=== PATIENT | female | born 1965 | race Caucasian/White ===

== ENCOUNTER → 2018-04-16 15:12 | Outpatient (CLI) | payer OTHER, MEDICAID, SELFPAY ==
--- NOTE | 2018-04-16 | DI.MG.S_ITS ---
BILATERAL DIGITAL SCREENING MAMMOGRAM 3D/2D WITH CAD: 04/16/2018 CLINICAL: Routine screening. Comparison is made to exams dated: 10/09/2016 mammogram, 05/13/2013 mammogram, and 06/15/2011 mammogram - [facility]. The tissue of both breasts is heterogeneously dense. This may lower the sensitivity of mammography. Current study was also evaluated with a Computer Aided Detection (CAD) system. There is a mole marker on the right breast. No significant masses, calcifications, or other findings are seen in either breast. There has been no significant interval change. IMPRESSION: NEGATIVE There is no mammographic evidence of malignancy. A 1 year screening mammogram is recommended. This exam was interpreted at Station ID: [id number]. NOTE: For mammograms, a report in lay terms will be sent to the patient. Approximately 15% of breast malignancies will not be visualized mammographically. In the management of a palpable breast mass, a negative mammogram must not discourage biopsy of a clinically suspicious lesion. Electronically Signed By: Osorio murphy/oliva:04/17/2018 00:05:32 letter sent: Normal Exam ACR BI-RADS Category 1: Negative [id number]
== END ==
PROVIDERS: PCP Family Medicine; Visit Provider Family Medicine
DX: Z12.31 Encounter for screening mammogram for malignant neoplasm of breast (principal)
CPT/HCPCS: 77063; 77067

== ENCOUNTER 2018-05-09 10:08 | Emergency (ER) | payer OTHER, MEDICAID, SELFPAY ==
[2018-05-09 10:44] VITALS: BP 119/63; PULSE 69; RESP 16; O2SAT 99
--- NOTE | 2018-05-09 11:21 | DI.RAD.S_ITS ---
PROCEDURE: XR CHEST 2V INDICATIONS: cough, fever, cold sx TECHNIQUE: 2 views of the chest were acquired. COMPARISON: None. FINDINGS: Surgical changes and devices: None. Lungs and pleura: No pleural effusions or pneumothorax. Lungs are clear. Mediastinum: Mediastinal contours are normal. Heart size is normal. Bones and chest wall: No suspicious bony abnormalities. Soft tissues appear unremarkable. IMPRESSION: No acute disease. Dictated by: Charles Henry M.D. on 05/09/2018 at 11:41 Approved by: Charles Henry M.D. on 05/09/2018 at 11:42
--- NOTE | 2018-05-09 11:29 | ED.URI ---
HPI - URI/Sore Throat General Chief Complaint: Upper Respiratory Symptoms Stated Complaint: COLD/FLU SYMPTOMS? Time Seen by Provider: 05/09/18 11:00 Source: patient Mode of arrival: ambulatory Limitations: no limitations History of Present Illness HPI Narrative: 52-year-old female, former smoker presents to the emergency department with a chief complaint upper respiratory type symptoms for greater than 1 week. She has had runny nose, cough, ear pain and had some loose stools yesterday and an episode of vomiting this morning. She is able to drink liquids without any difficulty. She denies any chest pain or shortness of breath. She denies any fever or shaking chills. She denies dizziness, weakness or lightheadedness. She admittedly feels better than she has in the past few days but is surprised that her symptoms are holding on so long. MD Complaint: cough, sore throat, rhinorrhea and nasal congestion Onset (ago): day(s) Duration: constant Severity: moderate Relieving factors: nothing Able to tolerate fluids by mouth: Yes Context: sick contacts Associated symptoms: denies other symptoms Treatments prior to arrival: none Related Data Previous Rx's Medication Instructions Recorded venlafaxine [Effexor XR] 37.5 mg PO QDAY #90 cap 09/18/17 glimepiride 2 mg PO QDAY #30 tab 10/04/17 estradiol 0.5 mg tablet 0.5 mg PO QDAYP PRN #90 tab 12/12/17 atorvastatin 20 mg tablet 20 mg PO HS #90 tab 12/17/17 ondansetron [Zofran ODT] 4 mg PO Q6H PRN #14 tab 05/09/18 Allergies Allergy/AdvReac Type Severity Reaction Status Date / Time latex [LATEX] Allergy Severe hives Verified 05/03/18 09:53 adhesive [ADHESIVE] AdvReac Mild rash from Verified 05/03/18 09:53 tape morphine [MORPHINE] AdvReac Mild gi upset Verified 05/03/18 09:53 Sulfa (Sulfonamide AdvReac Mild gi upset Verified 05/03/18 09:53 Antibiotics) [SULFA (SULFONAMIDE ANTIBIOTICS)] Review of Systems Review of Systems All systems reviewed & are unremarkable except as noted in HPI and below Constitutional Denies chills, Denies fever(s), Denies lethargy and Denies weakness Eyes Denies change in vision, Denies eye discharge, Denies irritation and Denies loss of vision ENT Ears, Nose, Mouth, and Throat: Denies change in voice, Denies neck pain and Denies sore throat Cardiovascular Denies chest pain, Denies irregular heart rhythm, Denies lightheadedness, Denies palpitations, Denies dyspnea, Denies dyspnea on exertion and Denies orthopnea Respiratory Denies cough, Denies dyspnea, Denies dyspnea on exertion and Denies wheezing Gastrointestinal Gastrointestinal: Denies abdominal pain, Denies change in bowel habits, Denies diarrhea, Denies nausea and Denies vomiting Genitourinary Denies hematuria, Denies flank pain, Denies urinary incontinence and Denies urinary urgency Musculoskeletal Denies neck pain Integumentary/Breasts Denies pruritus, Denies erythema, Denies rash and Denies wounds Neurologic Denies confusion, Denies loss of vision and Denies weakness Psychiatric Denies anxiety, Denies confusion, Denies depression, Denies homicidal ideation and Denies suicidal ideation Endocrine Denies palpitations Hematologic/Lymphatic Denies easy bruising Allergic/Immunologic Denies wheezing PFSH Surgical History Status post laparoscopic supracervical hysterectomy Family History Father Diabetes mellitus Coronary arteriosclerosis Hyperlipidemia Mother Colon cancer Social History Smoking Status: Never smoker Exam Narrative Exam Narrative: GENERAL: This is a well-nourished, well-developed patient, in mild distress. HEAD: Atraumatic. Normocephalic. No temporal or scalp tenderness. EYES: Pupils equal round and reactive. Extraocular motions intact. No scleral icterus. No injection or drainage. ENT: clear nasal drainage. Throat without erythema, tonsillar hypertrophy or exudate. Uvula midline. Airway patent. NECK: Trachea midline. No JVD or lymphadenopathy. Supple, nontender, no meningeal signs. CARDIOVASCULAR: Regular rate and rhythm without murmurs, gallops, or rubs. RESPIRATORY: Clear to auscultation. Breath sounds equal bilaterally. No wheezes, rales, or rhonchi. GASTROINTESTINAL: Abdomen soft, non-tender, nondistended. No hepato-splenomegaly, or palpable masses. No guarding. EXTREMITIES: No clubbing, cyanosis, or edema. No joint tenderness, effusion, or edema noted. BACK: Nontender without deformity or crepitance. No flank tenderness. NEURO: AOx3. SKIN: No rash or erythema. Initial Vital Signs Initial Vital Signs: Vital Signs Pulse Rate 69 05/09/18 10:44 Respiratory Rate 16 05/09/18 10:44 Blood Pressure 119/63 05/09/18 10:44 Pulse Oximetry 99 05/09/18 10:44 Course Orders Ordered: ED Orders 05/09/18 11:21 CXR [XR chest 2V] Stat 05/09/18 11:26 Influenza A and B by PCR Rapid Stat Vital Signs - 8 hr 05/09/18 10:44 Pulse Rate 69 Respiratory Rate 16 Blood Pressure 119/63 Pulse Oximetry 99 MDM - URI/Sore Throat Differential Diagnosis Differential diagnosis: Likely upper respiratory infection, otitis media, sinusitis, viral infection, bronchitis, influenza and pharyngitis Medical Records Attestation: I reviewed the patient's medical records. Lab Data Attestation: I reviewed the patient's lab results. Lab Results 05/09/18 Range/Units 11:26 Influenza A & B (PCR) Negative (Negative) Imaging Data Chest x-ray: Radiologist's impression: [place] [address] XRay Report Signed Patient: Ange Armenta LMR#: [id number] : 1965Acct:[id number] Age/Sex: 52 / FDate of Service: 05/09/18 Loc: ED Accession Number: [id number] Procedure: XR chest 2V Ordering Provider: Poncho Keith D.O. PROCEDURE: XR CHEST 2V INDICATIONS: cough, fever, cold sx TECHNIQUE: 2 views of the chest were acquired. COMPARISON: None. FINDINGS: Surgical changes and devices: None. Lungs and pleura: No pleural effusions or pneumothorax. Lungs are clear. Mediastinum: Mediastinal contours are normal. Heart size is normal. Bones and chest wall: No suspicious bony abnormalities. Soft tissues appear unremarkable. IMPRESSION: No acute disease. Dictated by: Charles Henry M.D. on 05/09/2018 at 11:41 Approved by: Charles Henry M.D. on 05/09/2018 at 11:42 [facility] Narrative Medical decision making narrative: Likely discussion with the patient regarding her constellation of symptoms and the likelihood of it being viral versus another etiology. She is feeling better and has normal vital signs. Chest x-ray is clear and was suggests no pneumonia, flu swab is also negative. We discussed whether not blood work would provide information that would change the disposition and I think it is very unlikely. Furthermore the patient is tolerating oral liquids without difficulty and refused an IV for hydration at this point time. I support this decision Discharge Plan Departure Patient Disposition: Home Clinical Impression: Systemic viral illness Discharge Date/Time: 05/09/18 12:13 Interventions: ED Discharge Assessment Last Done: 05/09/18 12:07 Instructions: DI for Viral Syndrome Activity Restrictions/Additional Instructions: 1. Drink plenty of fluids with frequent small sips. 2. For the next 24 hours a clear liquid diet is advised. After that please employ a brat diet which would include bananas, rice, apples, toast. 3. Please take medications as directed. Electronically transmitted to [facility] at your request 4. Please follow-up with your doctor in the next 1-2 days. Call the office for an appointment. 5. Please return to the emergency Department for any worsening or persistent symptoms, such as increasing pain or fever. Prescriptions: New ondansetron [Zofran ODT] 4 mg tablet,disintegrating 4 mg PO Q6H PRN (Reason: nausea and vomiting) Qty: 14 RF: 0 No Action venlafaxine [Effexor XR] 37.5 MG capsule,extended release 24hr 37.5 mg PO QDAY Qty: 90 RF: 3 glimepiride 2 MG tablet 2 mg PO QDAY Qty: 30 RF: 11 estradiol 0.5 mg tablet 0.5 mg PO QDAYP PRN (Reason: HRT) Qty: 90 RF: 3 atorvastatin [Lipitor] 20 mg tablet 20 mg PO HS Qty: 90 RF: 0 Referrals: Juan Luis Yao MD [Primary Care Provider] - Stand Alone Forms: Work/School Restrictions
[2018-05-09 11:56] LABS: Influenza A and B by PCR Rapid Negative (Negative)
[2018-05-09 12:12] VITALS: BP 125/76; PULSE 67; RESP 20; O2SAT 97
--- NOTE | 2018-05-09 20:24 | ED_ITS ---
HPI - URI/Sore Throat General Chief Complaint: Upper Respiratory Symptoms Stated Complaint: COLD/FLU SYMPTOMS? Time Seen by Provider: 05/09/18 11:00 Source: patient Mode of arrival: ambulatory Limitations: no limitations History of Present Illness HPI Narrative: 52-year-old female, former smoker presents to the emergency department with a chief complaint upper respiratory type symptoms for greater than 1 week. She has had runny nose, cough, ear pain and had some loose stools yesterday and an episode of vomiting this morning. She is able to drink liquids without any difficulty. She denies any chest pain or shortness of breath. She denies any fever or shaking chills. She denies dizziness, weakness or lightheadedness. She admittedly feels better than she has in the past few days but is surprised that her symptoms are holding on so long. MD Complaint: cough, sore throat, rhinorrhea and nasal congestion Onset (ago): day(s) Duration: constant Severity: moderate Relieving factors: nothing Able to tolerate fluids by mouth: Yes Context: sick contacts Associated symptoms: denies other symptoms Treatments prior to arrival: none Related Data Previous Rx's Medication Instructions Recorded venlafaxine [Effexor XR] 37.5 mg PO QDAY #90 cap 09/18/17 glimepiride 2 mg PO QDAY #30 tab 10/04/17 estradiol 0.5 mg tablet 0.5 mg PO QDAYP PRN #90 tab 12/12/17 atorvastatin 20 mg tablet 20 mg PO HS #90 tab 12/17/17 ondansetron [Zofran ODT] 4 mg PO Q6H PRN #14 tab 05/09/18 Allergies Allergy/AdvReac Type Severity Reaction Status Date / Time latex [LATEX] Allergy Severe hives Verified 05/03/18 09:53 adhesive [ADHESIVE] AdvReac Mild rash from Verified 05/03/18 09:53 tape morphine [MORPHINE] AdvReac Mild gi upset Verified 05/03/18 09:53 Sulfa (Sulfonamide AdvReac Mild gi upset Verified 05/03/18 09:53 Antibiotics) [SULFA (SULFONAMIDE ANTIBIOTICS)] Review of Systems Review of Systems All systems reviewed & are unremarkable except as noted in HPI and below Constitutional Denies chills, Denies fever(s), Denies lethargy and Denies weakness Eyes Denies change in vision, Denies eye discharge, Denies irritation and Denies loss of vision ENT Ears, Nose, Mouth, and Throat: Denies change in voice, Denies neck pain and Denies sore throat Cardiovascular Denies chest pain, Denies irregular heart rhythm, Denies lightheadedness, Denies palpitations, Denies dyspnea, Denies dyspnea on exertion and Denies orthopnea Respiratory Denies cough, Denies dyspnea, Denies dyspnea on exertion and Denies wheezing Gastrointestinal Gastrointestinal: Denies abdominal pain, Denies change in bowel habits, Denies diarrhea, Denies nausea and Denies vomiting Genitourinary Denies hematuria, Denies flank pain, Denies urinary incontinence and Denies urinary urgency Musculoskeletal Denies neck pain Integumentary/Breasts Denies pruritus, Denies erythema, Denies rash and Denies wounds Neurologic Denies confusion, Denies loss of vision and Denies weakness Psychiatric Denies anxiety, Denies confusion, Denies depression, Denies homicidal ideation and Denies suicidal ideation Endocrine Denies palpitations Hematologic/Lymphatic Denies easy bruising Allergic/Immunologic Denies wheezing PFSH Surgical History Status post laparoscopic supracervical hysterectomy Family History Father Diabetes mellitus Coronary arteriosclerosis Hyperlipidemia Mother Colon cancer Social History Smoking Status: Never smoker Exam Narrative Exam Narrative: GENERAL: This is a well-nourished, well-developed patient, in mild distress. HEAD: Atraumatic. Normocephalic. No temporal or scalp tenderness. EYES: Pupils equal round and reactive. Extraocular motions intact. No scleral icterus. No injection or drainage. ENT: clear nasal drainage. Throat without erythema, tonsillar hypertrophy or exudate. Uvula midline. Airway patent. NECK: Trachea midline. No JVD or lymphadenopathy. Supple, nontender, no meningeal signs. CARDIOVASCULAR: Regular rate and rhythm without murmurs, gallops, or rubs. RESPIRATORY: Clear to auscultation. Breath sounds equal bilaterally. No wheezes , rales, or rhonchi. GASTROINTESTINAL: Abdomen soft, non-tender, nondistended. No hepato-splenomegaly , or palpable masses. No guarding. EXTREMITIES: No clubbing, cyanosis, or edema. No joint tenderness, effusion, or edema noted. BACK: Nontender without deformity or crepitance. No flank tenderness. NEURO: AOx3. SKIN: No rash or erythema. Initial Vital Signs Initial Vital Signs: Vital Signs Pulse Rate 69 05/09/18 10:44 Respiratory Rate 16 05/09/18 10:44 Blood Pressure 119/63 05/09/18 10:44 Pulse Oximetry 99 05/09/18 10:44 Course Orders Ordered: ED Orders 05/09/18 11:21 CXR [XR chest 2V] Stat 05/09/18 11:26 Influenza A and B by PCR Rapid Stat Vital Signs - 8 hr 05/09/18 10:44 Pulse Rate 69 Respiratory Rate 16 Blood Pressure 119/63 Pulse Oximetry 99 MDM - URI/Sore Throat Differential Diagnosis Differential diagnosis: Likely upper respiratory infection, otitis media, sinusitis, viral infection, bronchitis, influenza and pharyngitis Medical Records Attestation: I reviewed the patient's medical records. Lab Data Attestation: I reviewed the patient's lab results. Lab Results 05/09/18 Range/Units 11:26 Influenza A & B (PCR) Negative (Negative) Imaging Data Chest x-ray: Radiologist's impression: [place] [address] XRay Report Signed Patient: Ange Armenta LMR#: [id number] : 1965Acct:[id number] Age/Sex: 52 / FDate of Service: 05/09/18 Loc: ED Accession Number: [id number] Procedure: XR chest 2V Ordering Provider: Poncho Keith D.O. PROCEDURE: XR CHEST 2V INDICATIONS: cough, fever, cold sx TECHNIQUE: 2 views of the chest were acquired. COMPARISON: None. FINDINGS: Surgical changes and devices: None. Lungs and pleura: No pleural effusions or pneumothorax. Lungs are clear. Mediastinum: Mediastinal contours are normal. Heart size is normal. Bones and chest wall: No suspicious bony abnormalities. Soft tissues appear unremarkable. IMPRESSION: No acute disease. Dictated by: Charles Henry M.D. on 05/09/2018 at 11:41 Approved by: Charles Henry M.D. on 05/09/2018 at 11:42 [facility] Narrative Medical decision making narrative: Likely discussion with the patient regarding her constellation of symptoms and the likelihood of it being viral versus another etiology. She is feeling better and has normal vital signs. Chest x- ray is clear and was suggests no pneumonia, flu swab is also negative. We discussed whether not blood work would provide information that would change the disposition and I think it is very unlikely. Furthermore the patient is tolerating oral liquids without difficulty and refused an IV for hydration at this point time. I support this decision Discharge Plan Departure Patient Disposition: Home Clinical Impression: Systemic viral illness Discharge Date/Time: 05/09/18 12:13 Interventions: ED Discharge Assessment Last Done: 05/09/18 12:07 Instructions: DI for Viral Syndrome Activity Restrictions/Additional Instructions: 1. Drink plenty of fluids with frequent small sips. 2. For the next 24 hours a clear liquid diet is advised. After that please employ a brat diet which would include bananas, rice, apples, toast. 3. Please take medications as directed. Electronically transmitted to [facility] at your request 4. Please follow-up with your doctor in the next 1-2 days. Call the office for an appointment. 5. Please return to the emergency Department for any worsening or persistent symptoms, such as increasing pain or fever. Prescriptions: New ondansetron [Zofran ODT] 4 mg tablet,disintegrating 4 mg PO Q6H PRN (Reason: nausea and vomiting) Qty: 14 RF: 0 No Action venlafaxine [Effexor XR] 37.5 MG capsule,extended release 24hr 37.5 mg PO QDAY Qty: 90 RF: 3 glimepiride 2 MG tablet 2 mg PO QDAY Qty: 30 RF: 11 estradiol 0.5 mg tablet 0.5 mg PO QDAYP PRN (Reason: HRT) Qty: 90 RF: 3 atorvastatin [Lipitor] 20 mg tablet 20 mg PO HS Qty: 90 RF: 0 Referrals: Juan Luis Yao MD [Primary Care Provider] - Stand Alone Forms: Work/School Restrictions
== END 2018-05-09 12:13 | disposition home or self-care (01) ==
PROVIDERS: Emergency Provider Emergency Medicine; PCP Family Medicine
DX: B34.9 Viral infection, unspecified (principal)
CPT/HCPCS: 71046; 87400; 99282; 99284

== ENCOUNTER 2018-07-16 06:48 | Emergency (ER) | payer OTHER, MEDICAID, SELFPAY ==
[2018-07-16 06:58] VITALS: BP 131/75; PULSE 73; RESP 20; TEMP 36.6; O2SAT 95; BMI 25.6
--- NOTE | 2018-07-16 07:17 | ED.CHESTPAIN ---
HPI - Chest Pain General Chief Complaint: Chest Pain Stated Complaint: tight chest left arm pain Time Seen by Provider: 07/16/18 07:03 Source: patient Mode of arrival: ambulatory Limitations: no limitations History of Present Illness HPI narrative: Patient is a 53-year-old female who has history of diabetes and hyperlipidemia and presents with chest pain and left arm pain ongoing for number of weeks. She says her arm is pretty constant with pain. It does not hurt with movement. Last 2 or 3 days she feels some chest tightness like she cannot take a deep breath. She does feel like she has exhaling all the way. She denies any shortness of breath or heart palpitations. She denies any fever productive cough. She is worried because her dad did of an RI at the age of 52. MD complaint: chest pain Onset (ago): day(s) Related Data Previous Rx's Medication Instructions Recorded venlafaxine [Effexor XR] 37.5 mg PO QDAY #90 cap 09/18/17 glimepiride 2 mg PO QDAY #30 tab 10/04/17 estradiol 0.5 mg tablet 0.5 mg PO QDAYP PRN #90 tab 12/12/17 atorvastatin 20 mg tablet 20 mg PO HS #90 tab 12/17/17 ondansetron [Zofran ODT] 4 mg PO Q6H PRN #14 tab 05/09/18 Allergies Allergy/AdvReac Type Severity Reaction Status Date / Time latex [LATEX] Allergy Severe hives Verified 05/03/18 09:53 adhesive [ADHESIVE] AdvReac Mild rash from Verified 05/03/18 09:53 tape morphine [MORPHINE] AdvReac Mild gi upset Verified 05/03/18 09:53 Sulfa (Sulfonamide AdvReac Mild gi upset Verified 05/03/18 09:53 Antibiotics) [SULFA (SULFONAMIDE ANTIBIOTICS)] Review of Systems Review of Systems All systems reviewed & are unremarkable except as noted in HPI and below Constitutional Denies chills, Denies fever(s), Denies lethargy and Denies weakness Cardiovascular Reports as per HPI, Reports chest pain and Denies dyspnea Respiratory Denies chest congestion, Denies cough, Denies pain with cough, Denies dyspnea and Denies wheezing Gastrointestinal Gastrointestinal: Denies abdominal pain, Denies change in bowel habits, Denies diarrhea, Denies nausea and Denies vomiting Genitourinary Denies hematuria, Denies flank pain, Denies urinary incontinence and Denies urinary urgency Musculoskeletal Denies back pain, Denies muscle weakness, Denies numbness and Denies tingling Integumentary/Breasts Denies pruritus, Denies erythema, Denies rash and Denies wounds Neurologic Denies numbness, Denies tingling and Denies weakness Allergic/Immunologic Denies wheezing PFSH Medical History Diabetes (Chronic) Hyperlipidemia (Chronic) Surgical History Status post laparoscopic supracervical hysterectomy Family History Father Diabetes mellitus Coronary arteriosclerosis Hyperlipidemia Mother Colon cancer Social History Smoking Status: Never smoker Exam Initial Vital Signs Initial Vital Signs: Vital Signs Temperature 97.8 F 07/16/18 06:58 Pulse Rate 73 07/16/18 06:58 Respiratory Rate 20 07/16/18 06:58 Blood Pressure 131/75 07/16/18 06:58 Pulse Oximetry 95 07/16/18 06:58 GENERAL: Well-appearing middle-aged female no acute distress HEENT: Head atraumatic,EOMI, pupils reactive, face symmetric, neck is supple CARDIOVASCULAR: Regular rate and rhythm without murmurs, rubs or gallops. RESPIRATORY: Breath sounds equal bilaterally, no wheezes rales or rhonchi. ABDOMEN: Soft, nontender. Normoactive bowel sounds all 4 quadrants. No guarding or rebound. EXTREMITIES: Normal range of motion, no clubbing or edema. Neurovascularly intact NEUROLOGICAL: Alert and oriented x4.Normal gait and speech. Cranial nerves II through XII grossly intact. SKIN: Warm, dry, no laceration, no petechiae, no rashes or lesions. Course Orders Ordered: ED Orders 07/16/18 07:15 Complete Blood Count AUTO DIFF Stat Comprehensive Metabolic Panel Stat Lipase Stat Troponin & CK Cardiac Panel Stat 07/16/18 07:26 XR chest 1V Stat EKG-12 Lead Stat Discontinued Medications Albuterol (Ventolin) 2.5 mg INH NOW ONE Stop: 07/16/18 07:27 Last Admin: 07/16/18 07:53 Dose: 2.5 mg Aspirin (Aspirin Chew) 324 mg PO NOW ONE Stop: 07/16/18 07:27 Last Admin: 07/16/18 07:50 Dose: 324 mg Vital Signs - 8 hr 07/16/18 06:58 07/16/18 07:53 07/16/18 08:36 Temperature 97.8 F Pulse Rate 73 71 87 Respiratory Rate 20 22 12 Blood Pressure 131/75 Blood Pressure [Right Arm] 124/63 Pulse Oximetry 95 93 96 MDM - Chest Pain Lab Data Attestation: I reviewed the patient's lab results. Result diagrams: 07/16/18 07:15 07/16/18 07:15 Lab Results 07/16/18 07/16/18 Range/Units 07:15 07:15 WBC 8.7 (4.5-11.0) X10^3/uL RBC 5.05 (4.0-5.2) X10^6/uL Hgb 15.2 (12.0-16.0) g/dL Hct 43.4 (36-46) % MCV 85.9 (80-100) fL MCH 30.0 (26-34) PG MCHC 35.0 (30-36) % RDW 12.8 (11.6-14.8) % Plt Count 309 (150-400) X10^3/uL Neut % (Auto) 60.2 (50-75) % Lymph % (Auto) 31.0 (25-40) % [place] % (Auto) 5.5 (3-14) % Eos % (Auto) 2.6 (2-4) % Baso % (Auto) 0.7 (0-2) % Neut # (Auto) 5200 (8076-9553) /uL Sodium 140 (137-145) mmol/L Potassium 4.4 (3.4-5.1) mmol/L Chloride 106 (98-107) mmol/L Carbon Dioxide 24 (22-32) mmol/L BUN 13 (7-17) mg/dL Creatinine 0.50 L (0.52-1.04) mg/dL Estimated GFR > 60.0 (>60) mL/min BUN/Creatinine Ratio 26.0 H (6-22) Glucose 183 H (70-100) mg/dL Calcium 9.9 (8.4-10.2) mg/dL Total Bilirubin 0.9 (0.2-1.3) mg/dL AST 48 H (14-36) IU/L ALT 65 H (9-52) IU/L Alkaline Phosphatase 99 (38-126) U/L Total Creatine Kinase 241 H (30-135) U/L CK-MB (CK-2) 5.96 H (<2.37) ng/mL CK-MB (CK-2) Rel Index 2.5 (1.5-5.0) % Troponin I < 0.012 (0.01-0.034) ng/mL Total Protein 6.6 (6.3-8.2) g/dL Albumin 4.1 (3.5-5.0) g/dL Globulin 2.5 (1.7-4.1) g/dL Albumin/Globulin Ratio 1.6 (1.0-2.8) Lipase 76 (23-300) U/L ECG Data Attestation: I personally reviewed and interpreted this ECG as follows: Prior ECG tracings: available for review Interpretation: EKG 1.: Sinus rhythm rate 63 left bundle branch block noted similar to previous EKG 1st degree AV block KS interval 210 EKG 2.: Sinus rhythm rate 60 a persistent left bundle branch block persistent 1st degree AV block KS interval 212 MDM Narrative Medical decision making narrative: Patient really had no change with albuterol. Feels like her chest tightness is still a developed 2. I called and spoke with Dr. Yao. She does have an appointment today at 3:30 a.m.. Recommended outpatient stress test. He will be happy to set that up for her recommend keeping her appointment. Discharge Plan Departure Patient Disposition: Home Clinical Impression: Atypical chest pain Discharge Date/Time: 07/16/18 08:41 Interventions: ED Discharge Assessment Last Done: 07/16/18 08:38 Instructions: DI for Atypical Chest Pain Activity Restrictions/Additional Instructions: *You have been diagnosed with atypical chest pain *What to do: You do have risk factors for coronary artery disease, Dr. Yao will set up a outpatient stress test for you. *Continue to take medications as directed Aspirin 81 mg once a day *Follow up with your primary care provider this afternoon as previously scheduled *Return to ER if you should have worsening chest discomfort, worsening left arm pain, difficulty breathing or any new, worsening or concerning symptoms Prescriptions: No Action venlafaxine [Effexor XR] 37.5 MG capsule,extended release 24hr 37.5 mg PO QDAY Qty: 90 RF: 3 glimepiride 2 MG tablet 2 mg PO QDAY Qty: 30 RF: 11 estradiol 0.5 mg tablet 0.5 mg PO QDAYP PRN (Reason: HRT) Qty: 90 RF: 3 atorvastatin [Lipitor] 20 mg tablet 20 mg PO HS Qty: 90 RF: 0 ondansetron [Zofran ODT] 4 mg tablet,disintegrating 4 mg PO Q6H PRN (Reason: nausea and vomiting) Qty: 14 RF: 0 Referrals: Juan Luis Yao MD [Primary Care Provider] - Stand Alone Forms: Work Release Note
--- NOTE | 2018-07-16 07:26 | DI.RAD.S_ITS ---
PROCEDURE: XR CHEST 1V INDICATIONS: chest pain TECHNIQUE: One view of the chest was acquired. COMPARISON: [facility], CR, XR CHEST 2V, 05/09/2018, 10:58. FINDINGS: Surgical changes and devices: None. Lungs and pleura: No pleural effusions or pneumothorax. Lungs are clear. Mediastinum: Mediastinal contours appear normal. Heart size is normal. Bones and chest wall: No suspicious bony lesions. Overlying soft tissues appear unremarkable. IMPRESSION: 1. No acute cardiopulmonary disease. Dictated by: Venancio uAguste M.D. on 07/16/2018 at 9:28 Approved by: Venancio Auguste M.D. on 07/16/2018 at 9:30
[2018-07-16 07:36] LABS: Add Manual Diff / Slide Review NO; Basophils Percent Auto 0.7 % (0-2); Eosinophils Percent Auto 2.6 % (2-4); Hematocrit 43.4 % (36-46); Hemoglobin 15.2 g/dL (12.0-16.0); Mean Corpuscular Volume 85.9 fL (80-100); Monocytes Percent Auto 5.5 % (3-14); Neutrophils Absolute Auto 5200 /uL (3000-5900); Neutrophils Percent Auto 60.2 % (50-75); Platelet Count 309 X10^3/uL (150-400); Red Blood Cell Count 5.05 X10^6/uL (4.0-5.2); Red Cell Distribution Width 12.8 % (11.6-14.8); White Blood Cell Count 8.7 X10^3/uL (4.5-11.0)
[2018-07-16 07:43] LABS: Alanine Aminotransferase 65 IU/L (9-52); Albumin 4.1 g/dL (3.5-5.0); Albumin Globulin Ratio 1.6 (1.0-2.8); Alkaline Phosphatase 99 U/L (38-126); Aspartate Aminotransferase 48 IU/L (14-36); Bilirubin Total 0.9 mg/dL (0.2-1.3); Blood Urea Nitrogen 13 mg/dL (7-17); Calcium 9.9 mg/dL (8.4-10.2); Carbon Dioxide 24 mmol/L (22-32); Chloride 106 mmol/L (98-107); Creatine Kinase 241 U/L (30-135); Estimated Glomerular Filt Rate > 60.0 mL/min (>60); Globulin 2.5 g/dL (1.7-4.1); Glucose 183 mg/dL (70-100); HEMOLYSIS < 15 (0-50); Lipase 76 U/L (23-300); Potassium 4.4 mmol/L (3.4-5.1); Sodium 140 mmol/L (137-145); Total Protein 6.6 g/dL (6.3-8.2)
[2018-07-16] MEDS: ASPIRIN 81 MG TAB 324 MG PO (07:50)
[2018-07-16 07:53] VITALS: PULSE 71; RESP 22; O2SAT 93
[2018-07-16] MEDS: ALBUTEROL 2.5 MG/3 ML NEB (ADULT) INH (07:53)
[2018-07-16 07:58] LABS: CKMB % Relative Index 2.5 % (1.5-5.0); Creatine Kinase MB 5.96 ng/mL (<2.37)
[2018-07-16 08:02] LABS: Troponin I < 0.012 ng/mL (0.01-0.034)
[2018-07-16 08:36] VITALS: BP 124/63; PULSE 87; RESP 12; O2SAT 96
== END 2018-07-16 08:41 | disposition home or self-care (01) ==
PROVIDERS: Emergency Provider Emergency Medicine; PCP Family Medicine
DX: R07.89 Other chest pain (principal)
CPT/HCPCS: 36591; 71045; 80053; 82550; 82553; 83690; 84484; 85025; 93005; 93010; 93041; 94640; 99283; 99285; J7613

== ENCOUNTER → 2018-08-07 09:39 | Outpatient (CLI) | payer OTHER, MEDICAID, SELFPAY ==
[2018-08-07 10:58] LABS: Hemoglobin A1C% w Est Avg Glu 7.2 % (4.0-6.0)
[2018-08-07 11:31] LABS: Cholesterol 194 mg/dL (140-199); HDL Cholesterol 40 mg/dL (40-60); LDL Cholesterol Calculated 106 mg/dL (<100); Triglycerides 241 mg/dL (35-150)
== END ==
PROVIDERS: PCP Family Medicine; Visit Provider Family Medicine
DX: E11.9 Type 2 diabetes mellitus without complications (principal)
CPT/HCPCS: 36415; 80061; 83036

== ENCOUNTER → 2018-08-19 13:50 | Outpatient (CLI) | payer OTHER, MEDICAID, SELFPAY ==
[2018-08-19 14:15] LABS: Influenza A and B by PCR Rapid Negative (Negative)
== END ==
PROVIDERS: PCP Family Medicine; Visit Provider Registered Nurse
DX: J11.1 Influenza due to unidentified influenza virus with other respiratory manifestations (principal)
CPT/HCPCS: 87400

== ENCOUNTER → 2018-10-08 09:40 | Outpatient (CLI) | payer OTHER, MEDICAID, SELFPAY ==
--- NOTE | 2018-10-08 10:50 | PM.TREADMILL ---
Cardiac Stress Test Report Referral & Results Date Patient Seen: 10/08/18 Requesting provider: Juan Luis Yao Indication: Chest pain, status post ER visit Rest ECG: Right bundle and probably left anterior fascicular block verses complete left bundle branch block (seen previously) Procedure Note: After both written and verbal informed consent the patient had an IV started by the diagnostic imaging RN and then was hooked up to the treadmill monitoring system. The patient was placed on the treadmill at 1 mile an hour with no elevation and was then injected with the Sherrie scan material. The Cardiolite was then immediately administered. The patient spent an additional 2-3 minutes on the treadmill before being returned to the [facility] in the supine position. The patient had a normal response to all infused materials. Impression: Normal response as above Please see perfusion imaging report for details regarding possible ischemia Please note: Actual ECG tracings can be found in the PACS system.
--- NOTE | 2018-10-10 08:00 | DI.NM.S_ITS ---
DATE OF SERVICE: PROCEDURE: Pharmacological perfusion study. INDICATION: Chest pain with underlying diabetes mellitus, hypertension, hyperlipidemia, left bundle branch block. RADIOPHARMACEUTICAL: 24.9 mCi technetium-99m Myoview IV was injected at stress, and 27.3 mCi technetium-99m Myoview IV was injected at rest. CARDIAC STRESS: Patient underwent IV Lexiscan perfusion study under the supervision of an attending staff. She remained hemodynamically stable. No significant symptoms were reported. Baseline rhythm appears to be sinus and partial left bundle branch block pattern. During stress, no convincing ischemic changes seen. Artifact seen as well. There were occasional PVCs. In some of the leads, rhythm is not clear. RAW DATA: Breast shadow was seen. There was increased subdiaphragmatic activity. GATED STUDY: Stress LV ejection fraction 62% without any obvious wall motion abnormalities. Resting end-diastolic volume 101 mL. No transient ischemic dilatation. TID ratio 1.02, which is within normal limits. Lung/heart ratio 0.35, which is within normal limits. MYOCARDIAL PERFUSION SCAN: Stress supine, resting supine, and stress prone images were compared to each other. It appears to be that patient has predominantly fixed small-sized mildly decreased perfusion of distal anterior wall, extending into the anterior apex and distal anterior septum. No obvious reversible ischemia. CONCLUSION: 1. No obvious reversible ischemia. 2. Patient has predominantly fixed small-sized mildly decreased perfusion of distal anterior wall extending into the anterior apex and distal anterior septum. Patient has underlying partial left bundle branch block. Left bundle branch block can cause those changes. Breast shadow was seen as well. There is a possibility of persistent tissue attenuation artifact; however, small distal anterior wall, anterior apical, and distal anterior septum infarction cannot be ruled out. No transient ischemic dilatation. Preserved LV function. In the absence of ischemia and preserved LV function, overall this is not a high-risk perfusion scan. Clinical correlation is recommended. 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
== END ==
PROVIDERS: PCP Family Medicine; Visit Provider Family Medicine
DX: R07.89 Other chest pain (principal); I45.10 Unspecified right bundle-branch block; E11.9 Type 2 diabetes mellitus without complications; Z82.49 Family history of ischemic heart disease and other diseases of the circulatory system
CPT/HCPCS: 78452; 93016; 93017; 93018; A9502; J2785

== ENCOUNTER → 2018-10-09 09:36 | Outpatient (CLI) | payer OTHER, MEDICAID, SELFPAY ==
--- NOTE | 2018-10-09 | DI.ECHO.S_ITS ---
[place] +---------+ [facility] +---------+ : : [address] : : : : [id number] : : : : Phone: [phone]+ Echocardiogram Report + + :Name: LUIS ALBERTO GILLIAM Study Date: 10/09/2018 Height: 62 in : :[facility] Exam Location: IS Weight: 144 lb : : Gender: Female BSA: 1.7 m2 : :: 1965 Age: 53 yrs BP: 120/80 mmHg: :Reason For Study: Chest pain : :Ordering Physician: Dr. Mcknight : :Maximilian Performed By: Kelley Page : + + Interpretation Summary The ejection fraction is estimated to be 50-55%. There is no significant valvular heart disease. Procedure: A two-dimensional transthoracic echocardiogram with color flow and Doppler was performed. The study quality was technically adequate. There is no prior echocardiogram noted for this patient. The patient was in normal sinus rhythm during the exam. The patient had occasional PVCs during the exam. Left Ventricle: The left ventricle is normal in size. Left ventricular wall thickness is mildly increased. The ejection fraction is estimated to be 50- 55%. There are no focal wall motion abnormalities. Diastolic parameters suggest probable normal left ventricular diastolic function and normal filling pressures. Right Ventricle: The right ventricle is normal in size and function. Atria: Both atria are normal in size. There is no Doppler evidence for an interatrial shunt. Mitral Valve: The mitral valve is normal in structure and function. There is trace mitral regurgitation. Aortic Valve: The aortic valve is trileaflet. The aortic valve opens well. No aortic regurgitation is present. Tricuspid Valve: The tricuspid valve is normal in structure and function. There is trace tricuspid regurgitation. The right ventricular systolic pressure is estimated to be at least 18 mmHg based on an estimated right atrial pressure of 3 mm Hg. Pulmonic Valve: The pulmonic valve is not well seen, but is grossly normal. There is no pulmonic valvular regurgitation. Great Vessels: The aortic root is normal size. The ascending aorta is mildly enlarged. The aortic arch is normal in size. The pulmonary artery is not well visualized, but is probably normal size. The IVC is of normal diameter and collapses greater than 50% with a sniff. This suggests a low right atrial pressure of 3 mm Hg. Pericardium/ Pleura There is no pericardial effusion. There is no pleural effusion. MMode/2D Measurements & Calculations LVIDd: 3.9 cm LVOT diam: 2.0 cm LVIDs: 2.8 cm Ao root diam: 3.1 cm FS: 27.2 % asc Aorta Diam: 3.5 cm EPSS: 0.51 cm Ao Arch Diam (Prox Trans): 2.2 cm IVSd: 1.0 cm LVPWd: 1.1 cm LV bethea. diameter/BSA (cm/m^2): 2.4 LV sys. diameter/BSA (cm/m^2): 1.7 LA A2 area: 16.6 cm2 RA long axis: 4.8 cm LA A4 area: 15.0 cm2 RA area: 16.4 cm2 LA length (vol): 4.9 cm RA vol: 48.0 ml LA vol: 43.2 ml RA : 28.9 ml/m2 LA vol index: 26.0 ml/m2 IVC diam: 1.9 cm RVD1 (basal): 4.0 cm TAPSE: 2.0 cm Doppler Measurements & Calculations Ao V2 max: 132.0 cm/sec LVOT Max Ck: 69.7 cm/sec Ao V2 mean: 101.6 cm/sec LV V1 max P.9 mmHg Ao max P.0 mmHg LV V1 VTI: 15.6 cm Ao mean P.3 mmHg REGGIE(I,D): 1.8 cm2 Ao V2 VTI: 28.2 cm REGGIE(V,D): 1.7 cm2 sev ratio: 0.55 REGGIE indexed to BSA (cm^2/m^2): 1.1 MV E max ck: 58.3 cm/sec TR max ck: 194.6 cm/sec MV A max ck: 42.5 cm/sec TR max P.2 mmHg MV E/A: 1.4 PA V2 max: 73.1 cm/sec Med Peak E' Ck: 4.2 cm/sec PA V2 mean: 50.4 cm/sec E/E' med: 13.9 PA mean P.1 mmHg Lat Peak E' Ck: 7.4 cm/sec PA Accel Time: 0.10 sec E/E' lat: 7.9 E/e' average: 10.9 MV dec time: 0.23 sec MV P1/2t: 66.7 msec MV P1/2t max ck: 58.8 cm/sec SV(LVOT): 50.0 ml MVA(P1/2t): 3.3 cm2 Reading Physician:01:28 PM
== END ==
PROVIDERS: PCP Family Medicine; Visit Provider Family Medicine
DX: R07.9 Chest pain, unspecified (principal); I44.7 Left bundle-branch block, unspecified; E11.9 Type 2 diabetes mellitus without complications; I10 Essential (primary) hypertension; E78.5 Hyperlipidemia, unspecified
CPT/HCPCS: 93306

== ENCOUNTER 2018-11-26 11:31 | Emergency (ER) | payer OTHER, SELFPAY ==
[2018-11-26 11:42] VITALS: BP 159/91; PULSE 72; RESP 14; TEMP 35.6; O2SAT 98; BMI 25.0
--- NOTE | 2018-11-26 12:06 | ED.BACK ---
HPI - Back Pain/Injury <Neyda Johnston PA-C - Last Filed: 11/26/18 14:16> General Chief Complaint: Back Pain/Injury Stated Complaint: BACK SPRAIN Time Seen by Provider: 11/26/18 12:06 Source: patient Mode of arrival: ambulatory Limitations: no limitations History of Present Illness HPI Narrative: This 53-year-old female complains of acute exacerbation of chronic low back pain which occurred while she was at work today. She lifted a heavy bucket of detergent/bleach (weight unknown), then was bending and twisting lot this when she began to feel more pain in her right low back and right gluteal area and leg. She states that this feels like a typical exacerbation of her ?sciatica? that she has had for many years. She states that she always some pain at baseline, and does get exacerbated at times by lifting and twisting. She states that she feels like the leg can be somewhat weak when she walks, that is typical for her. She denies any new weakness. She denies any paresthesia. She denies any groin numbness, changes in bowel or bladder function. she states that she has anti-inflammatories and muscle relaxants at home for this and is using ice, and typically it improves with a little bit of rest. She states that she actually has the rest of the week off work after tomorrow due to her 's planned surgery, but thinking she should take tomorrow off so this does not get worse. Related Data Home Medications Medication Instructions Recorded Confirmed atorvastatin [Lipitor] 20 mg PO BEDTIME 11/26/18 11/26/18 estradiol 0.5 mg PO DAILY 11/26/18 11/26/18 glimepiride 2 mg PO DAILY 11/26/18 11/26/18 venlafaxine [Effexor XR] 37.5 mg PO DAILY 11/26/18 11/26/18 Previous Rx's Medication Instructions Recorded albuterol sulfate HFA 90 2 inhalation INHALATION Q4-6H PRN 08/19/18 mcg/actuation aerosol inhaler #6.7 gram Allergies Allergy/AdvReac Type Severity Reaction Status Date / Time latex [LATEX] Allergy Severe hives Verified 11/26/18 11:42 adhesive [ADHESIVE] AdvReac Mild rash from Verified 11/26/18 11:42 tape morphine [MORPHINE] AdvReac Mild gi upset Verified 11/26/18 11:42 Sulfa (Sulfonamide AdvReac Mild gi upset Verified 11/26/18 11:42 Antibiotics) [SULFA (SULFONAMIDE ANTIBIOTICS)] Review of Systems <Neyda Johnston PA-C - Last Filed: 11/26/18 14:16> Review of Systems ROS Unobtainable: All systems reviewed & are unremarkable except as noted in HPI and below PFSH <Neyda Johnston PA-C - Last Filed: 11/26/18 14:16> Medical History (Updated 11/26/18 @ 12:36 by Jose Miguel Montemayor RN) Chronic low back pain (Acute) Diabetes (Chronic) Herpes (Chronic 2002) Hyperlipidemia (Chronic) Surgical History (Updated 07/16/18 @ 11:14 by Mikayla Warren) History of colonoscopy with polypectomy (Resolved 11/05/13) History of left cataract surgery (Resolved 07/20/09) History of right cataract surgery (Resolved 08/03/09) Status post hysteroscopic myomectomy (Resolved 07/19/12) Status post laparoscopic supracervical hysterectomy (Resolved) Family History Father Diabetes mellitus Coronary arteriosclerosis Hyperlipidemia [place] (myocardial infarction) Mother Colon cancer Social History Smoking Status: Never smoker alcohol intake: never substance use type: does not use Family History Father Diabetes mellitus Coronary arteriosclerosis Hyperlipidemia [place] (myocardial infarction) Mother Colon cancer Social History Smoking Status: Never smoker alcohol intake: never substance use type: does not use Exam <Neyda Johnston PA-C - Last Filed: 11/26/18 14:16> Narrative Exam Narrative: GENERAL APPEARANCE: Patient sitting comfortably, in no distress. PULMONARY: Lungs clear to auscultation bilaterally CV: Regular rhythm regular without murmur, normal S1 and S2, no S3 or S4 MUSCULOSKELETAL: No point tenderness over the lumbar spine. Normal seated trunk flexion and extension. Moderate tenderness at and around the right SI joint. Lower extremity strength 5/5 bilateral hip flexors, knee extensors, foot plantar flexion. Straight leg raise produces SI and right lateral hip and thigh tenderness NEUROLOGIC: Bilateral patellar and Achilles DTRs 2+ DERMATOLOGIC: No exanthem Initial Vital Signs Initial Vital Signs: Vital Signs Temperature 96.1 F L 11/26/18 11:42 Pulse Rate 72 11/26/18 11:42 Respiratory Rate 14 11/26/18 11:42 Blood Pressure 159/91 H 11/26/18 11:42 Pulse Oximetry 98 11/26/18 11:42 <Alla Gresham DO - Last Filed: 11/27/18 14:44> Initial Vital Signs Initial Vital Signs: Vital Signs Temperature 96.1 F L 11/26/18 11:42 Pulse Rate 72 11/26/18 11:42 Respiratory Rate 14 11/26/18 11:42 Blood Pressure 159/91 H 11/26/18 11:42 Pulse Oximetry 98 11/26/18 11:42 Course <Neyda Johnston PA-C - Last Filed: 11/26/18 14:16> Additional Information: Patient has exacerbation of known chronic pain, no acute neurologic change. Advised f/u with PCP to determine further treatment (would likely benefit from PT) and ensure that she is impoving as expected. She is agreeable and will return if acutely worse or changes Vital Signs - 8 hr 11/26/18 11:42 Temperature 96.1 F L Pulse Rate 72 Respiratory Rate 14 Blood Pressure 159/91 H Pulse Oximetry 98 <DO Yasmany Palacios Last Filed: 11/27/18 14:44> Vital Signs - 8 hr 11/26/18 11:42 Temperature 96.1 F L Pulse Rate 72 Respiratory Rate 14 Blood Pressure 159/91 H Pulse Oximetry 98 Discharge Plan Departure Patient Disposition: Home Clinical Impression: Acute exacerbation of chronic low back pain, Sacroiliac joint dysfunction, Hyperglycemia Discharge Date/Time: 11/26/18 12:36 Interventions: ED Discharge Assessment Last Done: 11/26/18 12:36 Instructions: DI for Back Pain With Sciatica, DI Sacroiliac Joint Dysfunction, DI for Back Strain or Sprain Activity Restrictions/Additional Instructions: Your pain today is not quite typical for sciatica in location, though it has some features of that. You have tenderness in your sacroiliac joint where your hip and your low back connect, and this is a common source of pain, so I have given you some information on that as well. please take the next few days off of work, and follow up with your PCP next week. Use the ice, and your usual anti-inflammatories and muscle relaxants. Please talk with your PCP about physical therapy referral to help prevent flare-ups of your symptoms. please return as we talked about if you have acutely worsening symptoms in the interim or changes such as inability to urinate, new weakness or numbness in your groin Prescriptions: No Action albuterol sulfate 90 mcg/actuation HFA aerosol inhaler 2 inhalation INHALATION Q4-6H PRN (Reason: shortness of breath or wheezing) Qty: 6.7 RF: 0 venlafaxine [Effexor XR] 37.5 mg capsule,extended release 24hr 37.5 mg PO DAILY RF: 0 glimepiride 2 mg tablet 2 mg PO DAILY RF: 0 estradiol 0.5 mg tablet 0.5 mg PO DAILY RF: 0 atorvastatin [Lipitor] 20 mg tablet 20 mg PO BEDTIME RF: 0 Referrals: Juan Luis Yao MD [Primary Care Provider] - Stand Alone Forms: Work Release Note <Alla Gresham DO - Last Filed: 11/27/18 14:44> Cosign ED Attending Gersonature Attestation: I was immediately available in the department for consultation. Documentation has been reviewed. I agree with assessment and plan.
== END 2018-11-26 12:36 | disposition home or self-care (01) ==
PROVIDERS: Emergency Provider Internal Medicine; PCP Family Medicine
DX: M54.5 Low back pain (principal); X50.0XXA Overexertion from strenuous movement or load, initial encounter; Y99.0 Civilian activity done for income or pay
CPT/HCPCS: 99282

== ENCOUNTER 2018-12-11 11:57 | Emergency (ER) | payer OTHER, MEDICAID, SELFPAY ==
[2018-12-11 12:05] VITALS: BP 136/88; PULSE 67; RESP 16; TEMP 36.5; O2SAT 100
--- NOTE | 2018-12-11 12:27 | ED_ITS ---
HPI - Fall <Marilynn Marquez TOBACCO SAMPLER-BC - Last Filed: 12/11/18 13:41> General Chief Complaint: Fall Stated Complaint: fall from RV, landed on her face Time Seen by Provider: 12/11/18 12:13 Source: patient Mode of arrival: ambulatory Limitations: no limitations History of Present Illness HPI Narrative: Patient is a 53-year-old female nonsmoker with a history of elevated blood sugar with a chief complaint of a fall down 2 steps from an RV. She states that she had a trip and fall, denies lightheadedness chest pain and states that the fall was mechanical as her dog pulled her. She states that she took most of her impact on her left face and head. She denies any loss of consciousness, and states ?I do not think so and denies any lightheadedness or dizziness. She states she feels ?out of it.? She is not sure when her last tetanus was. She states that she went to her dentist for loose teeth, who sent her to the emergency department to be evaluated before bonding her teeth. She denies any neck pain, back pain, or abdominal pain. the fall occurred at approximately 9:00 a.m. and she presents to the emergency department 3 hours later. She complains of abrasions and bruising to her face. She states that her her face is the most painful thing. She also complains of left shoulder pain on interview. Loss of consciousness: none Prolonged down time: no Symptoms prior to fall: none Context: tripped/slipped Location of injury: head and face Related Data Home Medications Medication Instructions Recorded Confirmed atorvastatin [Lipitor] 20 mg PO BEDTIME 11/26/18 11/26/18 estradiol 0.5 mg PO DAILY 11/26/18 12/11/18 glimepiride 2 mg PO DAILY 11/26/18 12/11/18 venlafaxine [Effexor XR] 37.5 mg PO DAILY 11/26/18 12/11/18 Allergies Allergy/AdvReac Type Severity Reaction Status Date / Time latex [LATEX] Allergy Severe hives Verified 12/11/18 12:10 adhesive [ADHESIVE] AdvReac Mild rash from Verified 12/11/18 12:10 tape morphine [MORPHINE] AdvReac Mild gi upset Verified 12/11/18 12:10 Sulfa (Sulfonamide AdvReac Mild gi upset Verified 12/11/18 12:10 Antibiotics) [SULFA (SULFONAMIDE ANTIBIOTICS)] Review of Systems <PRASANTH StallworthP- - Last Filed: 12/11/18 13:41> Review of Systems GENERAL: Denies chills, fatigue, malaise, fever, sweats. HEENT: See HPI RESPIRATORY: Denies dyspnea, cough, wheezing, hemoptysis, sputum. CARDIOVASCULAR: Denies chest pain, palpitations, orthopnea, edema, GASTROINTESTINAL: Denies nausea, vomiting, abdominal pain, diarrhea, constipation, melena. : Denies dysuria, frequency, incontinence, hematuria, urinary retention. MUSCULOSKELETAL: denies weakness, joint pain, or bony pain SKIN: See HPI NEUROLOGIC: Denies weakness, headache, numbness, change in speech, confusion, seizures, incoordination. PSYCHIATRIC: No concerning psychosocial issues. 12 point review of systems is negative except for those stated above Exam <Marilynn Marquez [facility] - Last Filed: 12/11/18 13:41> Narrative Exam Narrative: GENERAL: This is a well-nourished, well-developed patient, laying in stretcher HEAD: Atraumatic. Normocephalic. No temporal or scalp tenderness. EYES: Pupils equal round and reactive. Extraocular motions intact. No scleral icterus. No injection or drainage. no nystagmus noted. ENT: Nose without bleeding, purulent drainage or septal hematoma. Throat without erythema, tonsillar hypertrophy or exudate. Uvula midline. Airway patent. states she can breathe through both nares. NECK: Trachea midline. No JVD or lymphadenopathy. Supple, nontender, no meningeal signs. CARDIOVASCULAR: Regular rate and rhythm without murmurs, gallops, or rubs. RESPIRATORY: Clear to auscultation. Breath sounds equal bilaterally. No wheezes, rales, or rhonchi. No cough. No increased respiratory effort. No accessory muscle use. GASTROINTESTINAL: Abdomen soft, non-tender, nondistended. No hepato- splenomegaly, or palpable masses. No guarding. EXTREMITIES: No clubbing, cyanosis, or edema. No joint tenderness, effusion, or edema noted. Full range of motion noted left shoulder. Generalized pain to palpation left shoulder. BACK: Nontender without deformity or crepitance. No flank tenderness. no pain to C-spine or spinal palpation. NEURO: AOx3. Tangential. SKIN: Multiple abrasions noted on the left side of face, starting at forehead radiating down around left orbit. Periorbital ecchymosis noted left eye. No obvious lacerations. No obvious foreign bodies. Initial Vital Signs Initial Vital Signs: Vital Signs Temperature 97.7 F 12/11/18 12:05 Pulse Rate 67 12/11/18 12:05 Respiratory Rate 16 12/11/18 12:05 Blood Pressure 136/88 12/11/18 12:05 Pulse Oximetry 100 12/11/18 12:05 <Poncho Keith DO - Last Filed: 12/11/18 18:42> Initial Vital Signs Initial Vital Signs: Vital Signs Temperature 97.7 F 12/11/18 12:05 Pulse Rate 67 12/11/18 12:05 Respiratory Rate 16 12/11/18 12:05 Blood Pressure 136/88 12/11/18 12:05 Pulse Oximetry 100 12/11/18 12:05 PFSH <HUSEYIN Stallworth - Last Filed: 12/11/18 13:41> Medical History Chronic low back pain (Acute) Diabetes (Chronic) Herpes (Chronic 2002) Hyperlipidemia (Chronic) Surgical History History of colonoscopy with polypectomy (Resolved 11/05/13) History of left cataract surgery (Resolved 07/20/09) History of right cataract surgery (Resolved 08/03/09) Status post hysteroscopic myomectomy (Resolved 07/19/12) Status post laparoscopic supracervical hysterectomy (Resolved) Family History Father Diabetes mellitus Coronary arteriosclerosis Hyperlipidemia [place] (myocardial infarction) Mother Colon cancer Social History Smoking Status: Never smoker alcohol intake: never substance use type: does not use Family History Father Diabetes mellitus Coronary arteriosclerosis Hyperlipidemia [place] (myocardial infarction) Mother Colon cancer Social History Smoking Status: Never smoker alcohol intake: never substance use type: does not use Scores <HUSEYIN Stallworth - Last Filed: 12/11/18 13:41> GCS [place] coma scale eye opening: Spontaneous [place] coma scale verbal response: Orientated [place] coma scale motor response: Obey commands [place] coma scale total score: 15 Nexus Score for C-Spine Focal Neurologic deficit present: No Midline spinal tenderness present: No Altered level of conciousness present: No Intoxication present: No Distracting Injury Present: No Nexus Criteria for C-spine: 0 Course <HUSEYIN Stallworth - Last Filed: 12/11/18 13:41> Orders Ordered: ED Orders 12/11/18 12:25 CT facial bones wo con Stat CT head/brain wo con Stat Discontinued Medications Diphtheria/Tetanus/Acell Pertussis (Adacel) 0.5 ml IM .ONCE ONE Stop: 12/11/18 12:33 Last Admin: 12/11/18 13:28 Dose: 0.5 ml Vital Signs - 8 hr 12/11/18 12:05 12/11/18 13:40 Temperature 97.7 F Pulse Rate 67 72 Respiratory Rate 16 18 Blood Pressure 136/88 127/79 Pulse Oximetry 100 98 <Poncho Keith DO - Last Filed: 12/11/18 18:42> Orders Ordered: ED Orders 12/11/18 12:25 CT facial bones wo con Stat CT head/brain wo con Stat Discontinued Medications Diphtheria/Tetanus/Acell Pertussis (Adacel) 0.5 ml IM .ONCE ONE Stop: 12/11/18 12:33 Last Admin: 12/11/18 13:28 Dose: 0.5 ml Vital Signs - 8 hr 12/11/18 12:05 12/11/18 13:40 Temperature 97.7 F Pulse Rate 67 72 Respiratory Rate 16 18 Blood Pressure 136/88 127/79 Pulse Oximetry 100 98 MDM - Fall <HUSEYIN Stallworth - Last Filed: 12/11/18 13:41> Imaging Data CT scan - head: Radiologist's impression: [address] [address] [address] Scan Report Signed Patient: Ange Armenta LMR#: [id number] : 1965Acct:[id number] Age/Sex: 53 / FDate of Service: 12/11/18 Loc: ED Accession Number: [id number] Procedure: CT head/brain wo con Ordering Provider: Marilynn Marquez PROCEDURE: CT HEAD/BRAIN WO CON INDICATIONS: Ground level fall TECHNIQUE: Noncontrast 4.5 mm thick angled axial sections acquired from the foramen magnum to the vertex, with coronal and sagittal reformats. For radiation dose reduction, the following was used: automated exposure control, adjustment of mA and/or kV according to patient size. COMPARISON: [facility], CT, CT FACIAL BONES WO CON, 12/11/2018, 12:28. FINDINGS: Image quality: Excellent. CSF spaces: Basal cisterns are patent. No extra-axial fluid collections. Ventricles are normal in size and shape. Brain: No intracranial hemorrhage, mass, or mass effect. Pryor-white matter interface is preserved. Skull and face: Calvarium and visualized facial bones are intact, without suspicious lesions. There are a few small scattered soft tissue calcifications within the scalp. Sinuses: Visualized sinuses and mastoids are clear. IMPRESSION: 1. No acute intracranial abnormality. Dictated by: Venancio Auguste M.D. on 12/11/2018 at 12:51 Approved by: Venancio Auguste M.D. on 12/11/2018 at 13:[address]: Radiologist's impression: [place] [address] CT Scan Report Signed Patient: Ange Armenta LMR#: [id number] : 1965Acct:[id number] Age/Sex: 53 / FDate of Service: 12/11/18 Loc: ED Accession Number: [id number] Procedure: CT facial bones wo con Ordering Provider: Marilynn Marquez PROCEDURE: CT FACIAL BONES WO CON INDICATIONS: Ground level fall TECHNIQUE: Noncontrast 2.5 mm thick axial images acquired from the mandible through the frontal sinuses, with coronal and sagittal reformatting. For radiation dose reduction, the following was used: automated exposure control, adjustment of mA and/or kV according to patient size. COMPARISON: [facility], CT, CT HEAD/BRAIN WO CON, 12/11/2018, 12:28. FINDINGS: Image quality: Excellent. Bones and teeth: Orbital savage are intact. Sinus savage show no fracture or deformity. Nasal bones and septum are intact. Visualized portions of the mandible demonstrate no fractures or subluxation. Zygomatic arches are intact. Pterygoid plates are intact. Visualized portions of the skull base and auditory canals are intact. Sinuses: Paranasal sinuses are aerated, without fluid levels, mucosal thickening, or mucoceles. Mastoid air cells are aerated. Soft tissues: There is mild left premaxillary and periorbital soft tissue swelling. No discrete fluid collections. The globes are intact. No intraorbital fluid collections. No enlarged lymph nodes. No soft tissue lacerations or debris. Vascular: Visualized vascular structures appear normal in the absence of contrast. Bony vascular foramina and canals are intact. IMPRESSION: 1. No acute facial bone fracture identified. Dictated by: Venancio Auguste M.D. on 12/11/2018 at 13:00 Approved by: Venancio Auguste M.D. on 12/11/2018 at 13:02 [facility] Narrative Medical decision making narrative: The patient is a 53-year-old female who presents after falling down 2 steps. This was a mechanical trip and fall. She has tangential and difficult to follow on exam. Given the mechanism of injury and her presentation, CTs were ordered of her head and face. These were likely negative. the patient declined wound care. She also complains of left shoulder pain, but has full range of motion. she declines shoulder x-rays. Her tetanus was updated as she did not know when her last 1 was. Discussed return precautions of confusion, altered mental status or acute concerns. Encouraged patient to follow up with primary care provider. Given her symptoms, I believe she has a concussion. Discussed brain rest. Encouraged [id number] medications as needed and able. Patient has no questions or concerns upon discharge. Discharge Plan Departure Patient Disposition: Home Clinical Impression: Abrasion, Fall from ground level Concussion Qualifiers: Encounter type: initial encounter Loss of consciousness presence/duration: without LOC Qualified Code(s): S06.0X0A - Concussion without loss of consciousness, initial encounter Discharge Date/Time: 12/11/18 13:42 Interventions: ED Discharge Assessment Last Done: 12/11/18 13:40 Instructions: DI for Concussion, How to Prevent Falls, DI for Abrasion Activity Restrictions/Additional Instructions: Your scans came back today with no abnormality. Given your symptoms I believe you have a concussion. Please monitor for repeat vomiting, or neurological changes. Please rest your brain. We updated your tetanus today. Please follow up with her primary care provider in a few days. Come back to the emergency department for any acute concerns such as chest pain, shortness of breath, concern of heart attack or stroke. Please use [id number] pain medications as needed and able. Prescriptions: No Action venlafaxine [Effexor XR] 37.5 mg capsule,extended release 24hr 37.5 mg PO DAILY RF: 0 glimepiride 2 mg tablet 2 mg PO DAILY RF: 0 estradiol 0.5 mg tablet 0.5 mg PO DAILY RF: 0 atorvastatin [Lipitor] 20 mg tablet 20 mg PO BEDTIME RF: 0 Referrals: Juan Luis Yao MD [Primary Care Provider] - <Poncho Keith DO - Last Filed: 12/11/18 18:42> Cosign ED Attending Gersonature Attestation: I was immediately available in the department for consultation. Documentation has been reviewed. I agree with assessment and plan.
[2018-12-11] MEDS: TET,DIPH,PERTUSS(ACELL),VAC/PF 0.5 ML SYRINGE IM (13:28)
--- NOTE | 2018-12-11 13:39 | PC.NURSE ---
I aatmpted to clean abrasions on face with soap and water per SAHRA Marquez. patient refused to allow me to touch her face due to pain. She agrees to wash her face at home in shower with mild soap and water.
[2018-12-11 13:40] VITALS: BP 127/79; PULSE 72; RESP 18; O2SAT 98
== END 2018-12-11 13:42 | disposition home or self-care (01) ==
PROVIDERS: Emergency Provider Nurse Practitioner Family; PCP Family Medicine
DX: S06.0X0A Concussion without loss of consciousness, initial encounter (principal); S00.81XA Abrasion of other part of head, initial encounter; M25.512 Pain in left shoulder; W10.8XXA Fall (on) (from) other stairs and steps, initial encounter; Z23 Encounter for immunization
CPT/HCPCS: 70450; 70486; 90471; 99282; 99284; 90715

== ENCOUNTER → 2019-01-10 14:35 | Outpatient (CLI) | payer OTHER, MEDICAID, SELFPAY ==
[2019-01-10 15:26] LABS: Blood Urea Nitrogen 15 mg/dL (7-17); Calcium 11.1 mg/dL (8.4-10.2); Carbon Dioxide 30 mmol/L (22-32); Chloride 103 mmol/L (98-107); Estimated Glomerular Filt Rate > 60.0 mL/min (>60); Glucose 208 mg/dL (70-100); HEMOLYSIS < 15 (0-50); Hemoglobin A1C% w Est Avg Glu 6.9 % (4.0-6.0); Potassium 5.3 mmol/L (3.4-5.1); Sodium 141 mmol/L (137-145)
== END ==
PROVIDERS: PCP Family Medicine; Visit Provider Family Medicine
DX: E11.9 Type 2 diabetes mellitus without complications (principal)
CPT/HCPCS: 36415; 80048; 83036

== ENCOUNTER → 2019-01-31 14:32 | Outpatient (CLI) | payer OTHER, MEDICAID, SELFPAY ==
--- NOTE | 2019-01-31 14:34 | DI.CT.S_ITS ---
PROCEDURE: CT ABDOMEN PELVIS W CON INDICATIONS: abdominal pain TECHNIQUE: After the administration of intravenous contrast, 5 mm thick sections acquired from the diaphragm to the symphysis. 5 mm coronal and sagittal reformats were acquired. For radiation dose reduction, the following was used: automated exposure control, adjustment of mA and/or kV according to patient size. COMPARISON: [facility], CT, ABDOMEN/PELVIS WITH CONTRAST, 05/03/2012, 11:49. [facility], CT, ABDOMEN/PELVIS WITH CONTRAST, 03/26/2009, 18:13. FINDINGS: Image quality: Excellent. ABDOMEN: Lung bases: Lung bases are clear. Heart size is normal. Solid organs: Liver is normal in size and enhancement. Gallbladder appears normal. Biliary system is non dilated. Pancreas enhances normally. Spleen is normal in size and enhancement. 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 Kidneys demonstrate normal size and enhancement, without hydronephrosis. Peritoneum and bowel: Bowel loops demonstrate normal wall thickness and caliber. No free fluid or air. Nodes and vessels: No retroperitoneal or mesenteric adenopathy by size criteria. Aorta and inferior vena cava are normal in size. Miscellaneous: No ventral hernias. PELVIS: Genitourinary: Bladder wall thickness is normal. Miscellaneous: No inguinal hernias or adenopathy. A ovoid soft tissue mass at the right lateral border of the rectum is no longer present, and may have been resected. A lipoma within the gluteus musculature lateral to the acetabular roof on the right is again seen. The uterus appears atrophic, and several fibroids near the fundus appear present, slightly larger than on the prior study from 2011. Bones: No suspicious bony lesions. No vertebral body compression fractures. IMPRESSION: 1. A definite source of current abdominal pain is not seen. 2. At the right adrenal gland area a fatty mass appears to mildly distort the adrenal gland from its posterior aspect, and this was previously present but better visualized on the current study due to the small degree of changer fixer time. 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 If clinically desired this area could be further assessed more accurately with contrast enhanced MR scanning. 3. A soft tissue mass at the right lateral border of the rectum, extraperitoneal, is no longer present and likely has been surgically resected at some point between the 2012 study and the current examination. 4. 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 Dictated by: Mele Arciniega M.D. on 01/31/2019 at 17:16 Approved by: Mele Arciniega M.D. on 01/31/2019 at 17:22
== END ==
PROVIDERS: PCP Family Medicine; Visit Provider Family Medicine
DX: R10.9 Unspecified abdominal pain (principal); D17.9 Benign lipomatous neoplasm, unspecified
CPT/HCPCS: 74177

== ENCOUNTER 2019-03-08 13:27 | Emergency (ER) | payer OTHER, MEDICAID, SELFPAY ==
[2019-03-08 13:42] VITALS: BP 152/85; PULSE 78; RESP 20; TEMP 36.9; O2SAT 99; BMI 25.6
--- NOTE | 2019-03-08 13:42 | DI.CT.S_ITS ---
PROCEDURE: CT HEAD/BRAIN WO CON INDICATIONS: glf with loc TECHNIQUE: Noncontrast 4.5 mm thick angled axial sections acquired from the foramen magnum to the vertex, with coronal and sagittal reformats. For radiation dose reduction, the following was used: automated exposure control, adjustment of mA and/or kV according to patient size. COMPARISON: None. FINDINGS: Image quality: Excellent. CSF spaces: Basal cisterns are patent. No extra-axial fluid collections. Ventricles are normal in size and shape. Brain: No midline shift. No intracranial masses or hemorrhage. Pryor-white matter interface is normal. Skull and face: Calvarium and visualized facial bones are intact, without suspicious lesions. Sinuses: Visualized sinuses and mastoids are clear. IMPRESSION: No acute intracranial findings. Dictated by: Graciela Hernandez M.D. on 03/08/2019 at 14:09 Approved by: Graciela Hernandez M.D. on 03/08/2019 at 14:10
--- NOTE | 2019-03-08 13:42 | DI.CT.S_ITS ---
PROCEDURE: CT FACIAL BONES WO CON INDICATIONS: glf pain to orbit palpation, nasal injury TECHNIQUE: Noncontrast 2.5 mm thick axial images acquired from the mandible through the frontal sinuses, with coronal and sagittal reformatting. For radiation dose reduction, the following was used: automated exposure control, adjustment of mA and/or kV according to patient size. COMPARISON: None. FINDINGS: Image quality: Excellent. Bones and teeth: Orbital savage are intact. Sinus savage show no fracture or deformity. Nasal bones and septum are intact. Visualized portions of the mandible demonstrate no fractures or subluxation. Zygomatic arches are intact. Pterygoid plates are intact. Visualized portions of the skull base and auditory canals are intact. Sinuses: Paranasal sinuses are aerated, without fluid levels, mucosal thickening, or mucoceles. Mastoid air cells are aerated. Soft tissues: No edema, masses, or fluid collections. A small soft tissue laceration is present along the ridge of the nose. No enlarged lymph nodes. No soft tissue lacerations or debris. Vascular: Visualized vascular structures appear normal in the absence of contrast. Bony vascular foramina and canals are intact. IMPRESSION: No acute facial fractures. Soft tissue laceration of the nose. No underlying bony abnormality. Dictated by: Graciela Hernandez M.D. on 03/08/2019 at 14:10 Approved by: Graciela Hernandez M.D. on 03/08/2019 at 14:12
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
--- NOTE | 2019-03-08 14:09 | PC.NURSE ---
wound to nose cleaned with saline gauze
[2019-03-08] MEDS: LIDOCAINE/PRILOCAINE 5 GM TOP (15:00)
[2019-03-08 15:56] VITALS: BP 145/83; PULSE 62; RESP 16; O2SAT 100
== END 2019-03-08 15:57 | disposition home or self-care (01) ==
PROVIDERS: Emergency Provider Nurse Practitioner Family; PCP Family Medicine
DX: S01.21XA Laceration without foreign body of nose, initial encounter (principal); S06.0X0A Concussion without loss of consciousness, initial encounter; W01.0XXA Fall on same level from slipping, tripping and stumbling without subsequent striking against object, initial encounter
CPT/HCPCS: 70450; 70486; 99283; 99284

== ENCOUNTER 2019-06-26 06:24 | Day surgery (SDC) | payer OTHER, MEDICAID, SELFPAY ==
[2019-06-26] VITALS (12 sets, daily range): BP systolic 104–176; BP diastolic 70–87; PULSE 62–102; RESP 13–20; TEMP 36.1–36.6; O2SAT 89–97; BMI 25.7
[2019-06-26] MEDS: SODIUM CHLORIDE 0.9% 1,000 ML 200 ML IV (07:27)
--- NOTE | 2019-06-26 07:49 | P.HP_ITS ---
History of Present Illness History of Present Illness Date Patient Seen: 06/26/19 Time Patient Seen: 07:49 Chief complaint: [id number] Narrative: This is a 54-year-old woman with history of several prior colonoscopies for high risk screening. She has had polyps found on her previous colonoscopies. She has a family history of her mother having of colon cancer 20 years ago. The patient has been considered high risk, and has therefore had colonoscopies every 3-5 years. She denies any current symptoms of hematochezia, melena, abdominal pain, or unexplained weight loss. 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 Yesterday she was seen by Dr. Magana and is being evaluated for myasthenia gravis. Otherwise she has a history of hysterectomy, diabetes, depression, and hyperlipidemia. ROS: As per HPI, otherwise negative 10 system review. PE: GENERAL: Well groomed and cooperative. Appears stated age. Answers questions promptly and appropriately. Vital signs noted. HENT: Normocephalic, atraumatic. Hearing intact. Oral mucosa is pink and moist. Bilateral eyelid ptosis, with evidence of prior blepharoplasty EYES: Conjunctiva pink, sclera white, no periorbital swelling. CARDIOVASCULAR: Regular rate. No pedal edema. RESPIRATORY: Normal respiratory rate, breathing comfortably on room air. GASTROINTESTINAL: Abdomen soft and non-distended GENITALURINARY: No flank tenderness. MUSCULOSKELETAL: Equal tone and mass bilaterally. Poor hand melting supervisor strength SKIN: Warm, dry, soft, appropriate color for ethnicity. No other lesions, rashes, or wounds. NEURO: Alert and Oriented X 3. PSYCH: Appropriate affect and mood. Patient History Medical History Chronic low back pain (Acute) Diabetes (Chronic) Gait instability (Acute) Herniated nucleus pulposus, L4-5 (Acute) Herpes (Chronic 2002) Hyperlipidemia (Chronic) Myasthenia gravis (Acute) Ptosis (Acute) Surgical History History of colonoscopy with polypectomy (Resolved 11/05/13) History of left cataract surgery (Resolved 07/20/09) History of right cataract surgery (Resolved 08/03/09) Status post hysteroscopic myomectomy (Resolved 07/19/12) Status post laparoscopic supracervical hysterectomy (Resolved) Family & Social History Family History Father Diabetes mellitus Coronary arteriosclerosis Hyperlipidemia MA (myocardial infarction) Mother Colon cancer Social History: household members spouse Tobacco & Substance use: Smoking Status Never smoker alcohol intake never alcohol intake frequency 0-2 drinks per day Substance Use Type does not use Meds Home Medications and Allergies Home Medications Medication Instructions Recorded Confirmed Type glimepiride 2 mg PO DAILY 11/26/18 06/26/19 History venlafaxine [Effexor XR] 37.5 mg PO DAILY 11/26/18 06/26/19 History atorvastatin 20 mg tablet 20 mg PO BEDTIME #90 tab 01/10/19 06/26/19 Rx estradiol 0.5 mg tablet See Rx Instructions .ROUTE 05/05/19 06/26/19 Rx .COMPLEX #30 tablet Allergies Allergy/AdvReac Type Severity Reaction Status Date / Time latex [LATEX] Allergy Severe hives Verified 06/26/19 07:07 adhesive [ADHESIVE] AdvReac Mild rash from Verified 06/26/19 07:07 tape morphine [MORPHINE] AdvReac Mild gi upset Verified 06/26/19 07:07 Sulfa (Sulfonamide AdvReac Mild gi upset Verified 06/26/19 07:07 Antibiotics) [SULFA (SULFONAMIDE ANTIBIOTICS)] Exam Vital Signs (past 8 hours): - 06/26/19 07:08 Temperature 97.6 F Pulse Rate 77 Respiratory Rate 15 Blood Pressure 131/77 Pulse Oximetry 94 Oxygen Delivery Method Room Air Assessment & Plan Assessment and plan (1) Ptosis: Current visit: No Status: Acute (2) Gait instability: Current visit: No Status: Acute (3) Myasthenia gravis: Current visit: No Status: Acute (4) History of colon polyps: Current visit: Yes Status: Acute (5) High risk for colon cancer: Current visit: Yes Status: Acute (6) Type 2 diabetes mellitus without complication: Current visit: No Status: None Assessment & Plan narrative: This is a 54-year-old woman here for high risk screening for colon cancer. Given her recent diagnosis of myasthenia gravis I have discussed her case with 1 of our anesthesiologist. They recommended going ahead with sedation for this procedure but starting off with a lesser amount than normal and being gradual about increasing her sedation. May have also offered assistance should be needed. I have discussed with the patient in addition I have discussed the risks of bleeding, perforation, need for additional procedures. The patient desires to go ahead with her screening co lonoscopy and possible polypectomy under sedation. Plan: Proceed to endoscopy suite for colonoscopy, possible polypectomy with sedation Time Spent With Patient Time with patient: Greater than 35 minutes Quality VTE Deep Vein Thrombosis/Pulmonary Embolism Present on Admission: No
[2019-06-26] MEDS: MIDAZOLAM 5 MG/5 ML VIAL IV (07:58)
[2019-06-26] MEDS: fentaNYL 250 MCG/5 ML INJ IV (07:58)
--- NOTE | 2019-06-26 08:38 | PM.OP.ENDO ---
Operative Date/Time/Diagnoses Date of procedure: 06/26/19 Time of procedure: 08:38 Pre-op diagnosis: Personal history of polyps, high risk family history for colon cancer Post-op diagnosis: same Procedure & Clinicians Study performed: Colonoscopy with polypectomy times 2 using cold forceps and cold snare, and rectal mucosa biopsy x2 with cold forceps Same procedure as scheduled: Yes Indications: Patient with personal history of polyps and family history of colon cancer Surgeon: Griselda Meade Procedure Notes SCOAP/Timeout: Performed Procedure in detail: The patient was brought to the room and placed in left lateral decubitus position with all bony prominences padded. A time-out was performed and then the patient was given procedural sedation starting with 2 mg of Versed and 100 mcg of fentanyl. Vitals were monitored throughout the procedure and remained stable. She got an additional 2 mg of Versed an additional 100 micro g of fentanyl during the course of the procedure for a total of 4 mg of Versed and 200 micro g of fentanyl. Once adequately sedated the procedure was begun. A rectal exam was performed revealing no abnormalities. The colonoscope was then introduced to the rectum and advanced to the cecum in the usual fashion. The cecum was identified by the appendiceal orifice, the mucosal try fold, and the ileocecal valve. There was a 8 mm polyp in the cecum which was removed with cold snare. The scope was then retracted while rotating side to side and examining each mucosal fold. Some hypercellular mucosa was seen in the rectum between 15-20 cm, and this was biopsied. An 8 mm polyp was found at 10 cm in the rectum and was removed with cold forceps. At the conclusion procedure retroflexion was performed and small grade 1-2 internal hemorrhoids without stigmata of bleeding were seen. The scope was then withdrawn from the rectum the procedure was concluded. The patient tolerated the procedure well was transferred to the PACU in stable condition. Scope withdrawal time: 15 Sedation minutes: 39 Findings: polyp and other findings (Hypercellular rectal mucosa, abnormal appearing, nonspecific) Specimen(s): other (Polyp from cecum, polyp from rectum at 10 cm, and rectal biopsy x2 from 15 cm) Complications: none Impression: Multiple polyps, and of normal rectal mucosa Post-procedure Recommendations: Colonscopy in 3 years (For personal history of polyps and new polyps found on colonoscopy) Follow up: as needed Disposition: PACU
--- NOTE | 2019-06-26 09:11 | SUR.PHASEI ---
Pt arrived diaphoretic, sleepy. Tele abnormal, Dr. Meade shown tele strip and an EKG was ordered and done. EKG evaluated by MD, no new orders. Patient began dry heaving, message left with Dr. Meade for request for medication. Awaiting response but nausea has resolved. Patient tolerating ice chips.
--- NOTE | 2019-06-26 09:39 | SUR.PHASEI ---
O2 sat dropping to 89-90%ra while dozing. IS provided and verbal instructions given. Patient able to raise valve to 1750.
--- NOTE | 2019-06-26 11:24 | SUR.PHASEII ---
pt held Sp02 for entire phase 2
--- NOTE | 2019-06-30 | PATH_ITS ---
[facility] Accession Number: [id number] . 01 Material submitted: . PART A: cecum - CECAL POLYP PART B: rectum - RECTAL BIOPSY AT 15 CM PART C: rectum - RECTAL POLYP AT 10 CM . 01 Clinical history: . SCREENING COLONOSCOPY; HISTORY OF COLON POLYPS . 02 Diagnosis: A. Cecum, Polyp, Biopsy: Tubular adenoma. . B. Rectum, 15 cm, Biopsy: Hyperplastic rectal mucosa with no significant diagnostic abnormality. Negative for dysplasia and malignancy. . C. Rectum, Polyp at 10 cm, Biopsy: Tubular adenoma. MRV 06/27/2019 1003 Local . 02 Electronically signed: . Katharina Alford MD, Pathologist NPI- [id number] . 01 Gross description: . Part A: CECAL POLYP: Received in formalin are 2 fragment(s) of keene, soft tissue measuring 0.2 x 0.2 x 0.2 cm to 0.3 x 0.2 x 0.2 cm submitted entirely in 1 cassette(s) Part B: RECTAL BIOPSY AT 15 CM: Received in formalin are 2 fragment(s) of keene, soft tissue measuring 0.1 x 0.1 x 0.1 cm to 0.4 x 0.2 x 0.1 cm which is entirely submitted and submitted entirely in 1 cassette(s) Part C: RECTAL POLYP AT 10 CM: Received in formalin is 1 fragment(s) of keene, soft tissue measuring 0.2 x 0.2 x 0.2 cm submitted entirely in 1 cassette(s) /[facility] 06/26/20192010 Local . 02 Pathologist provided ICD-10: D12.0, D12.8 . 02 CPT . 438004, 704844, 440468 Specimen Comment: A duplicate report has been generated due to demographic updates. Performed at: 01 [facility] [address] [place] [address], [place], [place] [id number] MD Venancio Hernandez MD Phone: [phone] [facility]formed at: [facility] [address] [address] [place], [place] [id number] MD Katharina Alford MD Phone: [phone]
== END 2019-06-26 10:45 | disposition home or self-care (01) ==
PROVIDERS: PCP Family Medicine; Visit Provider Surgery
PROC: 0DJD8ZZ Inspection of Lower Intestinal Tract, Via Natural or Artificial Opening Endoscopic (ICD-10-PCS; CPT 45378; principal; 2019-06-26 07:45)
DX: Z12.11 Encounter for screening for malignant neoplasm of colon (principal); Z86.010 Personal history of colon polyps; Z80.0 Family history of malignant neoplasm of digestive organs; E78.5 Hyperlipidemia, unspecified; E11.9 Type 2 diabetes mellitus without complications; Z79.84 Long term (current) use of oral hypoglycemic drugs; K64.0 First degree hemorrhoids; D12.0 Benign neoplasm of cecum; D12.8 Benign neoplasm of rectum
CPT/HCPCS: 45385; 45380; 93005; 99152; 99153; J2250; J3010

== ENCOUNTER 2019-07-17 12:38 | Outpatient (CLI) | payer OTHER, MEDICAID, SELFPAY | END 2019-07-17 16:00 | disposition home or self-care (01) | LOC: PHYS 12:38 | PROVIDERS: PCP Family Medicine; Visit Provider Physical Medicine & Rehabilitation | DX: G70.00 Myasthenia gravis without (acute) exacerbation (principal); H02.409 Unspecified ptosis of unspecified eyelid; M51.26 Other intervertebral disc displacement, lumbar region | CPT/HCPCS: 95886; 95887; 95909; 95937 ==

== ENCOUNTER → 2019-07-25 09:49 | Outpatient (CLI) | payer OTHER, MEDICAID, SELFPAY ==
--- NOTE | 2019-07-25 09:52 | DI.CT.S_ITS ---
PROCEDURE: CT CHEST W CON INDICATIONS: Neuromyotonia, Edgardo's Syndrome TECHNIQUE: After the administration of intravenous contrast, 5 mm thick sections acquired from the pulmonary apices to the posterior costophrenic angles. 1 mm axial lung, 5 mm thick coronal and sagittal reformats and 7 mm axial MIP were acquired. For radiation dose reduction, the following was used: automated exposure control, adjustment of mA and/or kV according to patient size. COMPARISON: [facility], CT, ABDOMEN/PELVIS WITH CONTRAST, 03/26/2009, 18:13. [facility], US, BIOPSY LOCALIZATION/ASPIRATION, 10/05/2016, 15:36. [facility], US, THYROID, 09/07/2016, 11:41. [facility], MR, C-SPINE WITHOUT CONTRAST, 09/28/2017, 14:34. [facility], CT, CT FACIAL BONES WO CON, 12/11/2018, 12:28. [facility], CT, CT FACIAL BONES WO CON, 03/08/2019, 13:45. [facility], CT, CT ABDOMEN PELVIS W CON, 01/31/2019, 15:38. FINDINGS: Image quality: Excellent. Lungs and pleura: No acute air space opacities. No pleural effusions or pneumothorax. Central and peripheral airways are patent and normal in caliber. Mediastinum: Heart size is normal. No pericardial effusion. No mediastinal or hilar adenopathy by size criteria. Thoracic aorta and central pulmonary arteries are normal in size. Esophagus is normal in caliber. No hiatal hernia. Bones and chest wall: No suspicious bony lesions. No vertebral body compression fractures. No axillary or supraclavicular adenopathy by size criteria. Thyroid gland on the left contains a complex cystic structure measuring up to 1.3 x 1.9 cm, previously present and evaluated by thyroid ultrasound in September of 2016 and biopsy in early October of 2016.. Abdomen: Visualized upper abdominal solid organs appear stable, with what appears to be a lipoma at the posterior border of the right adrenal gland. Upper abdominal bowel loops are normal in caliber. IMPRESSION: Left thyroid nodule that is lobulated, and has been previously evaluated by ultrasound and biopsied in 2018 appears stable over time considering differences in technique. At the posterior border of the right adrenal gland a subtle fatty structure is present, consistent with a lipoma. This has also been present in the past including on a CT scan from March 2009. Dictated by: Mele Arciniega M.D. on 07/25/2019 at 11:49 Approved by: Mele Arciniega M.D. on 07/25/2019 at 12:04
[2019-07-25 10:25] LABS: Alanine Aminotransferase 57 IU/L (<35); Albumin 4.3 g/dL (3.5-5.0); Albumin Globulin Ratio 1.6 (1.0-2.8); Alkaline Phosphatase 143 U/L (38-126); Aspartate Aminotransferase 51 IU/L (14-36); Blood Urea Nitrogen 13 mg/dL (7-17); Calcium 10.3 mg/dL (8.4-10.2); Carbon Dioxide 23 mmol/L (22-32); Chloride 106 mmol/L (98-107); Estimated Glomerular Filt Rate > 60.0 mL/min (>60); Globulin 2.7 g/dL (1.7-4.1); Glucose 294 mg/dL (70-100); HEMOLYSIS < 15 (0-50); Sodium 140 mmol/L (137-145)
== END ==
PROVIDERS: PCP Family Medicine; Visit Provider Physical Medicine & Rehabilitation
DX: Z01.812 Encounter for preprocedural laboratory examination (principal); G71.19 Other specified myotonic disorders; E04.1 Nontoxic single thyroid nodule
CPT/HCPCS: 36415; 71260; 80053; Q9967

== ENCOUNTER → 2019-08-13 16:16 | Outpatient (CLI) | payer OTHER, MEDICAID, SELFPAY ==
--- NOTE | 2019-08-13 16:17 | DI.MG.S_ITS ---
BILATERAL DIGITAL SCREENING MAMMOGRAM 3D/2D WITH CAD: 08/13/2019 CLINICAL: Routine screening. Comparison is made to exams dated: 04/16/2018 mammogram, 10/09/2016 mammogram, and 05/13/2013 mammogram - [facility]. The tissue of both breasts is heterogeneously dense. This may lower the sensitivity of mammography. Current study was also evaluated with a Computer Aided Detection (CAD) system. No significant masses, calcifications, or other findings are seen in either breast. There has been no significant interval change. IMPRESSION: NEGATIVE There is no mammographic evidence of malignancy. A 1 year screening mammogram is recommended. This exam was interpreted at Station ID: [id number]. NOTE: For mammograms, a report in lay terms will be sent to the patient. Approximately 15% of breast malignancies will not be visualized mammographically. In the management of a palpable breast mass, a negative mammogram must not discourage biopsy of a clinically suspicious lesion. Electronically Signed By: Graciela andrews/oliva:08/13/2019 17:07:49 letter sent: Normal Exam ACR BI-RADS Category 1: Negative [id number]
== END ==
PROVIDERS: PCP Family Medicine; Visit Provider Family Medicine
DX: Z12.31 Encounter for screening mammogram for malignant neoplasm of breast (principal)
CPT/HCPCS: 77063; 77067

== ENCOUNTER → 2020-04-23 15:18 | Outpatient (CLI) | payer OTHER, MEDICAID, SELFPAY ==
[2020-04-23 15:57] LABS: Add Manual Diff / Slide Review NO; Basophils Absolute Auto 100 /uL (0-100); Basophils Percent Auto 0.8 % (0-2); Eosinophils Absolute Auto 200 /uL (0-450); Eosinophils Percent Auto 1.8 % (2-4); Hematocrit 47.7 % (36-46); Hemoglobin 16.4 g/dL (12.0-16.0); Lymphocytes Absolute Auto 3100 /uL (1100-4500); Lymphocytes Percent Auto 32.7 % (25-40); Mean Corpuscular HGB Conc 34.3 % (30-36); Mean Corpuscular Hemoglobin 29.6 PG (26-34); Mean Corpuscular Volume 86.3 fL (80-100); Monocytes Absolute Auto 500 /uL (0-900); Monocytes Percent Auto 5.3 % (3-14); Neutrophils Absolute Auto 5600 /uL (1500-7000); Neutrophils Percent Auto 59.4 % (50-75); Platelet Count 344 X10^3/uL (150-400); Red Blood Cell Count 5.52 X10^6/uL (4.0-5.2); Red Cell Distribution Width 12.6 % (11.6-14.8); White Blood Cell Count 9.5 X10^3/uL (4.5-11.0)
[2020-04-23 16:54] LABS: Alanine Aminotransferase 69 IU/L (<35); Albumin 4.5 g/dL (3.5-5.0); Albumin Globulin Ratio 1.6 (1.0-2.8); Alkaline Phosphatase 180 U/L (38-126); Aspartate Aminotransferase 37 IU/L (14-36); BUN Creatinine Ratio 21.8 (6-22); Blood Urea Nitrogen 12 mg/dL (7-17); Calcium 10.7 mg/dL (8.4-10.2); Carbon Dioxide 26 mmol/L (22-32); Chloride 103 mmol/L (98-107); Cholesterol 294 mg/dL (140-199); Estimated Glomerular Filt Rate > 60.0 mL/min (>60); Globulin 2.9 g/dL (1.7-4.1); Glucose 237 mg/dL (70-100); HDL Cholesterol 40 mg/dL (40-60); HEMOLYSIS < 15 (0-50); Sodium 140 mmol/L (137-145); Total Protein 7.4 g/dL (6.3-8.2)
[2020-04-23 17:06] LABS: Triglycerides 703 mg/dL (35-150)
== END ==
PROVIDERS: PCP Family Medicine; Referring Provider Family Medicine; Visit Provider Family Medicine
DX: E11.9 Type 2 diabetes mellitus without complications (principal); E78.5 Hyperlipidemia, unspecified; R73.9 Hyperglycemia, unspecified
CPT/HCPCS: 36415; 80053; 80061; 83036; 85025

== ENCOUNTER → 2020-05-20 16:47 | Outpatient (CLI) | payer OTHER, MEDICAID, SELFPAY ==
[2020-05-21 03:36] LABS: HBsAg Screen Negative (Negative); Hepatitis A Antibody IgM Negative (Negative); Hepatitis B Core Antibody IgM Negative (Negative); Hepatitis C Antibody <0.1 s/co ratio (0.0-0.9)
== END ==
PROVIDERS: PCP Family Medicine; Referring Provider Family Medicine; Visit Provider Family Medicine
DX: R94.5 Abnormal results of liver function studies (principal)
CPT/HCPCS: 36415; 80074

== ENCOUNTER → 2020-05-25 09:08 | Outpatient (CLI) | payer OTHER, MEDICAID, SELFPAY ==
--- NOTE | 2020-05-25 09:09 | DI.US.S_ITS ---
PROCEDURE: US ABDOMEN COMPLETE INDICATIONS: ABNORMAL LIVER FUNCTION TESTS TECHNIQUE: Real-time scanning was performed of the abdominal and retroperitoneal organs, with image documentation. COMPARISON: None. FINDINGS: Liver: The liver demonstrates normal size. The liver demonstrates generalized moderately increased echogenicity. This decreases ultrasound sensitivity for detection of hepatic masses. Within the right lobe of the liver, there are 2 relative hypoechoic areas that measure 1.8 x 1.4 x 1.4 cm and 2.3 x 1.2 x 1.9 cm. Gallbladder: No findings of gallstones or sludge are seen. The gallbladder wall is not thickened, measuring 3 mm or less. No specific pericholecystic fluid is seen. The sonographic Bernal sign is negative. Biliary ducts: Intrahepatic bile ducts are non-dilated. Extrahepatic bile duct caliber measures 4 mm. Normal is 6-7 mm or less in diameter, or 10 mm or less post-cholecystectomy. Pancreas: Visualized portions of the pancreas are sonographically normal. Spleen: Spleen is normal in size and homogeneous in echotexture. Kidneys: Kidneys are normal in size and echotexture. Right kidney measures 11 cm long; left kidney measures 10.5 cm long. No hydronephrosis or nephrolithiasis. No solid masses. At the superior pole of the right kidney, there is a 1.4 cm simple appearing cyst seen. Aorta: Visualized aorta is normal in caliber at less than 3 cm. Iliacs: Proximal common iliac arteries are normal in caliber at less than 2.5 cm. IVC: Intrahepatic inferior vena cava is patent. Miscellaneous: No free abdominal fluid. IMPRESSION: Fatty liver infiltration, with 2 areas of likely fatty sparing involving the right lobe of the liver. If it would be helpful for clinical management decision making, please consider a dedicated liver protocol MRI (without and with contrast) for further evaluation (assuming that there is no contraindication). The gallbladder demonstrates a normal sonographic appearance. No biliary dilatation is seen. Incidental note is made of: Simple appearing right renal cyst Dictated by: Maximino Griffin M.D. on 05/25/2020 at 9:44 Approved by: Maximino Griffin M.D. on 05/25/2020 at 9:47
== END ==
PROVIDERS: PCP Family Medicine; Referring Provider Family Medicine; Visit Provider Family Medicine
DX: R94.5 Abnormal results of liver function studies (principal); K76.0 Fatty (change of) liver, not elsewhere classified; N28.1 Cyst of kidney, acquired
CPT/HCPCS: 76700

== ENCOUNTER → 2020-07-16 12:37 | Outpatient (CLI) | payer OTHER, MEDICAID, SELFPAY ==
[2020-07-16 13:20] LABS: Hemoglobin A1C% w Est Avg Glu 9.2 % (4.0-6.0)
[2020-07-16 13:26] LABS: Alanine Aminotransferase 54 IU/L (<35); Albumin Globulin Ratio 1.4 (1.0-2.8); Alkaline Phosphatase 140 U/L (38-126); Aspartate Aminotransferase 37 IU/L (14-36); BUN Creatinine Ratio 27.1 (6-22); Bilirubin Total 0.8 mg/dL (0.2-1.3); Bilirubin Unconjugated 0.8 mg/dL (0.0-1.1); Blood Urea Nitrogen 13 mg/dL (7-17); Carbon Dioxide 27 mmol/L (22-32); Chloride 106 mmol/L (98-107); Cholesterol 180 mg/dL (140-199); Estimated Glomerular Filt Rate > 60.0 mL/min (>60); Globulin 2.9 g/dL (1.7-4.1); Glucose 233 mg/dL (70-100); HDL Cholesterol 34 mg/dL (40-60); HEMOLYSIS < 15 (0-50); LDL Cholesterol Calculated 73 mg/dL (<100); Potassium 4.2 mmol/L (3.4-5.1); Sodium 139 mmol/L (137-145); Total Protein 6.9 g/dL (6.3-8.2); Triglycerides 364 mg/dL (35-150)
== END ==
PROVIDERS: PCP Family Medicine; Referring Provider Family Medicine; Visit Provider Family Medicine
DX: E11.9 Type 2 diabetes mellitus without complications (principal); E78.2 Mixed hyperlipidemia; R94.5 Abnormal results of liver function studies
CPT/HCPCS: 36415; 80048; 80061; 80076; 83036

== ENCOUNTER → 2020-09-14 14:41 | Outpatient (CLI) | payer OTHER, MEDICAID, SELFPAY ==
--- NOTE | 2020-09-14 14:43 | DI.US.S_ITS ---
PROCEDURE: US THYROID INDICATIONS: Nontoxic multinodular goiter TECHNIQUE: Real-time scanning was performed of the thyroid gland, with image documentation. COMPARISON: [facility], US, THYROID, 09/07/2016, 11:41. [facility], US, BIOPSY LOCALIZATION/ASPIRATION, 10/05/2016, 15:36. FINDINGS: Right: Thyroid lobe measures 5.2 x 1.2 x 1.4 cm, and demonstrates no focal abnormality. Left: Thyroid lobe measures 5.9 x 3.3 x 2.7 cm. Isthmus: 3 mm thick. Nodule number: 1 Location: Left inferior thyroid Size: 4.2 x 1.9 x 2.7 cm, prior 3.1 x 2.1 x 1.8 cm. Composition: Cystic and solid Echogenicity: Heterogeneous, primarily hypoechoic Shape: wider than tall. Margins: Smooth Echogenic foci: Potential punctate calcifications within the solid elements Total points: 6 ACR TI-RADS category: 4 IMPRESSION: There is a growing cystic and solid mass seen at the inferior pole of the left thyroid. By published criteria, an ultrasound-guided fine-needle aspiration to be recommended. However, this lesion was previously biopsied 2017, with benign results. Please consider re-biopsy, if clinically indicated. ACR TI-RADS definitions and recommendations: TI-RADS 1 (benign): 0 points. FNA not needed. TI-RADS 2 (not suspicious): 2 points. FNA not needed. TI-RADS 3 (mildly suspicious): 3 points. * FNA if 2.5 cm or larger, follow up if 1.5 cm or larger (at 1, 3, and 5 years). TI-RADS 4 (moderately suspicious): 4-6 points. * FNA if 1.5 cm or larger, follow up if 1 cm or larger (at 1, 2, 3, and 5 years). TI-RADS 5 (highly suspicious): 7 points or more. * FNA if 1 cm or larger, follow up if 0.5 cm or larger (every year for 5 years). Dictated by: Maximino Griffin M.D. on 09/14/2020 at 16:02 Approved by: Maximino Griffin M.D. on 09/14/2020 at 16:09
== END ==
PROVIDERS: PCP Family Medicine; Referring Provider Otolaryngology; Visit Provider Otolaryngology
DX: E04.1 Nontoxic single thyroid nodule (principal)
CPT/HCPCS: 76536

== ENCOUNTER → 2020-09-15 09:53 | Outpatient (CLI) | payer OTHER, MEDICAID, SELFPAY ==
--- NOTE | 2020-09-15 12:05 | DIET.PN ---
Diabetes Intake: Initial Assessment Assess: Ms. Armenta is a 55 yof referred for type 2 diabetes. She reports 5 yr hx of diagnosis, but believes she has had it longer. She recently started on 2 new diabetes medications and has had severe GI complications. She has lost 4 lbs in the last 2 wks. She does not monitor her glucose as she is will not poke her finger, but is interested in trying the freestyle yash. Labs: Per pt report: A1c: 9.2 Meds: glimepiride 6mg; metformin 500mg BID; pioglitazone 15mg Diet: per 24 hr recall: B: oatbran cereal w/ blueberries, orange juice (10:30am) L: skip D: baked chicken, green beans, small new potato, milk Sn: crackers , cookie Wt: 141.2lb Ht: 62in BMI: 25.8 BP: 138/88 DX: Altered nutrition related laboratory values related to impaired glucose metabolism, lack of previous exposure to nutrition information as evidenced by pt report, diagnosis of diabetes, previous diet high in refined carbohydrates. Intervention: 1. Completed intake assessment. Discussed barriers to care. 2. Discussed pathophysiology of diabetes. Reviewed A1c and its correlation to blood glucose numbers. Discussed recommended BG ranges. 3. Discussed importance of self-monitoring, how often, and when to check. 4. Reviewed hyper/hypoglycemia and treatment. 5. Reviewed safe disposal of equipment (strip/lancets/insulin needles). 6. Created SMART goals for pt self-care and success. 7. Discussed program curriculum outline and class needs based on individual goals. SMART Goals: 1. Pt goal weight of 132 in the next 6 mo through learning portion control, carb counting, and label reading. 2. Pt goal A1c less than 7.0 through dietary changes and weight management. Monitor/Evaluate: Pt will attend full DSME program. Basic Nutrition class scheduled for Sep 21.
== END ==
PROVIDERS: PCP Family Medicine; Referring Provider Family Medicine; Visit Provider Family Medicine
DX: E11.9 Type 2 diabetes mellitus without complications (principal); Z79.84 Long term (current) use of oral hypoglycemic drugs
CPT/HCPCS: G0108

== ENCOUNTER → 2020-09-21 14:01 | Outpatient (CLI) | payer OTHER, MEDICAID, SELFPAY ==
--- NOTE | 2020-09-21 15:39 | DIET.PN ---
Diabetes: Healthy Eating 2 Intervention: Fats effects on glucose, weight, heart disease, cholesterol Sat Vs Unsat Protein- animal and plant based options Low, med, high fat meats Sugar substitutes Sodium Health claims Grocery shopping guidelines Eating away from home Alcohol Sick day guidelines Ketone Testing
== END ==
PROVIDERS: PCP Family Medicine; Referring Provider Family Medicine; Visit Provider Family Medicine
DX: E11.9 Type 2 diabetes mellitus without complications (principal); Z71.3 Dietary counseling and surveillance
CPT/HCPCS: G0109

== ENCOUNTER → 2020-09-28 13:51 | Outpatient (CLI) | payer OTHER, MEDICAID, SELFPAY ==
--- NOTE | 2020-09-28 15:50 | DIET.PN ---
Diabetes Physiology and Medications: Intervention 1. Diabetes physiology 2. Detecting and treatment of acute and chronic complications 3. Diagnosis of and difference in types of diabetes 4. Self-monitoring and pattern management a. Demonstrate glucometer and control testing b. Explain BG results and action to take when out of range. 5. Foot , eye, dental care 6. Medications a. Oral medication classification b. Injectable c. Insulin i. Injection protocol ii. Other delivery methods
== END ==
PROVIDERS: PCP Family Medicine; Referring Provider Family Medicine; Visit Provider Family Medicine
DX: E11.9 Type 2 diabetes mellitus without complications (principal); Z71.3 Dietary counseling and surveillance
CPT/HCPCS: G0109

== ENCOUNTER → 2020-11-24 11:38 | Outpatient (CLI) | payer OTHER, MEDICAID, SELFPAY ==
[2020-11-24 12:49] LABS: BUN Creatinine Ratio 27.5 (6-22); Blood Urea Nitrogen 14 mg/dL (7-17); Calcium 10.5 mg/dL (8.4-10.2); Carbon Dioxide 24 mmol/L (22-32); Chloride 107 mmol/L (98-107); Estimated Glomerular Filt Rate > 60.0 mL/min (>60); Glucose 195 mg/dL (70-100); HEMOLYSIS < 15 (0-50); Potassium 4.5 mmol/L (3.4-5.1); Sodium 141 mmol/L (137-145)
== END ==
PROVIDERS: Family Medicine; PCP Family Medicine; Referring Provider Family Medicine; Visit Provider Family Medicine
DX: E11.9 Type 2 diabetes mellitus without complications (principal)
CPT/HCPCS: 36415; 80048; 83036

== ENCOUNTER → 2020-12-24 10:09 | Outpatient (CLI) | payer OTHER, MEDICAID, SELFPAY ==
--- NOTE | 2020-12-24 | DI.US.S_ITS ---
PROCEDURE: US FINE NEEDLE ASPIRATION INDICATIONS: THYROID NODULE TECHNIQUE: The indications, alternatives, benefits, risks, and complications of the procedure were explained to the patient. Written informed consent was obtained and placed in the chart. The thyroid region was examined sonographically and a site was chosen for ultrasound guided percutaneous sampling. The skin was prepared and draped in the usual fashion, and anesthetized with 1% lidocaine infiltrated from the skin down to the thyroid gland. Multiple passes were then performed, with contents emptied into an appropriate pathology specimen container. A bandage was applied to the area of access at completion of the study. COMPARISON: None. FINDINGS: Location(s) of lesion(s) sampled: Complex left lobe mass. [place]: 25 gauge hypodermic needles. Number of passes: 5 Medications: 1% lidocaine for local anaesthesia. Complications: None. IMPRESSION: Successful ultrasound-guided thyroid nodule fine needle aspiration, with cytology results pending. Please see chart below for management recommendations based on cytology results. [place] [facility] ReportingRecommendationsNon-diagnostic* Repeat US-guided FNA, with on-site cytology evaluation if possible. * Repeated non-diagnostic nodules without high suspicion US features: close observation vs surgical consult. * Consider surgery if nodule has high suspicion US features, grows >20% in 2 dimensions on followup, or patient has clinical risk factors for malignancy. Benign* If nodule has high suspicion US features: repeat US and FNA within 12 months. * If nodule has low to intermediate suspicion US features: repeat US at 12-24 months. If nodule grows (20% increase in at least 2 dimensions, with minimal increase of 2 mm or >50% change in volume), or development of new suspicious US features, then repeat FNA or continue followup. * If nodule has very low suspicion US features: followup US at >24 months. Atypia of undetermined significance, follicular lesion of undetermined significanceRepeat FNA, molecular testing, followup US, or surgical consult.Follicular neoplasm, suspicious for follicular neoplasmSurgical consult; also consider molecular testing. Suspicious for malignancySurgical consult.MalignantSurgical consult. Dictated by: Alexsandra Jewell MD, PhD on 12/24/2020 at 12:11 Approved by: Alexsandra Jewell MD, PhD on 12/24/2020 at 12:11
--- NOTE | 2020-12-24 | PATH_ITS ---
Note [facility] Accession Number: [id number] TESTS RESULT FLAG UNITS REF RANGE LAB LEFT INFERIOR THYROID NODULE DIAGNOSIS: 02 LEFT INFERIOR THYROID NODULE INCONCLUSIVE. BETHESDA CATEGORY III. ATYPIA OF UNDETERMINED SIGNIFICANCE. THE SPECIMEN IS CELLULAR AND CONSISTS OF ABUNDANT HURTHLE CELLS. PLEASE SEE COMMENT. MOLECULAR STUDIES PENDING; RESULTS WILL BE REPORTED AN ADDENDUM. COMMENT: In a patient with multiple nodules, the findings could represent Hurthle cell hyperplasia in a setting of multinodular goiter, but a Hurthle cell neoplasm cannot be entirely excluded. Pathologist ICD10: 02 R89.6 01 IMPRESSION: There is a growing cystic and solid mass seen at the inferior pole of the left thyroid. 02 To report molecular studies (ThyGeNEXT with reflex to ThyraMIR). . Thyroid FNA: ThyGeNEXT Oncogene panel: No mutations detected. . ThyraMIR [employer] Cleaning Supervisor: Very low risk of malignancy. . COMMENTS: Please see the complete reports from [employer], [place], [place] (specimen ID [id number] (ThyGeNEXT) and (ThyraMIR) reported on 01/12/2021). 01/14/2021 Addendum Electronically Signed by Nayely Casiano MD, Pathologist 02 Nayely Casiano MD, Pathologist NPI- [id number] Christos Le, Sizing Machine Tender ([facility]) 01 30 CC, PINK, CLOUDY RECIEVED: IN CYTOLYT WITH 6 ALCOHOL FIXED AND 6 QUICK STAINED SLIDES ALSO 1 RNA VIAL WAS RECEIVED FOR FURTHER TESTING. /[facility] 12/27/2020 1028 Local FLAG LEGEND: L-Low Normal,H-High Normal,LL-Alert Low,HH-Alert High <-Panic Low,>-Panic High,A-Abnormal,AA-Critical Abnormal Performed at: 01 =[facility] [address] [place] [address] [facility] [place], [place] [address] Venancio Hernandez MD, 02 [facility] [address] [address] Katharina Alford MD, Performed at: 01 [facility] Cytology [address] [place] [address] [address], [place], [place] [id number] MD Venancio Hernandez MD Phone: [phone]
== END ==
PROVIDERS: PCP Family Medicine; Referring Provider Otolaryngology; Visit Provider Otolaryngology
DX: E04.2 Nontoxic multinodular goiter (principal)
CPT/HCPCS: 10005

== ENCOUNTER 2021-02-15 11:46 | Outpatient (RCR) | payer OTHER, MEDICAID, SELFPAY ==
--- NOTE | 2021-02-15 15:30 | OT.OP.EVAL ---
Visit Care Team Role Provider Type Rolly Merida MD Primary Care Provider Physician Specialty: Family Practice Address: [address] [place] [address], [address] Email: [email or web address] Pamella Dennis MD Attending Provider Non-Staff Referring Provider Specialty: Medical Address: [address] [place] [address], [id number] Email: Occupational Therapy Initial Evaluation OT Outpatient Adult Evaluation Start: 02/16/21 15:59 Freq: Status: Active Protocol: Document 02/15/21 15:30 AMS (Rec: 02/16/21 16:14 AMS [id number]) General Information Visit Start Time 12:30 Visit Stop Time 13:25 Total Visit Minutes 55 Plan of Care Dates 02/15/21-04/12/21 Insurance Information EVAL CHARGE ONLY @ INITIAL; then 24 OT units (8 visits, 3 units per visit) Treatment Setting Outpatient Care Note Type Initial Evaluation Identification Confirmed Yes Identification Confirmed By Self Goals Treatment HEP Instruction. 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 Provided yellow, soft theraputty for home use. Instructed in care and storage of theraputty. AE instruction relative to self-feeding. Jail Goals 1. Patient will be modified independent with execution of distal UE strengthening home exercise program utilizing provided written and visual instructions from therapist. 2. Patient will be identify 2 to 3 different pieces of AE that she can use in the home to support functional abilities. 3. Assessment/Plan Treatment Assessment Ange is a 55 year-old right hand dominant female referred to outpatient OT d/t myotonic muscular dystrophy w/ instruction to address hand weakness and problems w/ ADLS, as well as assess for equipment/bracing needs to maximize hand function. PMH: diabetes II; myotonic muscular dystrophy; FALL RISK Patient goals: Improve strength/functional abilities of hands. Address balance d/t fall risk; recommended PT evaluation and treat. Evaluation Findings: QuickDASH UE Outcome Measure Score = 72.7. No indication of pain/discomfort on Pain Assessment Grid relative to distal UEs. R hand dominant. Patient resides w/ in 5th wheel. Ange reported ability to complete BADLs w/ modifications. She is able to dress/undress by choosing elastic waist band LB clothing items and wearing sports bras . She reports that zippers and buttons are tricky; however, chooses clothing items without these, including choosing shoes that do not need to be tied. She is able to bathe using shower stall and intermittent use of bench. She is able to toilet and complete g/h tasks w/ use of modified toothbrush. She is able to feed herself w/ larger handled utensils. She does have difficulty cutting meats; discussed use of rocker knife and other AE options. She is able to manage her jewelry ( earrings/necklace) by frequently leaving these jewelry items in. Ange demonstrated decreased active DIPJ flexion, 2-5th digits bilaterally, with therapist request to make fists. No pain /discomfort reported w/ PROM of DIPJ by therapist. She demonstrated B wrist ROM WFL. Decreased dock hand/digit strength; she avg 8.0# of force w/ R dock hand and 5.0# of force w/ L dock hand w/ dynamometer II strength testing. She avg 6.0# of force w/ R de leon pinch and 5 .5# of force w/ L de leon pinch; 2 .0# of force w/ R tip pinch and 2.0# of force w/ L tip pinch; 3.0# of force w/ R 3- jaw pinch and 2.0# of force w/ L 3-jaw pinch w/ pinchometer testing. Comment 8 weeks Treatment Frequency Once a Week Therapeutic Contents Active Range of Motion, Adaptive Equipment Education, Client Education,Cognitive Skills Development,Functional Activities,Home Exercise Program,Joint Protection, Education,Neurodevelopment Treatment,Neuromuscular Re- Education,Therapeutic Activities,Therapeutic Exercises Suggested Referrals Physical Therapy
--- NOTE | 2021-02-22 12:45 | OT.OP.DC ---
Visit Care Team Role Provider Type Rolly Merida MD Primary Care Provider Physician Address: [address] [place] [address], [id number] Email: [email or web address] Pamella Dennis MD Attending Provider Non-Staff Referring Provider Address: [address] [place] [address], [id number] Email: OT Outpatient OT Outpatient Adult Evaluation Start: 02/16/21 15:59 Freq: Status: Active Protocol: Document 02/15/21 15:30 AMS (Rec: 02/16/21 16:14 AMS [id number]) General Information Session Time Visit Start Time 12:30 Visit Stop Time 13:25 Total Visit Minutes 55 Visit Information Plan of Care Dates 02/15/21-04/12/21 Insurance Information EVAL CHARGE ONLY @ INITIAL; then 24 OT units (8 visits, 3 units per visit) Setting Treatment Setting Outpatient Care Visit Type Note Type Initial Evaluation Identification Identification Confirmed Yes Identification Confirmed By Self Goals Treatment Treatment HEP Instruction. Exercises to be scanned into electronic medical records as front desk receptionist staff are able to do so. Provided yellow, soft theraputty for home use. Instructed in care and storage of theraputty. AE instruction relative to self-feeding. [facility] Goals Drier Belt Conveyor Goals 1. Patient will be modified independent with execution of distal UE strengthening home exercise program utilizing provided written and visual instructions from therapist. 2. Patient will be identify 2 to 3 different pieces of AE that she can use in the home to support functional abilities. 3. 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 PMH: diabetes II; myotonic muscular dystrophy; FALL RISK Patient goals: Improve strength/functional abilities of hands. Address balance d/t fall risk; recommended PT evaluation and treat. Evaluation Findings: QuickDASH UE Outcome Measure Score = 72.7. No indication of pain/discomfort on Pain Assessment Grid relative to distal UEs. R hand dominant. Patient resides w/ in 5th wheel. Ange reported ability to complete BADLs w/ modifications. She is able to dress/undress by choosing elastic waist band LB clothing items and wearing sports bras . She reports that zippers and buttons are tricky; however, chooses clothing items without these, including choosing shoes that do not need to be tied. She is able to bathe using shower stall and intermittent use of bench. She is able to toilet and complete g/h tasks w/ use of modified toothbrush. She is able to feed herself w/ larger handled utensils. She does have difficulty cutting meats; discussed use of rocker knife and other AE options. She is able to manage her jewelry ( earrings/necklace) by frequently leaving these jewelry items in. Ange demonstrated decreased active DIPJ flexion, 2-5th digits bilaterally, with therapist request to make fists. No pain /discomfort reported w/ PROM of DIPJ by therapist. She demonstrated B wrist ROM WFL. Decreased director of graduate medical education/digit strength; she avg 8.0# of force w/ R director of graduate medical education and 5.0# of force w/ L director of graduate medical education w/ dynamometer II strength testing. She avg 6.0# of force w/ R de leon pinch and 5 .5# of force w/ L de leon pinch; 2 .0# of force w/ R tip pinch and 2.0# of force w/ L tip pinch; 3.0# of force w/ R 3- jaw pinch and 2.0# of force w/ L 3-jaw pinch w/ pinchometer testing. Plan Comment 8 weeks Treatment Frequency Once a Week Therapeutic Contents Active Range of Motion, Adaptive Equipment Education, Client Education,Cognitive Skills Development,Functional Activities,Home Exercise Program,Joint Protection, Education,Neurodevelopment Treatment,Neuromuscular Re- Education,Therapeutic Activities,Therapeutic Exercises Suggested Referrals Physical Therapy Sensory Assessment Sensory Profile2 Functional Wrist/Hand Scan Hand Side OT Outpatient Treatment Note - Adult Start: 02/16/21 15:59 Freq: Status: Active Protocol: Document 02/22/21 12:38 AMS (Rec: 02/22/21 12:44 AMS [id number]) OT Outpatient Adult Treatment Note Session Time Visit Start Time 12:38 Visit Information Plan of Care Dates 02/15/21-04/12/21 Insurance Information EVAL CHARGE ONLY @ INITIAL; then 24 OT units (8 visits, 3 units per visit) Setting Treatment Setting Outpatient Care Visit Type Note Type Discharge Summary General Information General Information Ange is a 55 year-old right hand dominant female referred to outpatient OT d/t myotonic muscular dystrophy w/ instruction to address hand weakness and problems w/ ADLS, as well as assess for equipment/bracing needs to maximize hand function. PMH: diabetes II; myotonic muscular dystrophy; FALL RISK - Subjective Observations Per outpatient clinic front desk receptionist staff, patient called to cancel all scheduled outpatient OT appointments d/t 'another medical condition that she reportedly needs to focus on right now'. In message to therapist, front desk receptionist staff also indicated that patient is aware that insurance does not allow another evaluation this calendar year. - Objective [facility] Goals ALL GOALS D/C 02/22/21 1. Patient will be modified independent with execution of distal UE strengthening home exercise program utilizing provided written and visual instructions from therapist. 2. Patient will be identify 2 to 3 different pieces of AE that she can use in the home to support functional abilities. - - Assessment Assessment of Improvement Per outpatient clinic front desk receptionist staff, patient called to cancel all scheduled outpatient OT appointments d/t 'another medical condition that she reportedly needs to focus on right now'. In message to therapist, front desk receptionist staff also indicated that patient is aware that insurance does not allow another evaluation this calendar year. Thus, therapist to complete outpatient d/c paperwork. - Plan Therapy Recommendations Discharge from Occupational Therapy
== END 2021-02-22 15:46 | disposition home or self-care (01) ==
LOC: OT 11:46
PROVIDERS: PCP Family Medicine; Referring Provider Psychiatry & Neurology Neurology; Visit Provider Psychiatry & Neurology Neurology
DX: G71.11 Myotonic muscular dystrophy (principal)
CPT/HCPCS: 97166

== ENCOUNTER 2021-03-22 05:00 | Observation (INO) | payer OTHER, MEDICAID, SELFPAY ==
[2021-03-22] VITALS (26 sets, daily range): BP systolic 113–145; BP diastolic 69–88; PULSE 69–137; RESP 15–47; TEMP 36.3–37.1; O2SAT 80–98; BMI 25.6
--- NOTE | 2021-03-22 05:02 | ED_ITS ---
HPI - Nausea/Vomiting/Diarrhea <Poncho Keith DO - Last Filed: 03/31/21 23:38> General Chief complaint: Nausea/Vomiting/Diarrhea Stated complaint: vomiting since 9 pm/runny nose Time Seen by Provider: 03/22/21 05:01 History of Present Illness HPI Narrative: 55-year-old female nonsmoker, nondrinker presents with her in the chief complaint of frequent nausea and vomiting since 9:00 p.m. she denies any dietary change but states that just yesterday she had 1 of her diabetic medications transition to a higher dose. Otherwise she has been taking her medications as directed without change. She denies fever or chills. She states that over the course of the evening with increasing vomiting she has developed upper abdominal pain and now he is dry heaving. She does feel dizzy, weak and lightheaded. She denies any bad food or exposure to persons with similar symptoms Related Data Home Medications Medication Instructions Recorded Confirmed BD Ultra Fine Pen Tips 28G x 1/2 ea 03/28/21 03/28/21 Previous Rx's Medication Instructions Recorded atorvastatin 20 mg tablet (Lipitor) 20 mg PO DAILY #90 tab 05/20/20 venlafaxine 37.5 mg 37.5 mg PO DAILY #90 cap 07/19/20 capsule,extended release 24 hr (Effexor XR) lancets 33 gauge (BD Ultra Fine #100 ea 08/02/20 Lancets) blood sugar diagnostic (Blood #100 ea 01/31/21 Glucose Test) insulin glargine 100 unit/mL (3 13 unit SUBCUT BEDTIME #3 ml 03/28/21 mL) subcutaneous pen (Lantus Solostar U-100 Insulin) Allergies Allergy/AdvReac Type Severity Reaction Status Date / Time latex [LATEX] Allergy Severe hives Verified 03/28/21 14:59 adhesive [ADHESIVE] AdvReac Mild rash from Verified 03/28/21 14:59 tape morphine [MORPHINE] AdvReac Mild gi upset Verified 03/28/21 14:59 Sulfa (Sulfonamide AdvReac Mild gi upset Verified 03/28/21 14:59 Antibiotics) [SULFA (SULFONAMIDE ANTIBIOTICS)] Review of Systems <DO Yasmany Hickey Last Filed: 03/31/21 23:38> Review of Systems Narrative: GENERAL: Denies chills, fatigue, malaise, fever, sweats. HEENT: Denies sinus pain, ear pain, sore throat, difficulty swallowing, dizziness. RESPIRATORY: Denies dyspnea, cough, wheezing, hemoptysis, sputum. CARDIOVASCULAR: Denies chest pain, palpitations, orthopnea, edema, GASTROINTESTINAL: See HPI : Denies dysuria, frequency, incontinence, hematuria, urinary retention. MUSCULOSKELETAL: denies weakness, joint pain, or bony pain SKIN: Denies rash, skin lesions, or other NEUROLOGIC: Denies weakness, headache, numbness, change in speech, confusion, seizures, incoordination. PSYCHIATRIC: No concerning psychosocial issues. 12 point review of systems is negative except for those stated above Patient History <Poncho eKith DO - Last Filed: 03/31/21 23:38> Medical History (Updated 03/28/21 @ 15:01 by Rolly Merida MD) Chronic low back pain Diabetes Elevated blood pressure reading in office without diagnosis of hypertension Gait instability Head contusion Herniated nucleus pulposus, L4-5 Herpes (2002) Hyperlipidemia Hypokalemia Impacted cerumen of left ear Nga syndrome Ptosis Right otitis externa Surgical History History of colonoscopy with polypectomy (11/05/13) History of left cataract surgery (07/20/09) History of right cataract surgery (08/03/09) Status post hysteroscopic myomectomy (07/19/12) Status post laparoscopic supracervical hysterectomy Family History Father Diabetes mellitus Coronary arteriosclerosis Hyperlipidemia MA (myocardial infarction) Mother Colon cancer Social History household members: spouse Smoking Status: Never smoker alcohol intake: current substance use type: does not use eating out: rarely or never Type(s) of exercise: walking Smoking Status: Never smoker alcohol intake frequency: 0-2 drinks per day Substance Use Type: does not use Exam <Poncho Keith DO - Last Filed: 03/31/21 23:38> Narrative Exam Narrative: GENERAL: [55] year old patient appears stated age. Well- developed patient, in mild distress. HEAD: Atraumatic. Normocephalic. EYES: Pupils equal round and reactive. Extraocular motions intact. No scleral icterus. No injection or drainage. ENT: Dry mucous membranes Nose without bleeding, purulent drainage. Throat without erythema, tonsillar hypertrophy or exudate. Airway patent. NECK: Trachea midline. Non tender CARDIOVASCULAR: Tachycardic but regular rhythm without murmurs, gallops, or ru bs. RESPIRATORY: Clear to auscultation. Breath sounds equal bilaterally. No wheezes, rales, or rhonchi. GASTROINTESTINAL: Abdomen soft, non-tender, nondistended. EXTREMITIES: No edema or joint tenderness. BACK: Nontender without deformity or crepitance. No flank tenderness. NEURO: AOx3. SKIN: No rash or erythema of visible areas Initial Vital Signs Initial Vital Signs: Vital Signs Pulse Rate 137 H 03/22/21 05:08 Pulse Oximetry 94 03/22/21 05:08 <Freddy Quiroz DO - Last Filed: 03/22/21 18:10> Initial Vital Signs Initial Vital Signs: Vital Signs Pulse Rate 137 H 03/22/21 05:08 Pulse Oximetry 94 03/22/21 05:08 Course <Poncho Keith, DO - Last Filed: 03/31/21 23:38> Orders Ordered: Discontinued Medications Acetaminophen (Acetaminophen 325 Mg Tablet) 650 mg PO Q6HR PRN PRN Reason: Fever/Mild Pain (1-3) Dextrose (Dextrose 50 % In Water 25 Gm/50 Ml Syringe) 25 gm IV PRN PRN PRN Reason: Hypoglycemia Enoxaparin Sodium (Enoxaparin 40 Mg/0.4 Ml Syringe) 40 mg SUBCUT DAILY [facility] Last Admin: 03/23/21 08:38 Dose: 40 mg Documented by: JYOTI Sodium Chloride (Normal Saline 0.9%) 1,000 mls @ 1,000 mls/hr IV BOLUS ONE Stop: 03/22/21 06:08 Last Infusion: 03/22/21 06:43 Dose: 0 mls/hr Documented by: Admin: 03/22/21 05:37 Dose: 1,000 mls/hr Documented by: JUAQUIN Sodium Chloride (Normal Saline 0.9%) 1,000 mls @ 1,000 mls/hr IV BOLUS ONE Stop: 03/22/21 07:21 Last Infusion: 03/22/21 08:05 Dose: 0 mls/hr Documented by: Admin: 03/22/21 06:54 Dose: 1,000 mls/hr Documented by: TABATHA Sodium Chloride (Normal Saline 0.9%) 1,000 mls @ 125 mls/hr IV CONT KASHMIR Last Admin: 03/23/21 05:00 Dose: 125 mls/hr Documented by: Infusion: 03/23/21 05:00 Dose: 125 mls/hr Documented by: Admin: 03/22/21 21:02 Dose: 125 mls/hr Documented by: Infusion: 03/22/21 20:59 Dose: 125 mls/hr Documented by: Admin: 03/22/21 12:59 Dose: 125 mls/hr Documented by: Infusion: 03/22/21 12:59 Dose: 0 mls/hr Documented by: Infusion: 03/22/21 12:23 Dose: 0 mls/hr Documented by: Admin: 03/22/21 10:06 Dose: 125 mls/hr Documented by: SUZE Insulin Glargine (Insulin Glargine 100 Unit/Ml 3ml Pen) 10 unit SUBCUT BEDTIME KASHMIR Last Admin: 03/22/21 21:00 Dose: 10 unit Documented by: CHRISTIAN Cosigned by: ALICE Insulin Human Lispro (Insulin Lispro 100 Unit/Ml 3ml Vial) 0 unit SUBCUT ACHS KASHMIR; Protocol Last Admin: 03/23/21 08:38 Dose: 3 unit Documented by: JYOTI Cosigned by: KEVIN Admin: 03/22/21 20:07 Dose: Not Given Documented by: Admin: 03/22/21 17:11 Dose: 3 unit Documented by: ALICE Cosigned by: CHRISTIAN Naloxone HCl (Naloxone 0.4 Mg/Ml Vial) 0.2 mg IV Q2MIN PRN PRN Reason: Opiate Reversal Ondansetron HCl (Ondansetron 4 Mg/2 Ml Inj) 4 mg IV NOW ONE Stop: 03/22/21 05:10 Last Admin: 03/22/21 05:36 Dose: 4 mg Documented by: JUAQUIN Ondansetron HCl (Ondansetron 4 Mg/2 Ml Inj) 4 mg IV NOW ONE Stop: 03/22/21 07:25 Last Admin: 03/22/21 07:30 Dose: 4 mg Documented by: OTTO Ondansetron HCl (Ondansetron 4 Mg/2 Ml Inj) 4 mg IV NOW ONE Stop: 03/22/21 11:46 Last Admin: 03/22/21 11:49 Dose: 4 mg Documented by: CLEVELAND Ondansetron HCl (Ondansetron 4 Mg/2 Ml Inj) 4 mg IV Q8HR PRN PRN Reason: Nausea And Vomiting Pantoprazole Sodium (Pantoprazole 40 Mg Vial) 40 mg IV DAILY [facility] Last Admin: 03/23/21 08:38 Dose: 40 mg Documented by: Admin: 03/22/21 14:29 Dose: 40 mg Documented by: LOUISE Potassium Chloride (Potassium Chloride 20 Meq Tab) 40 meq PO NOW ONE Stop: 03/23/21 10:31 Last Admin: 03/23/21 12:06 Dose: Not Given Documented by: JYOTI Vital Signs Vital signs: Vital Signs - 8 hr 03/22/21 10:30 03/22/21 10:47 03/22/21 11:00 Pulse Rate 101 H 100 H Respiratory Rate 23 20 Blood Pressure 136/81 145/73 H Pulse Oximetry 98 82 L 92 <Freddy Quiroz DO - Last Filed: 03/22/21 18:10> Orders Ordered: Discontinued Medications Acetaminophen (Acetaminophen 325 Mg Tablet) 650 mg PO Q6HR PRN PRN Reason: Fever/Mild Pain (1-3) Dextrose (Dextrose 50 % In Water 25 Gm/50 Ml Syringe) 25 gm IV PRN PRN PRN Reason: Hypoglycemia Enoxaparin Sodium (Enoxaparin 40 Mg/0.4 Ml Syringe) 40 mg SUBCUT DAILY [facility] Last Admin: 03/23/21 08:38 Dose: 40 mg Documented by: JYOTI Sodium Chloride (Normal Saline 0.9%) 1,000 mls @ 1,000 mls/hr IV BOLUS ONE Stop: 03/22/21 06:08 Last Infusion: 03/22/21 06:43 Dose: 0 mls/hr Documented by: Admin: 03/22/21 05:37 Dose: 1,000 mls/hr Documented by: MMERKEL Sodium Chloride (Normal Saline 0.9%) 1,000 mls @ 1,000 mls/hr IV BOLUS ONE Stop: 03/22/21 07:21 Last Infusion: 03/22/21 08:05 Dose: 0 mls/hr Documented by: Admin: 03/22/21 06:54 Dose: 1,000 mls/hr Documented by: TABATHA Sodium Chloride (Normal Saline 0.9%) 1,000 mls @ 125 mls/hr IV CONT KASHMIR Last Admin: 03/23/21 05:00 Dose: 125 mls/hr Documented by: Infusion: 03/23/21 05:00 Dose: 125 mls/hr Documented by: Admin: 03/22/21 21:02 Dose: 125 mls/hr Documented by: Infusion: 03/22/21 20:59 Dose: 125 mls/hr Documented by: Admin: 03/22/21 12:59 Dose: 125 mls/hr Documented by: Infusion: 03/22/21 12:59 Dose: 0 mls/hr Documented by: Infusion: 03/22/21 12:23 Dose: 0 mls/hr Documented by: Admin: 03/22/21 10:06 Dose: 125 mls/hr Documented by: SUZE Insulin Glargine (Insulin Glargine 100 Unit/Ml 3ml Pen) 10 unit SUBCUT BEDTIME KASHMIR Last Admin: 03/22/21 21:00 Dose: 10 unit Documented by: CHRISTIAN Cosigned by: ALICE Insulin Human Lispro (Insulin Lispro 100 Unit/Ml 3ml Vial) 0 unit SUBCUT ACHS KASHMIR; Protocol Last Admin: 03/23/21 08:38 Dose: 3 unit Documented by: JYOTI Cosigned by: KEVIN Admin: 03/22/21 20:07 Dose: Not Given Documented by: Admin: 03/22/21 17:11 Dose: 3 unit Documented by: ALICE Cosigned by: CHRISTIAN Naloxone HCl (Naloxone 0.4 Mg/Ml Vial) 0.2 mg IV Q2MIN PRN PRN Reason: Opiate Reversal Ondansetron HCl (Ondansetron 4 Mg/2 Ml Inj) 4 mg IV NOW ONE Stop: 03/22/21 05:10 Last Admin: 03/22/21 05:36 Dose: 4 mg Documented by: JUAQUIN Ondansetron HCl (Ondansetron 4 Mg/2 Ml Inj) 4 mg IV NOW ONE Stop: 03/22/21 07:25 Last Admin: 03/22/21 07:30 Dose: 4 mg Documented by: OTTO Ondansetron HCl (Ondansetron 4 Mg/2 Ml Inj) 4 mg IV NOW ONE Stop: 03/22/21 11:46 Last Admin: 03/22/21 11:49 Dose: 4 mg Documented by: CLEVELAND Ondansetron HCl (Ondansetron 4 Mg/2 Ml Inj) 4 mg IV Q8HR PRN PRN Reason: Nausea And Vomiting Pantoprazole Sodium (Pantoprazole 40 Mg Vial) 40 mg IV DAILY [facility] Last Admin: 03/23/21 08:38 Dose: 40 mg Documented by: Admin: 03/22/21 14:29 Dose: 40 mg Documented by: LOUISE Potassium Chloride (Potassium Chloride 20 Meq Tab) 40 meq PO NOW ONE Stop: 03/23/21 10:31 Last Admin: 03/23/21 12:06 Dose: Not Given Documented by: JYOTI Vital Signs Vital signs: Vital Signs - 8 hr 03/22/21 10:30 03/22/21 10:47 03/22/21 11:00 Pulse Rate 101 H 100 H Respiratory Rate 23 20 Blood Pressure 136/81 145/73 H Pulse Oximetry 98 82 L 92 MDM - Nausea/Vomiting/Diarrhea <Poncho Keith DO - Last Filed: 03/31/21 23:38> Lab Data Result diagrams: 03/23/21 05:10 03/23/21 05:10 Labs: Lab Results 03/22/21 03/22/21 03/22/21 Range/Units 05:15 05:15 05:15 WBC 18.1 H (4.5-11.0) X10^3/uL RBC 5.71 H (4.0-5.2) X10^6/uL Hgb 16.5 H (12.0-16.0) g/dL Hct 49.4 H (36-46) % MCV 86.5 (80-100) fL MCH 28.9 (26-34) PG MCHC 33.4 (30-36) % RDW 13.1 (11.6-14.8) % Plt Count 385 (150-400) X10^3/uL Neut % (Auto) 77.8 H (50-75) % Lymph % (Auto) 14.9 L (25-40) % [place] % (Auto) 6.2 (3-14) % Eos % (Auto) 0.6 L (2-4) % Baso % (Auto) 0.5 (0-2) % Neut # (Auto) 74475 H (2179-9501) /uL Lymph # (Auto) 2700 (0495-0801) /uL [place] # (Auto) 1100 H (0-900) /uL Eos # (Auto) 100 (0-450) /uL Baso # (Auto) 100 (0-100) /uL D-Dimer (<230) ng/mL ABG pH (7.35-7.45) ABG pCO2 (35-45) mmHg ABG pO2 (80-100) mmHg ABG HCO3 (22-26) mmol/L ABG Total CO2 (21-31) mmol/L ABG O2 Saturation (95-100) % ABG Base Excess (-2-2) mmol/L VBG pH (7.33-7.43) VBG pCO2 (45-50) mmHg VBG pO2 (35-45) mmHg VBG HCO3 (23-28) mmol/L VBG Total CO2 (24-29) mmol/L VBG O2 Saturation (70-75) % VBG Base Excess (0-4) mmol/L FiO2 Sodium 138 (137-145) mmol/L Potassium 3.9 (3.4-5.1) mmol/L Chloride 102 (98-107) mmol/L Carbon Dioxide 23 (22-32) mmol/L BUN 14 (7-17) mg/dL Creatinine 0.49 L (0.52-1.04) mg/dL Estimated GFR > 60.0 (>60) mL/min BUN/Creatinine Ratio 28.6 H (6-22) Glucose 508 H* (70-100) mg/dL Lactate (0.7-2.1) mmol/L Calcium 11.0 H (8.4-10.2) mg/dL Magnesium 1.9 (1.6-2.3) mg/dL Total Bilirubin 1.1 (0.2-1.3) mg/dL AST 44 H (14-36) IU/L ALT 65 H (<35) IU/L Alkaline Phosphatase 175 H (38-126) U/L Total Creatine Kinase 116 (30-135) U/L CK-MB (CK-2) 2.21 (<2.37) ng/mL CK-MB (CK-2) Rel Index 1.9 (1.5-5.0) % Troponin I 0.014 (0.01-0.034) ng/mL NT-Pro-B Natriuret Pep (<125) pg/mL Total Protein 7.4 (6.3-8.2) g/dL Albumin 4.6 (3.5-5.0) g/dL Globulin 2.8 (1.7-4.1) g/dL Albumin/Globulin Ratio 1.6 (1.0-2.8) Procalcitonin (<0.5) ng/mL Chlamy pneumoniae PCR (Not Detect) Adenovirus (PCR) (Not Detect) B. pertussis DNA (PCR) (Not Detecte) B.parapertussis DNA PCR (Not Detecte) Coronavirus OC43 (PCR) (Not Detect) Coronavirus HKU1 (PCR) (Not Detect) Coronavirus 229E (PCR) (Not Detect) SARS-CoV-2 (PCR) (Negative) Coronavirus NL63 (PCR) (Not Detect) Human Metapneumovir PCR (Not Detect) Influenza Type A (PCR) (Not Detect) Influenza Type B (PCR) (Not Detect) M. pneumoniae (PCR) (Not Detect) Parainfluenza 1 (PCR) (Not Detect) Parainfluenza 2 (PCR) (Not Detect) Parainfluenza 3 (PCR) (Not Detect) Parainfluenza 4 (PCR) (Not Detect) RSV (PCR) (Not Detect) Entero/Rhino (PCR) (Not Detect) 03/22/21 03/22/21 03/22/21 Range/Units 05:15 05:15 05:40 WBC (4.5-11.0) X10^3/uL RBC (4.0-5.2) X10^6/uL Hgb (12.0-16.0) g/dL Hct (36-46) % MCV (80-100) fL MCH (26-34) PG MCHC (30-36) % RDW (11.6-14.8) % Plt Count (150-400) X10^3/uL Neut % (Auto) (50-75) % Lymph % (Auto) (25-40) % [place] % (Auto) (3-14) % Eos % (Auto) (2-4) % Baso % (Auto) (0-2) % Neut # (Auto) (4901-4965) /uL Lymph # (Auto) (3403-9991) /uL [place] # (Auto) (0-900) /uL Eos # (Auto) (0-450) /uL Baso # (Auto) (0-100) /uL D-Dimer (<230) ng/mL ABG pH (7.35-7.45) ABG pCO2 (35-45) mmHg ABG pO2 (80-100) mmHg ABG HCO3 (22-26) mmol/L ABG Total CO2 (21-31) mmol/L ABG O2 Saturation (95-100) % ABG Base Excess (-2-2) mmol/L VBG pH (7.33-7.43) VBG pCO2 (45-50) mmHg VBG pO2 (35-45) mmHg VBG HCO3 (23-28) mmol/L VBG Total CO2 (24-29) mmol/L VBG O2 Saturation (70-75) % VBG Base Excess (0-4) mmol/L FiO2 Sodium (137-145) mmol/L Potassium (3.4-5.1) mmol/L Chloride (98-107) mmol/L Carbon Dioxide (22-32) mmol/L BUN (7-17) mg/dL Creatinine (0.52-1.04) mg/dL Estimated GFR (>60) mL/min BUN/Creatinine Ratio (6-22) Glucose (70-100) mg/dL Lactate 2.9 H (0.7-2.1) mmol/L Calcium (8.4-10.2) mg/dL Magnesium (1.6-2.3) mg/dL Total Bilirubin (0.2-1.3) mg/dL AST (14-36) IU/L ALT (<35) IU/L Alkaline Phosphatase (38-126) U/L Total Creatine Kinase (30-135) U/L CK-MB (CK-2) (<2.37) ng/mL CK-MB (CK-2) Rel Index (1.5-5.0) % Troponin I (0.01-0.034) ng/mL NT-Pro-B Natriuret Pep 548 H (<125) pg/mL Total Protein (6.3-8.2) g/dL Albumin (3.5-5.0) g/dL Globulin (1.7-4.1) g/dL Albumin/Globulin Ratio (1.0-2.8) Procalcitonin (<0.5) ng/mL Chlamy pneumoniae PCR (Not Detect) Adenovirus (PCR) (Not Detect) B. pertussis DNA (PCR) (Not Detecte) B.parapertussis DNA PCR (Not Detecte) Coronavirus OC43 (PCR) (Not Detect) Coronavirus HKU1 (PCR) (Not Detect) Coronavirus 229E (PCR) (Not Detect) SARS-CoV-2 (PCR) Negative (Negative) Coronavirus NL63 (PCR) (Not Detect) Human Metapneumovir PCR (Not Detect) Influenza Type A (PCR) (Not Detect) Influenza Type B (PCR) (Not Detect) M. pneumoniae (PCR) (Not Detect) Parainfluenza 1 (PCR) (Not Detect) Parainfluenza 2 (PCR) (Not Detect) Parainfluenza 3 (PCR) (Not Detect) Parainfluenza 4 (PCR) (Not Detect) RSV (PCR) (Not Detect) Entero/Rhino (PCR) (Not Detect) 03/22/21 03/22/21 03/22/21 Range/Units 05:45 06:00 06:05 WBC (4.5-11.0) X10^3/uL RBC (4.0-5.2) X10^6/uL Hgb (12.0-16.0) g/dL Hct (36-46) % MCV (80-100) fL MCH (26-34) PG MCHC (30-36) % RDW (11.6-14.8) % Plt Count (150-400) X10^3/uL Neut % (Auto) (50-75) % Lymph % (Auto) (25-40) % [place] % (Auto) (3-14) % Eos % (Auto) (2-4) % Baso % (Auto) (0-2) % Neut # (Auto) (9187-1050) /uL Lymph # (Auto) (5270-0391) /uL [place] # (Auto) (0-900) /uL Eos # (Auto) (0-450) /uL Baso # (Auto) (0-100) /uL D-Dimer < 200 (<230) ng/mL ABG pH 7.40 (7.35-7.45) ABG pCO2 39.1 (35-45) mmHg ABG pO2 90 (80-100) mmHg ABG HCO3 24 (22-26) mmol/L ABG Total CO2 25 (21-31) mmol/L ABG O2 Saturation 97 (95-100) % ABG Base Excess -1.0 (-2-2) mmol/L VBG pH 7.49 H (7.33-7.43) VBG pCO2 32.8 L (45-50) mmHg VBG pO2 72 H (35-45) mmHg VBG HCO3 25 (23-28) mmol/L VBG Total CO2 26 (24-29) mmol/L VBG O2 Saturation 96 H (70-75) % VBG Base Excess 1.0 (0-4) mmol/L FiO2 28 Sodium (137-145) mmol/L Potassium (3.4-5.1) mmol/L Chloride (98-107) mmol/L Carbon Dioxide (22-32) mmol/L BUN (7-17) mg/dL Creatinine (0.52-1.04) mg/dL Estimated GFR (>60) mL/min BUN/Creatinine Ratio (6-22) Glucose (70-100) mg/dL Lactate (0.7-2.1) mmol/L Calcium (8.4-10.2) mg/dL Magnesium (1.6-2.3) mg/dL Total Bilirubin (0.2-1.3) mg/dL AST (14-36) IU/L ALT (<35) IU/L Alkaline Phosphatase (38-126) U/L Total Creatine Kinase (30-135) U/L CK-MB (CK-2) (<2.37) ng/mL CK-MB (CK-2) Rel Index (1.5-5.0) % Troponin I (0.01-0.034) ng/mL NT-Pro-B Natriuret Pep (<125) pg/mL Total Protein (6.3-8.2) g/dL Albumin (3.5-5.0) g/dL Globulin (1.7-4.1) g/dL Albumin/Globulin Ratio (1.0-2.8) Procalcitonin (<0.5) ng/mL Chlamy pneumoniae PCR (Not Detect) Adenovirus (PCR) (Not Detect) B. pertussis DNA (PCR) (Not Detecte) B.parapertussis DNA PCR (Not Detecte) Coronavirus OC43 (PCR) (Not Detect) Coronavirus HKU1 (PCR) (Not Detect) Coronavirus 229E (PCR) (Not Detect) SARS-CoV-2 (PCR) (Negative) Coronavirus NL63 (PCR) (Not Detect) Human Metapneumovir PCR (Not Detect) Influenza Type A (PCR) (Not Detect) Influenza Type B (PCR) (Not Detect) M. pneumoniae (PCR) (Not Detect) Parainfluenza 1 (PCR) (Not Detect) Parainfluenza 2 (PCR) (Not Detect) Parainfluenza 3 (PCR) (Not Detect) Parainfluenza 4 (PCR) (Not Detect) RSV (PCR) (Not Detect) Entero/Rhino (PCR) (Not Detect) 03/22/21 03/22/21 03/22/21 Range/Units 07:19 08:30 09:52 WBC (4.5-11.0) X10^3/uL RBC (4.0-5.2) X10^6/uL Hgb (12.0-16.0) g/dL Hct (36-46) % MCV (80-100) fL MCH (26-34) PG MCHC (30-36) % RDW (11.6-14.8) % Plt Count (150-400) X10^3/uL Neut % (Auto) (50-75) % Lymph % (Auto) (25-40) % [place] % (Auto) (3-14) % Eos % (Auto) (2-4) % Baso % (Auto) (0-2) % Neut # (Auto) (0380-3449) /uL Lymph # (Auto) (0066-3308) /uL [place] # (Auto) (0-900) /uL Eos # (Auto) (0-450) /uL Baso # (Auto) (0-100) /uL D-Dimer (<230) ng/mL ABG pH (7.35-7.45) ABG pCO2 (35-45) mmHg ABG pO2 (80-100) mmHg ABG HCO3 (22-26) mmol/L ABG Total CO2 (21-31) mmol/L ABG O2 Saturation (95-100) % ABG Base Excess (-2-2) mmol/L VBG pH (7.33-7.43) VBG pCO2 (45-50) mmHg VBG pO2 (35-45) mmHg VBG HCO3 (23-28) mmol/L VBG Total CO2 (24-29) mmol/L VBG O2 Saturation (70-75) % VBG Base Excess (0-4) mmol/L FiO2 Sodium (137-145) mmol/L Potassium (3.4-5.1) mmol/L Chloride (98-107) mmol/L Carbon Dioxide (22-32) mmol/L BUN (7-17) mg/dL Creatinine (0.52-1.04) mg/dL Estimated GFR (>60) mL/min BUN/Creatinine Ratio (6-22) Glucose (70-100) mg/dL Lactate 0.9 (0.7-2.1) mmol/L Calcium (8.4-10.2) mg/dL Magnesium (1.6-2.3) mg/dL Total Bilirubin (0.2-1.3) mg/dL AST (14-36) IU/L ALT (<35) IU/L Alkaline Phosphatase (38-126) U/L Total Creatine Kinase 91 (30-135) U/L CK-MB (CK-2) TNP (<2.37) ng/mL CK-MB (CK-2) Rel Index TNP (1.5-5.0) % Troponin I 0.020 (0.01-0.034) ng/mL NT-Pro-B Natriuret Pep (<125) pg/mL Total Protein (6.3-8.2) g/dL Albumin (3.5-5.0) g/dL Globulin (1.7-4.1) g/dL Albumin/Globulin Ratio (1.0-2.8) Procalcitonin 0.21 (<0.5) ng/mL Chlamy pneumoniae PCR Not detected (Not Detect) Adenovirus (PCR) Not detected (Not Detect) B. pertussis DNA (PCR) Not detected (Not Detecte) B.parapertussis DNA PCR Not detected (Not Detecte) Coronavirus OC43 (PCR) Not detected (Not Detect) Coronavirus HKU1 (PCR) Not detected (Not Detect) Coronavirus 229E (PCR) Not detected (Not Detect) SARS-CoV-2 (PCR) Not detected (Negative) Coronavirus NL63 (PCR) Not detected (Not Detect) Human Metapneumovir PCR Not detected (Not Detect) Influenza Type A (PCR) Not detected (Not Detect) Influenza Type B (PCR) Not detected (Not Detect) M. pneumoniae (PCR) Not detected (Not Detect) Parainfluenza 1 (PCR) Not detected (Not Detect) Parainfluenza 2 (PCR) Not detected (Not Detect) Parainfluenza 3 (PCR) Not detected (Not Detect) Parainfluenza 4 (PCR) Not detected (Not Detect) RSV (PCR) Not detected (Not Detect) Entero/Rhino (PCR) Not detected (Not Detect) Point of Care Testing Glucose POC 290 Urine Dip Bedside Urine Glucose 1000 mg/dl Bedside Urine Bilirubin - Negative Bedside Urine Ketone + 15 Urine Specific [place] 1.015 Bedside Urine Occult Blood - Negative Bedside Urine pH 7.0 Bedside Urine Protein - Negative Bedside Urine Urobilinogen - Negative Bedside Urine Nitrite - Negative Bedside Urine Leukocytes - Negative Esterase ECG Data Interpretation: Sinus tachycardia with rate in the 130s, left bundle branch block (noted on multiple old EKGs), and no ST segmental elevation or depression <Freddy Quiroz DO - Last Filed: 03/22/21 18:10> Lab Data Attestation: I reviewed the patient's lab results. Labs: Lab Results 03/22/21 03/22/21 03/22/21 Range/Units 05:15 05:15 05:15 WBC 18.1 H (4.5-11.0) X10^3/uL RBC 5.71 H (4.0-5.2) X10^6/uL Hgb 16.5 H (12.0-16.0) g/dL Hct 49.4 H (36-46) % MCV 86.5 (80-100) fL MCH 28.9 (26-34) PG MCHC 33.4 (30-36) % RDW 13.1 (11.6-14.8) % Plt Count 385 (150-400) X10^3/uL Neut % (Auto) 77.8 H (50-75) % Lymph % (Auto) 14.9 L (25-40) % [place] % (Auto) 6.2 (3-14) % Eos % (Auto) 0.6 L (2-4) % Baso % (Auto) 0.5 (0-2) % Neut # (Auto) 28492 H (2017-4230) /uL Lymph # (Auto) 2700 (7205-7025) /uL [place] # (Auto) 1100 H (0-900) /uL Eos # (Auto) 100 (0-450) /uL Baso # (Auto) 100 (0-100) /uL D-Dimer (<230) ng/mL ABG pH (7.35-7.45) ABG pCO2 (35-45) mmHg ABG pO2 (80-100) mmHg ABG HCO3 (22-26) mmol/L ABG Total CO2 (21-31) mmol/L ABG O2 Saturation (95-100) % ABG Base Excess (-2-2) mmol/L VBG pH (7.33-7.43) VBG pCO2 (45-50) mmHg VBG pO2 (35-45) mmHg VBG HCO3 (23-28) mmol/L VBG Total CO2 (24-29) mmol/L VBG O2 Saturation (70-75) % VBG Base Excess (0-4) mmol/L FiO2 Sodium 138 (137-145) mmol/L Potassium 3.9 (3.4-5.1) mmol/L Chloride 102 (98-107) mmol/L Carbon Dioxide 23 (22-32) mmol/L BUN 14 (7-17) mg/dL Creatinine 0.49 L (0.52-1.04) mg/dL Estimated GFR > 60.0 (>60) mL/min BUN/Creatinine Ratio 28.6 H (6-22) Glucose 508 H* (70-100) mg/dL Lactate (0.7-2.1) mmol/L Calcium 11.0 H (8.4-10.2) mg/dL Magnesium 1.9 (1.6-2.3) mg/dL Total Bilirubin 1.1 (0.2-1.3) mg/dL AST 44 H (14-36) IU/L ALT 65 H (<35) IU/L Alkaline Phosphatase 175 H (38-126) U/L Total Creatine Kinase 116 (30-135) U/L CK-MB (CK-2) 2.21 (<2.37) ng/mL CK-MB (CK-2) Rel Index 1.9 (1.5-5.0) % Troponin I 0.014 (0.01-0.034) ng/mL NT-Pro-B Natriuret Pep (<125) pg/mL Total Protein 7.4 (6.3-8.2) g/dL Albumin 4.6 (3.5-5.0) g/dL Globulin 2.8 (1.7-4.1) g/dL Albumin/Globulin Ratio 1.6 (1.0-2.8) Procalcitonin (<0.5) ng/mL Chlamy pneumoniae PCR (Not Detect) Adenovirus (PCR) (Not Detect) B. pertussis DNA (PCR) (Not Detecte) B.parapertussis DNA PCR (Not Detecte) Coronavirus OC43 (PCR) (Not Detect) Coronavirus HKU1 (PCR) (Not Detect) Coronavirus 229E (PCR) (Not Detect) SARS-CoV-2 (PCR) (Negative) Coronavirus NL63 (PCR) (Not Detect) Human Metapneumovir PCR (Not Detect) Influenza Type A (PCR) (Not Detect) Influenza Type B (PCR) (Not Detect) M. pneumoniae (PCR) (Not Detect) Parainfluenza 1 (PCR) (Not Detect) Parainfluenza 2 (PCR) (Not Detect) Parainfluenza 3 (PCR) (Not Detect) Parainfluenza 4 (PCR) (Not Detect) RSV (PCR) (Not Detect) Entero/Rhino (PCR) (Not Detect) 03/22/21 03/22/21 03/22/21 Range/Units 05:15 05:15 05:40 WBC (4.5-11.0) X10^3/uL RBC (4.0-5.2) X10^6/uL Hgb (12.0-16.0) g/dL Hct (36-46) % MCV (80-100) fL MCH (26-34) PG MCHC (30-36) % RDW (11.6-14.8) % Plt Count (150-400) X10^3/uL Neut % (Auto) (50-75) % Lymph % (Auto) (25-40) % [place] % (Auto) (3-14) % Eos % (Auto) (2-4) % Baso % (Auto) (0-2) % Neut # (Auto) (2949-0088) /uL Lymph # (Auto) (8992-2956) /uL [place] # (Auto) (0-900) /uL Eos # (Auto) (0-450) /uL Baso # (Auto) (0-100) /uL D-Dimer (<230) ng/mL ABG pH (7.35-7.45) ABG pCO2 (35-45) mmHg ABG pO2 (80-100) mmHg ABG HCO3 (22-26) mmol/L ABG Total CO2 (21-31) mmol/L ABG O2 Saturation (95-100) % ABG Base Excess (-2-2) mmol/L VBG pH (7.33-7.43) VBG pCO2 (45-50) mmHg VBG pO2 (35-45) mmHg VBG HCO3 (23-28) mmol/L VBG Total CO2 (24-29) mmol/L VBG O2 Saturation (70-75) % VBG Base Excess (0-4) mmol/L FiO2 Sodium (137-145) mmol/L Potassium (3.4-5.1) mmol/L Chloride (98-107) mmol/L Carbon Dioxide (22-32) mmol/L BUN (7-17) mg/dL Creatinine (0.52-1.04) mg/dL Estimated GFR (>60) mL/min BUN/Creatinine Ratio (6-22) Glucose (70-100) mg/dL Lactate 2.9 H (0.7-2.1) mmol/L Calcium (8.4-10.2) mg/dL Magnesium (1.6-2.3) mg/dL Total Bilirubin (0.2-1.3) mg/dL AST (14-36) IU/L ALT (<35) IU/L Alkaline Phosphatase (38-126) U/L Total Creatine Kinase (30-135) U/L CK-MB (CK-2) (<2.37) ng/mL CK-MB (CK-2) Rel Index (1.5-5.0) % Troponin I (0.01-0.034) ng/mL NT-Pro-B Natriuret Pep 548 H (<125) pg/mL Total Protein (6.3-8.2) g/dL Albumin (3.5-5.0) g/dL Globulin (1.7-4.1) g/dL Albumin/Globulin Ratio (1.0-2.8) Procalcitonin (<0.5) ng/mL Chlamy pneumoniae PCR (Not Detect) Adenovirus (PCR) (Not Detect) B. pertussis DNA (PCR) (Not Detecte) B.parapertussis DNA PCR (Not Detecte) Coronavirus OC43 (PCR) (Not Detect) Coronavirus HKU1 (PCR) (Not Detect) Coronavirus 229E (PCR) (Not Detect) SARS-CoV-2 (PCR) Negative (Negative) Coronavirus NL63 (PCR) (Not Detect) Human Metapneumovir PCR (Not Detect) Influenza Type A (PCR) (Not Detect) Influenza Type B (PCR) (Not Detect) M. pneumoniae (PCR) (Not Detect) Parainfluenza 1 (PCR) (Not Detect) Parainfluenza 2 (PCR) (Not Detect) Parainfluenza 3 (PCR) (Not Detect) Parainfluenza 4 (PCR) (Not Detect) RSV (PCR) (Not Detect) Entero/Rhino (PCR) (Not Detect) 03/22/21 03/22/21 03/22/21 Range/Units 05:45 06:00 06:05 WBC (4.5-11.0) X10^3/uL RBC (4.0-5.2) X10^6/uL Hgb (12.0-16.0) g/dL Hct (36-46) % MCV (80-100) fL MCH (26-34) PG MCHC (30-36) % RDW (11.6-14.8) % Plt Count (150-400) X10^3/uL Neut % (Auto) (50-75) % Lymph % (Auto) (25-40) % [place] % (Auto) (3-14) % Eos % (Auto) (2-4) % Baso % (Auto) (0-2) % Neut # (Auto) (4725-6995) /uL Lymph # (Auto) (0438-2571) /uL [place] # (Auto) (0-900) /uL Eos # (Auto) (0-450) /uL Baso # (Auto) (0-100) /uL D-Dimer < 200 (<230) ng/mL ABG pH 7.40 (7.35-7.45) ABG pCO2 39.1 (35-45) mmHg ABG pO2 90 (80-100) mmHg ABG HCO3 24 (22-26) mmol/L ABG Total CO2 25 (21-31) mmol/L ABG O2 Saturation 97 (95-100) % ABG Base Excess -1.0 (-2-2) mmol/L VBG pH 7.49 H (7.33-7.43) VBG pCO2 32.8 L (45-50) mmHg VBG pO2 72 H (35-45) mmHg VBG HCO3 25 (23-28) mmol/L VBG Total CO2 26 (24-29) mmol/L VBG O2 Saturation 96 H (70-75) % VBG Base Excess 1.0 (0-4) mmol/L FiO2 28 Sodium (137-145) mmol/L Potassium (3.4-5.1) mmol/L Chloride (98-107) mmol/L Carbon Dioxide (22-32) mmol/L BUN (7-17) mg/dL Creatinine (0.52-1.04) mg/dL Estimated GFR (>60) mL/min BUN/Creatinine Ratio (6-22) Glucose (70-100) mg/dL Lactate (0.7-2.1) mmol/L Calcium (8.4-10.2) mg/dL Magnesium (1.6-2.3) mg/dL Total Bilirubin (0.2-1.3) mg/dL AST (14-36) IU/L ALT (<35) IU/L Alkaline Phosphatase (38-126) U/L Total Creatine Kinase (30-135) U/L CK-MB (CK-2) (<2.37) ng/mL CK-MB (CK-2) Rel Index (1.5-5.0) % Troponin I (0.01-0.034) ng/mL NT-Pro-B Natriuret Pep (<125) pg/mL Total Protein (6.3-8.2) g/dL Albumin (3.5-5.0) g/dL Globulin (1.7-4.1) g/dL Albumin/Globulin Ratio (1.0-2.8) Procalcitonin (<0.5) ng/mL Chlamy pneumoniae PCR (Not Detect) Adenovirus (PCR) (Not Detect) B. pertussis DNA (PCR) (Not Detecte) B.parapertussis DNA PCR (Not Detecte) Coronavirus OC43 (PCR) (Not Detect) Coronavirus HKU1 (PCR) (Not Detect) Coronavirus 229E (PCR) (Not Detect) SARS-CoV-2 (PCR) (Negative) Coronavirus NL63 (PCR) (Not Detect) Human Metapneumovir PCR (Not Detect) Influenza Type A (PCR) (Not Detect) Influenza Type B (PCR) (Not Detect) M. pneumoniae (PCR) (Not Detect) Parainfluenza 1 (PCR) (Not Detect) Parainfluenza 2 (PCR) (Not Detect) Parainfluenza 3 (PCR) (Not Detect) Parainfluenza 4 (PCR) (Not Detect) RSV (PCR) (Not Detect) Entero/Rhino (PCR) (Not Detect) 03/22/21 03/22/21 03/22/21 Range/Units 07:19 08:30 09:52 WBC (4.5-11.0) X10^3/uL RBC (4.0-5.2) X10^6/uL Hgb (12.0-16.0) g/dL Hct (36-46) % MCV (80-100) fL MCH (26-34) PG MCHC (30-36) % RDW (11.6-14.8) % Plt Count (150-400) X10^3/uL Neut % (Auto) (50-75) % Lymph % (Auto) (25-40) % [place] % (Auto) (3-14) % Eos % (Auto) (2-4) % Baso % (Auto) (0-2) % Neut # (Auto) (1765-5659) /uL Lymph # (Auto) (6807-0150) /uL [place] # (Auto) (0-900) /uL Eos # (Auto) (0-450) /uL Baso # (Auto) (0-100) /uL D-Dimer (<230) ng/mL ABG pH (7.35-7.45) ABG pCO2 (35-45) mmHg ABG pO2 (80-100) mmHg ABG HCO3 (22-26) mmol/L ABG Total CO2 (21-31) mmol/L ABG O2 Saturation (95-100) % ABG Base Excess (-2-2) mmol/L VBG pH (7.33-7.43) VBG pCO2 (45-50) mmHg VBG pO2 (35-45) mmHg VBG HCO3 (23-28) mmol/L VBG Total CO2 (24-29) mmol/L VBG O2 Saturation (70-75) % VBG Base Excess (0-4) mmol/L FiO2 Sodium (137-145) mmol/L Potassium (3.4-5.1) mmol/L Chloride (98-107) mmol/L Carbon Dioxide (22-32) mmol/L BUN (7-17) mg/dL Creatinine (0.52-1.04) mg/dL Estimated GFR (>60) mL/min BUN/Creatinine Ratio (6-22) Glucose (70-100) mg/dL Lactate 0.9 (0.7-2.1) mmol/L Calcium (8.4-10.2) mg/dL Magnesium (1.6-2.3) mg/dL Total Bilirubin (0.2-1.3) mg/dL AST (14-36) IU/L ALT (<35) IU/L Alkaline Phosphatase (38-126) U/L Total Creatine Kinase 91 (30-135) U/L CK-MB (CK-2) TNP (<2.37) ng/mL CK-MB (CK-2) Rel Index TNP (1.5-5.0) % Troponin I 0.020 (0.01-0.034) ng/mL NT-Pro-B Natriuret Pep (<125) pg/mL Total Protein (6.3-8.2) g/dL Albumin (3.5-5.0) g/dL Globulin (1.7-4.1) g/dL Albumin/Globulin Ratio (1.0-2.8) Procalcitonin 0.21 (<0.5) ng/mL Chlamy pneumoniae PCR Not detected (Not Detect) Adenovirus (PCR) Not detected (Not Detect) B. pertussis DNA (PCR) Not detected (Not Detecte) B.parapertussis DNA PCR Not detected (Not Detecte) Coronavirus OC43 (PCR) Not detected (Not Detect) Coronavirus HKU1 (PCR) Not detected (Not Detect) Coronavirus 229E (PCR) Not detected (Not Detect) SARS-CoV-2 (PCR) Not detected (Negative) Coronavirus NL63 (PCR) Not detected (Not Detect) Human Metapneumovir PCR Not detected (Not Detect) Influenza Type A (PCR) Not detected (Not Detect) Influenza Type B (PCR) Not detected (Not Detect) M. pneumoniae (PCR) Not detected (Not Detect) Parainfluenza 1 (PCR) Not detected (Not Detect) Parainfluenza 2 (PCR) Not detected (Not Detect) Parainfluenza 3 (PCR) Not detected (Not Detect) Parainfluenza 4 (PCR) Not detected (Not Detect) RSV (PCR) Not detected (Not Detect) Entero/Rhino (PCR) Not detected (Not Detect) Point of Care Testing Glucose POC 290 Urine Dip Bedside Urine Glucose 1000 mg/dl Bedside Urine Bilirubin - Negative Bedside Urine Ketone + 15 Urine Specific Harriet 1.015 Bedside Urine Occult Blood - Negative Bedside Urine pH 7.0 Bedside Urine Protein - Negative Bedside Urine Urobilinogen - Negative Bedside Urine Nitrite - Negative Bedside Urine Leukocytes - Negative Esterase Imaging Data CT scan - chest: Radiologist's Impression: No pulmonary embolus. No acute findings in the chest Left thyroid nodule. CT scan - abdomen/pelvis: Radiologist's Impression: No acute findings in the abdomen or pelvis MDM Narrative Medical decision making narrative: Dr quiroz: Received turned over. Reviewed patient's history and physical exam. Performed my own independent exam. Patient did have continue nausea and vomiting requiring multiple rounds of nausea medication. Patient was also having episodes of hypoxia. The CT scan of her chest show no signs of pulmonary embolism. Did consider cardiac etiology. Troponins negative x2. Unchanged EKG. She has no chest pain. She is requiring oxygen to keep her oxygen saturations above 90. COVID was negative. Discussed the case with Dr. Miranda with Internal Medicine. We will admit for her presenting symptoms and continued evaluation treatment. Did discuss the admission with the patient. She and her at bedside expressed understanding and agreement. Discharge Plan Departure Patient Disposition: Admitted as Observation Clinical Impression: Thyroid nodule, Hyperglycemia, Hypoxia, Nausea and vomiting, Screening for depression Admit Date/Time: 03/22/21 11:24 Admit Provider: William Miranda
[2021-03-22] MEDS: ONDANSETRON 4 MG/2 ML INJ IV ×3 (05:36→11:49)
[2021-03-22] MEDS: SODIUM CHLORIDE 0.9% 1,000 ML 1000 ML IV ×2 (05:37→06:54)
[2021-03-22 05:38] LABS: Add Manual Diff / Slide Review NO; Basophils Absolute Auto 100 /uL (0-100); Basophils Percent Auto 0.5 % (0-2); Eosinophils Absolute Auto 100 /uL (0-450); Eosinophils Percent Auto 0.6 % (2-4); Hematocrit 49.4 % (36-46); Hemoglobin 16.5 g/dL (12.0-16.0); Lymphocytes Absolute Auto 2700 /uL (1100-4500); Lymphocytes Percent Auto 14.9 % (25-40); Mean Corpuscular HGB Conc 33.4 % (30-36); Mean Corpuscular Hemoglobin 28.9 PG (26-34); Mean Corpuscular Volume 86.5 fL (80-100); Monocytes Absolute Auto 1100 /uL (0-900); Monocytes Percent Auto 6.2 % (3-14); Neutrophils Absolute Auto 14100 /uL (1500-7000); Neutrophils Percent Auto 77.8 % (50-75); Platelet Count 385 X10^3/uL (150-400); Red Blood Cell Count 5.71 X10^6/uL (4.0-5.2); Red Cell Distribution Width 13.1 % (11.6-14.8); White Blood Cell Count 18.1 X10^3/uL (4.5-11.0)
[2021-03-22 05:44] LABS: Alanine Aminotransferase 65 IU/L (<35); Albumin 4.6 g/dL (3.5-5.0); Albumin Globulin Ratio 1.6 (1.0-2.8); Alkaline Phosphatase 175 U/L (38-126); Aspartate Aminotransferase 44 IU/L (14-36); BUN Creatinine Ratio 28.6 (6-22); Bilirubin Total 1.1 mg/dL (0.2-1.3); Blood Urea Nitrogen 14 mg/dL (7-17); Carbon Dioxide 23 mmol/L (22-32); Chloride 102 mmol/L (98-107); Estimated Glomerular Filt Rate > 60.0 mL/min (>60); Globulin 2.8 g/dL (1.7-4.1); HEMOLYSIS 28 (0-50); Magnesium 1.9 mg/dL (1.6-2.3); Potassium 3.9 mmol/L (3.4-5.1); Sodium 138 mmol/L (137-145); Total Protein 7.4 g/dL (6.3-8.2)
[2021-03-22 05:48] LABS: Glucose 508 mg/dL (70-100)
[2021-03-22 06:14] LABS: COVID19 -Nasal RAPID Negative (Negative)
[2021-03-22 06:16] LABS: Creatine Kinase 116 U/L (30-135)
[2021-03-22 06:17] LABS: Lactate (Lactic Acid) 2.9 mmol/L (0.7-2.1)
--- NOTE | 2021-03-22 06:19 | DI.CT.S_ITS ---
PROCEDURE: CT ANGIO CHEST PE PROTOCOL INDICATIONS: tachycardia, hypoxemia TECHNIQUE: After the administration of intravenous contrast, 2 mm thick sections acquired from the pulmonary apices to the posterior costophrenic angles. 3-dimensional maximum intensity projection (MIP) coronal and sagittal reformats were then acquired through the thorax. For radiation dose reduction, the following was used: automated exposure control, adjustment of mA and/or kV according to patient size. COMPARISON: [facility], CT, ABDOMEN/PELVIS WITH CONTRAST, 03/26/2009, 18:13. [facility], CT, CT ABDOMEN PELVIS W CON, 03/22/2021, 6:35. [facility], CT, CT ABDOMEN PELVIS W CON, 01/31/2019, 15:38. FINDINGS: Image quality: Excellent. Pulmonary arteries: Pulmonary arteries are normal in size, and demonstrate no intraluminal filling defects to suggest central pulmonary embolism. Lungs and pleura: Lungs are clear. No pleural effusions or pneumothorax. Central and peripheral airways are patent. Mediastinum: Heart size is normal, without pericardial effusion. No mediastinal or hilar adenopathy. Thoracic aorta is normal in caliber and enhancement. Esophagus is normal in caliber, without hiatal hernia. Bones and chest wall: No suspicious bony lesions. Ribs and thoracic spine appear intact throughout. Thyroid gland contains a 2.5 by 2.9 centimeter hypoattenuating nodule in the left lobe. No axillary or supraclavicular adenopathy. Abdomen: 2 point 4 centimeter fat density right adrenal nodule noted compatible with adrenal myelolipoma or impinging lipoma which is not significantly changed compared to prior exams.. Visualized upper abdominal solid organs otherwise appear normal in the early arterial phase of enhancement. IMPRESSION: 1. No pulmonary embolus. 2. No lung consolidation or pleural effusions. 3. 2.5 x 2.9 centimeter left thyroid nodule. Recommend thyroid ultrasound for definitive characterization. Dictated by: Alexsandra Jewell MD, PhD on 03/22/2021 at 8:06 Approved by: Alexsandra Jewell MD, PhD on 03/22/2021 at 8:19
--- NOTE | 2021-03-22 06:19 | DI.CT.S_ITS ---
PROCEDURE: CT ABDOMEN PELVIS W CON INDICATIONS: abdominal pain, vomiting TECHNIQUE: After the administration of intravenous contrast, axial sections acquired from the lung bases to the pubic symphysis. Coronal and sagittal reformats were performed. For radiation dose reduction, the following was used: automated exposure control, adjustment of mA and/or kV according to patient size. COMPARISON: [facility], CT, CT ABDOMEN PELVIS W CON, 01/31/2019, 15:38. [facility], CT, ABDOMEN/PELVIS WITH CONTRAST, 05/03/2012, 11:49. FINDINGS: Image quality: Excellent. Lung bases: Unremarkable. Heart: No significant findings. ABDOMEN: Liver: Unremarkable. Gallbladder: Unremarkable. Biliary ducts: Unremarkable. Pancreas: Unremarkable. Spleen: Unremarkable. Adrenal Glands: Unremarkable except for presence of a 2.3 cm rounded small lipoma adjacent to the lateral border of the right adrenal gland, previously present. Kidneys and Ureters: Unremarkable. Stomach and Bowel: Stomach, small bowel loops, and colon are unremarkable. Peritoneum: No abnormal intraperitoneal fluid. No free air. Ventral Wall: No hernias. Abdominal Nodes: No retroperitoneal or mesenteric adenopathy by size criteria. Vessels: Aorta and inferior vena cava are normal in size. PELVIS: Pelvic Organs: Unremarkable. Bladder: Unremarkable. Pelvic Nodes: No enlarged lymph nodes. Miscellaneous: No hernias are seen. Focal lipoma measuring 2.5 x 5.0 cm at the anterior border of the deep margin of the anterior right-side gluteus musculature, previously present. There is mild right-sided colonic obstipation that extends into the proximal transverse colon, without significant left-sided colonic obstipation. A normal or abnormal appendix could not be located. Bones: Unremarkable. IMPRESSION: Mild colonic obstipation noted on the right, as a potential cause for abdominal discomfort. No intestinal obstruction or perforation is seen. Dictated by: Mele Arciniega M.D. on 03/22/2021 at 9:06 Approved by: Mele Arciniega M.D. on 03/22/2021 at 9:12
[2021-03-22 06:27] LABS: NT-proBNP (BNP-Adult 18+) 548 pg/mL (<125)
[2021-03-22 06:29] LABS: Troponin I 0.014 ng/mL (0.01-0.034)
[2021-03-22 06:30] LABS: D Dimer < 200 ng/mL (<230)
[2021-03-22 06:31] LABS: CKMB % Relative Index 1.9 % (1.5-5.0); Creatine Kinase MB 2.21 ng/mL (<2.37)
[2021-03-22 08:04] LABS: Reflexed Lactate in 2 Hours Y
[2021-03-22 08:15] LABS: HCO3 VBG 25 mmol/L (23-28); Oxygen Saturation VBG 96 % (70-75); PCO2 VBG 32.8 mmHg (45-50); PO2 VBG 72 mmHg (35-45); Total CO2 VBG 26 mmol/L (24-29); pH VBG 7.49 (7.33-7.43)
[2021-03-22 08:18] LABS: Fractionated Inspired Oxygen 28; HCO3 ABG 24 mmol/L (22-26); Oxygen Saturation ABG 97 % (95-100); PCO2 ABG 39.1 mmHg (35-45); PO2 ABG 90 mmHg (80-100); TCO2 ABG 25 mmol/L (21-31)
[2021-03-22 08:46] LABS: Lactate 2HR (Lactic Acid Rflx) 0.9 mmol/L (0.7-2.1)
[2021-03-22 09:01] LABS: Adenovirus Not Detected (Not Detect); B. parapertussis Not Detected (Not Detecte); Bordetella pertussis Not Detected (Not Detecte); Chlamydophila pneumoniae Not Detected (Not Detect); Coronavirus 229E Not Detected (Not Detect); Coronavirus HKU1 Not Detected (Not Detect); Coronavirus NL 63 Not Detected (Not Detect); Coronavirus OC43 Not Detected (Not Detect); Human Metapneumovirus Not Detected (Not Detect); Human Rhinovirus/Enterovirus Not Detected (Not Detect); Influenza A Not Detected (Not Detect); Influenza B Not Detected (Not Detect); Mycoplasma pneumoniae Not Detected (Not Detect); Parainfluenza Virus 1 Not Detected (Not Detect); Parainfluenza Virus 2 Not Detected (Not Detect); Parainfluenza Virus 3 Not Detected (Not Detect); Parainfluenza Virus 4 Not Detected (Not Detect); Respiratory Syncytial Virus Not Detected (Not Detect); SARS- CoV-2 Not Detected (Not Detecte)
[2021-03-22 09:59] LABS: Creatine Kinase 91 U/L (30-135)
[2021-03-22] MEDS: SODIUM CHLORIDE 0.9% 1,000 ML 125 ML IV ×3 (10:06→21:02)
[2021-03-22 10:17] LABS: Procalcitonin 0.21 ng/mL (<0.5)
--- NOTE | 2021-03-22 12:54 | PC.NURSE ---
Day shift: Pt on unit at approx 1240 from ED. She can ambulate and voided in hat. UA ordered by MD. NS at 125ml/hr started per MD as well. She can eat or drink anything she wants per MD. 94% RA. VS WNL. Oriented to room and call light. Agrees to not get OOB w/o help from staff. Call light in reach. She is A&Ox4.
[2021-03-22 13:13] LABS: Bacteria Urine None Seen; RBC Urine None Seen (0-5/HPF)
[2021-03-22 13:15] LABS: Appearance Urine UA CLEAR; Bilirubin Urine UA NEGATIVE (NEGATIVE); Color Urine UA YELLOW; Glucose Urine UA 2+ g/dL (Negative); Ketones Urine UA 1+ (NEGATIVE); Leukocyte Esterase Urine UA NEGATIVE (NEGATIVE); Nitrite Urine UA NEGATIVE (Negative); Occult Blood Urine UA NEGATIVE (Negative); Protein Urine UA NEGATIVE (Negative); Urobilinogen Urine UA 0.2 E.U./dL (0.2)
[2021-03-22 13:22] LABS: Culture Indicated Urine Cult Not Indicated; Squamous Epithelial Cell Urine 0-1 /HPF (0-5/HPF); WBC Urine 1-5/HPF (0-5/HPF)
[2021-03-22] MEDS: PANTOPRAZOLE 40 MG VIAL IV (14:29)
--- NOTE | 2021-03-22 14:51 | PC.NURSE ---
Day shift: Pt refused SCD's. Informed of their use and how they can help prevent blood clots. Still refused them. Spouse in room for support. Denies any nausea at this time.
--- NOTE | 2021-03-22 16:44 | PM.HP.1 ---
History of Present Illness History of Present Illness Date Patient Seen: 03/22/21 Time Patient Seen: 11:00 Chief complaint: vomiting since 9 pm/runny nose Narrative: Ms. Armenta is a 55W with PMH DM, HL who presents with one day of nausea, vomiting, and abdominal pain. Patient was in a good state of health until last night. She states she has been recently started approximately 3 weeks ago on Victoza, yesterday her Victoza was increased due to continued hyperglycemia. She does not note any unusual foods, and her at the same food she did and has no GI symptoms. She has not noted fevers/chills, no blood in vomit, no diarrhea, no chest pain or shortness of breath. No headache or vision changes. In the ED workup was done, she had no fever, tachycardic to the 130s, normal blood pressure, she did desaturate to the 80s and was placed on oxygen. Labs were done and showed a WBC of 18.1, procalcitonin of 0.2, hgb 16.5, d-dimer unremarkable, bmp with creatinine of 0.49 and normal sodium and potassium, glucose of 500, calcium 11.0, ast 44, alt 65, alk phos 175, troponin 0.014 then 0.02. UA negative for infection. respiratory panel negative. COVID negative. CT abdomen showed no acute process. CTA showed no acute abnormality. She was given IV fluids and anti-emetics and admitted for further treatment. Patient History Medical History Chronic low back pain Diabetes Elevated blood pressure reading in office without diagnosis of hypertension Gait instability Head contusion Herniated nucleus pulposus, L4-5 Herpes (2002) Hyperlipidemia Impacted cerumen of left ear Nga syndrome Ptosis Right otitis externa Surgical History History of colonoscopy with polypectomy (11/05/13) History of left cataract surgery (07/20/09) History of right cataract surgery (08/03/09) Status post hysteroscopic myomectomy (07/19/12) Status post laparoscopic supracervical hysterectomy Family & Social History Family History Father Diabetes mellitus Coronary arteriosclerosis Hyperlipidemia [place] (myocardial infarction) Mother Colon cancer Social History: household members spouse Prior Living Arrangements RV Safety & Behavioral: Feels Safe in Current Yes Environment Been Physically Hurt or No Threatened By a Person Suicidal Ideation Description None Suicide Plan Description No Plan Tobacco & Substance use: Smoking Status Never smoker alcohol intake current alcohol intake frequency other Substance Use Type does not use Meds Home Medications and Allergies Home Medications Medication Instructions Recorded Confirmed Type atorvastatin 20 mg tablet (Lipitor) 20 mg PO DAILY #90 tab 05/20/20 01/31/21 Rx venlafaxine 37.5 mg 37.5 mg PO DAILY #90 cap 07/19/20 01/31/21 Rx capsule,extended release 24 hr (Effexor XR) lancets 33 gauge (BD Ultra Fine #100 ea 08/02/20 01/31/21 Rx Lancets) blood sugar diagnostic (Blood #100 ea 01/31/21 01/31/21 Rx Glucose Test) metformin 500 mg tablet,extended 500 mg PO QPM #90 tab 01/31/21 Rx release 24 hr liraglutide 0.6 mg/0.1 mL (18 mg/3 See Rx Instructions SUBCUT 02/16/21 Rx mL) subcutaneous pen injector .COMPLEX #9 ml (Victoza 3-Oh) BD Ultra Fine Pen Tips 31G x 8mm #2 ea 03/15/21 Rx pioglitazone 15 mg tablet (Actos) 15 mg PO DAILY #90 tab 03/21/21 03/21/21 Rx Allergies Allergy/AdvReac Type Severity Reaction Status Date / Time latex [LATEX] Allergy Severe hives Verified 03/22/21 05:32 adhesive [ADHESIVE] AdvReac Mild rash from Verified 03/22/21 05:32 tape morphine [MORPHINE] AdvReac Mild gi upset Verified 03/22/21 05:32 Sulfa (Sulfonamide AdvReac Mild gi upset Verified 03/22/21 05:32 Antibiotics) [SULFA (SULFONAMIDE ANTIBIOTICS)] Review of Systems Review of Systems Narrative: 14 systems reviewed and negative aside from what is noted in HPI Exam Vital Signs (past 8 hours): - 03/22/21 09:00 03/22/21 09:30 03/22/21 09:31 Temperature Pulse Rate 105 H 101 H 101 H Respiratory Rate 39 H 47 H 45 H Blood Pressure 136/72 Pulse Oximetry 97 97 97 03/22/21 10:00 03/22/21 10:30 03/22/21 10:47 Temperature Pulse Rate 106 H 101 H Respiratory Rate 29 H 23 Blood Pressure 133/88 136/81 Pulse Oximetry 97 98 82 L 03/22/21 11:00 03/22/21 11:30 03/22/21 12:00 Temperature Pulse Rate 100 H 109 H 97 H Respiratory Rate 20 15 20 Blood Pressure 145/73 H 140/88 Pulse Oximetry 92 96 03/22/21 12:01 03/22/21 12:49 03/22/21 15:25 Temperature 97.4 F L 97.7 F Pulse Rate 98 H 97 H 89 Respiratory Rate 17 22 19 Blood Pressure 114/80 113/74 114/75 Pulse Oximetry 96 94 97 Oxygen Delivery Method Room Air Oxygen Flow Rate 0 Narrative Exam Narrative: GEN: dry heaving during exam HEENT: bilateral ptosis (chronic per patient), dry mucous membranes, PERRL NECK: no JVD, trachea midline CV: tachycardic, with no murmurs PULM: clear to bilaterally, with no wheezes, rhonchi, rales ABD: soft, nontender, nondistended, no organomegaly, normal bowel sounds EXT: warm and well perfused with no edema NEURO: awake alert and oriented, moving all extremities PSYCH: pleasant, cooperative SKIN: no rashes noted Objective Labs Result Diagrams: 03/22/21 05:15 03/22/21 05:15 Labs: Laboratory Results - last 24 hr 03/22/21 03/22/21 03/22/21 05:15 05:15 05:15 WBC 18.1 H RBC 5.71 H Hgb 16.5 H Hct 49.4 H MCV 86.5 MCH 28.9 MCHC 33.4 RDW 13.1 Plt Count 385 Neut % (Auto) 77.8 H Lymph % (Auto) 14.9 L [place] % (Auto) 6.2 Eos % (Auto) 0.6 L Baso % (Auto) 0.5 Neut # (Auto) 38303 H Lymph # (Auto) 2700 [place] # (Auto) 1100 H Eos # (Auto) 100 Baso # (Auto) 100 D-Dimer ABG pH ABG pCO2 ABG pO2 ABG HCO3 ABG Total CO2 ABG O2 Saturation ABG Base Excess VBG pH VBG pCO2 VBG pO2 VBG HCO3 VBG Total CO2 VBG O2 Saturation VBG Base Excess FiO2 Sodium 138 Potassium 3.9 Chloride 102 Carbon Dioxide 23 BUN 14 Creatinine 0.49 L Estimated GFR > 60.0 BUN/Creatinine Ratio 28.6 H Glucose 508 H* Lactate Calcium 11.0 H Magnesium 1.9 Total Bilirubin 1.1 AST 44 H ALT 65 H Alkaline Phosphatase 175 H Total Creatine Kinase 116 CK-MB (CK-2) 2.21 CK-MB (CK-2) Rel Index 1.9 Troponin I 0.014 NT-Pro-B Natriuret Pep Total Protein 7.4 Albumin 4.6 Globulin 2.8 Albumin/Globulin Ratio 1.6 Procalcitonin Urine Color Urine Appearance Urine pH Ur Specific [place] Urine Protein Urine Glucose (UA) Urine Ketones Urine Occult Blood Urine Nitrate Urine Bilirubin Urine Urobilinogen Ur Leukocyte Esterase Urine RBC Urine WBC Ur Squamous Epith Cells Urine Bacteria Ur Culture Indicated? Chlamy pneumoniae PCR Adenovirus (PCR) B. pertussis DNA (PCR) B.parapertussis DNA PCR Coronavirus OC43 (PCR) Coronavirus HKU1 (PCR) Coronavirus 229E (PCR) SARS-CoV-2 (PCR) Coronavirus NL63 (PCR) Human Metapneumovir PCR Influenza Type A (PCR) Influenza Type B (PCR) M. pneumoniae (PCR) Parainfluenza 1 (PCR) Parainfluenza 2 (PCR) Parainfluenza 3 (PCR) Parainfluenza 4 (PCR) RSV (PCR) Entero/Rhino (PCR) 03/22/21 03/22/21 03/22/21 05:15 05:15 05:40 WBC RBC Hgb Hct MCV MCH MCHC RDW Plt Count Neut % (Auto) Lymph % (Auto) [place] % (Auto) Eos % (Auto) Baso % (Auto) Neut # (Auto) Lymph # (Auto) [place] # (Auto) Eos # (Auto) Baso # (Auto) D-Dimer ABG pH ABG pCO2 ABG pO2 ABG HCO3 ABG Total CO2 ABG O2 Saturation ABG Base Excess VBG pH VBG pCO2 VBG pO2 VBG HCO3 VBG Total CO2 VBG O2 Saturation VBG Base Excess FiO2 Sodium Potassium Chloride Carbon Dioxide BUN Creatinine Estimated GFR BUN/Creatinine Ratio Glucose Lactate 2.9 H Calcium Magnesium Total Bilirubin AST ALT Alkaline Phosphatase Total Creatine Kinase CK-MB (CK-2) CK-MB (CK-2) Rel Index Troponin I NT-Pro-B Natriuret Pep 548 H Total Protein Albumin Globulin Albumin/Globulin Ratio Procalcitonin Urine Color Urine Appearance Urine pH Ur Specific [place] Urine Protein Urine Glucose (UA) Urine Ketones Urine Occult Blood Urine Nitrate Urine Bilirubin Urine Urobilinogen Ur Leukocyte Esterase Urine RBC Urine WBC Ur Squamous Epith Cells Urine Bacteria Ur Culture Indicated? Chlamy pneumoniae PCR Adenovirus (PCR) B. pertussis DNA (PCR) B.parapertussis DNA PCR Coronavirus OC43 (PCR) Coronavirus HKU1 (PCR) Coronavirus 229E (PCR) SARS-CoV-2 (PCR) Negative Coronavirus NL63 (PCR) Human Metapneumovir PCR Influenza Type A (PCR) Influenza Type B (PCR) M. pneumoniae (PCR) Parainfluenza 1 (PCR) Parainfluenza 2 (PCR) Parainfluenza 3 (PCR) Parainfluenza 4 (PCR) RSV (PCR) Entero/Rhino (PCR) 03/22/21 03/22/21 03/22/21 05:45 06:00 06:05 WBC RBC Hgb Hct MCV MCH MCHC RDW Plt Count Neut % (Auto) Lymph % (Auto) [place] % (Auto) Eos % (Auto) Baso % (Auto) Neut # (Auto) Lymph # (Auto) [place] # (Auto) Eos # (Auto) Baso # (Auto) D-Dimer < 200 ABG pH 7.40 ABG pCO2 39.1 ABG pO2 90 ABG HCO3 24 ABG Total CO2 25 ABG O2 Saturation 97 ABG Base Excess -1.0 VBG pH 7.49 H VBG pCO2 32.8 L VBG pO2 72 H VBG HCO3 25 VBG Total CO2 26 VBG O2 Saturation 96 H VBG Base Excess 1.0 FiO2 28 Sodium Potassium Chloride Carbon Dioxide BUN Creatinine Estimated GFR BUN/Creatinine Ratio Glucose Lactate Calcium Magnesium Total Bilirubin AST ALT Alkaline Phosphatase Total Creatine Kinase CK-MB (CK-2) CK-MB (CK-2) Rel Index Troponin I NT-Pro-B Natriuret Pep Total Protein Albumin Globulin Albumin/Globulin Ratio Procalcitonin Urine Color Urine Appearance Urine pH Ur Specific [place] Urine Protein Urine Glucose (UA) Urine Ketones Urine Occult Blood Urine Nitrate Urine Bilirubin Urine Urobilinogen Ur Leukocyte Esterase Urine RBC Urine WBC Ur Squamous Epith Cells Urine Bacteria Ur Culture Indicated? Chlamy pneumoniae PCR Adenovirus (PCR) B. pertussis DNA (PCR) B.parapertussis DNA PCR Coronavirus OC43 (PCR) Coronavirus HKU1 (PCR) Coronavirus 229E (PCR) SARS-CoV-2 (PCR) Coronavirus NL63 (PCR) Human Metapneumovir PCR Influenza Type A (PCR) Influenza Type B (PCR) M. pneumoniae (PCR) Parainfluenza 1 (PCR) Parainfluenza 2 (PCR) Parainfluenza 3 (PCR) Parainfluenza 4 (PCR) RSV (PCR) Entero/Rhino (PCR) 03/22/21 03/22/21 03/22/21 07:19 08:30 09:52 WBC RBC Hgb Hct MCV MCH MCHC RDW Plt Count Neut % (Auto) Lymph % (Auto) [place] % (Auto) Eos % (Auto) Baso % (Auto) Neut # (Auto) Lymph # (Auto) [place] # (Auto) Eos # (Auto) Baso # (Auto) D-Dimer ABG pH ABG pCO2 ABG pO2 ABG HCO3 ABG Total CO2 ABG O2 Saturation ABG Base Excess VBG pH VBG pCO2 VBG pO2 VBG HCO3 VBG Total CO2 VBG O2 Saturation VBG Base Excess FiO2 Sodium Potassium Chloride Carbon Dioxide BUN Creatinine Estimated GFR BUN/Creatinine Ratio Glucose Lactate 0.9 Calcium Magnesium Total Bilirubin AST ALT Alkaline Phosphatase Total Creatine Kinase 91 CK-MB (CK-2) TNP CK-MB (CK-2) Rel Index TNP Troponin I 0.020 NT-Pro-B Natriuret Pep Total Protein Albumin Globulin Albumin/Globulin Ratio Procalcitonin 0.21 Urine Color Urine Appearance Urine pH Ur Specific [place] Urine Protein Urine Glucose (UA) Urine Ketones Urine Occult Blood Urine Nitrate Urine Bilirubin Urine Urobilinogen Ur Leukocyte Esterase Urine RBC Urine WBC Ur Squamous Epith Cells Urine Bacteria Ur Culture Indicated? Chlamy pneumoniae PCR Not detected Adenovirus (PCR) Not detected B. pertussis DNA (PCR) Not detected B.parapertussis DNA PCR Not detected Coronavirus OC43 (PCR) Not detected Coronavirus HKU1 (PCR) Not detected Coronavirus 229E (PCR) Not detected SARS-CoV-2 (PCR) Not detected Coronavirus NL63 (PCR) Not detected Human Metapneumovir PCR Not detected Influenza Type A (PCR) Not detected Influenza Type B (PCR) Not detected M. pneumoniae (PCR) Not detected Parainfluenza 1 (PCR) Not detected Parainfluenza 2 (PCR) Not detected Parainfluenza 3 (PCR) Not detected Parainfluenza 4 (PCR) Not detected RSV (PCR) Not detected Entero/Rhino (PCR) Not detected 03/22/21 13:00 WBC RBC Hgb Hct MCV MCH MCHC RDW Plt Count Neut % (Auto) Lymph % (Auto) [place] % (Auto) Eos % (Auto) Baso % (Auto) Neut # (Auto) Lymph # (Auto) [place] # (Auto) Eos # (Auto) Baso # (Auto) D-Dimer ABG pH ABG pCO2 ABG pO2 ABG HCO3 ABG Total CO2 ABG O2 Saturation ABG Base Excess VBG pH VBG pCO2 VBG pO2 VBG HCO3 VBG Total CO2 VBG O2 Saturation VBG Base Excess FiO2 Sodium Potassium Chloride Carbon Dioxide BUN Creatinine Estimated GFR BUN/Creatinine Ratio Glucose Lactate Calcium Magnesium Total Bilirubin AST ALT Alkaline Phosphatase Total Creatine Kinase CK-MB (CK-2) CK-MB (CK-2) Rel Index Troponin I NT-Pro-B Natriuret Pep Total Protein Albumin Globulin Albumin/Globulin Ratio Procalcitonin Urine Color Yellow Urine Appearance Clear Urine pH 7.0 Ur Specific [place] 1.010 Urine Protein Negative Urine Glucose (UA) 2+ H Urine Ketones 1+ H Urine Occult Blood Negative Urine Nitrate Negative Urine Bilirubin Negative Urine Urobilinogen 0.2 Ur Leukocyte Esterase Negative Urine RBC None seen Urine WBC 1-5/hpf Ur Squamous Epith Cells 0-1 /hpf Urine Bacteria None seen Ur Culture Indicated? Cult not indicated Chlamy pneumoniae PCR Adenovirus (PCR) B. pertussis DNA (PCR) B.parapertussis DNA PCR Coronavirus OC43 (PCR) Coronavirus HKU1 (PCR) Coronavirus 229E (PCR) SARS-CoV-2 (PCR) Coronavirus NL63 (PCR) Human Metapneumovir PCR Influenza Type A (PCR) Influenza Type B (PCR) M. pneumoniae (PCR) Parainfluenza 1 (PCR) Parainfluenza 2 (PCR) Parainfluenza 3 (PCR) Parainfluenza 4 (PCR) RSV (PCR) Entero/Rhino (PCR) Assessment & Plan Assessment & Plan narrative: Ms. Armenta is a 55W with PMH DM who comes in with nausea and vomiting, and acute hypoxemic respiratory failure. 1. Acute nausea and vomiting -etiology is most likely vomiting from reaction from increase in victoza, possibly metformin contributing -will hold oral diabetes meds currently -keep patient on clears -supportive care with IV fluids, zofran, reglan as needed -IV protonix daily -other possibilities are gastritis, or gastroenteritis though I suspect these are less likely 2. Acute hypoxemic respiratory failure -has improved once admitted -CT angio showed no acute process -could be secondary to aspiration in setting of vomiting, but patient currently asymptomatic -troponin in indeterminate range, EKG ok, will continue to trend troponins 3. Elevated lactate -etiology not clear -possibly related to metformin -currently no evidence of infection, and patient not hypotensive -has resolved with fluids 4. Type 2 Diabetes, with hyperglycemia, not on insulin -has had elevated blood sugars as outpatient -for now would recommend stopping victoza -may need insulin as an outpatient, will discuss if patient wants to discuss this prior to dc or to discuss with PCP 5. Hyperlipidemia -continue statin CODE: Full DVT ppx: Lovenox sc Proxy: Freddy Armenta, I have utilized all available immediate resources to obtain, update, or review the patient's current medications. Quality MIPS - Admit I confirm the patient?s Advance Care Plan is present, Code status is documented, Surrogate decision maker is in patient?s record [If Yes, STOP here]: Yes
[2021-03-22] MEDS: INSULIN LISPRO 100 UNIT/ML 3ML VIAL SUBCUT (17:11)
[2021-03-22 18:03] LABS: Troponin I 0.029 ng/mL (0.01-0.034)
[2021-03-22] MEDS: INSULIN GLARGINE 100 UNIT/ML 3ML PEN 10 UNIT SUBCUT (21:00)
[2021-03-23] VITALS: BP 116/69; PULSE 79; RESP 16; TEMP 37.1; O2SAT 96
[2021-03-23 01:00] VITALS: O2SAT 96
[2021-03-23] MEDS: SODIUM CHLORIDE 0.9% 1,000 ML 125 ML IV (05:00)
[2021-03-23 05:40] LABS: Add Manual Diff / Slide Review NO; Basophils Absolute Auto 100 /uL (0-100); Basophils Percent Auto 0.7 % (0-2); Eosinophils Absolute Auto 200 /uL (0-450); Eosinophils Percent Auto 1.7 % (2-4); Hematocrit 38.4 % (36-46); Lymphocytes Absolute Auto 3300 /uL (1100-4500); Lymphocytes Percent Auto 35.7 % (25-40); Mean Corpuscular HGB Conc 33.9 % (30-36); Mean Corpuscular Hemoglobin 29.3 PG (26-34); Mean Corpuscular Volume 86.5 fL (80-100); Monocytes Absolute Auto 700 /uL (0-900); Monocytes Percent Auto 7.4 % (3-14); Neutrophils Absolute Auto 5100 /uL (1500-7000); Neutrophils Percent Auto 54.5 % (50-75); Platelet Count 240 X10^3/uL (150-400); Red Blood Cell Count 4.44 X10^6/uL (4.0-5.2); White Blood Cell Count 9.3 X10^3/uL (4.5-11.0)
[2021-03-23 05:55] LABS: Blood Urea Nitrogen 8 mg/dL (7-17); Calcium 9.7 mg/dL (8.4-10.2); Carbon Dioxide 29 mmol/L (22-32); Chloride 107 mmol/L (98-107); Estimated Glomerular Filt Rate > 60.0 mL/min (>60); Glucose 144 mg/dL (70-100); HEMOLYSIS < 15 (0-50); Potassium 3.2 mmol/L (3.4-5.1); Sodium 140 mmol/L (137-145)
--- NOTE | 2021-03-23 06:46 | PC.ADMIT ---
[email or web address] [facility] Site [facility] Admission Note: The patient,Ange Armenta,55 y/o, was given written information regarding hospital policies, unit procedures and contact persons. Patient's smoking status: Never smoker. Vital Signs - 8 hr 03/23/21 00:00 03/23/21 01:00 Temperature 98.7 F Pulse Rate 79 Respiratory Rate 16 Blood Pressure 116/69 Pulse Oximetry 96 96
--- NOTE | 2021-03-23 06:47 | PC.NURSE ---
pt alert and able to make needs known, voice horse?whispers. mildly achy after vomiting for serval hours yesterday. No episode of Nausea or vomiting since arrival to floor. SBA with assist for IV pole. pt with steady gait to BR voids adequate UOP. Labs improved since admit, random chem 150, am chem by lab 144.
[2021-03-23 08:21] VITALS: O2SAT 96
[2021-03-23] MEDS: INSULIN LISPRO 100 UNIT/ML 3ML VIAL SUBCUT (08:38)
[2021-03-23] MEDS: PANTOPRAZOLE 40 MG VIAL IV (08:38)
[2021-03-23] MEDS: ENOXAPARIN 40 MG/0.4 ML SYRINGE SUBCUT (08:38)
--- NOTE | 2021-03-23 08:51 | CM.DANOTE ---
DCP: Case received, EMR reviewed and met with patient. Introduced self and role. Was able to obtain information regarding patient's baseline activity status prior to hospitalization. DCP assessment completed with information currently available. Patient is a 55 year old female who admitted yesterday morning to the care of the hospitalist team. PCP: Dr. Merida. Payer: [facility] [employer]. Patient came to the hospital via private vehicle secondary to having nausea, as well as vomiting and weakness. She was also noted to have some hypoxia. Patient was noted to have possible reaction to her diabetic medications, which could have contributed to vomiting, as well as gastritis. Patient does have history of diabetes. Met with patient in her room. She had just completed breakfast, and was in bed. She is alert and oriented, pleasant. She resides in an RV with her spouse, Freddy. She is independent at her baseline. She was whispering, having a hard time speaking, which she stated was related to her gastritis/esophagitis. She confirmed that her primary care provider is Dr. Merida, and had not been on these diabetic medication for long. P: DCP to continue to follow for any needs. She should be seeing sales and marketing analyst here at the hospital, and her diabetic medications are on hold. Patient should be able to go home when she is deemed medically stable. Josseline Mcarthur RN/Be[employer] Pluck Trimmer
[2021-03-23 10:03] VITALS: BP 128/75; PULSE 75; RESP 18; TEMP 36.4; O2SAT 98
[2021-03-23 10:47] VITALS: O2SAT 98
--- NOTE | 2021-03-23 10:52 | DIET.PN ---
Dietary Progress Note Assessment: 55y F admitted for nausea/vomiting after increasing DM2 meds (Victoza, metformin) the day prior. Referred to nutrition for reeducation on carbohydrate counting. Pt finished DSME program in November 2020 with improvement of A1c from 9.2 to 8.0. Pt recently contacted RD office as FBG were >200. Pt recommended to contact PCP for medication management advice, had visit c Dr. Merida on 03/21/21 who increased Metformin extended release from 500mg daily to 500mg bid and Victoza from 1.2mg to 1.8. Pt increased meds for one day and started having N/V, came to ED and admitted as BG 508 H c lactate 2.9 H. Pt recommended by hospitalist to stop Victoza. Nursing discussed DM2 c pt and pt unclear amount of carbs she should be eating at a meal. RD met c pt, pt has difficulty communicating today as she has lost her voice secondary to throat irritation from emesis. Pt has been eating cold cereal c milk and orange juice for breakfast daily. HT: 157.4cm WT: 63.2kg BMI:25.5 Labs:A1c 8.0, BG on admit 508 H, lactate 2.9 H Nutrition Diagnosis: nutrition related knowledge deficit r/t carb counting for healthy control of BG aeb pt requests refresher on carbohydrate counting, pt consuming >45g CHO at breakfast, pt admitted c BG 508 and FBG trending >200. Interventions: 1. Using carb counting worksheet, set pts meal carb level to 30-45g. Worksheet contains wide variety of carbohydrate foods and their carb amounts for reference. 2. Worked c pt to problem solve meals to better fit carb levels focusing on breakfast meal and reading food labels. Pt will discontinue OJ in the morning. Diet Order: CCD2-3 Monitoring/Evaluations: When pts voice returns will call CDE to schedule 1:1 outpatient.
--- NOTE | 2021-03-23 12:09 | PC.NURSE ---
Pt has received orders to discharge from the care of the hospital and return home. Pt has received education regarding new diabetes medication from pharmacist Luzmaria, Diabetic nutrition and carb counting from our clinical dietitian, Hoa, and an overview of diabetic education from this nurse. Pt and her verbally acknowledged understanding after all questions were answered at this time. Pt was escorted out of the hospital via wheelchair at approx. 1210 accompanied by her to their awaiting car by LEILA Meehan.
--- NOTE | 2021-03-23 13:41 | P.DS_ITS ---
History of Present Illness History of Present Illness Chief complaint: vomiting since 9 pm/runny nose Narrative: Ms. Armenta is a 55W with PMH DM, HL who presents with one day of nausea, vomiting, and abdominal pain. Patient was in a good state of health until last night. She states she has been recently started approximately 3 weeks ago on Victoza, yesterday her Victoza was increased due to continued hyperglyce mann. She does not note any unusual foods, and her at the same food she did and has no GI symptoms. She has not noted fevers/chills, no blood in vomit, no diarrhea, no chest pain or shortness of breath. No headache or vision changes. In the ED workup was done, she had no fever, tachycardic to the 130s, normal blood pressure, she did desaturate to the 80s and was placed on oxygen. Labs were done and showed a WBC of 18.1, procalcitonin of 0.2, hgb 16.5, d-dimer unremarkable, bmp with creatinine of 0.49 and normal sodium and potassium, glucose of 500, calcium 11.0, ast 44, alt 65, alk phos 175, troponin 0.014 then 0.02. UA negative for infection. respiratory panel negative. COVID negative. CT abdomen showed no acute process. CTA showed no acute abnormality. She was given IV fluids and anti-emetics and admitted for further treatment. Discharge Providers Provider Date of admission: 03/22/21 11:24 Discharge Date: 03/23/21 Primary care physician: Rolly Merida MD Consults: 03/23/21 09:30 Consult to Dietitian, Adult Routine Comment: Reason For Exam: diabetic diet teaching Discharge provider: William Miranda MD Summary Hospital Course Discharge Diagnosis: 1. Acute nausea and vomiting, probable etiology is Victoza 2. Acute hypoxemic respiratory failure 3. Elevated lactate 4. Type Diabetes with hyperglycemia, newly started on insulin 5. Hyperlipidemia Hospital Course: Ms. Armenta initially presented with significant nausea and vomiting with oxygen saturation in the 80s. She had a CT of her abdomen/pelvis, CTA of her chest, both which showed no acute process. She quickly was weaned off oxygen, and had no evidence of infection. She had just had her Victoza increased and took one injection of the higher dose and started vomiting. This is common side effect with this medication and is the most likely culprit as within 24 hours she quickly improved. Based on this, and her GI symptoms with metformin her Victoza and metformin were stopped for now and she was given a prescription for insulin. She did see the fire prevention specialist about diabetic diet and received insulin injection training. She should follow up with her PCP within a week to further discuss optimal diabetes management for her and adjust medications as needed. Exam Vital Signs (past 8 hours): - 03/23/21 08:21 03/23/21 10:03 03/23/21 10:47 Temperature 97.6 F Pulse Rate 75 Respiratory Rate 18 Blood Pressure 128/75 Pulse Oximetry 96 98 98 Oxygen Delivery Method Room Air Oxygen Flow Rate 0 Narrative Exam Narrative: GEN: no acute distress, hoarse voice HEENT: bilateral ptosis (chronic per patient), moist mucous membranes, PERRL NECK: no JVD, trachea midline CV: regular rate and rhythm with no murmurs PULM: clear to bilaterally, with no wheezes, rhonchi, rales ABD: soft, nontender, nondistended, no organomegaly, normal bowel sounds EXT: warm and well perfused with no edema NEURO: awake alert and oriented, moving all extremities, PSYCH: pleasant, cooperative SKIN: no rashes noted Objective Labs Result Diagrams: 03/23/21 05:10 03/23/21 05:10 Labs: Laboratory Results - last 24 hr 03/22/21 03/23/21 03/23/21 17:24 05:10 05:10 WBC 9.3 RBC 4.44 Hgb 13.0 Hct 38.4 MCV 86.5 MCH 29.3 MCHC 33.9 RDW 13.0 Plt Count 240 Neut % (Auto) 54.5 D Lymph % (Auto) 35.7 D King % (Auto) 7.4 Eos % (Auto) 1.7 L Baso % (Auto) 0.7 Neut # (Auto) 5100 Lymph # (Auto) 3300 King # (Auto) 700 Eos # (Auto) 200 Baso # (Auto) 100 Sodium 140 Potassium 3.2 L Chloride 107 Carbon Dioxide 29 BUN 8 Creatinine 0.50 L Estimated GFR > 60.0 BUN/Creatinine Ratio 16.0 Glucose 144 H D Calcium 9.7 Troponin I 0.029 [facility] Medical History Chronic low back pain Diabetes Elevated blood pressure reading in office without diagnosis of hypertension Gait instability Head contusion Herniated nucleus pulposus, L4-5 Herpes (2002) Hyperlipidemia Impacted cerumen of left ear Nga syndrome Ptosis Right otitis externa Surgical History History of colonoscopy with polypectomy (11/05/13) History of left cataract surgery (07/20/09) History of right cataract surgery (08/03/09) Status post hysteroscopic myomectomy (07/19/12) Status post laparoscopic supracervical hysterectomy Family History Father Diabetes mellitus Coronary arteriosclerosis Hyperlipidemia ND (myocardial infarction) Mother Colon cancer Social History household members: spouse Smoking Status: Never smoker alcohol intake: current substance use type: does not use eating out: rarely or never Type(s) of exercise: walking Discharge Plan Discharge Plan Patient Disposition: Home Provider Discharge Comment: Ms. Armenta came in with nausea and vomiting. This st arted shortly after starting an increased dose of Victoza. She improved quickly and the next day felt well enough to go home. She likely had a side effect to the Victoza. She also notes that metformin has cause her stomach distress. She prefers to start on insulin. She is started on a dose of insulin. But she will need close follow up with her primary care doctor for further titrating as she is newly starting this medication. Discharge orders & Medications Prescriptions: New Lantus Solostar U-100 Insulin 100 unit/mL (3 mL) Insulin Pen 10 unit SUBCUT BEDTIME Qty: 3 RF: 0 Continued venlafaxine [Effexor XR] 37.5 mg capsule,extended release 24hr 37.5 mg PO DAILY Qty: 90 RF: 3 (DME) BD Ultra Fine Pen Tips 31G x 8mm 100 package See Rx Instructions .ROUTE .MEDSUPPLY Qty: 2 RF: 2 atorvastatin [Lipitor] 20 mg tablet 20 mg PO DAILY Qty: 90 RF: 3 (DME) lancets [BD Ultra Fine Lancets] 33 gauge misc See Rx Instructions .ROUTE .MEDSUPPLY Qty: 100 RF: 2 (DME) Blood Glucose Test Strip See Rx Instructions .ROUTE .MEDSUPPLY Qty: 100 RF: 2 Discontinued metformin 500 mg tablet extended release 24 hr 500 mg PO QPM Qty: 90 RF: 0 Victoza 3-Oh 0.6 mg/0.1 mL (18 mg/3 mL) pen injector See Rx Instructions SUBCUT .COMPLEX Qty: 9 RF: 0 Follow up/Referrals: Rolly Merida MD [Primary Care Provider] - Diet/Activity/Treatments Diet: Carb-consistent/Diabetic Visit Report/Discharge Packet Instructions: How to Take Care of Your Feet If You Have Diabetes, Exercising Caution When You Have Diabetes, Complications of Type 2 Diabetes, Type 2 Diabetes, The Importance of Counting Carbs If You Have Diabetes, What to Eat if You Have Diabetes Discharge Data Primary Care Provider: Rolly Merida Attending Provider: William Miranda [facility] - [place] The patient has current or prior documentation of left ventricular ejection fraction (LVEF) less than 40%, or moderate or severely depressed left ventricular systolic function.: No
== END 2021-03-23 12:10 | disposition home or self-care (01) ==
LOC: ED 11:23 → AC 11:25
PROVIDERS: Emergency Medicine; Admitting Provider Internal Medicine; Emergency Provider Emergency Medicine; PCP Family Medicine; Referring Provider Emergency Medicine; Visit Provider Internal Medicine
DX: J96.01 Acute respiratory failure with hypoxia (principal); E11.65 Type 2 diabetes mellitus with hyperglycemia; R74.02 Elevation of levels of lactic acid dehydrogenase [LDH]; Z79.84 Long term (current) use of oral hypoglycemic drugs; E78.5 Hyperlipidemia, unspecified; Z20.822 Contact with and (suspected) exposure to COVID-19
CPT/HCPCS: 36415; 36600; 71275; 74177; 80048; 80053; 81001; 81003; 82550; 82553; 82805; 82962; 83605; 83735; 83880; 84145; 84484; 85025; 85379; 87040; 87633; 87635; 93005; 93010; 94760; 96361; 96372; 96374; 96375; 96376; 99285; C9803; G0378; C9113; J1650; J1815; J2405; Q9967

== ENCOUNTER → 2021-05-18 11:33 | Outpatient (CLI) | payer OTHER, MEDICAID, SELFPAY ==
[2021-03-22 13:21] VITALS: BMI 25.6
[2021-05-18 12:34] LABS: Hemoglobin A1C% w Est Avg Glu 9.9 % (4.0-6.0)
[2021-05-18 13:32] LABS: Alanine Aminotransferase 97 IU/L (<35); Albumin 4.4 g/dL (3.5-5.0); Albumin Globulin Ratio 1.6 (1.0-2.8); Alkaline Phosphatase 141 U/L (38-126); Aspartate Aminotransferase 45 IU/L (14-36); BUN Creatinine Ratio 25.6 (6-22); Bilirubin Total 1.1 mg/dL (0.2-1.3); Blood Urea Nitrogen 11 mg/dL (7-17); Calcium 10.7 mg/dL (8.4-10.2); Carbon Dioxide 30 mmol/L (22-32); Chloride 104 mmol/L (98-107); Estimated Glomerular Filt Rate > 60.0 mL/min (>60); Globulin 2.7 g/dL (1.7-4.1); Glucose 280 mg/dL (70-100); HEMOLYSIS < 15 (0-50); Potassium 4.7 mmol/L (3.4-5.1); Sodium 141 mmol/L (137-145); Total Protein 7.1 g/dL (6.3-8.2)
== END ==
PROVIDERS: PCP Family Medicine; Referring Provider Family Medicine; Visit Provider Family Medicine
DX: E11.9 Type 2 diabetes mellitus without complications (principal); E87.6 Hypokalemia; R73.9 Hyperglycemia, unspecified
CPT/HCPCS: 36415; 80053; 83036

== ENCOUNTER → 2021-06-08 12:49 | Outpatient (CLI) | payer OTHER, MEDICAID, SELFPAY ==
[2021-03-22 13:21] VITALS: BMI 25.6
--- NOTE | 2021-06-10 15:10 | DIAB.FU ---
Follow-up Diabetes Education Assessment Name: Ange Armenta Date: 06/08/21 Time: 1-2p Dx: Type II Diabetes Ange presents for diabetes education. Saw previous [facility] prior to program stopping earlier this year. Has attended classes and one 1:1 visit. Reports muscular dystrophy diagnosis that impacts her balance and use of her hands. Reports high blood sugars and feeling very sad about it. States she avoids a lot of carbohydrates (no soda, no eating out, no potatoes or rice). Feels unsure why BG is so high if she is being active and watching carbs. States she often goes long periods without eating eats 2-3 x per day most days. Reports taking her Lantus 40u HS. Has not started Ozempic, but provider has rx'd. Has h/o reaction/hospitalization after trying Victoza. Worries about financial coverage for medication. Plans to discuss with pharmacy today. States she wants to know what to do when her BG are elevated. Also feeling a lot of emotions about having diabetes, unfair. Has quet Diet Recall: 8a: 1/2 burkinan muffin with honey, 1c berries, 8oz milk 2-3p: cup cottage cheese, two crackers, 1/3c peaches 6p: chicken thigh with salad OR porkchops with 1/2c winter squash snack +/-: raspberry outshine bar Beverages: 34oz x 4-5 in water Anthropometrics: Ht: 62 Wt: 137# (reported) States she is trying to lose weight. Personal goal of 125#. Ozempic great choice for aiding in weight loss. Physical Activity: Stationary bike 3 day sper week for 90 minutes, walks to [employer] 30 mins per day, use to garden during nicer weather. Self-Monitoring Blood Glucose: Aims to check FBG daily. All above ADA goal. Hoping ozempic will aid in brining numbers down. Will re-evaluate next visit. Date Pre Post Pre Post Pre Post HS 05/20 300 05/21 268 05/29 304 06/01 286 06/03 314 06/04 243 06/07 279 Diabetes Medications: Lantus 40u HS Rx'd Ozempic Pertinent Labs: 05/18/21 HgA1c 9.9% H T H HDL: 34 L LDL: 73 Past Medical History: (Last Updated 03/28/21 @ 15:01 by Rolly Merida MD) Chronic low back pain Diabetes Elevated blood pressure reading in office without diagnosis of hypertension Gait instability Head contusion Herniated nucleus pulposus, L4-5 Herpes (2002) History of colonoscopy with polypectomy (11/05/13) Hyperplastic - Dr. Garzon History of left cataract surgery (07/20/09) Dr. Nevarez History of right cataract surgery (08/03/09) Dr. Nevarez Hyperlipidemia Hypokalemia Impacted cerumen of left ear Nga syndrome Ptosis Right otitis externa Status post hysteroscopic myomectomy (07/19/12) Multiple benign fibroids; uterus, tubes, and ovaries previously removed - Dr. Montoya Intervention: This participant was very receptive. Provided appropriate educational handouts. Discussed the following topics: Recent blood sugar results and trends Medication management Review of general nutrition recommendations and current intake Physical activity plan and impact on blood sugars Diabetes and emotions Created SMART goals for patient self-care and success. Goals: Add protein to breakfast Eat TID consistently Talk to pharmacy today about Ozempic rx and affordability Follow-up: DWIGHT MCCLURE follow-up in 3 weeks Ana Luisa Yan RDN, REN Certified Diabetes Care and Homeopathic Doctor P: [phone] Thank you for this referral
== END ==
PROVIDERS: PCP Family Medicine; Referring Provider Family Medicine; Visit Provider Family Medicine
DX: E11.65 Type 2 diabetes mellitus with hyperglycemia (principal); Z79.4 Long term (current) use of insulin; Z71.3 Dietary counseling and surveillance
CPT/HCPCS: G0108

== ENCOUNTER → 2021-06-08 15:42 | Outpatient (CLI) | payer OTHER, MEDICAID, SELFPAY ==
[2021-03-22 13:21] VITALS: BMI 25.6
--- NOTE | 2021-06-08 15:43 | DI.MG.S_ITS ---
BILATERAL DIGITAL SCREENING MAMMOGRAM 3D/2D WITH CAD: 06/08/2021 CLINICAL: Routine screening. Comparison is made to exams dated: 08/13/2019 mammogram, 04/16/2018 mammogram, and 10/09/2016 mammogram - [facility]. The tissue of both breasts is heterogeneously dense. This may lower the sensitivity of mammography. Current study was also evaluated with a Computer Aided Detection (CAD) system. No significant masses, calcifications, or other findings are seen in either breast. There has been no significant interval change. IMPRESSION: NEGATIVE There is no mammographic evidence of malignancy. A 1 year screening mammogram is recommended. This exam was interpreted at Station ID: [id number]. NOTE: For mammograms, a report in lay terms will be sent to the patient. Approximately 15% of breast malignancies will not be visualized mammographically. In the management of a palpable breast mass, a negative mammogram must not discourage biopsy of a clinically suspicious lesion. Electronically Signed By: Venancio monreal/oliva:06/08/2021 16:25:12 letter sent: Normal Exam ACR BI-RADS Category 1: Negative [id number]
== END ==
PROVIDERS: PCP Family Medicine; Referring Provider Family Medicine; Visit Provider Family Medicine
DX: Z12.31 Encounter for screening mammogram for malignant neoplasm of breast (principal)
CPT/HCPCS: 77063; 77067

== ENCOUNTER 2021-06-23 07:36 | Emergency (ER) | payer OTHER, MEDICAID, SELFPAY ==
[2021-03-22 13:21] VITALS: BMI 25.6
[2021-06-23 07:40] VITALS: BP 133/85; PULSE 104; RESP 18; TEMP 36.6; O2SAT 98; BMI 25.4
[2021-06-23 07:43] VITALS: BP 133/85
[2021-06-23 07:44] VITALS: PULSE 106; O2SAT 99
[2021-06-23] MEDS: ONDANSETRON 4 MG/2 ML INJ IV (07:54)
[2021-06-23] MEDS: SODIUM CHLORIDE 0.9% 1,000 ML 1000 ML IV ×2 (07:54→09:02)
[2021-06-23 08:02] LABS: Add Manual Diff / Slide Review NO; Basophils Absolute Auto 100 /uL (0-100); Basophils Percent Auto 0.6 % (0-2); Eosinophils Absolute Auto 0 /uL (0-450); Eosinophils Percent Auto 0.3 % (2-4); Hemoglobin 16.9 g/dL (12.0-16.0); Lymphocytes Absolute Auto 1700 /uL (1100-4500); Lymphocytes Percent Auto 13.4 % (25-40); Mean Corpuscular HGB Conc 33.8 % (30-36); Mean Corpuscular Hemoglobin 28.7 PG (26-34); Monocytes Absolute Auto 700 /uL (0-900); Monocytes Percent Auto 5.2 % (3-14); Neutrophils Absolute Auto 10200 /uL (1500-7000); Neutrophils Percent Auto 80.5 % (50-75); Platelet Count 340 X10^3/uL (150-400); Red Blood Cell Count 5.89 X10^6/uL (4.0-5.2); Red Cell Distribution Width 13.1 % (11.6-14.8); White Blood Cell Count 12.6 X10^3/uL (4.5-11.0)
--- NOTE | 2021-06-23 08:04 | ED_ITS ---
HPI - Nausea/Vomiting/Diarrhea General Chief complaint: Nausea/Vomiting/Diarrhea Stated complaint: allergic reaction to meds Time Seen by Provider: 06/23/21 07:53 Source: patient Mode of arrival: Ambulatory Limitations: no limitations History of Present Illness HPI Narrative: Patient here with . Complains of bloodless nausea and vomiting since last night. No fever. No abdominal pain. Patient and feel this is related to Ozempic. Just started it yesterday. It is given weekly. This past March she had problems with Victoza. was given daily. When her primary care increased the dose she started having nausea and vomiting. I spoke with Dr. Merida, primary care by phone. Agrees with treatment plan. Hydration and electrolyte labs. She will resume her insulin regimen as before. He will follow-up with her. Denies any chest pain palpitations. No diarrhea. No abdominal pain no back pain. No dizziness. No urinary complaints. No cough cold congestion. Patient feels there must be some type of ingredient in these injections that cause her to have nausea and vomiting. Related Data Home Medications Medication Instructions Recorded Confirmed BD Ultra Fine Pen Tips 28G x 1/2 ea 03/28/21 05/31/21 Previous Rx's Medication Instructions Recorded lancets 33 gauge (BD Ultra Fine #100 ea 08/02/20 Lancets) blood sugar diagnostic (Blood #100 ea 01/31/21 Glucose Test) insulin glargine 100 unit/mL (3 20 unit (0.2 mL) SUBCUT BEDTIME 04/29/21 mL) subcutaneous pen (Lantus #15 ml Solostar U-100 Insulin) atorvastatin 20 mg tablet (Lipitor) 20 mg PO DAILY #90 tab 05/19/21 venlafaxine 37.5 mg 37.5 mg PO DAILY #90 cap 05/19/21 capsule,extended release 24 hr (Effexor XR) semaglutide 1 mg/dose (2 mg/1.5 1 mg (0.75 mL) SUBCUT QWEEK #1.5 ml 06/02/21 mL) subcutaneous pen injector ondansetron 4 mg disintegrating 4 mg PO Q6H PRN #14 tab 06/23/21 tablet Allergies Allergy/AdvReac Type Severity Reaction Status Date / Time latex [LATEX] Allergy Severe hives Verified 06/23/21 07:45 adhesive [ADHESIVE] AdvReac Mild rash from Verified 06/23/21 07:45 tape morphine [MORPHINE] AdvReac Mild gi upset Verified 06/23/21 07:45 Sulfa (Sulfonamide AdvReac Mild gi upset Verified 06/23/21 07:45 Antibiotics) [SULFA (SULFONAMIDE ANTIBIOTICS)] Review of Systems Review of Systems ROS Unobtainable: All systems reviewed & are unremarkable except as noted in HPI and below Patient History Medical History Chronic low back pain Diabetes Elevated blood pressure reading in office without diagnosis of hypertension Gait instability Head contusion Herniated nucleus pulposus, L4-5 Herpes (2002) Hyperlipidemia Hypokalemia Impacted cerumen of left ear Nga syndrome Ptosis Right otitis externa Surgical History History of colonoscopy with polypectomy (11/05/13) History of left cataract surgery (07/20/09) History of right cataract surgery (08/03/09) Status post hysteroscopic myomectomy (07/19/12) Status post laparoscopic supracervical hysterectomy Family History Father Diabetes mellitus Coronary arteriosclerosis Hyperlipidemia [place] (myocardial infarction) Mother Colon cancer Social History household members: spouse Smoking Status: Never smoker alcohol intake: current substance use type: does not use eating out: rarely or never Type(s) of exercise: walking Smoking Status: Never smoker alcohol intake frequency: other Substance Use Type: does not use Exam Narrative Exam Narrative: GENERAL: in no distress, not toxic not dyspneic HEAD: Normocephalic. EYES: Pupils equal round No scleral icterus. ENT: Mucous membranes oral cavity slightly dry NECK: Trachea midline. CARDIOVASCULAR: Regular rate and rhythm without murmurs, tachycardic RESPIRATORY: Clear to auscultation. Breath sounds equal bilaterally. No wheezes, rales, or rhonchi. GASTROINTESTINAL: Abdomen soft, non-tender EXTREMITIES: No gross deformities. BACK: No flank tenderness. NEURO: AOx4. SKIN: Warm and dry PSYCH: Not anxious, is cooperative Initial Vital Signs Initial Vital Signs: Vital Signs Temperature 97.9 F 06/23/21 07:40 Pulse Rate 104 H 06/23/21 07:40 Respiratory Rate 18 06/23/21 07:40 Blood Pressure 133/85 06/23/21 07:40 Pulse Oximetry 98 06/23/21 07:40 Course Course Course Narrative: No new issues during course of stay Orders Ordered: ED Orders 06/23/21 07:55 Complete Blood Count AUTO DIFF Stat Comprehensive Metabolic Panel Stat Ketones (Beta-Hydroxybutyrate) Stat 06/23/21 10:02 Urinalysis and Microscopic Stat Discontinued Medications Sodium Chloride (Normal Saline 0.9%) 1,000 mls @ 1,000 mls/hr IV BOLUS ONE Stop: 06/23/21 08:48 Last Infusion: 06/23/21 09:03 Dose: 0 mls/hr Documented by: Admin: 06/23/21 07:54 Dose: 1,000 mls/hr Documented by: LADONNA Sodium Chloride (Normal Saline 0.9%) 1,000 mls @ 1,000 mls/hr IV BOLUS ONE Stop: 06/23/21 09:37 Last Infusion: 06/23/21 10:09 Dose: 0 mls/hr Documented by: Admin: 06/23/21 09:02 Dose: 1,000 mls/hr Documented by: LADONNA Insulin Human Regular (Insulin Regular 100 Unit/Ml 3 Ml Vial) 5 unit IV NOW ONE Stop: 06/23/21 08:13 Last Admin: 06/23/21 08:22 Dose: 5 unit Documented by: HOLLAND Cosigned by: LADONNA Insulin Human Regular (Insulin Regular 100 Unit/Ml 3 Ml Vial) 5 unit IV NOW ONE Stop: 06/23/21 10:19 Last Admin: 06/23/21 10:26 Dose: 5 unit Documented by: HOLLAND Cosigned by: LADONNA Ondansetron HCl (Ondansetron 4 Mg/2 Ml Inj) 4 mg IV NOW ONE Stop: 06/23/21 07:50 Last Admin: 06/23/21 07:54 Dose: 4 mg Documented by: LADONNA Reevaluation(s) Reevaluation #1: Patient feeling much better. Taking ice chips. No nausea or vomiting. Reviewed results with patient and . They desired discharge after 2nd dose of insulin 5 units. She states her blood glucose usually runs 220. It is currently 278. Return precautions reviewed with her. Time: 10:25 Vital Signs Vital signs: Vital Signs - 8 hr 06/23/21 07:40 06/23/21 07:43 06/23/21 07:44 Temperature 97.9 F Pulse Rate 104 H 106 H Respiratory Rate 18 Blood Pressure 133/85 133/85 Pulse Oximetry 98 99 06/23/21 10:40 Temperature Pulse Rate 62 Respiratory Rate 18 Blood Pressure 123/83 Pulse Oximetry 98 MDM - Nausea/Vomiting/Diarrhea Differential Diagnosis Differential diagnosis: Likely drug-induced nausea and vomiting and dehydration Lab Data Result diagrams: 06/23/21 07:55 06/23/21 07:55 Labs: Lab Results 06/23/21 06/23/21 06/23/21 Range/Units 07:55 07:55 07:55 WBC 12.6 H (4.5-11.0) X10^3/uL RBC 5.89 H (4.0-5.2) X10^6/uL Hgb 16.9 H (12.0-16.0) g/dL Hct 50.0 H (36-46) % MCV 85.0 (80-100) fL MCH 28.7 (26-34) PG MCHC 33.8 (30-36) % RDW 13.1 (11.6-14.8) % Plt Count 340 (150-400) X10^3/uL Neut % (Auto) 80.5 H (50-75) % Lymph % (Auto) 13.4 L (25-40) % Saline % (Auto) 5.2 (3-14) % Eos % (Auto) 0.3 L (2-4) % Baso % (Auto) 0.6 (0-2) % Neut # (Auto) 97131 H (1110-1991) /uL Lymph # (Auto) 1700 (0602-5412) /uL Saline # (Auto) 700 (0-900) /uL Eos # (Auto) 0 (0-450) /uL Baso # (Auto) 100 (0-100) /uL Sodium 140 (137-145) mmol/L Potassium 3.8 (3.4-5.1) mmol/L Chloride 104 (98-107) mmol/L Carbon Dioxide 26 (22-32) mmol/L BUN 19 H (7-17) mg/dL Creatinine 0.54 (0.52-1.04) mg/dL Estimated GFR > 60.0 (>60) mL/min BUN/Creatinine Ratio 35.2 H (6-22) Glucose 407 H (70-100) mg/dL Calcium 11.0 H (8.4-10.2) mg/dL Total Bilirubin 1.1 (0.2-1.3) mg/dL AST 53 H (14-36) IU/L ALT 117 H (<35) IU/L Alkaline Phosphatase 171 H (38-126) U/L Total Protein 7.6 (6.3-8.2) g/dL Albumin 4.7 (3.5-5.0) g/dL Globulin 2.9 (1.7-4.1) g/dL Albumin/Globulin Ratio 1.6 (1.0-2.8) Urine Color Urine Appearance Urine pH (4.5-8.0) Ur Specific Gilberts (1.000-1.035) Urine Protein (Negative) Urine Glucose (UA) (Negative) g/dL Urine Ketones (NEGATIVE) Urine Occult Blood (Negative) Urine Nitrate (Negative) Urine Bilirubin (NEGATIVE) Urine Urobilinogen (0.2) E.U./dL Ur Leukocyte Esterase (NEGATIVE) Urine RBC (0-5/HPF) Urine WBC (0-5/HPF) Ur Squamous Epith Cells (0-5/HPF) Urine Bacteria (None) Ur Culture Indicated? Ketones 0.47 H (<0.27) mmol/L 18/21 Range/Units 10:02 WBC (4.5-11.0) X10^3/uL RBC (4.0-5.2) X10^6/uL Hgb (12.0-16.0) g/dL Hct (36-46) % MCV (80-100) fL MCH (26-34) PG MCHC (30-36) % RDW (11.6-14.8) % Plt Count (150-400) X10^3/uL Neut % (Auto) (50-75) % Lymph % (Auto) (25-40) % Saline % (Auto) (3-14) % Eos % (Auto) (2-4) % Baso % (Auto) (0-2) % Neut # (Auto) (2139-6467) /uL Lymph # (Auto) (5833-2835) /uL Saline # (Auto) (0-900) /uL Eos # (Auto) (0-450) /uL Baso # (Auto) (0-100) /uL Sodium (137-145) mmol/L Potassium (3.4-5.1) mmol/L Chloride (98-107) mmol/L Carbon Dioxide (22-32) mmol/L BUN (7-17) mg/dL Creatinine (0.52-1.04) mg/dL Estimated GFR (>60) mL/min BUN/Creatinine Ratio (6-22) Glucose (70-100) mg/dL Calcium (8.4-10.2) mg/dL Total Bilirubin (0.2-1.3) mg/dL AST (14-36) IU/L ALT (<35) IU/L Alkaline Phosphatase (38-126) U/L Total Protein (6.3-8.2) g/dL Albumin (3.5-5.0) g/dL Globulin (1.7-4.1) g/dL Albumin/Globulin Ratio (1.0-2.8) Urine Color Yellow Urine Appearance Clear Urine pH 7.0 (4.5-8.0) Ur Specific Gilberts 1.010 (1.000-1.035) Urine Protein Negative (Negative) Urine Glucose (UA) 2+ H (Negative) g/dL Urine Ketones Trace H (NEGATIVE) Urine Occult Blood Negative (Negative) Urine Nitrate Negative (Negative) Urine Bilirubin Negative (NEGATIVE) Urine Urobilinogen 0.2 (0.2) E.U./dL Ur Leukocyte Esterase Negative (NEGATIVE) Urine RBC None seen (0-5/HPF) Urine WBC 1-5/hpf (0-5/HPF) Ur Squamous Epith Cells 1-5 /hpf (0-5/HPF) Urine Bacteria Occasional (0-1) (None) Ur Culture Indicated? Cult not indicated Ketones (<0.27) mmol/L Point of Care Testing Glucose POC 278 MDM Narrative Medical decision making narrative: Appropriate discharge home. No EKG or heart enzymes indicated this time. Patient and as well as primary care feel this is reaction to diabetes injections. No recent fever chills. No x-ray or imaging indicated. No viral swab indicated this time. I have reviewed with primary care provider as well. Discharge Plan Departure Patient Disposition: Home Clinical Impression: Medication reaction Activity Restrictions/Additional Instructions: Do not continue your new diabetes medication. Continue your previous insulin regimen as instructed by your family doctor. See family doctor within a week for recheck after medications and your blood glucose levels. Keep well hydrated. Prescription for Zofran has been sent to your [facility]. Return if worse if any questions or concerns Prescriptions: New ondansetron 4 mg tablet,disintegrating 4 mg PO Q6H PRN (Reason: nausea and vomiting) Qty: 14 0RF No Action Lantus Solostar U-100 Insulin 100 unit/mL (3 mL) insulin pen 20 unit SUBCUT BEDTIME Qty: 15 3RF venlafaxine [Effexor XR] 37.5 mg capsule,extended release 24hr 37.5 mg PO DAILY Qty: 90 3RF atorvastatin [Lipitor] 20 mg tablet 20 mg PO DAILY Qty: 90 3RF semaglutide 1 mg/dose (2 mg/1.5 mL) pen injector 1 mg SUBCUT QWEEK Qty: 1.5 0RF (DME) lancets [BD Ultra Fine Lancets] 33 gauge misc See Rx Instructions .ROUTE .MEDSUPPLY Qty: 100 2RF Rx Instructions: Use to test blood glucose twice daily (DME) Blood Glucose Test Strip See Rx Instructions .ROUTE .MEDSUPPLY Qty: 100 2RF Rx Instructions: Use to test blood glucose twice daily. (DME) BD Ultra Fine Pen Tips 28G x 1/2 100 package See Rx Instructions .ROUTE .MEDSUPPLY 0RF Rx Instructions: Use 1 needle daily with victoza rx Referrals: Rolly Merida MD [Primary Care Provider] -
[2021-06-23 08:16] LABS: Alanine Aminotransferase 117 IU/L (<35); Albumin 4.7 g/dL (3.5-5.0); Albumin Globulin Ratio 1.6 (1.0-2.8); Alkaline Phosphatase 171 U/L (38-126); Aspartate Aminotransferase 53 IU/L (14-36); BUN Creatinine Ratio 35.2 (6-22); Bilirubin Total 1.1 mg/dL (0.2-1.3); Blood Urea Nitrogen 19 mg/dL (7-17); Carbon Dioxide 26 mmol/L (22-32); Chloride 104 mmol/L (98-107); Estimated Glomerular Filt Rate > 60.0 mL/min (>60); Globulin 2.9 g/dL (1.7-4.1); Glucose 407 mg/dL (70-100); HEMOLYSIS < 15 (0-50); Potassium 3.8 mmol/L (3.4-5.1); Sodium 140 mmol/L (137-145); Total Protein 7.6 g/dL (6.3-8.2)
[2021-06-23] MEDS: INSULIN REGULAR 100 UNIT/ML 3 ML VIAL IV ×2 (08:22→10:26)
[2021-06-23 08:23] LABS: Ketones (Beta-Hydroxybutyrate) 0.47 mmol/L (<0.27)
[2021-06-23 10:08] LABS: Appearance Urine UA CLEAR; Bilirubin Urine UA NEGATIVE (NEGATIVE); Color Urine UA YELLOW; Glucose Urine UA 2+ g/dL (Negative); Ketones Urine UA TRACE (NEGATIVE); Leukocyte Esterase Urine UA NEGATIVE (NEGATIVE); Nitrite Urine UA NEGATIVE (Negative); Occult Blood Urine UA NEGATIVE (Negative); Protein Urine UA NEGATIVE (Negative); Urobilinogen Urine UA 0.2 E.U./dL (0.2)
[2021-06-23 10:17] LABS: Bacteria Urine Occasional (0-1); RBC Urine None Seen (0-5/HPF); Squamous Epithelial Cell Urine 1-5 /HPF (0-5/HPF); WBC Urine 1-5/HPF (0-5/HPF)
[2021-06-23 10:18] LABS: Culture Indicated Urine Cult Not Indicated
[2021-06-23 10:40] VITALS: BP 123/83; PULSE 62; RESP 18; O2SAT 98
== END 2021-06-23 10:43 | disposition home or self-care (01) ==
PROVIDERS: Emergency Provider Emergency Medicine; PCP Family Medicine
DX: R11.2 Nausea with vomiting, unspecified (principal); T38.3X5A Adverse effect of insulin and oral hypoglycemic [antidiabetic] drugs, initial encounter; E11.65 Type 2 diabetes mellitus with hyperglycemia; Z79.4 Long term (current) use of insulin; Z79.84 Long term (current) use of oral hypoglycemic drugs
CPT/HCPCS: 36415; 80053; 81001; 82009; 82962; 85025; 96361; 96374; 96375; 96376; 99284; J2405

== ENCOUNTER → 2022-07-13 10:10 | Outpatient (CLI) | payer MEDICARE, MEDICAID, SELFPAY ==
[2022-06-09 12:28] VITALS: BMI 25.6
[2022-07-13 10:45] LABS: Add Manual Diff / Slide Review NO; Basophils Absolute Auto 100 /uL (0-100); Basophils Percent Auto 0.8 % (0-2); Eosinophils Absolute Auto 200 /uL (0-450); Eosinophils Percent Auto 2.7 % (2-4); Hematocrit 48.5 % (36-46); Hemoglobin 16.5 g/dL (12.0-16.0); Lymphocytes Absolute Auto 2600 /uL (1100-4500); Lymphocytes Percent Auto 31.1 % (25-40); Mean Corpuscular HGB Conc 33.9 % (30-36); Mean Corpuscular Hemoglobin 28.9 PG (26-34); Mean Corpuscular Volume 85.2 fL (80-100); Monocytes Absolute Auto 500 /uL (0-900); Monocytes Percent Auto 5.9 % (3-14); Neutrophils Absolute Auto 5000 /uL (1500-7000); Neutrophils Percent Auto 59.5 % (50-75); Platelet Count 281 X10^3/uL (150-400); Red Cell Distribution Width 13.7 % (11.6-14.8); White Blood Cell Count 8.4 X10^3/uL (4.5-11.0)
[2022-07-13 10:57] LABS: Hemoglobin A1C% w Est Avg Glu 7.9 % (4.0-6.0)
== END ==
PROVIDERS: PCP Family Medicine; Referring Provider Family Medicine; Visit Provider Family Medicine
DX: E11.9 Type 2 diabetes mellitus without complications (principal); E78.2 Mixed hyperlipidemia; E87.6 Hypokalemia
CPT/HCPCS: 36415; 83036; 85025

== ENCOUNTER → 2022-09-26 11:20 | Outpatient (CLI) | payer MEDICARE, MEDICAID, SELFPAY ==
[2022-06-09 12:28] VITALS: BMI 25.6
[2022-09-26 12:07] LABS: COVID-19 CEPHEID 4-PLEX PCR Negative (Negative); Influenza A - CEPHEID Flu A NEGATIVE (NEGATIVE); Influenza B - CEPHEID Flu B NEGATIVE (NEGATIVE); Respiratory Syncytial Virus Negative (Negative)
== END ==
PROVIDERS: PCP Family Medicine; Visit Provider Registered Nurse
DX: R05.1 Acute cough (principal)
CPT/HCPCS: 0241U

== ENCOUNTER 2022-11-25 13:51 | Emergency (ER) | payer MEDICARE, MEDICAID, SELFPAY ==
[2022-06-09 12:28] VITALS: BMI 25.6
[2022-11-25 13:58] VITALS: BP 162/87; PULSE 67; RESP 19; TEMP 36.6; O2SAT 97; BMI 25.6
--- NOTE | 2022-11-25 14:09 | DI.RAD.S_ITS ---
PROCEDURE: XR LUMBAR SPINE 2-3V INDICATIONS: back injury TECHNIQUE: 3 views of the lumbar spine were acquired. COMPARISON: [facility], , L-SPINE MINIMUM 4 VIEWS, 03/13/2017, 15:43. FINDINGS: Bones: 5 [id number] vertebrae are present. There is normal bony alignment. No vertebral body compression fractures. No suspicious bony lesions. Transitional anatomy noted with partial sacralization L5 vertebral body Soft tissues: Overlying bowel gas pattern is normal. No suspicious soft tissue calcifications. IMPRESSION: Unremarkable lumbar spine radiographs. No fracture or malalignment Approved by: Ron Lamb M.D. on 11/25/2022 at 13:57
--- NOTE | 2022-11-25 15:59 | ED_ITS ---
HPI - Back Pain/Injury <Katharina Gillespie, [facility] - Last Filed: 11/25/22 16:32> General Chief Complaint: Back Pain/Injury Stated Complaint: BACK INJURY Time Seen by Provider: 11/25/22 15:31 Source: patient History of Present Illness HPI Narrative: This is a 49-year-old female with history of diabetes who presents emergency department with concern about low back pain which is not new and is associated with right leg sciatica. She denies any incontinence or weakness, denies sensation changes, denies any recent injury, states that she called her PCP 3 days ago and was prescribed hydrocodone times 20 tabs for her low back pain. States it has not been helpful as much as she thought she needed. She endorses ongoing sciatica, denies any urinary retention, states that she is mildly constipated but is taking MiraLax. Denies any vomiting, chest pain shortness of breath or weakness. States that she is able to ambulate, standing from sitting is more painful. Related Data Home Medications Medication Instructions Recorded Confirmed BD Ultra Fine Pen Tips 28G x 1/2 03/28/21 09/26/22 Previous Rx's Medication Instructions Recorded hydrocodone 5 mg-acetaminophen 325 1 tab PO Q6HP PRN pain #20 tabs 09/05/17 mg tablet lancets 33 gauge (BD Ultra Fine #100 ea 08/02/20 Lancets) blood sugar diagnostic (Blood #100 ea 01/31/21 Glucose Test strips) insulin glargine 100 unit/mL (3 20 unit (0.2 mL) SUBCUT BEDTIME 11/17/21 mL) subcutaneous pen (Lantus #15 mL Solostar U-100 Insulin) Parking Permit... #1 ea 07/13/22 atorvastatin 20 mg tablet (Lipitor) 20 mg PO DAILY #90 tabs 07/13/22 venlafaxine 37.5 mg See Rx Instructions .Route 07/13/22 capsule,extended release 24 hr .COMPLEX #90 caps benzonatate 200 mg capsule 200 mg PO TID PRN cough #30 caps 09/26/22 ipratropium bromide 42 mcg (0.06 See Rx Instructions .Route 11/14/22 %) nasal spray .COMPLEX #15 mL methocarbamol 500 mg tablet 500 mg PO TID PRN muscle spasm #20 11/25/22 tabs naproxen 375 mg tablet 375 mg PO BID PRN pain #30 tabs 11/25/22 prednisone 20 mg tablet 20 mg PO DAILY #4 tabs 11/25/22 Allergies Allergy/AdvReac Type Severity Reaction Status Date / Time latex [LATEX] Allergy Severe hives Verified 11/25/22 14:04 adhesive [ADHESIVE] AdvReac Mild rash from Verified 11/25/22 14:04 tape morphine [MORPHINE] AdvReac Mild gi upset Verified 11/25/22 14:04 Sulfa (Sulfonamide AdvReac Mild gi upset Verified 11/25/22 14:04 Antibiotics) [SULFA (SULFONAMIDE ANTIBIOTICS)] Review of Systems <SAHRA Leonard - Last Filed: 11/25/22 16:32> Review of Systems ROS Unobtainable: All systems reviewed & are unremarkable except as noted in HPI and below Patient History <SAHRA Leonard - Last Filed: 11/25/22 16:32> Medical History Chronic low back pain Diabetes Elevated blood pressure reading in office without diagnosis of hypertension Gait instability Head contusion Herniated nucleus pulposus, L4-5 Herpes (2002) Hyperlipidemia Hypokalemia Impacted cerumen of left ear Nga syndrome Ptosis Right otitis externa Surgical History History of colonoscopy with polypectomy (11/05/13) History of left cataract surgery (07/20/09) History of right cataract surgery (08/03/09) Status post hysteroscopic myomectomy (07/19/12) Status post laparoscopic supracervical hysterectomy Family History Father Diabetes mellitus Coronary arteriosclerosis Hyperlipidemia SD (myocardial infarction) Mother Colon cancer Social History household members: spouse Smoking Status: Never smoker alcohol intake: current substance use type: does not use eating out: rarely or never Type(s) of exercise: walking Smoking Status: Never smoker alcohol intake frequency: other Substance Use Type: does not use Exam <SAHRA Leonard - Last Filed: 11/25/22 16:32> Narrative Exam Narrative: Reviewed vitals signs and nursing notes. General: Pleasant, sitting upright, in no acute distress, well groomed, afebrile, she endorses low back pain HEENT: symmetrical facial expressions, moist mucous membranes, neck is supple CV: regular rate and rhythm, warm extremities Respiratory: normal work of breathing, without tachypnea or hypoxia. GI: abdomen soft, nondistended, without CVA tenderness bilaterally. MSK: moves all extremities, no weakness, normal tone, ambulatory without deficit although slow, no palpable deformities along her lumbar spine, she does have pain between L4 and L5 and right-sided sciatica symptoms without weakness, leg lift from lying position exacerbates symptoms Skin: brisk capillary refill, without rash or wound Neuro: clear speech and normal cognition, A&O x3, GCS 15, no focal motor or sensation deficits Initial Vital Signs Initial Vital Signs: Vital Signs Temperature 97.8 F 11/25/22 13:58 Pulse Rate 67 11/25/22 13:58 Respiratory Rate 19 11/25/22 13:58 Blood Pressure 162/87 H 11/25/22 13:58 Pulse Oximetry 97 11/25/22 13:58 Oxygen Delivery Method Room Air 11/25/22 13:58 <Escobar Chan MD - Last Filed: 12/10/22 22:24> Initial Vital Signs Initial Vital Signs: Vital Signs Temperature 97.8 F 11/25/22 13:58 Pulse Rate 67 11/25/22 13:58 Respiratory Rate 19 11/25/22 13:58 Blood Pressure 162/87 H 11/25/22 13:58 Pulse Oximetry 97 11/25/22 13:58 Oxygen Delivery Method Room Air 11/25/22 13:58 Course <SAHRA Leonard - Last Filed: 11/25/22 16:32> Orders Ordered: Discontinued Medications Acetaminophen (Acetaminophen 325 Mg Tablet) 650 mg PO NOW ONE Stop: 11/25/22 15:49 Last Admin: 11/25/22 16:07 Dose: 650 mg Documented By: SERGE Ketorolac Tromethamine (Ketorolac 30 Mg/Ml Vial) 30 mg IM NOW ONE Stop: 11/25/22 15:49 Last Admin: 11/25/22 16:08 Dose: 30 mg Documented By: SERGE Lidocaine (Lidocaine Patch 1 Each Adh..Patch) 1 each TOP NOW ONE Stop: 11/25/22 15:49 Last Admin: 11/25/22 16:08 Dose: 1 each Documented By: SERGE Methocarbamol (Methocarbamol 500 Mg Tablet) 500 mg PO NOW ONE Stop: 11/25/22 15:49 Last Admin: 11/25/22 16:06 Dose: 500 mg Documented By: SERGE Prednisone (Prednisone 20 Mg Tablet) 40 mg PO NOW ONE Stop: 11/25/22 15:49 Last Admin: 11/25/22 16:06 Dose: 40 mg Documented By: SERGE Vital Signs Vital signs: Vital Signs - 8 hr 11/25/22 13:58 Temperature 97.8 F Pulse Rate 67 Respiratory Rate 19 Blood Pressure 162/87 H Pulse Oximetry 97 Oxygen Delivery Method Room Air <Escobar Chan MD - Last Filed: 12/10/22 22:24> Orders Ordered: Discontinued Medications Acetaminophen (Acetaminophen 325 Mg Tablet) 650 mg PO NOW ONE Stop: 11/25/22 15:49 Last Admin: 11/25/22 16:07 Dose: 650 mg Documented By: SERGE Ketorolac Tromethamine (Ketorolac 30 Mg/Ml Vial) 30 mg IM NOW ONE Stop: 11/25/22 15:49 Last Admin: 11/25/22 16:08 Dose: 30 mg Documented By: SERGE Lidocaine (Lidocaine Patch 1 Each Adh..Patch) 1 each TOP NOW ONE Stop: 11/25/22 15:49 Last Admin: 11/25/22 16:08 Dose: 1 each Documented By: SERGE Methocarbamol (Methocarbamol 500 Mg Tablet) 500 mg PO NOW ONE Stop: 11/25/22 15:49 Last Admin: 11/25/22 16:06 Dose: 500 mg Documented By: SERGE Prednisone (Prednisone 20 Mg Tablet) 40 mg PO NOW ONE Stop: 11/25/22 15:49 Last Admin: 11/25/22 16:06 Dose: 40 mg Documented By: SERGE Vital Signs Vital signs: Vital Signs - 8 hr 11/25/22 13:58 Temperature 97.8 F Pulse Rate 67 Respiratory Rate 19 Blood Pressure 162/87 H Pulse Oximetry 97 Oxygen Delivery Method Room Air MDM - Back Pain/Injury <SAHRA Leonard - Last Filed: 11/25/22 16:32> Lab Data Labs: Lab Results 11/25/22 Range/Units 15:55 Urine RBC None seen (0-5/HPF) Urine WBC 5-10/hpf H (0-5/HPF) Ur Squamous Epith Cells 5-10 /hpf H (0-5/HPF) Urine Bacteria Occasional (0-1) (None) Ur Culture Indicated? Specimen cultured Urine Dip Bedside Urine Glucose 1000 mg/dl Bedside Urine Bilirubin - Negative Bedside Urine Ketone - Negative Urine Specific [place] 1.02 Bedside Urine Occult Blood - Negative Bedside Urine pH 5.5 Bedside Urine Protein - Negative Bedside Urine Urobilinogen - Negative Bedside Urine Nitrite - Negative Bedside Urine Leukocytes - Negative Esterase Imaging Data Lumbar XRay: Radiologist's Impression: PROCEDURE:? XR LUMBAR SPINE 2-3V ? INDICATIONS:? back injury ? TECHNIQUE:? 3 views of the lumbar spine were acquired.? ? COMPARISON:? [facility], , L-SPINE MINIMUM 4 VIEWS, 03/13/2017, 15:43. ? FINDINGS:? ? Bones:? 5 [id number] vertebrae are present.? There is normal bony alignment.? No vertebral body compression fractures.? No suspicious bony lesions.? ? Transitional anatomy noted with partial sacralization L5 vertebral body ? Soft tissues:? Overlying bowel gas pattern is normal.? No suspicious soft tissue calcifications.? ? ? IMPRESSION:? ? Unremarkable lumbar spine radiographs.? No fracture or malalignment ? ? ? Approved by: Ron Lamb M.D. on 11/25/2022 at 13:57? MDM Narrative Medical decision making narrative: Chief Complaint: Low back pain Independent historian: Patient Multiple etiologies for patient's symptoms considered including, but not limited to: Epidural abscess, acute exacerbation of chronic low back pain with history of herniated nucleus pulposus at L4-L5, urinary tract infection, muscular strain/sprain, ligamental injury, nephrolithiasis/pyelonephritis, cauda equina, canal stenosis I have independently reviewed the patient's vital signs and nursing notes as well as prior records if available. Pertinent records include: History of low back pain with radiculopathy and history of acute exacerbation of chronic low back pain. My interpretation of lab studies: Urine dip shows glucose consistent with patient being a type 2 diabetic, aseptic, no leukocytes or nitrites My interpretation of imaging: Lumbar spine films show no acute abnormality when compared with prior Course of care: Patient has been taking her hydrocodone, states that she is taken it today and her speech is a bit slurred, she is moving slow but is neurologically intact without any focal deficits. Considered epidural abscess with her risk factors of diabetes, have a low suspicion for this, she is continent, with a septic urine. She is patient of Dr. Lopez, will follow-up with her PCP regarding this back pain, she sees Dr. Magana for complicated pain management. Will give her a course of prednisone, muscle relaxers, NSAID and lidocaine patches and encouraged her to use the medication she has to help with her pain. Patient states that her symptoms have improved status post medication. Urine micro shows likely contaminant, culture is pending. Social considerations that may affect disposition: none Questions are addressed and there is agreement with the plan and for follow-up. Patient is appropriate for outpatient management. <Escobar Chan MD - Last Filed: 12/10/22 22:24> Lab Data Labs: Lab Results 11/25/22 Range/Units 15:55 Urine RBC None seen (0-5/HPF) Urine WBC 5-10/hpf H (0-5/HPF) Ur Squamous Epith Cells 5-10 /hpf H (0-5/HPF) Urine Bacteria Occasional (0-1) (None) Ur Culture Indicated? Specimen cultured Urine Dip Bedside Urine Glucose 1000 mg/dl Bedside Urine Bilirubin - Negative Bedside Urine Ketone - Negative Urine Specific [place] 1.02 Bedside Urine Occult Blood - Negative Bedside Urine pH 5.5 Bedside Urine Protein - Negative Bedside Urine Urobilinogen - Negative Bedside Urine Nitrite - Negative Bedside Urine Leukocytes - Negative Esterase Discharge Plan Departure Patient Disposition: Home Clinical Impression: Acute exacerbation of chronic low back pain, Radiculopathy of lumbar region Instructions: DI for Back Pain With Sciatica Activity Restrictions/Additional Instructions: *You have been diagnosed with an acute exacerbation of her low back pain. Since this is chronic in nature, a steroid pack may help improve your symptoms and reduce inflammation. Please take all medications with food and water. Please use the muscle relaxer every 8 hours, use caution when combining this with hydrocodone as they both cause drowsiness and I am concerned that you may fall and have worsening injury. Please make sure you are taking your insulin as you should and staying hydrated. Follow-up with your primary care provider for a referral to physical therapy when you are feeling better from this. *What to do: *Please continue to take your regular medications as directed. [ ] New medication prescriptions sent to your pharmacy: [ ] [ ] New medication written as a paper prescription [ x] No new medications given *Please call and schedule follow up with your primary care provider in 2-3 days, at least for an update. Let them know you were seen in the Emergency Department for the above problem. We will electronically transmit a record of today's note if your PCP or specialist is in our system. *If you do not have a primary care provider please contact [phone] to establish care with one of the [facility] primary care providers. *Return to the Emergency Department for worsening symptoms, inability to keep liquids down, fever greater than 101F, chills, or other concerning symptom. Prescriptions: New methocarbamol 500 mg tablet 500 mg PO TID PRN (Reason: muscle spasm) Qty: 20 0RF prednisone 20 mg tablet 20 mg PO DAILY Qty: 4 0RF naproxen 375 mg tablet 375 mg PO BID PRN (Reason: pain) Qty: 30 0RF No Action benzonatate 200 mg capsule 200 mg PO TID PRN (Reason: cough) Qty: 30 0RF Lantus Solostar U-100 Insulin 100 unit/mL (3 mL) insulin pen 20 unit SUBCUT BEDTIME Qty: 15 3RF ipratropium bromide 42 mcg (0.06 %) spray,non-aerosol See Rx Instructions .ROUTE .COMPLEX Qty: 15 0RF Dose Instruction: USE 2 SPRAYS IN EACH NOSTRIL THREE TIMES DAILY FOR 4 DAYS Rx Instructions: USE 2 SPRAYS IN EACH NOSTRIL THREE TIMES DAILY FOR 4 DAYS hydrocodone-acetaminophen 5-325 mg tablet 1 tab PO Q6HP PRN (Reason: pain) Qty: 20 0RF (DME) lancets [BD Ultra Fine Lancets] 33 gauge misc See Rx Instructions .ROUTE .MEDSUPPLY Qty: 100 2RF Rx Instructions: Use to test blood glucose twice daily (DME) Blood Glucose Test Strip See Rx Instructions .ROUTE .MEDSUPPLY Qty: 100 2RF Rx Instructions: Use to test blood glucose twice daily. (DME) BD Ultra Fine Pen Tips 28G x 1/2 100 package See Rx Instructions .ROUTE .MEDSUPPLY Rx Instructions: Use 1 needle daily with victoza rx (DME) Parking Permit... See Rx Instructions .Route .MEDSUPPLY Qty: 1 0RF Rx Instructions: I find this patient to be medically disabled and qualified for Disabled Parking as indicated, and signed, on the Accompanying Disabled Parking Application for Individuals. venlafaxine 37.5 mg capsule,extended release 24hr See Rx Instructions .ROUTE .COMPLEX Qty: 90 3RF Dose Instruction: TAKE 1 CAPSULE BY MOUTH DAILY Rx Instructions: TAKE 1 CAPSULE BY MOUTH DAILY atorvastatin [Lipitor] 20 mg tablet 20 mg PO DAILY Qty: 90 3RF Referrals: Rolly Merida MD [Primary Care Provider] - Stand Alone Forms: Patient Portal/API <Escobar Chan MD - Last Filed: 12/10/22 22:24> Cosign ED Attending Cosignature Attestation: I was immediately available in the department for consultation. This docume ntation has been reviewed and I agree with assessment and plan. Supervised by Escobar Chan MD
[2022-11-25] MEDS: predniSONE 20 MG TABLET 40 MG PO (16:06)
[2022-11-25] MEDS: methocarbamoL 500 MG TABLET PO (16:06)
[2022-11-25] MEDS: ACETAMINOPHEN 325 MG TABLET 650 MG PO (16:07)
[2022-11-25] MEDS: KETOROLAC 30 MG/ML VIAL IM (16:08)
[2022-11-25] MEDS: LIDOCAINE PATCH 1 EACH ADH..PATCH TOP (16:08)
[2022-11-25 16:23] LABS: Bacteria Urine Occasional (0-1); Culture Indicated Urine Specimen Cultured; RBC Urine None Seen (0-5/HPF); Squamous Epithelial Cell Urine 5-10 /HPF (0-5/HPF); WBC Urine 5-10/HPF (0-5/HPF)
[2022-11-25 16:39] VITALS: BP 139/69; PULSE 66; RESP 18; O2SAT 95
--- NOTE | 2022-11-25 16:39 | PC.NURSE ---
Patient was evaluated, treated and discharged by provider prior to nursing assessment.
== END 2022-11-25 16:43 | disposition home or self-care (01) ==
PROVIDERS: Emergency Provider Nurse Practitioner Critical Care Medicine; PCP Family Medicine
DX: M54.50 Low back pain, unspecified (principal); M54.16 Radiculopathy, lumbar region
CPT/HCPCS: 72100; 81003; 81015; 87086; 96372; 99283; 99284; J1885

== ENCOUNTER 2022-12-25 01:02 | Emergency (ER) | payer MEDICARE, MEDICAID, SELFPAY ==
[2022-12-04 13:26] VITALS: BMI 25.6
[2022-12-25] VITALS (12 sets, daily range): BP systolic 117–168; BP diastolic 60–92; PULSE 71–92; RESP 16–38; TEMP 36.2; O2SAT 88–98; BMI 25.9
--- NOTE | 2022-12-25 01:15 | ED.CHESTPAIN ---
HPI - Chest Pain General Chief Complaint: Upper Respiratory Symptoms Stated Complaint: Chest pain, cough Time Seen by Provider: 12/25/22 01:07 History of Present Illness HPI narrative: Patient is a 49-year-old female history of diabetes insulin-dependent, myotonic muscular dystrophy presenting today with worsening chest pain and difficulty breathing. She reports she is had a cough and upper respiratory like symptoms ongoing for about 2 weeks. She is symptoms short of breath with exertion. She reports that nighttime is usually the worst she has a cough. She feels like her abdominal wall muscles are sore from coughing. She is no fever or chills. No nausea or vomiting. She is not a smoker. Related Data Home Medications Medication Instructions Recorded Confirmed BD Ultra Fine Pen Tips 28G x 1/2 03/28/21 09/26/22 Previous Rx's Medication Instructions Recorded hydrocodone 5 mg-acetaminophen 325 1 tab PO Q6HP PRN pain #20 tabs 09/05/17 mg tablet lancets 33 gauge (BD Ultra Fine #100 ea 08/02/20 Lancets) blood sugar diagnostic (Blood #100 ea 01/31/21 Glucose Test strips) insulin glargine 100 unit/mL (3 20 unit (0.2 mL) SUBCUT BEDTIME 11/17/21 mL) subcutaneous pen (Lantus #15 mL Solostar U-100 Insulin) Parking Permit... #1 ea 07/13/22 atorvastatin 20 mg tablet (Lipitor) 20 mg PO DAILY #90 tabs 07/13/22 venlafaxine 37.5 mg See Rx Instructions .Route 07/13/22 capsule,extended release 24 hr .COMPLEX #90 caps benzonatate 200 mg capsule 200 mg PO TID PRN cough #30 caps 09/26/22 ipratropium bromide 42 mcg (0.06 See Rx Instructions .Route 11/14/22 %) nasal spray .COMPLEX #15 mL methocarbamol 500 mg tablet 500 mg PO TID PRN muscle spasm #20 11/25/22 tabs naproxen 375 mg tablet 375 mg PO BID PRN pain #30 tabs 11/25/22 prednisone 20 mg tablet 20 mg PO DAILY #4 tabs 11/25/22 hydrocodone-homatropine 5 mg-1.5 5 ml PO Q6H PRN cough #100 mL 12/25/22 mg/5 mL (5 mL) oral syrup Allergies Allergy/AdvReac Type Severity Reaction Status Date / Time latex [LATEX] Allergy Severe hives Verified 11/25/22 14:04 adhesive [ADHESIVE] AdvReac Mild rash from Verified 11/25/22 14:04 tape morphine [MORPHINE] AdvReac Mild gi upset Verified 11/25/22 14:04 Sulfa (Sulfonamide AdvReac Mild gi upset Verified 11/25/22 14:04 Antibiotics) [SULFA (SULFONAMIDE ANTIBIOTICS)] Review of Systems Review of Systems ROS Unobtainable: All systems reviewed & are unremarkable except as noted in HPI and below Patient History Medical History Chronic low back pain Diabetes Elevated blood pressure reading in office without diagnosis of hypertension Gait instability Head contusion Herniated nucleus pulposus, L4-5 Herpes (2002) Hyperlipidemia Hypokalemia Impacted cerumen of left ear Nga syndrome Ptosis Right otitis externa Surgical History History of colonoscopy with polypectomy (11/05/13) History of left cataract surgery (07/20/09) History of right cataract surgery (08/03/09) Status post hysteroscopic myomectomy (07/19/12) Status post laparoscopic supracervical hysterectomy Family History Father Diabetes mellitus Coronary arteriosclerosis Hyperlipidemia ME (myocardial infarction) Mother Colon cancer Social History household members: spouse Smoking Status: Never smoker alcohol intake: current substance use type: does not use eating out: rarely or never Type(s) of exercise: walking Smoking Status: Never smoker alcohol intake frequency: other Substance Use Type: does not use Exam Initial Vital Signs Initial Vital Signs: Vital Signs Temperature 97.2 F L 12/25/22 01:08 Pulse Rate 82 12/25/22 01:08 Respiratory Rate 24 12/25/22 01:08 Blood Pressure 168/92 H 12/25/22 01:08 Pulse Oximetry 95 12/25/22 01:08 Oxygen Delivery Method Room Air 12/25/22 01:08 GENERAL: Alert 49-year-old female appears to not feel well HEENT: Head atraumatic,EOMI, pupils reactive, face symmetric, [moist] mucous membranes CARDIOVASCULAR: Regular rate and rhythm without murmurs, rubs or gallops. RESPIRATORY: Decreased breath sounds bilaterally no tachypnea no wheezing rales or rhonchi ABDOMEN: Soft, nontender. Normoactive bowel sounds all 4 quadrants. No guarding or rebound. EXTREMITIES: Normal range of motion, no clubbing or edema. Neurovascularly intact NEUROLOGICAL: Alert and oriented x4. SKIN: Warm, dry, no laceration, no petechiae, no rashes or lesions. Course Orders Ordered: ED Orders 12/25/22 EKG-12 Lead Routine 12/25/22 01:12 BNP [NT-proBNP (BNP-Adult 18+)] Stat CBC Auto Diff [Complete Blood Count AUTO DIFF] Stat CMP [Comprehensive Metabolic Panel] Stat D Dimer Stat Lactate (Lactic Acid) Stat Troponin & CK Cardiac Panel Stat 12/25/22 01:29 Chest [XR chest 1V] Stat 12/25/22 01:40 Respiratory Panel (Film Array) Stat Discontinued Medications Hydrocodone Bitart/Acetaminophen (Hydrocodone/Acet 5/325 Prepack) 1 bottle [facility] SEEINSTR ONE Stop: 12/25/22 03:09 Last Admin: 12/25/22 04:00 Dose: 1 bottle Documented By: NICOLE Albuterol (Albuterol 2.5 Mg/3 Ml Neb (Adult)) 2.5 mg INH NOW ONE Stop: 12/25/22 01:25 Last Admin: 12/25/22 01:51 Dose: 2.5 mg Documented By: HERIBERTO Albuterol (Albuterol Hfa Prepack) 1 box [facility] SEE[facility] ONE Stop: 12/25/22 03:09 Last Admin: 12/25/22 03:25 Dose: 1 box Documented By: HERIBERTO Sodium Chloride (Normal Saline 0.9%) 1,000 mls @ 1,000 mls/hr IV BOLUS ONE Stop: 12/25/22 02:59 Last Infusion: 12/25/22 03:09 Dose: 0 mls/hr Documented By: Admin: 12/25/22 02:03 Dose: 1,000 mls/hr Documented By: NICOLE Vital Signs Vital signs: Vital Signs - 8 hr 12/25/22 01:08 12/25/22 01:13 12/25/22 01:30 Temperature 97.2 F L Pulse Rate 82 92 H 89 Respiratory Rate 24 32 H 38 H Blood Pressure 168/92 H Pulse Oximetry 95 95 96 Oxygen Delivery Method Room Air Oxygen Flow Rate Fraction of Inspired Oxygen 12/25/22 01:31 12/25/22 01:31 12/25/22 01:55 Temperature Pulse Rate 84 Respiratory Rate 32 H 22 Blood Pressure 129/82 Pulse Oximetry 93 88 L Oxygen Delivery Method Room Air Oxygen Flow Rate Fraction of Inspired Oxygen 12/25/22 02:00 12/25/22 02:00 12/25/22 01:51 Temperature Pulse Rate 71 72 Respiratory Rate 22 18 Blood Pressure 117/60 Pulse Oximetry 95 90 L Oxygen Delivery Method Nasal Cannula Room Air Oxygen Flow Rate 2 0 Fraction of Inspired Oxygen 12/25/22 02:06 12/25/22 02:06 12/25/22 02:30 Temperature Pulse Rate 71 Respiratory Rate 16 Blood Pressure 123/65 140/72 Pulse Oximetry 93 Oxygen Delivery Method Oxygen Flow Rate Fraction of Inspired Oxygen 12/25/22 02:30 12/25/22 03:02 12/25/22 03:05 Temperature Pulse Rate 75 92 H Respiratory Rate 20 Blood Pressure 138/84 Pulse Oximetry 91 97 Oxygen Delivery Method Nasal Cannula Oxygen Flow Rate Fraction of Inspired Oxygen 12/25/22 03:05 12/25/22 03:30 Temperature Pulse Rate 84 73 Respiratory Rate 38 H 19 Blood Pressure Pulse Oximetry 98 93 Oxygen Delivery Method Oxygen Flow Rate Fraction of Inspired Oxygen MDM - Chest Pain Lab Data 12/25/22 01:12 12/25/22 01:12 Labs: Lab Results 12/25/22 12/25/22 12/25/22 Range/Units 01:12 01:12 01:12 WBC 12.6 H (4.5-11.0) X10^3/uL RBC 5.60 H (4.0-5.2) X10^6/uL Hgb 16.5 H (12.0-16.0) g/dL Hct 47.9 H (36-46) % MCV 85.5 (80-100) fL MCH 29.4 (26-34) PG MCHC 34.4 (30-36) % RDW 13.3 (11.6-14.8) % Plt Count 360 (150-400) X10^3/uL Neut % (Auto) 53.2 (50-75) % Lymph % (Auto) 35.6 (25-40) % [place] % (Auto) 8.0 (3-14) % Eos % (Auto) 2.4 (2-4) % Baso % (Auto) 0.8 (0-2) % Neut # (Auto) 6700 (5727-5545) /uL Lymph # (Auto) 4500 (9411-8345) /uL [place] # (Auto) 1000 H (0-900) /uL Eos # (Auto) 300 (0-450) /uL Baso # (Auto) 100 (0-100) /uL D-Dimer (<500) ng/ml Sodium 137 (137-145) mmol/L Potassium 4.4 (3.4-5.1) mmol/L Chloride 107 (98-107) mmol/L Carbon Dioxide 21 L (22-32) mmol/L BUN 32 H (7-17) mg/dL Creatinine 0.87 (0.52-1.04) mg/dL Estimated GFR > 60 (>60) mL/min BUN/Creatinine Ratio 36.8 H (6-22) Glucose 130 H (70-100) mg/dL Lactate 0.7 (0.7-2.1) mmol/L Calcium 10.5 H (8.4-10.2) mg/dL Total Bilirubin 0.8 (0.2-1.3) mg/dL AST 50 H (14-36) IU/L ALT 57 H (<35) IU/L Alkaline Phosphatase 127 H (38-126) U/L Total Creatine Kinase (30-135) U/L CK-MB (CK-2) (<2.37) ng/mL CK-MB (CK-2) Rel Index (1.5-5.0) % Troponin I (0.01-0.034) ng/mL NT-Pro-B Natriuret Pep (<125) pg/mL Total Protein 7.6 (6.3-8.2) g/dL Albumin 4.5 (3.5-5.0) g/dL Globulin 3.1 (1.7-4.1) g/dL Albumin/Globulin Ratio 1.5 (1.0-2.8) Chlamy pneumoniae PCR (Not Detect) Adenovirus (PCR) (Not Detect) B. pertussis DNA (PCR) (Not Detecte) B.parapertussis DNA PCR (Not Detecte) Coronavirus OC43 (PCR) (Not Detect) Coronavirus HKU1 (PCR) (Not Detect) Coronavirus 229E (PCR) (Not Detect) SARS-CoV-2 (PCR) (Not Detecte) Coronavirus NL63 (PCR) (Not Detect) Human Metapneumovir PCR (Not Detect) Influenza Type A (PCR) (Not Detect) Influenza Type B (PCR) (Not Detect) M. pneumoniae (PCR) (Not Detect) Parainfluenza 1 (PCR) (Not Detect) Parainfluenza 2 (PCR) (Not Detect) Parainfluenza 3 (PCR) (Not Detect) Parainfluenza 4 (PCR) (Not Detect) RSV (PCR) (Not Detect) Entero/Rhino (PCR) (Not Detect) 12/25/22 12/25/22 12/25/22 Range/Units 01:12 01:12 01:40 WBC (4.5-11.0) X10^3/uL RBC (4.0-5.2) X10^6/uL Hgb (12.0-16.0) g/dL Hct (36-46) % MCV (80-100) fL MCH (26-34) PG MCHC (30-36) % RDW (11.6-14.8) % Plt Count (150-400) X10^3/uL Neut % (Auto) (50-75) % Lymph % (Auto) (25-40) % [place] % (Auto) (3-14) % Eos % (Auto) (2-4) % Baso % (Auto) (0-2) % Neut # (Auto) (7443-8607) /uL Lymph # (Auto) (5220-0288) /uL [place] # (Auto) (0-900) /uL Eos # (Auto) (0-450) /uL Baso # (Auto) (0-100) /uL D-Dimer 243 (<500) ng/ml Sodium (137-145) mmol/L Potassium (3.4-5.1) mmol/L Chloride (98-107) mmol/L Carbon Dioxide (22-32) mmol/L BUN (7-17) mg/dL Creatinine (0.52-1.04) mg/dL Estimated GFR (>60) mL/min BUN/Creatinine Ratio (6-22) Glucose (70-100) mg/dL Lactate (0.7-2.1) mmol/L Calcium (8.4-10.2) mg/dL Total Bilirubin (0.2-1.3) mg/dL AST (14-36) IU/L ALT (<35) IU/L Alkaline Phosphatase (38-126) U/L Total Creatine Kinase 308 H (30-135) U/L CK-MB (CK-2) 4.91 H (<2.37) ng/mL CK-MB (CK-2) Rel Index 1.6 (1.5-5.0) % Troponin I 0.018 (0.01-0.034) ng/mL NT-Pro-B Natriuret Pep 207 H (<125) pg/mL Total Protein (6.3-8.2) g/dL Albumin (3.5-5.0) g/dL Globulin (1.7-4.1) g/dL Albumin/Globulin Ratio (1.0-2.8) Chlamy pneumoniae PCR Not detected (Not Detect) Adenovirus (PCR) Not detected (Not Detect) B. pertussis DNA (PCR) Not detected (Not Detecte) B.parapertussis DNA PCR Not detected (Not Detecte) Coronavirus OC43 (PCR) Not detected (Not Detect) Coronavirus HKU1 (PCR) Not detected (Not Detect) Coronavirus 229E (PCR) Not detected (Not Detect) SARS-CoV-2 (PCR) Not detected (Not Detecte) Coronavirus NL63 (PCR) Not detected (Not Detect) Human Metapneumovir PCR Not detected (Not Detect) Influenza Type A (PCR) Not detected (Not Detect) Influenza Type B (PCR) Not detected (Not Detect) M. pneumoniae (PCR) Not detected (Not Detect) Parainfluenza 1 (PCR) Not detected (Not Detect) Parainfluenza 2 (PCR) Not detected (Not Detect) Parainfluenza 3 (PCR) Not detected (Not Detect) Parainfluenza 4 (PCR) Not detected (Not Detect) RSV (PCR) Not detected (Not Detect) Entero/Rhino (PCR) Not detected (Not Detect) Imaging Data Chest x-ray: Radiologist's Impression: PROCEDURE:? XR CHEST 1V ? INDICATIONS:? cough ? TECHNIQUE:? One view of the chest was acquired.? ? COMPARISON:? [facility], CR, XR CHEST 1V, 07/16/2018, 7:36. ? FINDINGS:? ? Surgical changes and devices:? None.? ? Lungs and pleura:? Lungs are clear.? No pleural effusions or pneumothorax.? ? Mediastinum:? Mediastinal contours appear normal.? Heart size is normal.? ? Bones and chest wall:? No suspicious bony lesions.? Overlying soft tissues appear unremarkable.? ? IMPRESSION:? ? 1.? No acute cardiopulmonary disease. ? ? ? Dictated by: Venancio Auguste M.D. on 12/25/2022 at 2:22 ? ? ECG Data Interpretation: Sinus rhythm rate 94 [place] interval 156 QRS [address] changes left bundle-branch block noted MDM Narrative Medical decision making narrative: Patient insulin-dependent diabetes presents today with chronic ongoing cough for the last couple of weeks. She reports difficulty breathing worse at night. Initially not hypoxic, however while getting an aerosolized nebulizer treatment O2 went down to 87 88%. She required a couple L of oxygen. X-ray was clear for pneumonia and pneumothorax. Blood work she has mild leukocytosis of 12, normal lactic acid no electrolyte abnormality slight increased BUN creatinine ratio suggesting dehydration. She is given a L of fluid. She is a negative troponin, negative BNP and a negative D-dimer. Respiratory panel is also surprisingly negative. Patient has symptoms of upper respiratory like symptoms with cough and body aches spasming bronchospastic cough. He ambulated to the restroom on room air and returned and was 95%. She had mild improvement with the nebulizer. She is taught how to use an inhaler and spacer and given cough syrup at home. No need for antibiotics. This time she is not hypoxic and not meeting admission criteria. Discharge Plan Departure Patient Disposition: Home Clinical Impression: Upper respiratory infection Instructions: DI for Viral Upper Respiratory Infection -- Adult Activity Restrictions/Additional Instructions: *You have been diagnosed with upper respiratory infection *What to do: At this time no need for antibiotics. Your viral panel was negative but you probably have a different virus. Use inhaler as needed for coughing spells and cough syrup at night to help you sleep *Continue to take medications as directed *Follow up with your primary care provider in 2-3 days or call [phone] *Return to ER if you should have increasing shortness of breath cough chest pain or any new, worsening or concerning symptoms CONTROLLED SUBSTANCE DISCHARGE (Narcotoic/benzodiazepine/Flexeril/Phenergan) 1. You have been prescribed narcotic medications, it does have acetaminophen/Tylenol/paracetamol in it, DO NOT TAKE MORE THAN 4,00mg in 24 hours of Tylenol. TRAMADOL DOES NOT CONTAIN TYLENOL 2. Please understand that we cannot provide further refills of narcotics, benzodiazepines or controlled substances through the ED and her pain management will need to be through your provider. 3. While on these medications you cannot drive or operate heavy machinery. 4. You cannot sign legal documents or perform any duties such as this. 5. As long as you're taking opiate pain medications he should also be taking a stool softener such as Colace, Dulcolax, MiraLAX or prune juice, to help avoid constipation. Prescriptions: New hydrocodone-homatropine 5-1.5 mg/5 mL (5 mL) syrup 5 ml PO Q6H PRN (Reason: cough) Qty: 100 0RF No Action benzonatate 200 mg capsule 200 mg PO TID PRN (Reason: cough) Qty: 30 0RF Lantus Solostar U-100 Insulin 100 unit/mL (3 mL) insulin pen 20 unit SUBCUT BEDTIME Qty: 15 3RF ipratropium bromide 42 mcg (0.06 %) spray,non-aerosol See Rx Instructions .ROUTE .COMPLEX Qty: 15 0RF Dose Instruction: USE 2 SPRAYS IN EACH NOSTRIL THREE TIMES DAILY FOR 4 DAYS Rx Instructions: USE 2 SPRAYS IN EACH NOSTRIL THREE TIMES DAILY FOR 4 DAYS hydrocodone-acetaminophen 5-325 mg tablet 1 tab PO Q6HP PRN (Reason: pain) Qty: 20 0RF (DME) lancets [BD Ultra Fine Lancets] 33 gauge misc See Rx Instructions .ROUTE .MEDSUPPLY Qty: 100 2RF Rx Instructions: Use to test blood glucose twice daily (DME) Blood Glucose Test Strip See Rx Instructions .ROUTE .MEDSUPPLY Qty: 100 2RF Rx Instructions: Use to test blood glucose twice daily. (DME) BD Ultra Fine Pen Tips 28G x 1/2 100 package See Rx Instructions .ROUTE .MEDSUPPLY Rx Instructions: Use 1 needle daily with victoza rx (DME) Parking Permit... See Rx Instructions .Route .MEDSUPPLY Qty: 1 0RF Rx Instructions: I find this patient to be medically disabled and qualified for Disabled Parking as indicated, and signed, on the Accompanying Disabled Parking Application for Individuals. venlafaxine 37.5 mg capsule,extended release 24hr See Rx Instructions .ROUTE .COMPLEX Qty: 90 3RF Dose Instruction: TAKE 1 CAPSULE BY MOUTH DAILY Rx Instructions: TAKE 1 CAPSULE BY MOUTH DAILY atorvastatin [Lipitor] 20 mg tablet 20 mg PO DAILY Qty: 90 3RF methocarbamol 500 mg tablet 500 mg PO TID PRN (Reason: muscle spasm) Qty: 20 0RF prednisone 20 mg tablet 20 mg PO DAILY Qty: 4 0RF naproxen 375 mg tablet 375 mg PO BID PRN (Reason: pain) Qty: 30 0RF Referrals: Rolly Merida MD [Primary Care Provider] - Stand Alone Forms: Patient Portal/API
--- NOTE | 2022-12-25 01:29 | DI.RAD.S_ITS ---
PROCEDURE: XR CHEST 1V INDICATIONS: cough TECHNIQUE: One view of the chest was acquired. COMPARISON: [facility], CR, XR CHEST 1V, 07/16/2018, 7:36. FINDINGS: Surgical changes and devices: None. Lungs and pleura: Lungs are clear. No pleural effusions or pneumothorax. Mediastinum: Mediastinal contours appear normal. Heart size is normal. Bones and chest wall: No suspicious bony lesions. Overlying soft tissues appear unremarkable. IMPRESSION: 1. No acute cardiopulmonary disease. Dictated by: Venancio Auguste M.D. on 12/25/2022 at 2:22 Approved by: Venancio Auguste M.D. on 12/25/2022 at 2:23
[2022-12-25 01:40] LABS: Add Manual Diff / Slide Review NO; Basophils Absolute Auto 100 /uL (0-100); Basophils Percent Auto 0.8 % (0-2); Eosinophils Absolute Auto 300 /uL (0-450); Eosinophils Percent Auto 2.4 % (2-4); Hematocrit 47.9 % (36-46); Hemoglobin 16.5 g/dL (12.0-16.0); Lymphocytes Absolute Auto 4500 /uL (1100-4500); Lymphocytes Percent Auto 35.6 % (25-40); Mean Corpuscular HGB Conc 34.4 % (30-36); Mean Corpuscular Hemoglobin 29.4 PG (26-34); Mean Corpuscular Volume 85.5 fL (80-100); Monocytes Absolute Auto 1000 /uL (0-900); Neutrophils Absolute Auto 6700 /uL (1500-7000); Neutrophils Percent Auto 53.2 % (50-75); Platelet Count 360 X10^3/uL (150-400); Red Cell Distribution Width 13.3 % (11.6-14.8); White Blood Cell Count 12.6 X10^3/uL (4.5-11.0)
[2022-12-25 01:41] LABS: Lactate (Lactic Acid) 0.7 mmol/L (0.7-2.1)
[2022-12-25 01:42] LABS: Alanine Aminotransferase 57 IU/L (<35); Albumin 4.5 g/dL (3.5-5.0); Albumin Globulin Ratio 1.5 (1.0-2.8); Alkaline Phosphatase 127 U/L (38-126); Aspartate Aminotransferase 50 IU/L (14-36); BUN Creatinine Ratio 36.8 (6-22); Bilirubin Total 0.8 mg/dL (0.2-1.3); Blood Urea Nitrogen 32 mg/dL (7-17); Calcium 10.5 mg/dL (8.4-10.2); Carbon Dioxide 21 mmol/L (22-32); Chloride 107 mmol/L (98-107); Estimated Glomerular Filt Rate > 60 mL/min (>60); Globulin 3.1 g/dL (1.7-4.1); Glucose 130 mg/dL (70-100); HEMOLYSIS 43 (0-50); Potassium 4.4 mmol/L (3.4-5.1); Sodium 137 mmol/L (137-145); Total Protein 7.6 g/dL (6.3-8.2)
[2022-12-25] MEDS: ALBUTEROL 2.5 MG/3 ML NEB (ADULT) INH (01:51)
[2022-12-25] MEDS: SODIUM CHLORIDE 0.9% 1,000 ML 1000 ML IV (02:03)
[2022-12-25 02:17] LABS: Creatine Kinase 308 U/L (30-135)
[2022-12-25 02:30] LABS: NT-proBNP (BNP-Adult 18+) 207 pg/mL (<125); Troponin I 0.018 ng/mL (0.01-0.034)
[2022-12-25 02:33] LABS: CKMB % Relative Index 1.6 % (1.5-5.0); Creatine Kinase MB 4.91 ng/mL (<2.37)
[2022-12-25 02:51] LABS: Adenovirus Not Detected (Not Detect); B. parapertussis Not Detected (Not Detecte); Bordetella pertussis Not Detected (Not Detecte); Chlamydophila pneumoniae Not Detected (Not Detect); Coronavirus 229E Not Detected (Not Detect); Coronavirus HKU1 Not Detected (Not Detect); Coronavirus NL 63 Not Detected (Not Detect); Coronavirus OC43 Not Detected (Not Detect); Human Metapneumovirus Not Detected (Not Detect); Human Rhinovirus/Enterovirus Not Detected (Not Detect); Influenza A Not Detected (Not Detect); Influenza B Not Detected (Not Detect); Mycoplasma pneumoniae Not Detected (Not Detect); Parainfluenza Virus 1 Not Detected (Not Detect); Parainfluenza Virus 2 Not Detected (Not Detect); Parainfluenza Virus 3 Not Detected (Not Detect); Parainfluenza Virus 4 Not Detected (Not Detect); Respiratory Syncytial Virus Not Detected (Not Detect); SARS- CoV-2 Not Detected (Not Detecte)
--- NOTE | 2022-12-25 03:06 | PC.NURSE ---
Patient ambulatory to bathroom down hallway, RA trial done at this time. Patient denies SOB when ambulating. spO2 at 98% on RA. Patient updated on plan of care. Denies any immediate needs.
[2022-12-25] MEDS: ALBUTEROL HFA PREPACK 1 BOX MISC (03:25)
[2022-12-25 03:31] LABS: D Dimer 243 ng/ml (<500)
[2022-12-25] MEDS: HYDROCODONE/ACET 5/325 PREPACK 1 BOTTLE MISC (04:00)
== END 2022-12-25 04:12 | disposition home or self-care (01) ==
PROVIDERS: Emergency Provider Emergency Medicine; PCP Family Medicine
DX: J06.9 Acute upper respiratory infection, unspecified (principal); R05.9 Cough, unspecified; R06.00 Dyspnea, unspecified; R10.9 Unspecified abdominal pain; Z20.822 Contact with and (suspected) exposure to COVID-19
CPT/HCPCS: 36415; 71045; 80053; 82550; 82553; 83605; 83880; 84484; 85025; 85379; 87633; 93005; 93010; 94640; 99284; J7613

== ENCOUNTER → 2023-01-26 13:51 | Outpatient (CLI) | payer MEDICARE, MEDICAID, SELFPAY ==
[2022-12-04 13:26] VITALS: BMI 25.6
[2023-01-26 14:56] LABS: Add Manual Diff / Slide Review NO; Basophils Absolute Auto 0 /uL (0-100); Basophils Percent Auto 0.6 % (0-2); Eosinophils Absolute Auto 100 /uL (0-450); Eosinophils Percent Auto 1.1 % (2-4); Hematocrit 48.2 % (36-46); Hemoglobin 16.4 g/dL (12.0-16.0); Lymphocytes Absolute Auto 2800 /uL (1100-4500); Lymphocytes Percent Auto 31.7 % (25-40); Mean Corpuscular Hemoglobin 29.4 PG (26-34); Mean Corpuscular Volume 86.4 fL (80-100); Monocytes Absolute Auto 500 /uL (0-900); Monocytes Percent Auto 5.7 % (3-14); Neutrophils Absolute Auto 5400 /uL (1500-7000); Neutrophils Percent Auto 60.9 % (50-75); Platelet Count 311 X10^3/uL (150-400); Red Blood Cell Count 5.57 X10^6/uL (4.0-5.2); Red Cell Distribution Width 13.4 % (11.6-14.8); White Blood Cell Count 8.8 X10^3/uL (4.5-11.0)
[2023-01-26 15:14] LABS: Alanine Aminotransferase 63 IU/L (<35); Albumin 4.2 g/dL (3.5-5.0); Albumin Globulin Ratio 1.8 (1.0-2.8); Alkaline Phosphatase 128 U/L (38-126); Aspartate Aminotransferase 43 IU/L (14-36); BUN Creatinine Ratio 27.3 (6-22); Blood Urea Nitrogen 15 mg/dL (7-17); Calcium 10.4 mg/dL (8.4-10.2); Carbon Dioxide 24 mmol/L (22-32); Chloride 106 mmol/L (98-107); Estimated Glomerular Filt Rate > 60 mL/min (>60); Globulin 2.4 g/dL (1.7-4.1); Glucose 256 mg/dL (70-100); HEMOLYSIS < 15 (0-50); Potassium 4.6 mmol/L (3.4-5.1); Sodium 141 mmol/L (137-145); Total Protein 6.6 g/dL (6.3-8.2)
[2023-01-27 10:08] LABS: Calcium 10.3 mg/dL (8.7-10.2); Parathyroid Hormone, Intact 108 pg/mL (15-65)
== END ==
PROVIDERS: PCP Family Medicine; Referring Provider Family Medicine; Visit Provider Family Medicine
DX: D58.2 Other hemoglobinopathies (principal); E11.9 Type 2 diabetes mellitus without complications; E87.6 Hypokalemia; R74.8 Abnormal levels of other serum enzymes
CPT/HCPCS: 36415; 80053; 82310; 83970; 85025

== ENCOUNTER → 2023-03-15 11:13 | Outpatient (CLI) | payer MEDICARE, MEDICAID, SELFPAY ==
[2022-12-04 13:26] VITALS: BMI 25.6
--- NOTE | 2023-03-15 11:14 | DI.MRI.S_ITS ---
PROCEDURE: MR LUMBAR SPINE WO CON INDICATIONS: Other intervertebral disc displacement, lumbar region TECHNIQUE: Noncontrast sagittal T1 spin echo and T2 fast echo, sagittal STIR, and axial T2 fast spin echo through the lumbar spine. COMPARISON: [facility], , L-SPINE WITHOUT CONTRAST, 05/08/2017, 18:02. FINDINGS: Image quality: Excellent. Alignment and Curvature: There is normal bony alignment. Bone Marrow: Marrow is of normal overall signal. No acute vertebral body compression fractures. Spinal Cord: Conus medullaris terminates at the L1 level. Visualized cord demonstrates normal signal and size. Paraspinous Soft Tissues: No paravertebral masses. There is fatty infiltration of the paraspinous musculature. [id number] cysts are seen in the kidneys. T12-L1, L1-2, and L2-3: No significant spinal canal stenosis or neural foraminal narrowing. L3-L4: Mild circumferential disc bulging and mild facet hypertrophy. No significant spinal canal stenosis or neural foraminal narrowing. L4-L5: Disc desiccation and circumferential disc bulging as well as mild bilateral facet hypertrophy. Findings result in mild narrowing of the spinal canal and mild bilateral neural foraminal narrowing. Findings do not appear significantly changed when compared to the MRI from 05/08/2017. L5-S1: Disc desiccation and mild circumferential disc bulging with a small posterior annular fissure and [id number] bilateral facet hypertrophy. Findings result in mild narrowing of the bilateral neural foramina without significant spinal canal stenosis. IMPRESSION: Mild multilevel degenerative disc disease and facet hypertrophy as described in detail in the body of the report. No high-grade spinal canal stenosis or high-grade neural foraminal narrowing. No significant change when compared to the MRI from 05/08/2017. Approved by: Pietro Garcia M.D. on 03/15/2023 at 17:05
== END ==
PROVIDERS: PCP Family Medicine; Referring Provider Physical Medicine & Rehabilitation; Visit Provider Physical Medicine & Rehabilitation
DX: M51.26 Other intervertebral disc displacement, lumbar region (principal); M47.816 Spondylosis without myelopathy or radiculopathy, lumbar region; M47.817 Spondylosis without myelopathy or radiculopathy, lumbosacral region; M51.37 Other intervertebral disc degeneration, lumbosacral region
CPT/HCPCS: 72148

== ENCOUNTER 2023-03-22 13:55 | Outpatient (CLI) | payer MEDICARE, MEDICAID, SELFPAY ==
[2022-12-04 13:26] VITALS: BMI 25.6
[2023-03-22] VITALS (8 sets, daily range): BP systolic 125–147; BP diastolic 65–89; PULSE 69–79; RESP 12–23; TEMP 36.3; O2SAT 92–97
--- NOTE | 2023-03-22 13:56 | DI.RAD.S_ITS ---
PROCEDURE: PAIN L INTERLAMINAR/CAUDAL INJ INDICATIONS: SPONDYLOSIS COMPARISON: None. FINDINGS: Fluoroscopic spot filming was performed to verify placement of spinal needles at the L5-S1 interlaminar level(s), as labeled on the films. Appropriate location(s) of the needle tip(s) was confirmed by injection of iodinated contrast. IMPRESSION: [place] needle and L5-S1 interlaminar space for translaminar epidural steroid injection. Dictated by: Alexsandra Jewell MD, PhD on 03/22/2023 at 16:03 Approved by: Alexsandra Jewell MD, PhD on 03/22/2023 at 16:03
[2023-03-22] MEDS: MIDAZOLAM 2 MG/2 ML VIAL IV (14:52)
[2023-03-22] MEDS: IOPAMIDOL 15 ML VIAL 3 ML INJ (14:57)
[2023-03-22] MEDS: BUPIVACAINE 0.25% (PF) VIAL 2 ML INJ (14:57)
[2023-03-22] MEDS: BETAMETHASONE 30 MG/5 ML MDV 6 MG INJ (14:58)
[2023-03-22] MEDS: DEXAMETHASONE 10 MG/ML VIAL INJ (14:59)
--- NOTE | 2023-03-22 15:13 | P.PCN_ITS ---
Date/Time/Diagnoses Date of procedure: 03/22/23 Time of procedure: 15:14 Pre-procedure diagnosis: 1. HNP WITH RADICULAR FEATURES, 2. MULTILEVEL CENTRAL STENOSIS, Post-procedure diagnosis: same Procedure Notes Procedure: 1. FLUOROSCOPICALLY GUIDED CONTRAST CONTROLLED INTERLAMINAR EPIDURAL STEROID INJECTION - L5/S1 Indications: Ange is referred by Dr. Merida for treatment of Bilateral Foraminal Stenosis L>R LE symptoms. Physician: Jovany Magana Total Fluoroscopy time (seconds): 8 Total sedation minutes: 10 Complications: none Procedure in detail & Post-procedure care: FINDINGS Multilevel Central Spinal Stenosis with Nerve Root Compression DESCRIPTION OF PROCEDURE Fluoroscopically guided, contrast-controlled L5/S1 translaminar epidural steroid injection. Following review of allergy and review of potential side effects and complications, including, but not necessarily limited to, infection, allergic reaction, local tissue breakdown, temporary as well as permanent nerve injury, paralysis, stroke and possible , the patient indicated that the patient understood and agreed to proceed. An informed consent document was signed by the patient, witnessed by a nurse, and placed in the patient's chart. Additionally, other treatment options including modalities, medications, and physical therapy were reviewed with the patient. After review of previous anaesthesic history and IV conscious sedation the patient was deemed safe to proceed with today?s procedure with IV conscious sedation as ASA class II designation. Safety time-out was performed to confirm patient ID, procedure to be performed and site of procedure. IV sedation was accomplished with a combination of 2mg of Versed administered by the RN after DO order, titrated to patient comfort during the course of the procedure while the patient remained responsive to all verbal commands. In the prone position, following sterile prep and drape of the lumbar region, the L5/S1 translaminar space was identified fluoroscopically. The skin was anesthetized via a 25-gauge, 1.5-inch needle with 1% lidocaine solution. At this point, a 22-gauge short bevel spinal needle was atraumatically introduced and advanced under fluoroscopic guidance into the region of the L5/S1 translaminar space. Depth was confirmed on lateral view. Radiological data, including multiple fluoroscopic views of the lumbar spine, reveal a spinal needle at the L5/S1 translaminar space. Lateral views then show placement of the needle in the epidural space. Subsequent views show contrast material flowing superiorly and inferiorly in the epidural space. No vascular or intrathecal uptake is observed. At this point, using loss of resistance technique with saline and air, the epidural space was entered. This was confirmed following negative aspiration with injection of approximately 1.5cc of Isovue 200, showing excellent epidural flow without vascular or intrathecal uptake. At this point, 1 cc of 1% lidocai ne solution combined with 2cc or 10mg of dexamethasone and 6mg of betamethasone was injected without incident. The patent tolerated the procedure without signs of symptoms of complications prior to transfer to the recovery area for further monitoring. The patient was then transferred to the recovery area where they were observed for an appropriate period of time after the injection. The patient reported a VAS score of 7 prior to the procedure and a post-procedure VAS of 1. POST OP INSTRUCTIONS The patient was provided a Pain Log to continue to record their response to the target-specific procedure prior to follow-up visit with their referring physician. Additionally, specific post-injection care instructions and a contact number to our office were provided if concerns arise regarding possible complications associated with the procedure are suspected.
== END 2023-03-22 15:25 | disposition home or self-care (01) ==
LOC: RAD 13:56
PROVIDERS: PCP Family Medicine; Referring Provider Physical Medicine & Rehabilitation; Visit Provider Physical Medicine & Rehabilitation
DX: M51.17 Intervertebral disc disorders with radiculopathy, lumbosacral region (principal); M48.07 Spinal stenosis, lumbosacral region
CPT/HCPCS: 62323; 99152; J0702; J1100; J2250

== ENCOUNTER → 2023-04-12 13:20 | Outpatient (CLI) | payer MEDICARE, MEDICAID, SELFPAY ==
[2022-12-04 13:26] VITALS: BMI 25.6
[2023-04-12 14:19] LABS: Add Manual Diff / Slide Review NO; Basophils Absolute Auto 100 /uL (0-100); Basophils Percent Auto 0.9 % (0-2); Eosinophils Absolute Auto 100 /uL (0-450); Eosinophils Percent Auto 1.6 % (2-4); Hematocrit 48.3 % (36-46); Hemoglobin 16.5 g/dL (12.0-16.0); Lymphocytes Absolute Auto 3100 /uL (1100-4500); Lymphocytes Percent Auto 37.7 % (25-40); Mean Corpuscular HGB Conc 34.1 % (30-36); Mean Corpuscular Hemoglobin 29.3 PG (26-34); Monocytes Absolute Auto 500 /uL (0-900); Monocytes Percent Auto 6.4 % (3-14); Neutrophils Absolute Auto 4400 /uL (1500-7000); Neutrophils Percent Auto 53.4 % (50-75); Platelet Count 285 X10^3/uL (150-400); Red Blood Cell Count 5.61 X10^6/uL (4.0-5.2); Red Cell Distribution Width 13.5 % (11.6-14.8); White Blood Cell Count 8.3 X10^3/uL (4.5-11.0)
[2023-04-12 14:29] LABS: Hemoglobin A1C% w Est Avg Glu 7.7 % (4.0-6.0)
[2023-04-12 14:48] LABS: Alanine Aminotransferase 71 IU/L (<35); Albumin 4.4 g/dL (3.5-5.0); Albumin Globulin Ratio 1.6 (1.0-2.8); Alkaline Phosphatase 138 U/L (38-126); Aspartate Aminotransferase 39 IU/L (14-36); BUN Creatinine Ratio 37.8 (6-22); Bilirubin Total 0.8 mg/dL (0.2-1.3); Blood Urea Nitrogen 17 mg/dL (7-17); Calcium 10.6 mg/dL (8.4-10.2); Carbon Dioxide 21 mmol/L (22-32); Chloride 110 mmol/L (98-107); Estimated Glomerular Filt Rate > 60 mL/min (>60); Globulin 2.7 g/dL (1.7-4.1); Glucose 148 mg/dL (70-100); HEMOLYSIS < 15 (0-50); Potassium 4.5 mmol/L (3.4-5.1); Sodium 142 mmol/L (137-145); Total Protein 7.1 g/dL (6.3-8.2)
[2023-04-12 15:37] LABS: Creatinine Urine Random 41.6 mg/dL
[2023-04-14 08:50] LABS: Calcium 10.4 mg/dL (8.7-10.2); Parathyroid Hormone, Intact 105 pg/mL (15-65)
--- NOTE | 2023-04-16 10:59 | PC.NURSE ---
Heme referral: This RN called and spoke to pt about referral to [facility]. Pt states she wants to wait until [facility] get [facility] towards the end of the year. Pt is program evaluation consultant back list when providers are here. Pt given Navigator's direct line to call if she has questions.
== END ==
PROVIDERS: PCP Family Medicine; Referring Provider Family Medicine; Visit Provider Family Medicine
DX: E04.1 Nontoxic single thyroid nodule (principal); E11.9 Type 2 diabetes mellitus without complications; E21.3 Hyperparathyroidism, unspecified; E78.2 Mixed hyperlipidemia; M54.50 Low back pain, unspecified
CPT/HCPCS: 36415; 80053; 82043; 82310; 82570; 83036; 83970; 85025

== ENCOUNTER → 2023-04-26 13:06 | Outpatient (CLI) | payer MEDICARE, MEDICAID, SELFPAY ==
[2022-12-04 13:26] VITALS: BMI 25.6
--- NOTE | 2023-04-26 13:07 | DI.US.S_ITS ---
PROCEDURE: US THYROID INDICATIONS: ENLARGED THYROID GLAND TECHNIQUE: Real-time scanning was performed of the thyroid gland, with image documentation. COMPARISON: [facility], [place], US THYROID, 09/14/2020, 14:57. FINDINGS: Right: Thyroid lobe measures 5.0 x 1.0 x 1.5 cm, and is homogeneous in echotexture. Left: Thyroid lobe measures 5.4 x 2.1 x 2.0 cm, and is homogenous in echotexture. Isthmus: 2 mm thick. Nodule number: 1 Location: Left inferior Size: 2.8 x 1.7 x 2.1 cm compared to 4.1 x 1.8 x 2.7 cm. Composition: Mixed Echogenicity: Hypoechoic Shape: wider than tall. Margins: Lobulated Echogenic foci: None Total points: 3 ACR TI-RADS category: 3 IMPRESSION: Category 3 lesion as described above decreased in size. Secondary to size, FNA is recommended. Recommend correlation to previous FNA. ACR TI-RADS definitions and recommendations: TI-RADS 1 (benign): 0 points. FNA not needed. TI-RADS 2 (not suspicious): 2 points. FNA not needed. TI-RADS 3 (mildly suspicious): 3 points. * FNA if 2.5 cm or larger, follow up if 1.5 cm or larger (at 1, 3, and 5 years). TI-RADS 4 (moderately suspicious): 4-6 points. * FNA if 1.5 cm or larger, follow up if 1 cm or larger (at 1, 2, 3, and 5 years). TI-RADS 5 (highly suspicious): 7 points or more. * FNA if 1 cm or larger, follow up if 0.5 cm or larger (every year for 5 years). Dictated by: Venus Ruth M.D. on 04/26/2023 at 16:32 Approved by: Venus Ruth M.D. on 04/26/2023 at 16:34
--- NOTE | 2023-04-26 13:07 | DI.MG.S_ITS ---
BILATERAL DIGITAL SCREENING MAMMOGRAM 3D/2D WITH CAD: 04/26/2023 CLINICAL: Routine screening. Comparison is made to exams dated: 06/08/2021 mammogram, 08/13/2019 mammogram, and 04/16/2018 mammogram - [facility]. Both breasts are heterogeneously dense, which may obscure small masses (category c / 51-75% glandular tissue). Current study was also evaluated with a Computer Aided Detection (CAD) system. No significant masses, calcifications, or other findings are seen in either breast. There has been no significant interval change. IMPRESSION: NEGATIVE There is no mammographic evidence of malignancy. A 1 year screening mammogram is recommended. Based on the Tyrer Cuzick model (a risk assessment model) the patient's lifetime risk is 8.9% and her 10 year risk is 3.3%. According to the ACR, ACS, and NCCN guidelines, an annual breast MRI exam along with mammogram is recommended if the patient's lifetime risk is 20% or greater. This exam was interpreted at Station ID: [id number]. NOTE: For mammograms, a report in lay terms will be sent to the patient. Approximately 15% of breast malignancies will not be visualized mammographically. In the management of a palpable breast mass, a negative mammogram must not discourage biopsy of a clinically suspicious lesion. Electronically Signed By: Evelyn torres/oliva:04/26/2023 17:08:21 letter sent: Normal Exam ACR BI-RADS Category 1: Negative [id number]
--- NOTE | 2023-04-26 13:07 | DI.CT.S_ITS ---
PROCEDURE: CT SOFT TISSUE NECK W CON INDICATIONS: enlarged thyroid gland, difficulty swallowing and hyperpth TECHNIQUE: After the administration of intravenous contrast, 3.0 mm axial sections acquired from the sella to the aortic arch. Additional oblique axial 3.0 mm sections acquired through the pharynx. 3 mm thick coronal and sagittal reformats were generated. For radiation dose reduction, the following was used: automated exposure control. COMPARISON: None. FINDINGS: Image quality: Excellent. Lymph nodes: No enlarged lymph nodes seen throughout the neck. Vessels: Visualized vasculature appears patent. Neck spaces: The oropharynx, nasopharynx, and pharynx demonstrate no mucosal lesions. The vocal cords, false vocal cords, pyriform sinuses, epiglottis, vallecula, and tongue base all appear normal. Extramucosal spaces appear unremarkable. Glands: The parotid and submandibular glands appear normal. Thyroid gland demonstrates a heterogeneous left-sided thyroid nodule measuring approximately 2.4 x 1.9 cm. Miscellaneous: Visualized brain and orbits appear normal. Lens replacements. Lung apices appear clear. Superficial soft tissues appear normal. Bones: No suspicious bony lesions. Visualized sinuses and mastoids appear unremarkable. IMPRESSION: 1. Heterogeneous left thyroid nodule measuring up to 2.4 cm, please refer to same day thyroid ultrasound for further evaluation and management. 2. No other masses are seen within neck. No enlarged cervical lymph nodes. Dictated by: Maynor Ingram M.D. on 04/26/2023 at 16:06 Approved by: Maynor Ingram M.D. on 04/26/2023 at 16:11
== END ==
PROVIDERS: PCP Family Medicine; Referring Provider Family Medicine; Visit Provider Family Medicine
DX: E04.1 Nontoxic single thyroid nodule (principal); Z12.31 Encounter for screening mammogram for malignant neoplasm of breast; E21.3 Hyperparathyroidism, unspecified; E78.2 Mixed hyperlipidemia; E11.9 Type 2 diabetes mellitus without complications; M54.50 Low back pain, unspecified
CPT/HCPCS: 70491; 76536; 77063; 77067; Q9967

== ENCOUNTER → 2023-07-06 13:56 | Outpatient (CLI) | payer MEDICARE, MEDICAID, SELFPAY ==
[2022-12-04 13:26] VITALS: BMI 25.6
--- NOTE | 2023-07-06 13:57 | DI.RAD.S_ITS ---
PROCEDURE: XR HIP W PEL IF DONE LEVY MIN 4V INDICATIONS: left hip pain TECHNIQUE: AP pelvis with lateral view(s) of the bilateral hip(s). COMPARISON: [facility], [place], XR LUMBAR SPINE 2-3V, 11/25/2022, 14:06. FINDINGS: Bones: No acute fractures or dislocations. Pelvic ring appears intact. No suspicious bony lesions. Transitional lumbosacral anatomy with partial sacralization of left L5 transverse process. Minimal degenerative changes of the bilateral hip. Soft tissues: The visualized bowel gas pattern is normal. No suspicious soft tissue calcifications. IMPRESSION: Bilateral hip without acute fracture or dislocation. Minimal degenerative changes of the bilateral hips. Dictated by: Jeff Hutchison M.D. on 07/06/2023 at 20:53 Approved by: Jeff Hutchison M.D. on 07/06/2023 at 20:56
== END ==
PROVIDERS: PCP Family Medicine; Referring Provider Physical Medicine & Rehabilitation; Visit Provider Physical Medicine & Rehabilitation
DX: M16.12 Unilateral primary osteoarthritis, left hip (principal); G71.00 Muscular dystrophy, unspecified; R26.81 Unsteadiness on feet; M51.26 Other intervertebral disc displacement, lumbar region; E11.9 Type 2 diabetes mellitus without complications
CPT/HCPCS: 73522; 99214

== ENCOUNTER → 2023-08-29 13:58 | Outpatient (CLI) | payer MEDICARE, MEDICAID, SELFPAY ==
[2022-12-04 13:26] VITALS: BMI 25.6
--- NOTE | 2023-08-29 13:59 | DI.CT.S_ITS ---
PROCEDURE: CT HEAD/BRAIN WO CON INDICATIONS: fall onto head 1 month ago, headaches TECHNIQUE: Noncontrast 4.5 mm thick angled axial sections acquired from the foramen magnum to the vertex, with coronal and sagittal reformats. For radiation dose reduction, the following was used: automated exposure control, adjustment of mA and/or kV according to patient size. COMPARISON: [facility], CT, CT HEAD/BRAIN WO CON, 03/08/2019, 13:45. FINDINGS: Image quality: Diagnostic. CSF spaces: Basal cisterns are patent. No extra-axial fluid collections. Ventricles are normal in size and shape. Brain: No midline shift. No intracranial masses or hemorrhage. Pryor-white matter interface is normal. Skull and face: Calvarium and visualized facial bones are intact, without suspicious lesions. Incidental note is made of hyperostosis frontalis. This is not considered to be pathologic in a woman of this age. Sinuses: Visualized sinuses and mastoids are clear. IMPRESSION: No acute intracranial pathology. No acute intracranial hemorrhage is seen. No displaced calvarial fracture can be seen. Dictated by: Maximino Griffin M.D. on 08/29/2023 at 13:44 Approved by: Maximino Griffin M.D. on 08/29/2023 at 13:45
== END ==
LOC: CT 13:58
PROVIDERS: PCP Family Medicine; Referring Provider Family Medicine; Visit Provider Family Medicine
DX: R51.9 Headache, unspecified (principal)
CPT/HCPCS: 70450

== ENCOUNTER 2023-11-27 15:26 | Outpatient (CLI) | payer MEDICARE, MEDICAID, SELFPAY ==
[2022-12-04 13:26] VITALS: BMI 25.6
[2023-11-27] VITALS (8 sets, daily range): BP systolic 133–150; BP diastolic 75–87; PULSE 66–74; RESP 15–21; TEMP 36.1; O2SAT 90–98
--- NOTE | 2023-11-27 16:00 | DI.RAD.S_ITS ---
PROCEDURE: PAIN L/S TRANSFORAMINAL INJECT INDICATIONS: Left L4-5 transforaminal BOBBY COMPARISON: None. FINDINGS: Fluoroscopic spot filming was performed to verify placement of spinal needles at the left L4-L5 level(s), as labeled on the films. Appropriate location(s) of the needle tip(s) was confirmed by injection of iodinated contrast. IMPRESSION: Intraoperative guidance provided. Dictated by: Akhil Lopez M.D. on 11/28/2023 at 11:57 Approved by: Akhil Lopez M.D. on 11/28/2023 at 11:58
[2023-11-27] MEDS: MIDAZOLAM 2 MG/2 ML VIAL IV (16:40)
[2023-11-27] MEDS: DEXAMETHASONE 10 MG/ML VIAL INJ (16:45)
[2023-11-27] MEDS: BUPIVACAINE 0.25% (PF) VIAL 2 ML INJ (16:46)
[2023-11-27] MEDS: iopamidoL 15 ML VIAL 3 ML INJ (16:46)
[2023-11-27] MEDS: BETAMETHASONE 30 MG/5 ML MDV 6 MG INJ (16:46)
--- NOTE | 2023-11-27 16:53 | P.PCN_ITS ---
Date/Time/Diagnoses Date of procedure: 11/27/23 Time of procedure: 16:53 Pre-procedure diagnosis: 1. FORAMINAL STENOSIS WITH LE SYMPTOMS Post-procedure diagnosis: same Procedure Notes Procedure: 1. FLUOROSCOPICALLY GUIDED CONTRAST CONTROLLED TRANSFORAMINAL EPIDURAL STEROID INJECTION - LEFT L4/5 Indications: Ange is referred by Dr. Merida for treatment of Foraminal Stenosis with Left LE Symptoms Physician: Jovany Magana Total Fluoroscopy time (seconds): 8 Total sedation minutes: 10 Complications: none Procedure in detail & Post-procedure care: FINDINGS Foraminal Nerve Root Compression secondary to disc disease and facet hypertrophy DESCRIPTION OF PROCEDURE Following review of allergy and review of potential side effects and complications, including, but not necessarily limited to, infection, allergic reaction, local tissue breakdown, stroke, temporary or permanent nerve injury, paralysis, and possible , the patient indicated that the patient understood and agreed to proceed. An informed consent document was signed by the patient, witnessed by a nurse, and placed in the patient's chart. Additionally, other treatment options including medications, modalities, and physical therapy were reviewed with the patient. After review of previous anaesthesic history and IV conscious sedation the patient was deemed safe to proceed with today?s procedure with IV conscious sedation as ASA class II designation. Safety time-out was performed to confirm patient ID, procedure to be performed and site of procedure. IV sedation was accomplished with a combination of 2mg of Versed administered by the RN after DO order, titrated to patient comfort during the course of the procedure while the patient remained responsive to all verbal commands In the prone position following sterile prep and drape of the lumbar region, the left L4/5 posterior neuroforamen was identified fluoroscopically. The skin was anesthetized via a 25-gauge 1.5-inch needle with 1% lidocaine solution. At this point, a 25-gauge 3.5-inch spinal needle was atraumatically introduced and advanced under fluoroscopic guidance through the posterior left L4/5 neuroforamen to approximately the anterior aspect of the canal. Depth was confirmed on lateral view. Following negative aspiration, injection of approximately 1.5 cc of Isovue 200 under live fluoroscopy in the AP view confirmed excellent flow along the nerve root, into the epidural space without vascular or intrathecal uptake observed Radiological data, including multiple fluoroscopic views of the lumbosacral spine, reveal a spinal needle at the left L4/5 posterior neuroforamen. Subsequent views show flow of contrast material flowing superiorly and inferiorly along the nerve root confirming epidural flow. Subsequently, a test dose of 1.5 cc of 1% lidocaine solution was administered and patient was observed for two minutes for signs or symptoms of complications, including abdominal pain, shortness of breath, bilateral upper or lower extremity weakness, nausea and vomiting, prior to steroid injection. At this point, a total of 2cc or 10mg of dexamethasone and 6mg of betamethasone was injected without incident. The procedure tolerated the procedure well without signs or symptoms of complications prior to transfer to the recovery area continued monitoring without incident. The patient was then transferred to the recovery area where they were observed for an appropriate time after the injection. The patient reported a VAS score of 7 prior to the procedure and a post- procedure VAS of 1. POST OP INSTRUCTIONS The patient was provided a Pain Log to continue to record their response to the target-specific procedure prior to follow-up visit with their referring physician. Additionally, specific post-injection care instructions and a contact number to our office were provided if concerns arise regarding possible complications associated with the procedure are suspected.
== END 2023-11-27 17:15 | disposition home or self-care (01) ==
PROVIDERS: PCP Family Medicine; Referring Provider Physical Medicine & Rehabilitation; Visit Provider Physical Medicine & Rehabilitation
DX: M48.061 Spinal stenosis, lumbar region without neurogenic claudication (principal); M51.16 Intervertebral disc disorders with radiculopathy, lumbar region; M47.26 Other spondylosis with radiculopathy, lumbar region
CPT/HCPCS: 64483; 99152; 99153; J0702; J1100; J2250; J3490

== ENCOUNTER → 2024-01-18 15:40 | Outpatient (CLI) | payer MEDICARE, MEDICAID, SELFPAY ==
[2022-12-04 13:26] VITALS: BMI 25.6
[2024-01-18 16:59] LABS: Add Manual Diff / Slide Review NO; Basophils Absolute Auto 100 /uL (0-100); Basophils Percent Auto 0.7 % (0-2); Eosinophils Absolute Auto 100 /uL (0-450); Eosinophils Percent Auto 1.5 % (2-4); Hematocrit 47.9 % (36-46); Hemoglobin 16.2 g/dL (12.0-16.0); Lymphocytes Absolute Auto 3400 /uL (1100-4500); Mean Corpuscular HGB Conc 33.8 % (30-36); Mean Corpuscular Volume 85.8 fL (80-100); Monocytes Absolute Auto 700 /uL (0-900); Monocytes Percent Auto 7.2 % (3-14); Neutrophils Absolute Auto 5100 /uL (1500-7000); Neutrophils Percent Auto 54.6 % (50-75); Platelet Count 301 X10^3/uL (150-400); Red Blood Cell Count 5.58 X10^6/uL (4.0-5.2); Red Cell Distribution Width 13.6 % (11.6-14.8); White Blood Cell Count 9.4 X10^3/uL (4.5-11.0)
[2024-01-18 17:07] LABS: Hemoglobin A1C% w Est Avg Glu 8.4 % (4.0-6.0)
[2024-01-18 17:21] LABS: Alanine Aminotransferase 123 IU/L (<35); Albumin 4.4 g/dL (3.5-5.0); Albumin Globulin Ratio 1.5 (1.0-2.8); Alkaline Phosphatase 153 U/L (38-126); Aspartate Aminotransferase 69 IU/L (14-36); BUN Creatinine Ratio 25.6 (6-22); Bilirubin Total 0.8 mg/dL (0.2-1.3); Blood Urea Nitrogen 11 mg/dL (7-17); Calcium 10.4 mg/dL (8.4-10.2); Carbon Dioxide 25 mmol/L (22-32); Chloride 111 mmol/L (98-107); Cholesterol 207 mg/dL (140-199); Estimated Glomerular Filt Rate > 60 mL/min (>60); Globulin 2.9 g/dL (1.7-4.1); Glucose 91 mg/dL (70-100); HDL Cholesterol 43 mg/dL (40-60); HEMOLYSIS < 15 (0-50); LDL Cholesterol Calculated 111 mg/dL (<100); Potassium 3.8 mmol/L (3.4-5.1); Sodium 142 mmol/L (137-145); Total Protein 7.3 g/dL (6.3-8.2); Triglycerides 263 mg/dL (35-150)
[2024-01-18 18:10] LABS: TSH w/ Reflex to FT4 0.69 uIU/mL (0.47-4.68)
[2024-01-19 08:18] LABS: Apolipoprotein B 124 mg/dL (<90)
[2024-01-20 08:07] LABS: Calcium 10.2 mg/dL (8.7-10.2); Parathyroid Hormone, Intact 91 pg/mL (15-65)
[2024-01-21 17:44] LABS: Hep C Virus Ab w/Reflex Quant NEGATIVE s/c (NEGATIVE)
== END ==
PROVIDERS: PCP Family Medicine; Referring Provider Family Medicine; Visit Provider Family Medicine
DX: D58.2 Other hemoglobinopathies (principal); R73.9 Hyperglycemia, unspecified; E11.69 Type 2 diabetes mellitus with other specified complication; E78.2 Mixed hyperlipidemia; G71.11 Myotonic muscular dystrophy; E87.6 Hypokalemia; E21.3 Hyperparathyroidism, unspecified
CPT/HCPCS: 36415; 80053; 80061; 82172; 82310; 83036; 83970; 84443; 85025; 86803

== ENCOUNTER → 2024-02-05 15:31 | Outpatient (CLI) | payer MEDICARE, MEDICAID, SELFPAY ==
[2022-12-04 13:26] VITALS: BMI 25.6
[2024-02-05 17:45] LABS: Alanine Aminotransferase 101 IU/L (<35); Albumin 4.3 g/dL (3.5-5.0); Albumin Globulin Ratio 1.6 (1.0-2.8); Alkaline Phosphatase 143 U/L (38-126); Aspartate Aminotransferase 52 IU/L (14-36); BUN Creatinine Ratio 37.5 (6-22); Bilirubin Total 0.9 mg/dL (0.2-1.3); Blood Urea Nitrogen 18 mg/dL (7-17); Calcium 10.7 mg/dL (8.4-10.2); Carbon Dioxide 27 mmol/L (22-32); Chloride 106 mmol/L (98-107); Estimated Glomerular Filt Rate > 60 mL/min (>60); Globulin 2.7 g/dL (1.7-4.1); Glucose 275 mg/dL (70-100); HEMOLYSIS 20 (0-50); Potassium 4.3 mmol/L (3.4-5.1); Sodium 140 mmol/L (137-145)
[2024-02-05 18:46] LABS: Creatinine Urine Random 30.41 mg/dL
[2024-02-05 18:53] LABS: Microalbumin Urine Random < 0.6 mg/dL (0-1.6)
[2024-02-07 14:32] LABS: Hepatitis B Surface Antigen NEGATIVE s/c (NEGATIVE)
[2024-02-08 16:09] LABS: Smooth Muscle Antibody 3 Units (0-19)
[2024-02-09 05:10] LABS: Hepatitis B Surf Ab Qualitativ Non Reactive (.)
== END ==
PROVIDERS: PCP Family Medicine; Referring Provider Family Medicine; Visit Provider Family Medicine
DX: R94.5 Abnormal results of liver function studies (principal); D58.2 Other hemoglobinopathies; E11.69 Type 2 diabetes mellitus with other specified complication; R74.8 Abnormal levels of other serum enzymes; E87.6 Hypokalemia; R73.9 Hyperglycemia, unspecified; E78.2 Mixed hyperlipidemia; E21.3 Hyperparathyroidism, unspecified; G71.11 Myotonic muscular dystrophy
CPT/HCPCS: 36415; 80053; 82043; 82570; 86015; 86038; 86706; 87340

== ENCOUNTER → 2024-05-10 12:50 | Outpatient (CLI) | payer MEDICARE, MEDICAID, SELFPAY ==
[2022-12-04 13:26] VITALS: BMI 25.6
[2024-05-10 13:16] LABS: Hemoglobin A1C% w Est Avg Glu 6.3 % (4.0-6.0)
[2024-05-10 13:50] LABS: Alanine Aminotransferase 59 IU/L (<35); Albumin 4.4 g/dL (3.5-5.0); Albumin Globulin Ratio 1.9 (1.0-2.8); Alkaline Phosphatase 140 U/L (38-126); Aspartate Aminotransferase 44 IU/L (14-36); BUN Creatinine Ratio 25.5 (6-22); Bilirubin Total 1.1 mg/dL (0.2-1.3); Blood Urea Nitrogen 13 mg/dL (7-17); Calcium 10.7 mg/dL (8.4-10.2); Carbon Dioxide 30 mmol/L (22-32); Chloride 107 mmol/L (98-107); Estimated Glomerular Filt Rate > 60 mL/min (>60); Globulin 2.3 g/dL (1.7-4.1); Glucose 124 mg/dL (70-100); HEMOLYSIS 17 (0-50); Sodium 142 mmol/L (137-145); Total Protein 6.7 g/dL (6.3-8.2)
[2024-05-10 13:51] LABS: Potassium 5.4 mmol/L (3.4-5.1)
[2024-05-10 14:20] LABS: TSH w/ Reflex to FT4 0.99 uIU/mL (0.47-4.68)
[2024-05-11 08:07] LABS: Calcium 10.5 mg/dL (8.7-10.2); Parathyroid Hormone, Intact 111 pg/mL (15-65)
== END ==
PROVIDERS: PCP Family Medicine; Referring Provider Family Medicine; Visit Provider Family Medicine
DX: E11.69 Type 2 diabetes mellitus with other specified complication (principal); E21.3 Hyperparathyroidism, unspecified; D58.2 Other hemoglobinopathies
CPT/HCPCS: 36415; 80053; 82310; 83036; 83970; 84443

== ENCOUNTER 2024-05-11 20:36 | Emergency (ER) | payer MEDICARE, MEDICAID, SELFPAY ==
[2022-12-04 13:26] VITALS: BMI 25.6
[2024-05-11] VITALS (10 sets, daily range): BP systolic 135–175; BP diastolic 81–100; PULSE 75–112; RESP 16–18; TEMP 36.4; O2SAT 93–99; BMI 24.7
[2024-05-11] MEDS: ONDANSETRON 4 MG/2 ML INJ IV ×2 (21:05→22:43)
[2024-05-11 21:11] LABS: Add Manual Diff / Slide Review NO; Basophils Absolute Auto 100 /uL (0-100); Basophils Percent Auto 0.6 % (0-2); Eosinophils Absolute Auto 100 /uL (0-450); Eosinophils Percent Auto 0.7 % (2-4); Hematocrit 50.3 % (36-46); Lymphocytes Absolute Auto 3000 /uL (1100-4500); Lymphocytes Percent Auto 16.2 % (25-40); Mean Corpuscular HGB Conc 33.8 % (30-36); Mean Corpuscular Hemoglobin 28.7 PG (26-34); Mean Corpuscular Volume 85.1 fL (80-100); Monocytes Absolute Auto 900 /uL (0-900); Neutrophils Absolute Auto 14100 /uL (1500-7000); Neutrophils Percent Auto 77.5 % (50-75); Platelet Count 343 X10^3/uL (150-400); Red Blood Cell Count 5.91 X10^6/uL (4.0-5.2); Red Cell Distribution Width 13.1 % (11.6-14.8); White Blood Cell Count 18.2 X10^3/uL (4.5-11.0)
[2024-05-11 21:15] LABS: Alanine Aminotransferase 58 IU/L (<35); Albumin 4.5 g/dL (3.5-5.0); Albumin Globulin Ratio 1.7 (1.0-2.8); Alkaline Phosphatase 200 U/L (38-126); Aspartate Aminotransferase 47 IU/L (14-36); BUN Creatinine Ratio 27.6 (6-22); Bilirubin Total 1.2 mg/dL (0.2-1.3); Blood Urea Nitrogen 16 mg/dL (7-17); Calcium 11.1 mg/dL (8.4-10.2); Carbon Dioxide 20 mmol/L (22-32); Chloride 108 mmol/L (98-107); Estimated Glomerular Filt Rate > 60 mL/min (>60); Globulin 2.6 g/dL (1.7-4.1); Glucose 172 mg/dL (70-100); HEMOLYSIS < 15 (0-50); Lipase 138 U/L (23-300); Potassium 3.8 mmol/L (3.4-5.1); Sodium 139 mmol/L (137-145); Total Protein 7.1 g/dL (6.3-8.2)
--- NOTE | 2024-05-11 21:40 | EKG_ITS ---
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
--- NOTE | 2024-05-11 21:56 | ED.GENADULT ---
HPI - General Adult General Chief complaint: Abdominal Pain Stated complaint: diabetic, nausea, high blood sugar Time Seen by Provider: 05/11/24 21:22 Source: patient Mode of arrival: Family Vehicle History of Present Illness HPI narrative: Patient is a 58-year-old female has an insulin-dependent type 2 diabetic who is here for evaluation of a fairly sudden onset of nausea and vomiting and abdominal discomfort that started about 1700 hours. Initially started with vomiting that the patient states she was just been retching since then. Potentially had a bowel movement today but is unsure. No urinary symptoms. He was having some generalized abdominal discomfort/left-sided abdominal discomfort. Related Data Home Medications Medication Instructions Recorded Confirmed BD Ultra Fine Pen Tips 28G x 1/2 03/28/21 02/20/24 insulin aspart U-100 100 unit/mL 15 unit SUBCUT TID 04/12/23 02/20/24 subcutaneous cartridge (Novolog PenFill U-100 Insulin aspart) empagliflozin 25 mg tablet 25 mg PO DAILY 07/06/23 02/20/24 (Jardiance) Previous Rx's Medication Instructions Recorded lancets 33 gauge (BD Ultra Fine #100 ea 08/02/20 Lancets) blood sugar diagnostic (Blood #100 ea 01/31/21 Glucose Test strips) insulin glargine 100 unit/mL (3 20 unit (0.2 mL) SUBCUT BEDTIME 11/17/21 mL) subcutaneous pen (Lantus #15 mL Solostar U-100 Insulin) Parking Permit... #1 ea 07/13/22 venlafaxine 37.5 mg See Rx Instructions .Route 08/15/23 capsule,extended release 24 hr .COMPLEX #90 caps atorvastatin 20 mg tablet 20 mg PO DAILY #90 tabs 12/24/23 semaglutide 0.25 mg or 0.5 mg (2 0.25 mg (0.368 mL) SUBCUT QWEEK #3 02/20/24 mg/3 mL) subcutaneous pen injector mL (Ozempic) semaglutide 1 mg/dose (4 mg/3 mL) 1 mg (0.75 mL) SUBCUT QWEEK #3 mL 02/20/24 subcutaneous pen injector (Ozempic) ondansetron 4 mg disintegrating 4 mg PO Q8H PRN nausea and 05/12/24 tablet vomiting #14 tabs Allergies Allergy/AdvReac Type Severity Reaction Status Date / Time latex [LATEX] Allergy Severe hives Verified 02/20/24 15:20 adhesive [ADHESIVE] AdvReac Mild rash from Verified 02/20/24 15:20 tape morphine [MORPHINE] AdvReac Mild gi upset Verified 02/20/24 15:20 Sulfa (Sulfonamide AdvReac Mild gi upset Verified 02/20/24 15:20 Antibiotics) [SULFA (SULFONAMIDE ANTIBIOTICS)] Review of Systems Review of Systems ROS Unobtainable: All systems reviewed & are unremarkable except as noted in HPI and below Patient History Medical History Elevated liver enzymes Major depressive disorder, single episode, mild Myotonic muscular dystrophy Other hemoglobinopathies Hyperparathyroidism Type 2 diabetes mellitus with other specified complication Type 2 diabetes mellitus without complication (09/05/16) Degenerative joint disease (DJD) of hip Hypokalemia Elevated blood pressure reading in office without diagnosis of hypertension Head contusion Impacted cerumen of left ear Right otitis externa Nga syndrome Ptosis Gait instability Herniated nucleus pulposus, L4-5 Chronic low back pain Herpes (2002) Diabetes Hyperlipidemia Surgical History History of colonoscopy with polypectomy (11/05/13) Status post hysteroscopic myomectomy (07/19/12) History of right cataract surgery (08/03/09) History of left cataract surgery (07/20/09) Status post laparoscopic supracervical hysterectomy Family History Father Diabetes mellitus Coronary arteriosclerosis Hyperlipidemia [place] (myocardial infarction) Mother Colon cancer Social History household members: spouse Smoking Status: Never smoker alcohol intake: current substance use type: does not use eating out: rarely or never Type(s) of exercise: walking Smoking Status: Never smoker alcohol intake frequency: other Substance Use Type: does not use Exam Initial Vital Signs Initial Vital Signs: Vital Signs Temperature 97.5 F L 05/11/24 20:40 Pulse Rate 112 H 05/11/24 20:40 Respiratory Rate 16 05/11/24 20:40 Blood Pressure 138/91 H 05/11/24 20:40 Pulse Oximetry 98 10/06/24 20:40 Oxygen Delivery Method Room Air 05/11/24 20:40 Const General: No ill appearing Resp Effort & Inspection: normal respiratory effort Auscultation: clear to auscultation bilaterally Cardio Rate: regular rate Rhythm: regular rhythm GI Inspection: normal to inspection and non-distended Palpation: soft, No firm and tender Neuro General: patient alert and patient awake Extrem General: normal to inspection Course Orders Ordered: ED Orders 05/11/24 20:49 EKG-12 Lead Stat 05/11/24 20:55 Complete Blood Count AUTO DIFF Stat Comprehensive Metabolic Panel Stat Lipase Stat 05/11/24 21:59 CT abdomen pelvis w con Stat Discontinued Medications Ketorolac Tromethamine (Ketorolac 30 Mg/Ml Vial) 15 mg IV NOW ONE Stop: 05/11/24 23:16 Last Admin: 05/11/24 23:24 Dose: 15 mg Documented By: CAITLYN Metoclopramide HCl (Metoclopramide 10 Mg/2 Ml Inj) 10 mg IV NOW ONE Stop: 05/11/24 23:16 Last Admin: 05/11/24 23:25 Dose: 10 mg Documented By: CAITLYN Ondansetron HCl (Ondansetron 4 Mg/2 Ml Inj) 4 mg IV NOW PRN PRN Reason: Nausea And Vomiting Last Admin: 05/11/24 21:05 Dose: 4 mg Documented By: Ondansetron HCl (Ondansetron 4 Mg Odt) 4 mg PO NOW PRN PRN Reason: Nausea And Vomiting Ondansetron HCl (Ondansetron 4 Mg/2 Ml Inj) 4 mg IV NOW ONE Stop: 05/11/24 22:32 Last Admin: 05/11/24 22:43 Dose: 4 mg Documented By: CAITLYN Ondansetron HCl (Ondansetron 4 Mg Odt Prepack) 1 bottle MISC DIRECTED ONE Stop: 05/12/24 00:24 Last Admin: 05/12/24 00:29 Dose: 1 bottle Documented By: Vital Signs Vital signs: Vital Signs - 8 hr 05/11/24 20:40 05/11/24 21:12 05/11/24 21:13 Temperature 97.5 F L Pulse Rate 112 H Respiratory Rate 16 Blood Pressure 138/91 H 169/95 H Pulse Oximetry 98 98 Oxygen Delivery Method Room Air 05/11/24 21:13 05/11/24 21:30 05/11/24 21:30 Temperature Pulse Rate 89 83 Respiratory Rate 18 Blood Pressure 169/84 H Pulse Oximetry 99 99 Oxygen Delivery Method 05/11/24 22:00 05/11/24 22:00 05/11/24 22:16 Temperature Pulse Rate 89 Respiratory Rate 18 Blood Pressure 175/100 H 168/97 H Pulse Oximetry 99 Oxygen Delivery Method 05/11/24 22:16 05/11/24 22:30 05/11/24 22:30 Temperature Pulse Rate 98 H 103 H Respiratory Rate Blood Pressure 151/89 H Pulse Oximetry 98 97 Oxygen Delivery Method 05/11/24 23:00 05/11/24 23:00 05/11/24 23:09 Temperature Pulse Rate 75 Respiratory Rate Blood Pressure 162/82 H 167/97 H Pulse Oximetry 93 Oxygen Delivery Method 05/11/24 23:09 05/11/24 23:30 05/11/24 23:30 Temperature Pulse Rate 112 H 104 H Respiratory Rate 18 Blood Pressure 135/81 Pulse Oximetry 97 95 Oxygen Delivery Method 05/12/24 00:00 05/12/24 00:00 05/12/24 00:10 Temperature Pulse Rate 105 H 105 H Respiratory Rate 18 Blood Pressure 131/72 Pulse Oximetry 92 Oxygen Delivery Method 05/12/24 00:30 Temperature Pulse Rate Respiratory Rate Blood Pressure 147/72 H Pulse Oximetry Oxygen Delivery Method Medical Decision Making Lab Data Lab results reviewed: Yes I reviewed the patient's lab results. 05/11/24 20:55 05/11/24 20:55 Labs: Lab Results 05/11/24 Range/Units 20:55 WBC 18.2 H (4.5-11.0) X10^3/uL RBC 5.91 H (4.0-5.2) X10^6/uL Hgb 17.0 H (12.0-16.0) g/dL Hct 50.3 H (36-46) % MCV 85.1 (80-100) fL MCH 28.7 (26-34) PG MCHC 33.8 (30-36) % RDW 13.1 (11.6-14.8) % Plt Count 343 (150-400) X10^3/uL Neut % (Auto) 77.5 H (50-75) % Lymph % (Auto) 16.2 L (25-40) % Mineral % (Auto) 5.0 (3-14) % Eos % (Auto) 0.7 L (2-4) % Baso % (Auto) 0.6 (0-2) % Neut # (Auto) 01734 H (6251-6245) /uL Lymph # (Auto) 3000 (4676-1619) /uL Mineral # (Auto) 900 (0-900) /uL Eos # (Auto) 100 (0-450) /uL Baso # (Auto) 100 (0-100) /uL Sodium 139 (137-145) mmol/L Potassium 3.8 D (3.4-5.1) mmol/L Chloride 108 H (98-107) mmol/L Carbon Dioxide 20 L (22-32) mmol/L BUN 16 (7-17) mg/dL Creatinine 0.58 (0.52-1.04) mg/dL Estimated GFR > 60 (>60) mL/min BUN/Creatinine Ratio 27.6 H (6-22) Glucose 172 H (70-100) mg/dL Calcium 11.1 H (8.4-10.2) mg/dL Total Bilirubin 1.2 (0.2-1.3) mg/dL AST 47 H (14-36) IU/L ALT 58 H (<35) IU/L Alkaline Phosphatase 200 H (38-126) U/L Total Protein 7.1 (6.3-8.2) g/dL Albumin 4.5 (3.5-5.0) g/dL Globulin 2.6 (1.7-4.1) g/dL Albumin/Globulin Ratio 1.7 (1.0-2.8) Lipase 138 (23-300) U/L Urine Dip Bedside Urine Glucose 1000 mg/dl Bedside Urine Bilirubin - Negative Bedside Urine Ketone +/- 5 Urine Specific [place] 1.010 Bedside Urine Occult Blood - Negative Bedside Urine pH 8.0 Bedside Urine Protein - Negative Bedside Urine Urobilinogen 1+ 2mg Bedside Urine Nitrite - Negative Bedside Urine Leukocytes - Negative Esterase Point of care testing: Urine Dip Bedside Urine Glucose 1000 mg/dl Bedside Urine Bilirubin - Negative Bedside Urine Ketone +/- 5 Urine Specific [place] 1.010 Bedside Urine Occult Blood - Negative Bedside Urine pH 8.0 Bedside Urine Protein - Negative Bedside Urine Urobilinogen 1+ 2mg Bedside Urine Nitrite - Negative Bedside Urine Leukocytes - Negative Esterase Imaging Data CT scan - abdomen/pelvis: Radiologist's Impression: PROCEDURE: CT ABDOMEN PELVIS W CON INDICATIONS: Generalized abdominal pain with vomiting TECHNIQUE: After the administration of intravenous contrast, axial sections acquired from the lung bases to the pubic symphysis. Coronal and sagittal reformats were performed. For radiation dose reduction, the following was used: automated exposure control, adjustment of mA and/or kV according to patient size. COMPARISON: [facility], CT, CT ABDOMEN PELVIS W CON, 03/22/2021, 6:35. FINDINGS: Image quality: Diagnostic. Lower Chest: No significant findings. ABDOMEN: Liver: No solid mass. Gallbladder: No radiopaque gallstones or wall thickening. Biliary ducts: No biliary dilation. Pancreas: No ductal dilation. Spleen: Size is within normal limits. Adrenal Glands: Fat containing right adrenal lesion measuring 2.6 centimeters is stable, consistent with a myelolipoma. Kidneys and Ureters: No hydronephrosis. No solid mass. No complex renal cystic lesion which requires follow up. Stomach and Bowel: Mild wall thickening and pericolonic inflammation involving the descending colon. Moderate to large stool burden. Peritoneum: No abnormal intraperitoneal fluid. No free air. Ventral Wall: No significant ventral hernia. Abdominal Nodes: No retroperitoneal or mesenteric adenopathy by size criteria. Vessels: Aorta and inferior vena cava are normal in size. PELVIS: Pelvic Organs: Unremarkable. Bladder: No bladder wall thickening, accounting for underdistention. Pelvic Nodes: No enlarged lymph nodes. Miscellaneous: No inguinal hernias are seen. Right gluteus musculature lipoma is redemonstrated. Bones: No aggressive osseous abnormality. IMPRESSION: 1. Wall thickening and pericolonic inflammation involving the descending colon, most consistent with colitis. Recommend colonoscopy once acute inflammation has resolved to exclude underlying lesion. 2. Moderate to large stool burden, correlate for constipation. 3. Additional chronic findings are stable compared to prior exam, as described above. ECG Data Attestation: I personally reviewed and interpreted this ECG as follows: Interpretation: Left bundle-branch block Ventricular rate of [address] T wave changes MDM Narrative Medical decision making narrative: Patient does have a leukocytosis of 18 however this could be stress reaction because of the retching and vomiting that she has been having. She also has a CT scan findings that are consistent with colitis. She does have moderate to large stool burden and we did discuss the possibility of constipation she does not remember if she was had a bowel movement today or yesterday. She was mildly hyper glycemic however not in DKA with a CO2 of 20 on her chemistry. No signs of bowel obstruction or emergent surgical pathology. No specific source of infection found. After Reglan she reports a vast improvement of her symptoms. We did discuss the use of laxatives. Patient was given return precautions. Discharge Plan Departure Patient Disposition: Home Clinical Impression: Colitis, Nausea and vomiting Instructions: Nausea and Vomiting-Adult, DI for Colitis Activity Restrictions/Additional Instructions: I do recommend you consider starting on a bowel regimen such as laxatives to help with constipation issues. Medication such as MiraLax or magnesium citrate can be purchased [id number]. Use the nausea medication as needed. Continue to take all of your other medicines as directed. Recommend a bland diet for the next couple days. Return to the emergency department for new symptoms. Prescriptions: New ondansetron 4 mg tablet,disintegrating 4 mg PO Q8H PRN (Reason: nausea and vomiting) Qty: 14 0RF No Action Lantus Solostar U-100 Insulin 100 unit/mL (3 mL) insulin pen 20 unit SUBCUT BEDTIME Qty: 15 3RF venlafaxine 37.5 mg capsule,extended release 24hr See Rx Instructions .ROUTE .COMPLEX Qty: 90 3RF Dose Instruction: TAKE 1 CAPSULE BY MOUTH DAILY Rx Instructions: TAKE 1 CAPSULE BY MOUTH DAILY atorvastatin 20 mg tablet 20 mg PO DAILY Qty: 90 2RF (DME) lancets [BD Ultra Fine Lancets] 33 gauge misc See Rx Instructions .ROUTE .MEDSUPPLY Qty: 100 2RF Rx Instructions: Use to test blood glucose twice daily insulin aspart U-100 [Novolog PenFill U-100 Insulin] 100 unit/mL cartridge 15 unit SUBCUT TID (DME) Blood Glucose Test Strip See Rx Instructions .ROUTE .MEDSUPPLY Qty: 100 2RF Rx Instructions: Use to test blood glucose twice daily. (DME) BD Ultra Fine Pen Tips 28G x 1/2 100 package See Rx Instructions .ROUTE .MEDSUPPLY Rx Instructions: Use 1 needle daily with victoza rx (DME) Parking Permit... See Rx Instructions .Route .MEDSUPPLY Qty: 1 0RF Rx Instructions: I find this patient to be medically disabled and qualified for Disabled Parking as indicated, and signed, on the Accompanying Disabled Parking Application for Individuals. Ozempic 0.25 mg or 0.5 mg (2 mg/3 mL) pen injector 0.25 mg SUBCUT QWEEK Qty: 3 1RF Rx Instructions: for 4 weeks; then increase to 0.5 mg every week Ozempic 1 mg/dose (4 mg/3 mL) pen injector 1 mg SUBCUT QWEEK Qty: 3 1RF Rx Instructions: begin after completing 0.5mg pen Jardiance 25 mg tablet 25 mg PO DAILY Referrals: Rolly Merida MD [Primary Care Provider] - Stand Alone Forms: Patient Portal/API
--- NOTE | 2024-05-11 21:59 | DI.CT.S_ITS ---
PROCEDURE: CT ABDOMEN PELVIS W CON INDICATIONS: Generalized abdominal pain with vomiting TECHNIQUE: After the administration of intravenous contrast, axial sections acquired from the lung bases to the pubic symphysis. Coronal and sagittal reformats were performed. For radiation dose reduction, the following was used: automated exposure control, adjustment of mA and/or kV according to patient size. COMPARISON: Located [facility], CT, CT ABDOMEN PELVIS W CON, 03/22/2021, 6:35. FINDINGS: Image quality: Diagnostic. Lower Chest: No significant findings. ABDOMEN: Liver: No solid mass. Gallbladder: No radiopaque gallstones or wall thickening. Biliary ducts: No biliary dilation. Pancreas: No ductal dilation. Spleen: Size is within normal limits. Adrenal Glands: Fat containing right adrenal lesion measuring 2.6 centimeters is stable, consistent with a myelolipoma. Kidneys and Ureters: No hydronephrosis. No solid mass. No complex renal cystic lesion which requires follow up. Stomach and Bowel: Mild wall thickening and pericolonic inflammation involving the descending colon. Moderate to large stool burden. Peritoneum: No abnormal intraperitoneal fluid. No free air. Ventral Wall: No significant ventral hernia. Abdominal Nodes: No retroperitoneal or mesenteric adenopathy by size criteria. Vessels: Aorta and inferior vena cava are normal in size. PELVIS: Pelvic Organs: Unremarkable. Bladder: No bladder wall thickening, accounting for underdistention. Pelvic Nodes: No enlarged lymph nodes. Miscellaneous: No inguinal hernias are seen. Right gluteus musculature lipoma is redemonstrated. Bones: No aggressive osseous abnormality. IMPRESSION: 1. Wall thickening and pericolonic inflammation involving the descending colon, most consistent with colitis. Recommend colonoscopy once acute inflammation has resolved to exclude underlying lesion. 2. Moderate to large stool burden, correlate for constipation. 3. Additional chronic findings are stable compared to prior exam, as described above. Dictated by: Maynor Ingram M.D. on 05/11/2024 at 22:17 Approved by: Maynor Ingram M.D. on 05/11/2024 at 22:22
[2024-05-11] MEDS: KETOROLAC 30 MG/ML VIAL 15 MG IV (23:24)
[2024-05-11] MEDS: METOCLOPRAMIDE 10 MG/2 ML INJ IV (23:25)
[2024-05-12] VITALS: BP 131/72; PULSE 105; RESP 18; O2SAT 92
[2024-05-12 00:10] VITALS: PULSE 105
[2024-05-12] MEDS: ONDANSETRON 4 MG ODT PREPACK 1 BOTTLE MISC (00:29)
[2024-05-12 00:30] VITALS: BP 147/72
== END 2024-05-12 00:35 | disposition home or self-care (01) ==
PROVIDERS: Emergency Provider Emergency Medicine; PCP Family Medicine
DX: K52.9 Noninfective gastroenteritis and colitis, unspecified (principal); R11.2 Nausea with vomiting, unspecified; I44.7 Left bundle-branch block, unspecified
CPT/HCPCS: 36415; 74177; 80053; 81003; 83690; 85025; 93005; 96374; 96375; 96376; 99284; J1885; J2405; J2765; Q9967

== ENCOUNTER 2024-07-04 10:43 | Day surgery (SDC) | payer MEDICARE, MEDICAID, SELFPAY ==
[2022-12-04 13:26] VITALS: BMI 25.6
[2024-07-04 11:36] VITALS: BP 126/78; PULSE 90; RESP 16; TEMP 36.2; O2SAT 97
--- NOTE | 2024-07-04 12:03 | PM.PREOP ---
Pre-operative Note Interval Note History & Physical reviewed/Exam performed by Physician: Yes Changes to H&P: No
--- NOTE | 2024-07-04 12:15 | PM.OP.COLON ---
Operative Date/Time/Diagnoses Date of procedure: 07/04/24 Time of procedure: 12:29 Pre-op diagnosis: Colon wall thickening Procedure & Clinicians Study performed: Sigmoidoscopy aborted colonoscopy Same procedure as scheduled: Yes Indications: Abnormal colon wall thickening Surgeon: Vj Hansen Procedure Notes Procedure in detail: The history and physical was performed/updated and the patient is ASA class is 2. The procedure was discussed in detail with the patient. Potential risks complications including infection, bleeding, missed diagnosis, perforation, need for surgery, and were explained. Their questions were answered and informed consent was obtained. Patient was brought to the procedure room and placed standard monitoring equipment. The patient's vital signs were monitored continuously throughout the entire procedure. Prior to starting time-out was performed. The patient was placed in the left lateral recumbent position. Procedural sedation was administered by anesthesia. Examination began with a thorough inspection of the perianal area there was no evidence of fissures, fistulae, external hemorrhoids or cutaneous malignancy. The colonoscopy scope was then placed into the anal canal and advanced forward. We reached the sigmoid colon there was no gross abnormality to this level. The quality of the prep was poor and inadequate for safe and accurate performance of the exam and it was subsequently aborted. The scope was then withdrawn. Specimen(s): none sent Impression: Normal sigmoidoscopy. Poor prep. Post-procedure Plan for aftercare: Contact the surgical clinic to reschedule with an alternative preparation consider 3 day liquid fast. Disposition: same day surgery
[2024-07-04 12:24] VITALS: BP 113/63; BP 121/72; PULSE 79; PULSE 87; RESP 16; TEMP 36.2; O2SAT 94; O2SAT 95
[2024-07-04 12:29] VITALS: BP 116/74; PULSE 92; RESP 18; O2SAT 93
[2024-07-04 12:35] VITALS: BP 128/79; PULSE 93; RESP 16; O2SAT 95
== END 2024-07-04 12:49 | disposition home or self-care (01) ==
PROVIDERS: PCP Family Medicine; Referring Provider Surgery; Visit Provider Surgery
PROC: 0DJD8ZZ Inspection of Lower Intestinal Tract, Via Natural or Artificial Opening Endoscopic (ICD-10-PCS; CPT 45378; principal; 2024-07-04 12:00)
DX: K63.9 Disease of intestine, unspecified (principal); Z53.09 Procedure and treatment not carried out because of other contraindication
CPT/HCPCS: 45378; 45330

== ENCOUNTER → 2024-08-28 13:26 | Outpatient (CLI) | payer MEDICARE, MEDICAID, SELFPAY ==
[2022-12-04 13:26] VITALS: BMI 25.6
--- NOTE | 2024-08-28 13:28 | DI.CT.S_ITS ---
PROCEDURE: CT ABDOMEN PELVIS W CON INDICATIONS: colon wall thickening follow up TECHNIQUE: After the administration of intravenous contrast, axial sections acquired from the lung bases to the pubic symphysis. Coronal and sagittal reformats were performed. For radiation dose reduction, the following was used: automated exposure control, adjustment of mA and/or kV according to patient size. COMPARISON: [facility], CT, CT ABDOMEN PELVIS W CON, 05/11/2024, 22:05. FINDINGS: Image quality: Diagnostic. Lower Chest: No significant findings. ABDOMEN: Liver: No solid mass. Gallbladder: No radiopaque gallstone or wall thickening. Biliary ducts: No biliary dilation. Pancreas: No ductal dilation. Spleen: Size is within normal limits. Adrenal Glands: No adrenal nodules. Kidneys and Ureters: No hydronephrosis. No solid mass. No complex renal cystic lesion which requires follow up. There is 4.8 mm right renal cyst. Stomach and Bowel: The colonic thickening seen earlier has regressed. However, there is still a significant stool burden in the ascending transverse and redundant splenic flexure loop. Descending colon is decreased in caliber in comparison. There is no significant inflammatory reaction around the colon. Follow-up colonoscopy or barium enema will would be of benefit if the patient can be prepped. There may be decreased bowel motility and this could be the cause of stool retention. There is an apparent area of relative narrowing which could be lack of distension in the midtransverse colon but there is no bowel wall thickening or mass definitely identified. Peritoneum: No abnormal intraperitoneal fluid. No free air. Ventral Wall: No significant ventral hernia. Abdominal Nodes: No retroperitoneal or mesenteric adenopathy by size criteria. Vessels: Aorta and inferior vena cava are normal in size. PELVIS: Pelvic Organs: Unremarkable. Bladder: No bladder wall thickening, accounting for underdistention. Pelvic Nodes: No enlarged lymph nodes. Miscellaneous: No inguinal hernias are seen. Bones: No aggressive osseous abnormality. There is no evidence of compression fracture. IMPRESSION: Redundant colon with significant stool content to the transverse colon level descending colon is significantly decreased in caliber. Further evaluation by colonoscopy or barium enema as clinically indicated. Dictated by: Iftikhar Angela M.D. on 08/29/2024 at 8:31 Approved by: Iftikhar Angela M.D. on 08/29/2024 at 10:23
[2024-08-28 14:23] LABS: Estimated Glomerular Filt Rate > 60 mL/min (>60)
== END ==
PROVIDERS: Radiology Diagnostic Radiology; PCP Family Medicine; Referring Provider Family Medicine; Visit Provider Family Medicine
DX: K63.9 Disease of intestine, unspecified (principal); N28.1 Cyst of kidney, acquired; E11.69 Type 2 diabetes mellitus with other specified complication; E78.2 Mixed hyperlipidemia; E21.3 Hyperparathyroidism, unspecified; K52.9 Noninfective gastroenteritis and colitis, unspecified
CPT/HCPCS: 36415; 74177; 82565; Q9967

== ENCOUNTER → 2024-10-20 15:44 | Outpatient (CLI) | payer MEDICARE, MEDICAID, SELFPAY ==
[2022-12-04 13:26] VITALS: BMI 25.6
[2024-10-20 16:59] LABS: Add Manual Diff / Slide Review NO; Basophils Absolute Auto 100 /uL (0-100); Basophils Percent Auto 0.7 % (0-2); Eosinophils Absolute Auto 100 /uL (0-450); Eosinophils Percent Auto 0.9 % (2-4); Hematocrit 54.9 % (36-46); Hemoglobin 18.4 g/dL (12.0-16.0); Lymphocytes Absolute Auto 2800 /uL (1100-4500); Lymphocytes Percent Auto 33.3 % (25-40); Mean Corpuscular HGB Conc 33.6 % (30-36); Mean Corpuscular Hemoglobin 29.5 PG (26-34); Mean Corpuscular Volume 87.8 fL (80-100); Monocytes Absolute Auto 500 /uL (0-900); Neutrophils Absolute Auto 5000 /uL (1500-7000); Neutrophils Percent Auto 59.1 % (50-75); Platelet Count 312 X10^3/uL (150-400); Red Blood Cell Count 6.25 X10^6/uL (4.0-5.2); Red Cell Distribution Width 13.2 % (11.6-14.8); White Blood Cell Count 8.4 X10^3/uL (4.5-11.0)
[2024-10-20 17:09] LABS: Alanine Aminotransferase 46 IU/L (<35); Albumin 4.5 g/dL (3.5-5.0); Albumin Globulin Ratio 1.6 (1.0-2.8); Alkaline Phosphatase 113 U/L (38-126); Aspartate Aminotransferase 46 IU/L (14-36); BUN Creatinine Ratio 28.6 (6-22); Bilirubin Total 1.5 mg/dL (0.2-1.3); Blood Urea Nitrogen 16 mg/dL (7-17); Calcium 10.9 mg/dL (8.4-10.2); Carbon Dioxide 22 mmol/L (22-32); Chloride 107 mmol/L (98-107); Estimated Glomerular Filt Rate > 60 mL/min (>60); Globulin 2.8 g/dL (1.7-4.1); Glucose 113 mg/dL (80-110); HEMOLYSIS 36 (0-50); Potassium 4.2 mmol/L (3.4-5.1); Sodium 142 mmol/L (137-145); Total Protein 7.3 g/dL (6.3-8.2)
[2024-10-20 17:11] LABS: Hemoglobin A1C% w Est Avg Glu 5.7 % (4.0-6.0)
== END ==
PROVIDERS: PCP Family Medicine; Referring Provider Family Medicine; Visit Provider Family Medicine
DX: R74.8 Abnormal levels of other serum enzymes (principal); E11.69 Type 2 diabetes mellitus with other specified complication; D58.2 Other hemoglobinopathies; E21.3 Hyperparathyroidism, unspecified
CPT/HCPCS: 36415; 80053; 83036; 85025

== ENCOUNTER 2024-11-15 08:50 | Emergency (ER) | payer MEDICARE, MEDICAID, SELFPAY ==
[2022-12-04 13:26] VITALS: BMI 25.6
[2024-11-15] VITALS (157 sets, daily range): BP systolic 90–163; BP diastolic 50–113; PULSE 63–131; RESP 12–39; TEMP 36.1–38.3; O2SAT 87–99; BMI 27.4
--- NOTE | 2024-11-15 09:02 | EKG_ITS ---
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
[2024-11-15 09:20] LABS: Base Excess VBG -1.5 mmol/L (0-4); HCO3 VBG 26 mmol/L (24-28); Oxygen Saturation VBG 34 % (70-75); PCO2 VBG 50.1 mmHg (45-50); PO2 VBG 23 mmHg (35-45); Total CO2 VBG 25 mmol/L (24-29); pH VBG 7.32 (7.33-7.43)
--- NOTE | 2024-11-15 09:21 | ED_ITS ---
HPI - Abdominal Pain <Alla Marga, DO - Last Filed: 11/17/24 21:37> General Chief Complaint: Abdominal Pain Stated Complaint: Abd pain Time Seen by Provider: 11/15/24 08:54 History of Present Illness HPI narrative: Patient is a 59-year-old female history of insulin-dependent diabetes, polycythemia elevated liver enzymes presenting today with left lower quadrant pain. Reports it started yesterday. EMS reports that she has new onset AFib and new onset left bundle-branch block. She has patient he is slow to respond she does report feeling some fluttering in her chest no significant chest pain. Unable to tell me when that started. She was noted to be quite cold to touch unable to get a temperature. Indwelling temperature sensing Cantor temperature is 97.1? denies any sort of shortness of breath or fever. Has had diverticulitis in the past. at bedside reports that patient was feeling well yesterday woke up this morning and was throwing up. She has muscular dystrophy but was so weak could not get off the toilet and fell to the ground. She seems to be out of it. Related Data Home Medications Medication Instructions Recorded Confirmed BD Ultra Fine Pen Tips 28G x 1/2 03/28/21 11/04/24 Previous Rx's Medication Instructions Recorded lancets 33 gauge (BD Ultra Fine #100 ea 08/02/20 Lancets) blood sugar diagnostic (Blood #100 ea 01/31/21 Glucose Test strips) Parking Permit... #1 ea 07/13/22 atorvastatin 20 mg tablet 20 mg PO DAILY #90 tabs 10/07/24 venlafaxine 37.5 mg See Rx Instructions .Route 10/07/24 capsule,extended release 24 hr .COMPLEX #90 caps ondansetron 4 mg disintegrating 4 mg PO Q8H PRN nausea and 10/24/24 tablet vomiting #14 tabs tirzepatide 7.5 mg/0.5 mL 7.5 mg (0.5 mL) SUBCUT QWEEK #2 mL 11/04/24 subcutaneous pen injector (Mounjaro) Allergies Allergy/AdvReac Type Severity Reaction Status Date / Time latex [LATEX] Allergy Severe hives Verified 11/04/24 14:53 adhesive [ADHESIVE] AdvReac Mild rash from Verified 11/04/24 14:53 tape morphine [MORPHINE] AdvReac Mild gi upset Verified 11/04/24 14:53 Sulfa (Sulfonamide AdvReac Mild gi upset Verified 11/04/24 14:53 Antibiotics) [SULFA (SULFONAMIDE ANTIBIOTICS)] Patient History <Alla Gresham DO - Last Filed: 11/17/24 21:37> Medical History Colon wall thickening Elevated liver enzymes Major depressive disorder, single episode, mild Myotonic muscular dystrophy Other hemoglobinopathies Hyperparathyroidism Type 2 diabetes mellitus with other specified complication Type 2 diabetes mellitus without complication (09/05/16) Degenerative joint disease (DJD) of hip Hypokalemia Elevated blood pressure reading in office without diagnosis of hypertension Head contusion Impacted cerumen of left ear Right otitis externa Nga syndrome Ptosis Gait instability Herniated nucleus pulposus, L4-5 Chronic low back pain Herpes (2002) Diabetes Hyperlipidemia Surgical History History of colonoscopy with polypectomy (11/05/13) Status post hysteroscopic myomectomy (07/19/12) History of right cataract surgery (08/03/09) History of left cataract surgery (07/20/09) Status post laparoscopic supracervical hysterectomy Family History Father Diabetes mellitus Coronary arteriosclerosis Hyperlipidemia DC (myocardial infarction) Mother Colon cancer Social History marital status: details: Pt. self-employeed. household members: spouse lives independently: Yes occupational status: employed alcohol intake: never substance use type: does not use eating out: rarely or never Type(s) of exercise: walking alcohol intake frequency: other Exam <DO Yasmany Palacios Last Filed: 11/17/24 21:37> Initial Vital Signs Initial Vital Signs: Vital Signs Pulse Rate 105 H 11/15/24 08:57 Blood Pressure 163/113 H 11/15/24 08:57 Pulse Oximetry 90 L 11/15/24 08:57 GENERAL: Thin toxic 59-year-old female she is alert able to follow some commands HEENT: Head atraumatic,EOMI, pupils reactive, face symmetric, dry mucous membranes CARDIOVASCULAR: Regular rate and rhythm without murmurs, rubs or gallops. RESPIRATORY: Breath sounds equal bilaterally, no wheezes rales or rhonchi. ABDOMEN: Soft, no distention left lower quadrant pain no guarding no rebound pain not out of proportion EXTREMITIES: Normal range of motion, no clubbing or edema. Neurovascularly intact NEUROLOGICAL: Alert and oriented x4. Moving all extremities following some commands SKIN: Warm, dry, no laceration, no petechiae, no rashes or lesions. <Ban Whitney MD - Last Filed: 11/16/24 01:23> Initial Vital Signs Initial Vital Signs: Vital Signs Pulse Rate 105 H 11/15/24 08:57 Blood Pressure 163/113 H 11/15/24 08:57 Pulse Oximetry 90 L 11/15/24 08:57 Course <Alla Gresham DO - Last Filed: 11/17/24 21:37> Orders Ordered: Discontinued Medications Hydromorphone HCl (Hydromorphone 0.5 Mg Inj) 0.5 mg IV NOW ONE Stop: 11/15/24 09:41 Last Admin: 11/15/24 09:46 Dose: 0.5 mg Documented By: FORD Hydromorphone HCl (Hydromorphone 0.5 Mg Inj) 0.5 mg IV NOW ONE Stop: 11/15/24 14:26 Last Admin: 11/15/24 14:39 Dose: 0.5 mg Documented By: FELY Sodium Chloride (Normal Saline 0.9%) 1,000 mls @ 1,000 mls/hr IV BOLUS ONE Stop: 11/15/24 10:04 Last Infusion: 11/15/24 10:32 Dose: Infused Documented By: Admin: 11/15/24 09:30 Dose: 1,000 mls/hr Documented By: UMM Piperacillin Sod/Tazobactam (Sod 4.5 gm/ Sodium Chloride) 100 mls @ 200 mls/hr IV NOW ONE Stop: 11/15/24 09:06 Last Infusion: 11/15/24 10:12 Dose: Infused Documented By: Admin: 11/15/24 09:29 Dose: 200 mls/hr Documented By: UMM Sodium Chloride (Normal Saline 0.9%) 2,041.17 mls @ 680.39 mls/hr 30 ml/kg infuse over 3 hr (2041.17 ml) IV NOW ONE Stop: 11/15/24 13:43 Last Infusion: 11/15/24 12:45 Dose: Infused Documented By: Admin: 11/15/24 10:55 Dose: 680.39 mls/hr Documented By: FORD Acetaminophen (Ofirmev) 1,000 mg in 100 mls @ 400 mls/hr IV NOW ONE Stop: 11/15/24 14:40 Last Infusion: 11/15/24 14:54 Dose: Infused Documented By: Admin: 11/15/24 14:39 Dose: 400 mls/hr Documented By: FELY Sodium Chloride (Normal Saline 0.9%) 1,000 mls @ 125 mls/hr IV CONT KASHMIR Last Infusion: 11/15/24 23:05 Dose: Infused Documented By: Admin: 11/15/24 14:40 Dose: 125 mls/hr Documented By: FELY Piperacillin Sod/Tazobactam (Sod 3.375 gm/ Sodium Chloride) 100 mls @ 25 mls/hr IV Q8H [facility] Last Infusion: 11/15/24 21:00 Dose: Infused Documented By: Admin: 11/15/24 17:10 Dose: 25 mls/hr Documented By: FELY Amiodarone HCl/Dextrose (Nexterone) 150 mg in 100 mls @ 600 mls/hr IV NOW ONE; Protocol Stop: 11/15/24 15:16 Last Infusion: 11/15/24 15:30 Dose: Infused Documented By: Admin: 11/15/24 15:11 Dose: 600 mls/hr Documented By: FORD Amiodarone HCl/Dextrose (Nexterone) 360 mg in 200 mls @ 33.333 mls/hr IV NOW ONE; Protocol Stop: 11/15/24 21:15 Last Titration: 11/15/24 21:33 Dose: Infused Documented By: Admin: 11/15/24 15:34 Dose: 33.333 mls/hr, 33.33 mls/hr Documented By: FELY Metoprolol Tartrate (Metoprolol Tartrate 5 Mg/5 Ml Inj) 5 mg IV NOW ONE Stop: 11/15/24 09:26 Last Admin: 11/15/24 09:30 Dose: 5 mg Documented By: UMM Naloxone HCl (Naloxone 1 Mg/Ml Syringe) 0.4 mg IV NOW ONE Stop: 11/15/24 15:08 Last Admin: 11/15/24 15:00 Dose: 0.4 mg Documented By: FORD Vital Signs Vital signs: Vital Signs - 8 hr 11/15/24 17:25 11/15/24 17:25 11/15/24 17:30 Temperature 100.0 F H 100.0 F H Pulse Rate 80 83 Respiratory Rate 15 24 Blood Pressure 102/56 L Pulse Oximetry 97 98 Oxygen Delivery Method Oximask Oxygen Flow Rate 2 11/15/24 17:30 11/15/24 17:35 11/15/24 17:35 Temperature 100.0 F H Pulse Rate 79 Respiratory Rate 17 Blood Pressure 104/68 113/70 Pulse Oximetry 97 Oxygen Delivery Method Oxygen Flow Rate 11/15/24 17:40 11/15/24 17:40 11/15/24 17:45 Temperature 100.2 F H Pulse Rate 79 Respiratory Rate 18 Blood Pressure 114/70 108/69 Pulse Oximetry 95 Oxygen Delivery Method Oximask Oxygen Flow Rate 2 11/15/24 17:45 11/15/24 17:50 11/15/24 17:50 Temperature 100.2 F H 100.2 F H Pulse Rate 79 82 Respiratory Rate 15 19 Blood Pressure 111/69 Pulse Oximetry 97 98 Oxygen Delivery Method Oxygen Flow Rate 11/15/24 17:55 11/15/24 17:55 11/15/24 18:00 Temperature 100.2 F H Pulse Rate 79 Respiratory Rate 13 Blood Pressure 105/67 108/65 Pulse Oximetry 97 Oxygen Delivery Method Oximask Oxygen Flow Rate 2 11/15/24 18:00 11/15/24 18:05 11/15/24 18:05 Temperature 100.2 F H 100.2 F H Pulse Rate 79 79 Respiratory Rate 16 13 Blood Pressure 107/64 Pulse Oximetry 96 96 Oxygen Delivery Method Oxygen Flow Rate 11/15/24 18:10 11/15/24 18:10 11/15/24 18:15 Temperature 100.2 F H Pulse Rate 77 Respiratory Rate 15 Blood Pressure 104/64 113/67 Pulse Oximetry 96 Oxygen Delivery Method Oxygen Flow Rate 11/15/24 18:15 11/15/24 18:20 11/15/24 18:20 Temperature 100.2 F H 100.2 F H Pulse Rate 81 79 Respiratory Rate 18 15 Blood Pressure 111/69 Pulse Oximetry 94 96 Oxygen Delivery Method Oxygen Flow Rate 11/15/24 18:25 11/15/24 18:25 11/15/24 18:30 Temperature 100.2 F H Pulse Rate 77 Respiratory Rate 14 Blood Pressure 102/59 L 113/66 Pulse Oximetry 96 Oxygen Delivery Method Oxygen Flow Rate 11/15/24 18:30 11/15/24 18:35 11/15/24 18:35 Temperature 100.2 F H 100.2 F H Pulse Rate 79 82 Respiratory Rate 17 28 H Blood Pressure 115/66 Pulse Oximetry 93 92 Oxygen Delivery Method Oxygen Flow Rate 11/15/24 18:40 11/15/24 18:40 11/15/24 18:45 Temperature 100.2 F H 100.2 F H Pulse Rate 79 76 Respiratory Rate 16 20 Blood Pressure 114/67 Pulse Oximetry 99 98 Oxygen Delivery Method Oximask Oxygen Flow Rate 2 11/15/24 18:45 11/15/24 18:50 11/15/24 18:50 Temperature 100.2 F H Pulse Rate 74 Respiratory Rate 15 Blood Pressure 115/71 107/61 Pulse Oximetry 96 Oxygen Delivery Method Oxygen Flow Rate 11/15/24 18:55 11/15/24 18:55 11/15/24 19:00 Temperature 100.2 F H Pulse Rate 73 Respiratory Rate 15 Blood Pressure 107/61 103/60 Pulse Oximetry 95 Oxygen Delivery Method Oxygen Flow Rate 11/15/24 19:00 11/15/24 19:05 11/15/24 19:05 Temperature 100.2 F H 100.2 F H Pulse Rate 73 77 Respiratory Rate 15 27 H Blood Pressure 108/60 Pulse Oximetry 96 95 Oxygen Delivery Method Oxygen Flow Rate 11/15/24 19:10 11/15/24 19:10 11/15/24 19:15 Temperature 100.2 F H Pulse Rate 77 Respiratory Rate 28 H Blood Pressure 114/68 103/59 L Pulse Oximetry 98 Oxygen Delivery Method Oxygen Flow Rate 11/15/24 19:15 11/15/24 19:20 11/15/24 19:20 Temperature 100.2 F H 100.2 F H Pulse Rate 75 75 Respiratory Rate 25 H Blood Pressure 94/52 L Pulse Oximetry 98 97 Oxygen Delivery Method Oximask Oxygen Flow Rate 2 11/15/24 19:26 11/15/24 19:30 11/15/24 19:31 Temperature 99.9 F H 100.0 F H 100.0 F H Pulse Rate 71 70 68 Respiratory Rate 25 H 24 22 Blood Pressure Pulse Oximetry 97 96 95 Oxygen Delivery Method Oxygen Flow Rate 11/15/24 19:31 11/15/24 19:35 11/15/24 19:35 Temperature 100.2 F H Pulse Rate 68 Respiratory Rate 18 Blood Pressure 97/56 L 100/60 Pulse Oximetry 95 Oxygen Delivery Method Oxygen Flow Rate 11/15/24 19:40 11/15/24 19:40 11/15/24 19:45 Temperature 100.2 F H Pulse Rate 67 Respiratory Rate 17 Blood Pressure 102/57 L 96/55 L Pulse Oximetry 96 Oxygen Delivery Method Oximask Oxygen Flow Rate 2 11/15/24 19:45 11/15/24 19:50 11/15/24 19:50 Temperature 100.2 F H 100.2 F H Pulse Rate 68 70 Respiratory Rate 18 17 Blood Pressure 91/55 L Pulse Oximetry 97 98 Oxygen Delivery Method Oximask Oxygen Flow Rate 2 11/15/24 19:55 11/15/24 19:55 11/15/24 20:00 Temperature 100.2 F H Pulse Rate 70 Respiratory Rate 16 Blood Pressure 101/56 L 99/55 L Pulse Oximetry 97 Oxygen Delivery Method Oxygen Flow Rate 11/15/24 20:00 11/15/24 20:06 11/15/24 20:06 Temperature 100.2 F H 100.2 F H Pulse Rate 71 75 Respiratory Rate 16 25 H Blood Pressure 102/63 Pulse Oximetry 97 96 Oxygen Delivery Method Oxygen Flow Rate 11/15/24 20:10 11/15/24 20:10 11/15/24 20:15 Temperature 100.2 F H Pulse Rate 74 Respiratory Rate Blood Pressure 111/64 107/61 Pulse Oximetry 98 Oxygen Delivery Method Oxygen Flow Rate 11/15/24 20:15 11/15/24 20:20 11/15/24 20:20 Temperature 100.2 F H 100.2 F H Pulse Rate 72 65 Respiratory Rate Blood Pressure 104/59 L Pulse Oximetry 98 99 Oxygen Delivery Method Oximask Oxygen Flow Rate 2 11/15/24 20:25 11/15/24 20:25 11/15/24 20:30 Temperature 100.2 F H Pulse Rate 64 Respiratory Rate 25 H Blood Pressure 103/58 L 101/59 L Pulse Oximetry 96 Oxygen Delivery Method Oxygen Flow Rate 11/15/24 20:30 11/15/24 20:35 11/15/24 20:35 Temperature 100.2 F H 100.4 F H Pulse Rate 66 63 Respiratory Rate Blood Pressure 90/50 L Pulse Oximetry 98 98 Oxygen Delivery Method Oximask Oxygen Flow Rate 2 11/15/24 20:40 11/15/24 20:40 11/15/24 20:42 Temperature 100.4 F H Pulse Rate 66 Respiratory Rate Blood Pressure 90/52 L 98/54 L Pulse Oximetry 95 Oxygen Delivery Method Oxygen Flow Rate 11/15/24 20:42 11/15/24 20:45 11/15/24 20:45 Temperature 100.4 F H 100.4 F H Pulse Rate 66 65 Respiratory Rate 23 18 Blood Pressure 98/56 L Pulse Oximetry 95 95 Oxygen Delivery Method Oximask Oxygen Flow Rate 2 11/15/24 20:50 11/15/24 20:50 11/15/24 20:55 Temperature 100.4 F H Pulse Rate 66 Respiratory Rate 20 Blood Pressure 103/57 L 105/60 Pulse Oximetry 95 Oxygen Delivery Method Oxygen Flow Rate 11/15/24 20:55 11/15/24 21:00 11/15/24 21:00 Temperature 100.4 F H 100.4 F H Pulse Rate 66 67 Respiratory Rate 17 19 Blood Pressure 107/56 L Pulse Oximetry 96 96 Oxygen Delivery Method Oxygen Flow Rate 11/15/24 21:05 11/15/24 21:05 11/15/24 21:10 Temperature 100.4 F H Pulse Rate 68 Respiratory Rate 22 Blood Pressure 105/59 L 110/55 L Pulse Oximetry 97 Oxygen Delivery Method Oxygen Flow Rate 11/15/24 21:10 11/15/24 21:15 11/15/24 21:15 Temperature 100.4 F H 100.4 F H Pulse Rate 69 80 Respiratory Rate 19 Blood Pressure 135/76 Pulse Oximetry 96 96 Oxygen Delivery Method Oxygen Flow Rate 11/15/24 21:30 11/15/24 21:31 11/15/24 21:31 Temperature 100.2 F H 100.4 F H Pulse Rate 67 77 Respiratory Rate Blood Pressure 100/57 L Pulse Oximetry 97 96 Oxygen Delivery Method Oxygen Flow Rate 11/15/24 21:35 11/15/24 21:35 11/15/24 21:40 Temperature 100.4 F H Pulse Rate 73 Respiratory Rate Blood Pressure 96/53 L 104/58 L Pulse Oximetry 96 Oxygen Delivery Method Oxygen Flow Rate 11/15/24 21:40 11/15/24 21:45 11/15/24 21:45 Temperature 100.4 F H 100.4 F H Pulse Rate 69 68 Respiratory Rate 22 26 H Blood Pressure 103/56 L Pulse Oximetry 99 97 Oxygen Delivery Method Oxygen Flow Rate 11/15/24 21:51 11/15/24 21:51 11/15/24 21:55 Temperature 100.4 F H Pulse Rate 70 Respiratory Rate Blood Pressure 93/55 L 98/55 L Pulse Oximetry 97 Oxygen Delivery Method Oxygen Flow Rate 11/15/24 21:55 11/15/24 22:00 11/15/24 22:06 Temperature 100.4 F H 100.4 F H 100.2 F H Pulse Rate 67 66 68 Respiratory Rate 24 Blood Pressure Pulse Oximetry 98 98 98 Oxygen Delivery Method Nasal Cannula Nasal Cannula Oxygen Flow Rate 2 2 11/15/24 22:10 11/15/24 22:10 11/15/24 22:15 Temperature 100.4 F H Pulse Rate 65 Respiratory Rate 18 Blood Pressure 117/57 L 116/58 L Pulse Oximetry 98 Oxygen Delivery Method Nasal Cannula Oxygen Flow Rate 2 11/15/24 22:15 11/15/24 22:20 11/15/24 22:20 Temperature 100.4 F H 100.6 F H Pulse Rate 66 69 Respiratory Rate 17 19 Blood Pressure 113/57 L Pulse Oximetry 95 95 Oxygen Delivery Method Nasal Cannula Oxygen Flow Rate 2 11/15/24 22:25 11/15/24 22:25 11/15/24 22:30 Temperature 100.6 F H 100.8 F H Pulse Rate 72 71 Respiratory Rate 20 15 Blood Pressure 116/57 L Pulse Oximetry 95 96 Oxygen Delivery Method Oxygen Flow Rate 11/15/24 22:30 11/15/24 22:35 11/15/24 22:35 Temperature 100.8 F H Pulse Rate 73 Respiratory Rate 17 Blood Pressure 114/57 L 114/58 L Pulse Oximetry 94 Oxygen Delivery Method Oxygen Flow Rate 11/15/24 22:40 11/15/24 22:40 11/15/24 22:45 Temperature 100.8 F H Pulse Rate 74 Respiratory Rate 18 Blood Pressure 116/55 L 118/56 L Pulse Oximetry 95 Oxygen Delivery Method Nasal Cannula Oxygen Flow Rate 2 11/15/24 22:45 11/15/24 22:50 11/15/24 22:50 Temperature 100.8 F H 100.8 F H Pulse Rate 76 74 Respiratory Rate 25 H 18 Blood Pressure 115/57 L Pulse Oximetry 98 95 Oxygen Delivery Method Nasal Cannula Oxygen Flow Rate 2 11/15/24 22:55 11/15/24 22:55 11/15/24 23:00 Temperature 100.8 F H 100.8 F H Pulse Rate 81 76 Respiratory Rate 29 H 39 H Blood Pressure 122/59 L Pulse Oximetry 97 98 Oxygen Delivery Method Oxygen Flow Rate 11/15/24 23:00 11/15/24 23:05 11/15/24 23:05 Temperature 100.8 F H Pulse Rate 72 Respiratory Rate 18 Blood Pressure 109/54 L 112/56 L Pulse Oximetry 92 Oxygen Delivery Method Oxygen Flow Rate 11/15/24 23:10 11/15/24 23:10 11/15/24 23:15 Temperature 100.8 F H Pulse Rate 74 Respiratory Rate 19 Blood Pressure 109/57 L 111/60 Pulse Oximetry 94 Oxygen Delivery Method Nasal Cannula Oxygen Flow Rate 2 11/15/24 23:15 11/15/24 23:20 11/15/24 23:20 Temperature 100.8 F H 100.8 F H Pulse Rate 75 75 Respiratory Rate 22 Blood Pressure 119/57 L Pulse Oximetry 97 94 Oxygen Delivery Method Nasal Cannula Oxygen Flow Rate 2 11/15/24 23:25 11/15/24 23:25 11/15/24 23:30 Temperature 100.8 F H 100.9 F H Pulse Rate 74 74 Respiratory Rate 19 19 Blood Pressure 112/55 L Pulse Oximetry 95 94 Oxygen Delivery Method Oxygen Flow Rate 11/15/24 23:30 11/15/24 23:35 11/15/24 23:35 Temperature 100.9 F H Pulse Rate 75 Respiratory Rate Blood Pressure 111/56 L 108/55 L Pulse Oximetry 93 Oxygen Delivery Method Oxygen Flow Rate <Ban Whitney MD - Last Filed: 11/16/24 01:23> Orders Ordered: Discontinued Medications Hydromorphone HCl (Hydromorphone 0.5 Mg Inj) 0.5 mg IV NOW ONE Stop: 11/15/24 09:41 Last Admin: 11/15/24 09:46 Dose: 0.5 mg Documented By: FORD Hydromorphone HCl (Hydromorphone 0.5 Mg Inj) 0.5 mg IV NOW ONE Stop: 11/15/24 14:26 Last Admin: 11/15/24 14:39 Dose: 0.5 mg Documented By: FELY Sodium Chloride (Normal Saline 0.9%) 1,000 mls @ 1,000 mls/hr IV BOLUS ONE Stop: 11/15/24 10:04 Last Infusion: 11/15/24 10:32 Dose: Infused Documented By: Admin: 11/15/24 09:30 Dose: 1,000 mls/hr Documented By: UMM Piperacillin Sod/Tazobactam (Sod 4.5 gm/ Sodium Chloride) 100 mls @ 200 mls/hr IV NOW ONE Stop: 11/15/24 09:06 Last Infusion: 11/15/24 10:12 Dose: Infused Documented By: Admin: 11/15/24 09:29 Dose: 200 mls/hr Documented By: UMM Sodium Chloride (Normal Saline 0.9%) 2,041.17 mls @ 680.39 mls/hr 30 ml/kg infuse over 3 hr (2041.17 ml) IV NOW ONE Stop: 11/15/24 13:43 Last Infusion: 11/15/24 12:45 Dose: Infused Documented By: Admin: 11/15/24 10:55 Dose: 680.39 mls/hr Documented By: FORD Acetaminophen (Ofirmev) 1,000 mg in 100 mls @ 400 mls/hr IV NOW ONE Stop: 11/15/24 14:40 Last Infusion: 11/15/24 14:54 Dose: Infused Documented By: Admin: 11/15/24 14:39 Dose: 400 mls/hr Documented By: FELY Sodium Chloride (Normal Saline 0.9%) 1,000 mls @ 125 mls/hr IV CONT KASHMIR Last Infusion: 11/15/24 23:05 Dose: Infused Documented By: Admin: 11/15/24 14:40 Dose: 125 mls/hr Documented By: FELY Piperacillin Sod/Tazobactam (Sod 3.375 gm/ Sodium Chloride) 100 mls @ 25 mls/hr IV Q8H [facility] Last Infusion: 11/15/24 21:00 Dose: Infused Documented By: Admin: 11/15/24 17:10 Dose: 25 mls/hr Documented By: FELY Amiodarone HCl/Dextrose (Nexterone) 150 mg in 100 mls @ 600 mls/hr IV NOW ONE; Protocol Stop: 11/15/24 15:16 Last Infusion: 11/15/24 15:30 Dose: Infused Documented By: Admin: 11/15/24 15:11 Dose: 600 mls/hr Documented By: FORD Amiodarone HCl/Dextrose (Nexterone) 360 mg in 200 mls @ 33.333 mls/hr IV NOW ONE; Protocol Stop: 11/15/24 21:15 Last Titration: 11/15/24 21:33 Dose: Infused Documented By: Admin: 11/15/24 15:34 Dose: 33.333 mls/hr, 33.33 mls/hr Documented By: FELY Metoprolol Tartrate (Metoprolol Tartrate 5 Mg/5 Ml Inj) 5 mg IV NOW ONE Stop: 11/15/24 09:26 Last Admin: 11/15/24 09:30 Dose: 5 mg Documented By: UMM Naloxone HCl (Naloxone 1 Mg/Ml Syringe) 0.4 mg IV NOW ONE Stop: 11/15/24 15:08 Last Admin: 11/15/24 15:00 Dose: 0.4 mg Documented By: FORD Vital Signs Vital signs: Vital Signs - 8 hr 11/15/24 17:25 11/15/24 17:25 11/15/24 17:30 Temperature 100.0 F H 100.0 F H Pulse Rate 80 83 Respiratory Rate 15 24 Blood Pressure 102/56 L Pulse Oximetry 97 98 Oxygen Delivery Method Oximask Oxygen Flow Rate 2 11/15/24 17:30 11/15/24 17:35 11/15/24 17:35 Temperature 100.0 F H Pulse Rate 79 Respiratory Rate 17 Blood Pressure 104/68 113/70 Pulse Oximetry 97 Oxygen Delivery Method Oxygen Flow Rate 11/15/24 17:40 11/15/24 17:40 11/15/24 17:45 Temperature 100.2 F H Pulse Rate 79 Respiratory Rate 18 Blood Pressure 114/70 108/69 Pulse Oximetry 95 Oxygen Delivery Method Oximask Oxygen Flow Rate 2 11/15/24 17:45 11/15/24 17:50 11/15/24 17:50 Temperature 100.2 F H 100.2 F H Pulse Rate 79 82 Respiratory Rate 15 19 Blood Pressure 111/69 Pulse Oximetry 97 98 Oxygen Delivery Method Oxygen Flow Rate 11/15/24 17:55 11/15/24 17:55 11/15/24 18:00 Temperature 100.2 F H Pulse Rate 79 Respiratory Rate 13 Blood Pressure 105/67 108/65 Pulse Oximetry 97 Oxygen Delivery Method Oximask Oxygen Flow Rate 2 11/15/24 18:00 11/15/24 18:05 11/15/24 18:05 Temperature 100.2 F H 100.2 F H Pulse Rate 79 79 Respiratory Rate 16 13 Blood Pressure 107/64 Pulse Oximetry 96 96 Oxygen Delivery Method Oxygen Flow Rate 11/15/24 18:10 11/15/24 18:10 11/15/24 18:15 Temperature 100.2 F H Pulse Rate 77 Respiratory Rate 15 Blood Pressure 104/64 113/67 Pulse Oximetry 96 Oxygen Delivery Method Oxygen Flow Rate 11/15/24 18:15 11/15/24 18:20 11/15/24 18:20 Temperature 100.2 F H 100.2 F H Pulse Rate 81 79 Respiratory Rate 18 15 Blood Pressure 111/69 Pulse Oximetry 94 96 Oxygen Delivery Method Oxygen Flow Rate 11/15/24 18:25 11/15/24 18:25 11/15/24 18:30 Temperature 100.2 F H Pulse Rate 77 Respiratory Rate 14 Blood Pressure 102/59 L 113/66 Pulse Oximetry 96 Oxygen Delivery Method Oxygen Flow Rate 11/15/24 18:30 11/15/24 18:35 11/15/24 18:35 Temperature 100.2 F H 100.2 F H Pulse Rate 79 82 Respiratory Rate 17 28 H Blood Pressure 115/66 Pulse Oximetry 93 92 Oxygen Delivery Method Oxygen Flow Rate 11/15/24 18:40 11/15/24 18:40 11/15/24 18:45 Temperature 100.2 F H 100.2 F H Pulse Rate 79 76 Respiratory Rate 16 20 Blood Pressure 114/67 Pulse Oximetry 99 98 Oxygen Delivery Method Oximask Oxygen Flow Rate 2 11/15/24 18:45 11/15/24 18:50 11/15/24 18:50 Temperature 100.2 F H Pulse Rate 74 Respiratory Rate 15 Blood Pressure 115/71 107/61 Pulse Oximetry 96 Oxygen Delivery Method Oxygen Flow Rate 11/15/24 18:55 11/15/24 18:55 11/15/24 19:00 Temperature 100.2 F H Pulse Rate 73 Respiratory Rate 15 Blood Pressure 107/61 103/60 Pulse Oximetry 95 Oxygen Delivery Method Oxygen Flow Rate 11/15/24 19:00 11/15/24 19:05 11/15/24 19:05 Temperature 100.2 F H 100.2 F H Pulse Rate 73 77 Respiratory Rate 15 27 H Blood Pressure 108/60 Pulse Oximetry 96 95 Oxygen Delivery Method Oxygen Flow Rate 11/15/24 19:10 11/15/24 19:10 11/15/24 19:15 Temperature 100.2 F H Pulse Rate 77 Respiratory Rate 28 H Blood Pressure 114/68 103/59 L Pulse Oximetry 98 Oxygen Delivery Method Oxygen Flow Rate 11/15/24 19:15 11/15/24 19:20 11/15/24 19:20 Temperature 100.2 F H 100.2 F H Pulse Rate 75 75 Respiratory Rate 25 H Blood Pressure 94/52 L Pulse Oximetry 98 97 Oxygen Delivery Method Oximask Oxygen Flow Rate 11/15/24 19:26 11/15/24 19:30 11/15/24 19:31 Temperature 99.9 F H 100.0 F H 100.0 F H Pulse Rate 71 70 68 Respiratory Rate 25 H 24 22 Blood Pressure Pulse Oximetry 97 96 95 Oxygen Delivery Method Oxygen Flow Rate 11/15/24 19:31 11/15/24 19:35 11/15/24 19:35 Temperature 100.2 F H Pulse Rate 68 Respiratory Rate 18 Blood Pressure 97/56 L 100/60 Pulse Oximetry 95 Oxygen Delivery Method Oxygen Flow Rate 11/15/24 19:40 11/15/24 19:40 11/15/24 19:45 Temperature 100.2 F H Pulse Rate 67 Respiratory Rate 17 Blood Pressure 102/57 L 96/55 L Pulse Oximetry 96 Oxygen Delivery Method Oximask Oxygen Flow Rate 2 11/15/24 19:45 11/15/24 19:50 11/15/24 19:50 Temperature 100.2 F H 100.2 F H Pulse Rate 68 70 Respiratory Rate 18 17 Blood Pressure 91/55 L Pulse Oximetry 97 98 Oxygen Delivery Method Oximask Oxygen Flow Rate 2 11/15/24 19:55 11/15/24 19:55 11/15/24 20:00 Temperature 100.2 F H Pulse Rate 70 Respiratory Rate 16 Blood Pressure 101/56 L 99/55 L Pulse Oximetry 97 Oxygen Delivery Method Oxygen Flow Rate 11/15/24 20:00 11/15/24 20:06 11/15/24 20:06 Temperature 100.2 F H 100.2 F H Pulse Rate 71 75 Respiratory Rate 16 25 H Blood Pressure 102/63 Pulse Oximetry 97 96 Oxygen Delivery Method Oxygen Flow Rate 11/15/24 20:10 11/15/24 20:10 11/15/24 20:15 Temperature 100.2 F H Pulse Rate 74 Respiratory Rate Blood Pressure 111/64 107/61 Pulse Oximetry 98 Oxygen Delivery Method Oxygen Flow Rate 11/15/24 20:15 11/15/24 20:20 11/15/24 20:20 Temperature 100.2 F H 100.2 F H Pulse Rate 72 65 Respiratory Rate Blood Pressure 104/59 L Pulse Oximetry 98 99 Oxygen Delivery Method Oximask Oxygen Flow Rate 2 11/15/24 20:25 11/15/24 20:25 11/15/24 20:30 Temperature 100.2 F H Pulse Rate 64 Respiratory Rate 25 H Blood Pressure 103/58 L 101/59 L Pulse Oximetry 96 Oxygen Delivery Method Oxygen Flow Rate 11/15/24 20:30 11/15/24 20:35 11/15/24 20:35 Temperature 100.2 F H 100.4 F H Pulse Rate 66 63 Respiratory Rate Blood Pressure 90/50 L Pulse Oximetry 98 98 Oxygen Delivery Method Oximask Oxygen Flow Rate 2 11/15/24 20:40 11/15/24 20:40 11/15/24 20:42 Temperature 100.4 F H Pulse Rate 66 Respiratory Rate Blood Pressure 90/52 L 98/54 L Pulse Oximetry 95 Oxygen Delivery Method Oxygen Flow Rate 11/15/24 20:42 11/15/24 20:45 11/15/24 20:45 Temperature 100.4 F H 100.4 F H Pulse Rate 66 65 Respiratory Rate 23 18 Blood Pressure 98/56 L Pulse Oximetry 95 95 Oxygen Delivery Method Oximask Oxygen Flow Rate 2 11/15/24 20:50 11/15/24 20:50 11/15/24 20:55 Temperature 100.4 F H Pulse Rate 66 Respiratory Rate 20 Blood Pressure 103/57 L 105/60 Pulse Oximetry 95 Oxygen Delivery Method Oxygen Flow Rate 11/15/24 20:55 11/15/24 21:00 11/15/24 21:00 Temperature 100.4 F H 100.4 F H Pulse Rate 66 67 Respiratory Rate 17 19 Blood Pressure 107/56 L Pulse Oximetry 96 96 Oxygen Delivery Method Oxygen Flow Rate 11/15/24 21:05 11/15/24 21:05 11/15/24 21:10 Temperature 100.4 F H Pulse Rate 68 Respiratory Rate 22 Blood Pressure 105/59 L 110/55 L Pulse Oximetry 97 Oxygen Delivery Method Oxygen Flow Rate 11/15/24 21:10 11/15/24 21:15 11/15/24 21:15 Temperature 100.4 F H 100.4 F H Pulse Rate 69 80 Respiratory Rate 19 Blood Pressure 135/76 Pulse Oximetry 96 96 Oxygen Delivery Method Oxygen Flow Rate 11/15/24 21:30 11/15/24 21:31 11/15/24 21:31 Temperature 100.2 F H 100.4 F H Pulse Rate 67 77 Respiratory Rate Blood Pressure 100/57 L Pulse Oximetry 97 96 Oxygen Delivery Method Oxygen Flow Rate 11/15/24 21:35 11/15/24 21:35 11/15/24 21:40 Temperature 100.4 F H Pulse Rate 73 Respiratory Rate Blood Pressure 96/53 L 104/58 L Pulse Oximetry 96 Oxygen Delivery Method Oxygen Flow Rate 11/15/24 21:40 11/15/24 21:45 11/15/24 21:45 Temperature 100.4 F H 100.4 F H Pulse Rate 69 68 Respiratory Rate 22 26 H Blood Pressure 103/56 L Pulse Oximetry 99 97 Oxygen Delivery Method Oxygen Flow Rate 11/15/24 21:51 11/15/24 21:51 11/15/24 21:55 Temperature 100.4 F H Pulse Rate 70 Respiratory Rate Blood Pressure 93/55 L 98/55 L Pulse Oximetry 97 Oxygen Delivery Method Oxygen Flow Rate 11/15/24 21:55 11/15/24 22:00 11/15/24 22:06 Temperature 100.4 F H 100.4 F H 100.2 F H Pulse Rate 67 66 68 Respiratory Rate 24 Blood Pressure Pulse Oximetry 98 98 98 Oxygen Delivery Method Nasal Cannula Nasal Cannula Oxygen Flow Rate 2 2 11/15/24 22:10 11/15/24 22:10 11/15/24 22:15 Temperature 100.4 F H Pulse Rate 65 Respiratory Rate 18 Blood Pressure 117/57 L 116/58 L Pulse Oximetry 98 Oxygen Delivery Method Nasal Cannula Oxygen Flow Rate 2 11/15/24 22:15 11/15/24 22:20 11/15/24 22:20 Temperature 100.4 F H 100.6 F H Pulse Rate 66 69 Respiratory Rate 17 19 Blood Pressure 113/57 L Pulse Oximetry 95 95 Oxygen Delivery Method Nasal Cannula Oxygen Flow Rate 2 11/15/24 22:25 11/15/24 22:25 11/15/24 22:30 Temperature 100.6 F H 100.8 F H Pulse Rate 72 71 Respiratory Rate 20 15 Blood Pressure 116/57 L Pulse Oximetry 95 96 Oxygen Delivery Method Oxygen Flow Rate 11/15/24 22:30 11/15/24 22:35 11/15/24 22:35 Temperature 100.8 F H Pulse Rate 73 Respiratory Rate 17 Blood Pressure 114/57 L 114/58 L Pulse Oximetry 94 Oxygen Delivery Method Oxygen Flow Rate 11/15/24 22:40 11/15/24 22:40 11/15/24 22:45 Temperature 100.8 F H Pulse Rate 74 Respiratory Rate 18 Blood Pressure 116/55 L 118/56 L Pulse Oximetry 95 Oxygen Delivery Method Nasal Cannula Oxygen Flow Rate 2 11/15/24 22:45 11/15/24 22:50 11/15/24 22:50 Temperature 100.8 F H 100.8 F H Pulse Rate 76 74 Respiratory Rate 25 H 18 Blood Pressure 115/57 L Pulse Oximetry 98 95 Oxygen Delivery Method Nasal Cannula Oxygen Flow Rate 2 11/15/24 22:55 11/15/24 22:55 11/15/24 23:00 Temperature 100.8 F H 100.8 F H Pulse Rate 81 76 Respiratory Rate 29 H 39 H Blood Pressure 122/59 L Pulse Oximetry 97 98 Oxygen Delivery Method Oxygen Flow Rate 11/15/24 23:00 11/15/24 23:05 11/15/24 23:05 Temperature 100.8 F H Pulse Rate 72 Respiratory Rate 18 Blood Pressure 109/54 L 112/56 L Pulse Oximetry 92 Oxygen Delivery Method Oxygen Flow Rate 11/15/24 23:10 11/15/24 23:10 11/15/24 23:15 Temperature 100.8 F H Pulse Rate 74 Respiratory Rate 19 Blood Pressure 109/57 L 111/60 Pulse Oximetry 94 Oxygen Delivery Method Nasal Cannula Oxygen Flow Rate 2 11/15/24 23:15 11/15/24 23:20 11/15/24 23:20 Temperature 100.8 F H 100.8 F H Pulse Rate 75 75 Respiratory Rate 22 Blood Pressure 119/57 L Pulse Oximetry 97 94 Oxygen Delivery Method Nasal Cannula Oxygen Flow Rate 2 11/15/24 23:25 11/15/24 23:25 11/15/24 23:30 Temperature 100.8 F H 100.9 F H Pulse Rate 74 74 Respiratory Rate 19 19 Blood Pressure 112/55 L Pulse Oximetry 95 94 Oxygen Delivery Method Oxygen Flow Rate 11/15/24 23:30 11/15/24 23:35 11/15/24 23:35 Temperature 100.9 F H Pulse Rate 75 Respiratory Rate Blood Pressure 111/56 L 108/55 L Pulse Oximetry 93 Oxygen Delivery Method Oxygen Flow Rate MDM - Abdominal Pain <Alla Gresham DO - Last Filed: 11/17/24 21:37> Lab Data 11/15/24 09:12 11/15/24 09:12 Labs: Lab Results 11/15/24 11/15/24 11/15/24 Range/Units 09:12 09:16 11:06 WBC 17.7 H (4.5-11.0) X10^3/uL RBC 5.95 H (4.0-5.2) X10^6/uL Hgb 17.4 H (12.0-16.0) g/dL Hct 52.8 H (36-46) % MCV 88.8 (80-100) fL MCH 29.2 (26-34) PG MCHC 32.9 (30-36) % RDW 13.4 (11.6-14.8) % Plt Count 299 (150-400) X10^3/uL Neut % (Auto) 83.1 H (50-75) % Lymph % (Auto) 11.8 L (25-40) % Giles % (Auto) 4.2 (3-14) % Eos % (Auto) 0.6 L (2-4) % Baso % (Auto) 0.3 (0-2) % Neut # (Auto) 80531 H (8644-2542) /uL Lymph # (Auto) 2100 (4821-9114) /uL Giles # (Auto) 700 (0-900) /uL Eos # (Auto) 100 (0-450) /uL Baso # (Auto) 100 (0-100) /uL VBG pH 7.32 L (7.33-7.43) VBG pCO2 50.1 H (45-50) mmHg VBG pO2 23 L (35-45) mmHg VBG HCO3 26 (24-28) mmol/L VBG Total CO2 25 (24-29) mmol/L VBG O2 Saturation 34 L (70-75) % VBG Base Excess -1.5 L (0-4) mmol/L FiO2 % 21.0 % % Sodium 142 (137-145) mmol/L Potassium 3.8 (3.4-5.1) mmol/L Chloride 108 H (98-107) mmol/L Carbon Dioxide 21 L (22-32) mmol/L BUN 17 (7-17) mg/dL Creatinine 0.53 (0.52-1.04) mg/dL Estimated GFR > 60 (>60) mL/min BUN/Creatinine Ratio 32.1 H (6-22) Glucose 292 H (80-110) mg/dL Lactate 3.4 H 2.3 H (0.7-2.1) mmol/L Calcium 10.2 (8.4-10.2) mg/dL Total Bilirubin 1.7 H (0.2-1.3) mg/dL AST 65 H (14-36) IU/L ALT 71 H (<35) IU/L Alkaline Phosphatase 342 H (38-126) U/L Ammonia < 9 L (9-30) umol/L Total Creatine Kinase 61 (30-135) U/L Troponin I < 0.012 < 0.012 (0.01-0.034) ng/mL NT-Pro-B Natriuret Pep 648 H (<125) pg/mL Total Protein 6.8 (6.3-8.2) g/dL Albumin 4.4 (3.5-5.0) g/dL Globulin 2.4 (1.7-4.1) g/dL Albumin/Globulin Ratio 1.8 (1.0-2.8) Lipase 135 (23-300) U/L Urine Color Yellow Urine Appearance Clear Urine pH 7.0 (4.5-8.0) Ur Specific Chinle 1.010 (1.000-1.035) Urine Protein Negative (Negative) Urine Glucose (UA) 3+ H (Negative) g/dL Urine Ketones 1+ H (NEGATIVE) Urine Occult Blood Negative (Negative) Urine Nitrate Negative (Negative) Urine Bilirubin Negative (NEGATIVE) Urine Urobilinogen 4.0 H (0.2) E.U./dL Ur Leukocyte Esterase Negative (NEGATIVE) Urine RBC 0-1/hpf (0-5/HPF) Urine WBC 0-1/hpf (0-5/HPF) Ur Squamous Epith Cells 1-5 /hpf (0-5/HPF) Urine Bacteria Occasional (0-1) (None) Hyaline Casts 0-1/lpf (None) Ur Culture Indicated? Cult not indicated Vol Urine Centrifuged 10ml (spun) Stl C. cayetanensis PCR (Not Detect) Stool Rotavirus (PCR) (Not Detect) Stool Adenovirus (PCR) (Not Detect) Stool Astrovirus (PCR) (Not Detect) Stool Cryptosporidium PCR (Not Detect) Stl E.coli Shiga Tox PCR (Not Detect) St Sh/Enteroin Ecoli PCR (Not Detect) Stl Enterotoxigenic E PCR (Not Detect) Stool EPEC (PCR) (Not Detect) Stl E. histolytica PCR (Not Detect) Stool Giardia Lamblia PCR (Not Detect) Stool Sapovirus (PCR) (Not Detect) Stl P. shigelloides PCR (Not Detect) St Y.enterocolitica PCR (Not Detect) Stool Vibrio (PCR) (Not Detect) Stl Vibrio cholerae PCR (Not Detect) Stl Enteroaggr Ecoli PCR (Not Detect) Stl Norovirus GI/GII PCR (Not Detect) Ketones 0.73 H (<0.27) mmol/L Campylobacter (PCR) (Not Detect) C. difficile Tox (PCR) (Not Detect) Salmonella (PCR) (Not Detect) 11/15/24 11/15/24 Range/Units 13:07 13:15 WBC (4.5-11.0) X10^3/uL RBC (4.0-5.2) X10^6/uL Hgb (12.0-16.0) g/dL Hct (36-46) % MCV (80-100) fL MCH (26-34) PG MCHC (30-36) % RDW (11.6-14.8) % Plt Count (150-400) X10^3/uL Neut % (Auto) (50-75) % Lymph % (Auto) (25-40) % Giles % (Auto) (3-14) % Eos % (Auto) (2-4) % Baso % (Auto) (0-2) % Neut # (Auto) (3704-3644) /uL Lymph # (Auto) (8744-3499) /uL Giles # (Auto) (0-900) /uL Eos # (Auto) (0-450) /uL Baso # (Auto) (0-100) /uL VBG pH (7.33-7.43) VBG pCO2 (45-50) mmHg VBG pO2 (35-45) mmHg VBG HCO3 (24-28) mmol/L VBG Total CO2 (24-29) mmol/L VBG O2 Saturation (70-75) % VBG Base Excess (0-4) mmol/L FiO2 % % Sodium (137-145) mmol/L Potassium (3.4-5.1) mmol/L Chloride (98-107) mmol/L Carbon Dioxide (22-32) mmol/L BUN (7-17) mg/dL Creatinine (0.52-1.04) mg/dL Estimated GFR (>60) mL/min BUN/Creatinine Ratio (6-22) Glucose (80-110) mg/dL Lactate 1.6 (0.7-2.1) mmol/L Calcium (8.4-10.2) mg/dL Total Bilirubin (0.2-1.3) mg/dL AST (14-36) IU/L ALT (<35) IU/L Alkaline Phosphatase (38-126) U/L Ammonia (9-30) umol/L Total Creatine Kinase (30-135) U/L Troponin I (0.01-0.034) ng/mL NT-Pro-B Natriuret Pep (<125) pg/mL Total Protein (6.3-8.2) g/dL Albumin (3.5-5.0) g/dL Globulin (1.7-4.1) g/dL Albumin/Globulin Ratio (1.0-2.8) Lipase (23-300) U/L Urine Color Urine Appearance Urine pH (4.5-8.0) Ur Specific Chinle (1.000-1.035) Urine Protein (Negative) Urine Glucose (UA) (Negative) g/dL Urine Ketones (NEGATIVE) Urine Occult Blood (Negative) Urine Nitrate (Negative) Urine Bilirubin (NEGATIVE) Urine Urobilinogen (0.2) E.U./dL Ur Leukocyte Esterase (NEGATIVE) Urine RBC (0-5/HPF) Urine WBC (0-5/HPF) Ur Squamous Epith Cells (0-5/HPF) Urine Bacteria (None) Hyaline Casts (None) Ur Culture Indicated? Vol Urine Centrifuged Stl C. cayetanensis PCR Not detected (Not Detect) Stool Rotavirus (PCR) Not detected (Not Detect) Stool Adenovirus (PCR) Not detected (Not Detect) Stool Astrovirus (PCR) Not detected (Not Detect) Stool Cryptosporidium PCR Not detected (Not Detect) Stl E.coli Shiga Tox PCR Not detected (Not Detect) St Sh/Enteroin Ecoli PCR Not detected (Not Detect) Stl Enterotoxigenic E PCR Not detected (Not Detect) Stool EPEC (PCR) Not detected (Not Detect) Stl E. histolytica PCR Not detected (Not Detect) Stool Giardia Lamblia PCR Not detected (Not Detect) Stool Sapovirus (PCR) Not detected (Not Detect) Stl P. shigelloides PCR Not detected (Not Detect) St Y.enterocolitica PCR Not detected (Not Detect) Stool Vibrio (PCR) Not detected (Not Detect) Stl Vibrio cholerae PCR Not detected (Not Detect) Stl Enteroaggr Ecoli PCR Not detected (Not Detect) Stl Norovirus GI/GII PCR Not detected (Not Detect) Ketones (<0.27) mmol/L Campylobacter (PCR) Not detected (Not Detect) C. difficile Tox (PCR) Not detected (Not Detect) Salmonella (PCR) Not detected (Not Detect) Point of care testing: Point of Care Testing Glucose POC [address] scan - abdomen/pelvis: Radiologist's Impression: PROCEDURE: CT ANGIO CHEST ABDOMEN PELVIS INDICATIONS: hypoxia new afib severe LLQ pain TECHNIQUE: Precontrast 5 mm thick sections acquired from the lung apices to the iliac crests. After the administration of intravenous contrast, 2.5 mm thick sections again acquired from the lung apices to the iliac crests. Maximum intensity projection (MIP) oblique sagittal and coronal reformats were then acquired. For radiation dose reduction, the following was used: automated exposure control. COMPARISON: [facility], CT, CT ANGIO CHEST PE PROTOCOL, 03/22/2021, 6:35. [facility], CT, CT CHEST W CON, 07/25/2019, 10:36. [facility], US, US THYROID, 04/08/2024, 14:13. [facility], CT, CT ABDOMEN PELVIS W CON, 05/11/2024, 22:05. [facility], CT, CT ABDOMEN PELVIS W CON, 08/28/2024, 14:38. FINDINGS: Image quality: Diagnostic. AORTA: On precontrast imaging, no findings of hyperdense mural hematomas can be seen. On postcontrast imaging, the aorta demonstrates normal caliber, without stenosis or aneurysm. No dissection flap is seen. No periaortic inflammatory change is seen. CHEST: Lower Neck: No enlarged lymph nodes. Thyroid: There is a 2 cm left thyroid nodule. Axillae: No enlarged lymph nodes. Chest Wall: Unremarkable. Lungs and Pleura: No pneumothorax or pleural effusions. There is mild dependent atelectasis seen on both sides. No consolidation or suspicious nodules. Heart: Heart size is normal. No pericardial effusion. Thoracic Vessels: Pulmonary arteries demonstrate normal size. Mediastinum and Radha: No enlarged lymph nodes. Esophagus: No wall thickening. No hiatal hernia. ABDOMEN: Liver: No solid mass. Gallbladder: No radiopaque gallstones or wall thickening. Biliary ducts: No biliary dilation. Pancreas: No ductal dilation. Spleen: Size is within normal limits. 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 No left adrenal nodules. Kidneys and Ureters: No hydronephrosis. No solid mass. No complex renal cystic lesion which requires follow up. Bowel and peritoneum: Within the left upper quadrant of the abdomen, there is an abnormally dilated loops of small bowel seen, measuring up to 6.5 cm. Adjacent to this dilated loop, there is a transition point seen, where there is thickened, hyperenhancing small bowel, as on series 5, image 188 and on series 9, image 50. The small bowel elsewhere is unremarkable. The colon demonstrates generalized [id number] wall thickening. There is inflammatory change seen adjacent to the distal descending colon and the sigmoid colon. The stomach is decompressed at the time of this study, limiting its evaluation. Ventral Wall: No hernia. Abdominal Nodes: No retroperitoneal or mesenteric adenopathy by size criteria. Vessels: Inferior vena cava is normal in size. PELVIS: Pelvic Organs: No adnexal masses are seen on either side. Bladder: A Cantor catheter is seen, which decompresses the bladder. Pelvic Nodes: No enlarged lymph nodes. Miscellaneous: No inguinal hernias are seen. There is a lipoma seen involving the right gluteus musculature, as on series 5, image 255. Bones: Unremarkable. IMPRESSION: Generalized colitis, which is worst involving the distal descending colon and the sigmoid colon. Please correlate with potential infectious and inflammatory causes. There is an abnormally dilated loop of small bowel seen within the left upper quadrant, with a nearby transition point. Partial small-bowel obstruction is suspected. No acute arterial abnormality is seen. Additional findings: 2 cm left thyroid nodule, as previously demonstrated Right adrenal lipoma Right gluteus musculature lipoma Cantor catheter Dictated by: Maximino Griffin M.D. on 11/15/2024 at 9:17 ECG Data Attestation: I personally reviewed and interpreted this ECG as follows: Prior ECG tracings: available for review Interpretation: Irregular wide complex rhythm Previous EKGs shows persistent left bundle branch block she did have episode of atrial fibrillation in 2020 MDM Narrative Medical decision making narrative: MDM CC: Weak pain left lower quadrant Complicating co-morbidities: Muscular dystrophy Data collected from: EMS, Medical records reviewed: Previous EKGs reviewed, last PCP note on 11/04/2024. Shows keeping her with gyro and stopping Jardiance. 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 Pertinent findings: WBC 17.7 Lactate 3.4--> 2.3--> 1.6 GI panel negative VBG shows pH of 7.32 the CO2 of 50.1 CMP sodium 142 potassium 3.8 chloride 108 carbon dioxide 21 BUN 17 creatinine 0.53 Bilirubin 1.7 AST 65 ALT 71 alk-phos 342 Ammonia undetectable Troponin negative x2 BNP 648 Independently reviewed EKG as above Wide complex irregular AFib PVCs rate 126 repeat EKGs shows wide complex rate 101 ST depressions 30 EKGs is similar Imaging studies independently reviewed: CT angio does not show any evidence of ischemic bowel. It does show generalized colitis or she was worse involving distal descending colon in the sigmoid colon. There is also dilated loop of small bowel in the left upper quadrant with an your by transition point partial small bowel obstruction is suspect Consultations: 10:41 Dr. Villarreal surgery updated on pain she was in symptoms test results went through CT scan. Request repeat lactate to determine if truly ischemic bowel wall. Does not think there is a small bowel obstruction suspects peristalsis. Is in ED to see and evaluate patient. Reports that patient does not appear ill and toxic recommends that patient be transferred 12:00Dr. Gem, hospitalist looked at patient updated on patient's symptoms and test results agrees that patient is too ill for [facility] Dr. Marcos, cardiology updated on patient's new nonsustained V-tach agrees with the amiodarone drip, happy to consult over at [facility] [address] Dr. Patterson, hospitalist at updated patient's symptoms test results and accepts patient 1730 Dr. Yanes updated on patient's symptoms test results reports that happy to consult on patient as [facility] Treatments: Sepsis fluids Zosyn metoprolol Dilaudid, amiodarone Re-evaluations: Patient had a large bowel movement GI panel sent which is ultimately negative. She started becoming more unresponsive after a dose of Dilaudid. She was given Narcan slowly woke up. However started having runs of V-tach. Given amiodarone 150 mg and started on a drip Discussion: Patient is 59-year-old female presenting to day with left lower quadrant pain. Started with vomiting last night and extreme weakness. Overall appears ill and toxic. Initially thought the patient had new onset atrial fibrillation however, looking back she may have had 1 episode in 2020 however she is not on anticoagulation or rate control medication. She does not know of history of atrial fibrillation or left bundle-branch block. Left bundle appears to be old and present on multiple old EKGs. Initial concern for ischemic bowel elevated lactate leukocytosis and new onset AFib. However pain is not out of proportion. CT angio does not show evidence of ischemic bowel. Questionable partial small bowel obstruction however surgery thought it was more of an ileus. She was not really throwing up anymore, and having multiple episodes of diarrhea. Patient is quite sleepy she does wake up. Became more unresponsive after Dilaudid required a dose of Narcan. Initial thoughts about intubation however she does respond to pain and seems to be protecting her airway so hold off intubation at this time. He was sleepy but definitely responds to pain. Patient receives sepsis fluids lactate and proved she was you now received 2 doses of Zosyn. She has had couple of episodes of diarrhea here in the ED I suspect colitis as the source of sepsis. I also suspect that sepsis is causing cardiac arrhythmia with nonsustained runs of V-tach. She remains on an amiodarone drip. Discussion with has been at bedside reports that patient is a full code intubation is CPR if needed. Patient remains stable. Blood pressure is holding with amiodarone not hypotensive not tachycardic. She did develop a fever here in the ED of 100.4 she was given IV Tylenol. She was requiring a small amount of oxygen but does not show any evidence of fluid overload or pneumonia. Patient was accepted at a hospital for special care more than 2 hours away. [facility] reports that they will have a bed later tonight. Awaiting hospitalist. Other consultants have been spoken to and agreed to consult. Patient is signed out to Dr. Whitney <Ban Whitney MD - Last Filed: 11/16/24 01:23> Lab Data Labs: Lab Results 11/15/24 11/15/24 11/15/24 Range/Units 09:12 09:16 11:06 WBC 17.7 H (4.5-11.0) X10^3/uL RBC 5.95 H (4.0-5.2) X10^6/uL Hgb 17.4 H (12.0-16.0) g/dL Hct 52.8 H (36-46) % MCV 88.8 (80-100) fL MCH 29.2 (26-34) PG MCHC 32.9 (30-36) % RDW 13.4 (11.6-14.8) % Plt Count 299 (150-400) X10^3/uL Neut % (Auto) 83.1 H (50-75) % Lymph % (Auto) 11.8 L (25-40) % Giles % (Auto) 4.2 (3-14) % Eos % (Auto) 0.6 L (2-4) % Baso % (Auto) 0.3 (0-2) % Neut # (Auto) 38479 H (5588-6212) /uL Lymph # (Auto) 2100 (9963-0582) /uL Giles # (Auto) 700 (0-900) /uL Eos # (Auto) 100 (0-450) /uL Baso # (Auto) 100 (0-100) /uL VBG pH 7.32 L (7.33-7.43) VBG pCO2 50.1 H (45-50) mmHg VBG pO2 23 L (35-45) mmHg VBG HCO3 26 (24-28) mmol/L VBG Total CO2 25 (24-29) mmol/L VBG O2 Saturation 34 L (70-75) % VBG Base Excess -1.5 L (0-4) mmol/L FiO2 % 21.0 % % Sodium 142 (137-145) mmol/L Potassium 3.8 (3.4-5.1) mmol/L Chloride 108 H (98-107) mmol/L Carbon Dioxide 21 L (22-32) mmol/L BUN 17 (7-17) mg/dL Creatinine 0.53 (0.52-1.04) mg/dL Estimated GFR > 60 (>60) mL/min BUN/Creatinine Ratio 32.1 H (6-22) Glucose 292 H (80-110) mg/dL Lactate 3.4 H 2.3 H (0.7-2.1) mmol/L Calcium 10.2 (8.4-10.2) mg/dL Total Bilirubin 1.7 H (0.2-1.3) mg/dL AST 65 H (14-36) IU/L ALT 71 H (<35) IU/L Alkaline Phosphatase 342 H (38-126) U/L Ammonia < 9 L (9-30) umol/L Total Creatine Kinase 61 (30-135) U/L Troponin I < 0.012 < 0.012 (0.01-0.034) ng/mL NT-Pro-B Natriuret Pep 648 H (<125) pg/mL Total Protein 6.8 (6.3-8.2) g/dL Albumin 4.4 (3.5-5.0) g/dL Globulin 2.4 (1.7-4.1) g/dL Albumin/Globulin Ratio 1.8 (1.0-2.8) Lipase 135 (23-300) U/L Urine Color Yellow Urine Appearance Clear Urine pH 7.0 (4.5-8.0) Ur Specific Chinle 1.010 (1.000-1.035) Urine Protein Negative (Negative) Urine Glucose (UA) 3+ H (Negative) g/dL Urine Ketones 1+ H (NEGATIVE) Urine Occult Blood Negative (Negative) Urine Nitrate Negative (Negative) Urine Bilirubin Negative (NEGATIVE) Urine Urobilinogen 4.0 H (0.2) E.U./dL Ur Leukocyte Esterase Negative (NEGATIVE) Urine RBC 0-1/hpf (0-5/HPF) Urine WBC 0-1/hpf (0-5/HPF) Ur Squamous Epith Cells 1-5 /hpf (0-5/HPF) Urine Bacteria Occasional (0-1) (None) Hyaline Casts 0-1/lpf (None) Ur Culture Indicated? Cult not indicated Vol Urine Centrifuged 10ml (spun) Stl C. cayetanensis PCR (Not Detect) Stool Rotavirus (PCR) (Not Detect) Stool Adenovirus (PCR) (Not Detect) Stool Astrovirus (PCR) (Not Detect) Stool Cryptosporidium PCR (Not Detect) Stl E.coli Shiga Tox PCR (Not Detect) St Sh/Enteroin Ecoli PCR (Not Detect) Stl Enterotoxigenic E PCR (Not Detect) Stool EPEC (PCR) (Not Detect) Stl E. histolytica PCR (Not Detect) Stool Giardia Lamblia PCR (Not Detect) Stool Sapovirus (PCR) (Not Detect) Stl P. shigelloides PCR (Not Detect) St Y.enterocolitica PCR (Not Detect) Stool Vibrio (PCR) (Not Detect) Stl Vibrio cholerae PCR (Not Detect) Stl Enteroaggr Ecoli PCR (Not Detect) Stl Norovirus GI/GII PCR (Not Detect) Ketones 0.73 H (<0.27) mmol/L Campylobacter (PCR) (Not Detect) C. difficile Tox (PCR) (Not Detect) Salmonella (PCR) (Not Detect) 11/15/24 11/15/24 Range/Units 13:07 13:15 WBC (4.5-11.0) X10^3/uL RBC (4.0-5.2) X10^6/uL Hgb (12.0-16.0) g/dL Hct (36-46) % MCV (80-100) fL MCH (26-34) PG MCHC (30-36) % RDW (11.6-14.8) % Plt Count (150-400) X10^3/uL Neut % (Auto) (50-75) % Lymph % (Auto) (25-40) % Giles % (Auto) (3-14) % Eos % (Auto) (2-4) % Baso % (Auto) (0-2) % Neut # (Auto) (9734-0647) /uL Lymph # (Auto) (3237-9383) /uL Giles # (Auto) (0-900) /uL Eos # (Auto) (0-450) /uL Baso # (Auto) (0-100) /uL VBG pH (7.33-7.43) VBG pCO2 (45-50) mmHg VBG pO2 (35-45) mmHg VBG HCO3 (24-28) mmol/L VBG Total CO2 (24-29) mmol/L VBG O2 Saturation (70-75) % VBG Base Excess (0-4) mmol/L FiO2 % % Sodium (137-145) mmol/L Potassium (3.4-5.1) mmol/L Chloride (98-107) mmol/L Carbon Dioxide (22-32) mmol/L BUN (7-17) mg/dL Creatinine (0.52-1.04) mg/dL Estimated GFR (>60) mL/min BUN/Creatinine Ratio (6-22) Glucose (80-110) mg/dL Lactate 1.6 (0.7-2.1) mmol/L Calcium (8.4-10.2) mg/dL Total Bilirubin (0.2-1.3) mg/dL AST (14-36) IU/L ALT (<35) IU/L Alkaline Phosphatase (38-126) U/L Ammonia (9-30) umol/L Total Creatine Kinase (30-135) U/L Troponin I (0.01-0.034) ng/mL NT-Pro-B Natriuret Pep (<125) pg/mL Total Protein (6.3-8.2) g/dL Albumin (3.5-5.0) g/dL Globulin (1.7-4.1) g/dL Albumin/Globulin Ratio (1.0-2.8) Lipase (23-300) U/L Urine Color Urine Appearance Urine pH (4.5-8.0) Ur Specific [place] (1.000-1.035) Urine Protein (Negative) Urine Glucose (UA) (Negative) g/dL Urine Ketones (NEGATIVE) Urine Occult Blood (Negative) Urine Nitrate (Negative) Urine Bilirubin (NEGATIVE) Urine Urobilinogen (0.2) E.U./dL Ur Leukocyte Esterase (NEGATIVE) Urine RBC (0-5/HPF) Urine WBC (0-5/HPF) Ur Squamous Epith Cells (0-5/HPF) Urine Bacteria (None) Hyaline Casts (None) Ur Culture Indicated? Vol Urine Centrifuged Stl C. cayetanensis PCR Not detected (Not Detect) Stool Rotavirus (PCR) Not detected (Not Detect) Stool Adenovirus (PCR) Not detected (Not Detect) Stool Astrovirus (PCR) Not detected (Not Detect) Stool Cryptosporidium PCR Not detected (Not Detect) Stl E.coli Shiga Tox PCR Not detected (Not Detect) St Sh/Enteroin Ecoli PCR Not detected (Not Detect) Stl Enterotoxigenic E PCR Not detected (Not Detect) Stool EPEC (PCR) Not detected (Not Detect) Stl E. histolytica PCR Not detected (Not Detect) Stool Giardia Lamblia PCR Not detected (Not Detect) Stool Sapovirus (PCR) Not detected (Not Detect) Stl P. shigelloides PCR Not detected (Not Detect) St Y.enterocolitica PCR Not detected (Not Detect) Stool Vibrio (PCR) Not detected (Not Detect) Stl Vibrio cholerae PCR Not detected (Not Detect) Stl Enteroaggr Ecoli PCR Not detected (Not Detect) Stl Norovirus GI/GII PCR Not detected (Not Detect) Ketones (<0.27) mmol/L Campylobacter (PCR) Not detected (Not Detect) C. difficile Tox (PCR) Not detected (Not Detect) Salmonella (PCR) Not detected (Not Detect) Point of care testing: Point of Care Testing Glucose POC 180 MDM Narrative Medical decision making narrative: MDM CC: Weak pain left lower quadrant Complicating co-morbidities: Muscular dystrophy Data collected from: EMS, Medical records reviewed: Previous EKGs reviewed, last PCP note on 11/04/2024. Shows keeping her with gyro and stopping Jardiance. 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 Pertinent findings: WBC 17.7 Lactate 3.4--> 2.3--> 1.6 GI panel negative VBG shows pH of 7.32 the CO2 of 50.1 CMP sodium 142 potassium 3.8 chloride 108 carbon dioxide 21 BUN 17 creatinine 0.53 Bilirubin 1.7 AST 65 ALT 71 alk-phos 342 Ammonia undetectable Troponin negative x2 BNP 648 Independently reviewed EKG as above Wide complex irregular AFib PVCs rate 126 repeat EKGs shows wide complex rate 101 ST depressions 30 EKGs is similar Imaging studies independently reviewed: CT angio does not show any evidence of ischemic bowel. It does show generalized colitis or she was worse involving distal descending colon in the sigmoid colon. There is also dilated loop of small bowel in the left upper quadrant with an your by transition point partial small bowel obstruction is suspect CT scan of the head does not show intracranial hemorrhage or other significant pathology Consultations: 10:41 Dr. Villarreal surgery updated on pain she was in symptoms test results went through CT scan. Request repeat lactate to determine if truly ischemic bowel wall. Does not think there is a small bowel obstruction suspects peristalsis. Is in ED to see and evaluate patient. Reports that patient does not appear ill and toxic recommends that patient be transferred 12:00Dr. Gem, hospitalist looked at patient updated on patient's symptoms and test results agrees that patient is too ill for [facility] Dr. Marcos, cardiology updated on patient's new nonsustained V-tach agrees with the amiodarontori [place], happy to consult over at [facility] [address] Dr[address] Patterson, hospitalist at updated patient's symptoms test results and accepts patient 1729 Dr. Yanes updated on patient's symptoms test results reports that happy to consult on patient as [facility] Treatments: Sepsis fluids Zosyn metoprolol Dilaudid, amiodarone Re-evaluations: Patient had a large bowel movement GI panel sent which is ultimately negative. She started becoming more unresponsive after a dose of Dilaudid. She was given Narcan slowly woke up. However started having runs of V-tach. Given amiodarone 150 mg and started on a drip Discussion: Patient is 59-year-old female presenting to day with left lower quadrant pain. Started with vomiting last night and extreme weakness. Overall appears ill and toxic. Initially thought the patient had new onset atrial fibrillation however, looking back she may have had 1 episode in 2020 however she is not on anticoagulation or rate control medication. She does not know of history of atrial fibrillation or left bundle-branch block. Left bundle appears to be old and present on multiple old EKGs. Initial concern for ischemic bowel elevated lactate leukocytosis and new onset AFib. However pain is not out of proportion. CT angio does not show evidence of ischemic bowel. Questionable partial small bowel obstruction however surgery thought it was more of an ileus. She was not really throwing up anymore, and having multiple episodes of diarrhea. Patient is quite sleepy she does wake up. Became more unresponsive after Dilaudid required a dose of Narcan. Initial thoughts about intubation however she does respond to pain and seems to be protecting her airway so hold off intubation at this time. He was sleepy but definitely responds to pain. Patient receives sepsis fluids lactate and proved she was you now received 2 doses of Zosyn. She has had couple of episodes of diarrhea here in the ED I suspect colitis as the source of sepsis. I also suspect that sepsis is causing cardiac arrhythmia with nonsustained runs of V-tach. She remains on an amiodarone drip. Discussion with has been at bedside reports that patient is a full code intubation is CPR if needed. Patient remains stable. Blood pressure is holding with amiodarone not hypotensive not tachycardic. She did develop a fever here in the ED of 100.4 she was given IV Tylenol. She was requiring a small amount of oxygen but does not show any evidence of fluid overload or pneumonia. Patient was accepted at a hospital for special care more than 2 hours away. [facility] reports that they will have a bed later tonight. Awaiting hospitalist. Other consultants have been spoken to and agreed to consult. Patient is signed out to Dr. Whitney 810pm Dr Whitney Reviewed with [facility] hospitalist. Will add head CT for altered mental status. Patient is accepted. Critical Care Time <Alla Marga, DO - Last Filed: 11/17/24 21:37> Critical Care Time Critical Care Time: Yes Total Critical Care Time: 45 Attestation: The high probability of a clinically significant, sudden or life threatening deterioration of the [cardiovascular] system(s) required my full and direct attention, intervention and personal management. The aggregate critical care time was [45] minutes. This time is in addition to time spent performing reported procedures but includes the following: [x] Data Review and interpretation [x] Patient assessment and monitoring of vital signs [x] Documentation [x] Medication orders and management Discharge Plan Departure Patient Disposition: [facility] Clinical Impression: Atrial fibrillation with rapid ventricular response, Colitis, Sepsis, Non- sustained ventricular tachycardia Prescriptions: No Action venlafaxine 37.5 mg capsule,extended release 24hr See Rx Instructions .ROUTE .COMPLEX Qty: 90 3RF Dose Instruction: TAKE 1 CAPSULE BY MOUTH DAILY Rx Instructions: TAKE 1 CAPSULE BY MOUTH DAILY atorvastatin 20 mg tablet 20 mg PO DAILY Qty: 90 3RF ondansetron 4 mg tablet,disintegrating 4 mg PO Q8H PRN (Reason: nausea and vomiting) Qty: 14 0RF (DME) lancets [BD Ultra Fine Lancets] 33 gauge misc See Rx Instructions .ROUTE .MEDSUPPLY Qty: 100 2RF Rx Instructions: Use to test blood glucose twice daily (DME) Blood Glucose Test Strip See Rx Instructions .ROUTE .MEDSUPPLY Qty: 100 2RF Rx Instructions: Use to test blood glucose twice daily. (DME) BD Ultra Fine Pen Tips 28G x 1/2 100 package See Rx Instructions .ROUTE .MEDSUPPLY Rx Instructions: Use 1 needle daily with victoza rx (DME) Parking Permit... See Rx Instructions .Route .MEDSUPPLY Qty: 1 0RF Rx Instructions: I find this patient to be medically disabled and qualified for Disabled Parking as indicated, and signed, on the Accompanying Disabled Parking Application for Individuals. Moduyenjaro 7.5 mg/0.5 mL pen injector 7.5 mg SUBCUT QWEEK Qty: 2 3RF Referrals: Rolly Merida MD [Primary Care Provider] -
--- NOTE | 2024-11-15 09:26 | DI.CT.S_ITS ---
PROCEDURE: CT ANGIO CHEST ABDOMEN PELVIS INDICATIONS: hypoxia new afib severe LLQ pain TECHNIQUE: Precontrast 5 mm thick sections acquired from the lung apices to the iliac crests. After the administration of intravenous contrast, 2.5 mm thick sections again acquired from the lung apices to the iliac crests. Maximum intensity projection (MIP) oblique sagittal and coronal reformats were then acquired. For radiation dose reduction, the following was used: automated exposure control. COMPARISON: [facility], CT, CT ANGIO CHEST PE PROTOCOL, 03/22/2021, 6:35. [facility], CT, CT CHEST W CON, 07/25/2019, 10:36. [facility], US, US THYROID, 04/08/2024, 14:13. [facility], CT, CT ABDOMEN PELVIS W CON, 05/11/2024, 22:05. [facility], CT, CT ABDOMEN PELVIS W CON, 08/28/2024, 14:38. FINDINGS: Image quality: Diagnostic. AORTA: On precontrast imaging, no findings of hyperdense mural hematomas can be seen. On postcontrast imaging, the aorta demonstrates normal caliber, without stenosis or aneurysm. No dissection flap is seen. No periaortic inflammatory change is seen. CHEST: Lower Neck: No enlarged lymph nodes. Thyroid: There is a 2 cm left thyroid nodule. Axillae: No enlarged lymph nodes. Chest Wall: Unremarkable. Lungs and Pleura: No pneumothorax or pleural effusions. There is mild dependent atelectasis seen on both sides. No consolidation or suspicious nodules. Heart: Heart size is normal. No pericardial effusion. Thoracic Vessels: Pulmonary arteries demonstrate normal size. Mediastinum and Radha: No enlarged lymph nodes. Esophagus: No wall thickening. No hiatal hernia. ABDOMEN: Liver: No solid mass. Gallbladder: No radiopaque gallstones or wall thickening. Biliary ducts: No biliary dilation. Pancreas: No ductal dilation. Spleen: Size is within normal limits. 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 No left adrenal nodules. Kidneys and Ureters: No hydronephrosis. No solid mass. No complex renal cystic lesion which requires follow up. Bowel and peritoneum: Within the left upper quadrant of the abdomen, there is an abnormally dilated loops of small bowel seen, measuring up to 6.5 cm. Adjacent to this dilated loop, there is a transition point seen, where there is thickened, hyperenhancing small bowel, as on series 5, image 188 and on series 9, image 50. The small bowel elsewhere is unremarkable. The colon demonstrates generalized [id number] wall thickening. There is inflammatory change seen adjacent to the distal descending colon and the sigmoid colon. The stomach is decompressed at the time of this study, limiting its evaluation. Ventral Wall: No hernia. Abdominal Nodes: No retroperitoneal or mesenteric adenopathy by size criteria. Vessels: Inferior vena cava is normal in size. PELVIS: Pelvic Organs: No adnexal masses are seen on either side. Bladder: A Cantor catheter is seen, which decompresses the bladder. Pelvic Nodes: No enlarged lymph nodes. Miscellaneous: No inguinal hernias are seen. There is a lipoma seen involving the right gluteus musculature, as on series 5, image 255. Bones: Unremarkable. IMPRESSION: Generalized colitis, which is worst involving the distal descending colon and the sigmoid colon. Please correlate with potential infectious and inflammatory causes. There is an abnormally dilated loop of small bowel seen within the left upper quadrant, with a nearby transition point. Partial small-bowel obstruction is suspected. No acute arterial abnormality is seen. Additional findings: 2 cm left thyroid nodule, as previously demonstrated Right adrenal lipoma Right gluteus musculature lipoma Cantor catheter Dictated by: Maximino Griffin M.D. on 11/15/2024 at 9:17 Approved by: Maximino Griffin M.D. on 11/15/2024 at 9:29
[2024-11-15] MEDS: PIPERACILLIN/TAZO 4.5 GM in SODIUM CHLORIDE 0.9% 100 ML IV (09:29)
[2024-11-15] MEDS: SODIUM CHLORIDE 0.9% 1,000 ML 1000 ML IV (09:30)
[2024-11-15] MEDS: METOPROLOL TARTRATE 5 MG/5 ML INJ IV (09:30)
[2024-11-15 09:33] LABS: Add Manual Diff / Slide Review NO; Basophils Absolute Auto 100 /uL (0-100); Basophils Percent Auto 0.3 % (0-2); Eosinophils Absolute Auto 100 /uL (0-450); Eosinophils Percent Auto 0.6 % (2-4); Hematocrit 52.8 % (36-46); Hemoglobin 17.4 g/dL (12.0-16.0); Lymphocytes Absolute Auto 2100 /uL (1100-4500); Lymphocytes Percent Auto 11.8 % (25-40); Mean Corpuscular HGB Conc 32.9 % (30-36); Mean Corpuscular Hemoglobin 29.2 PG (26-34); Mean Corpuscular Volume 88.8 fL (80-100); Monocytes Absolute Auto 700 /uL (0-900); Monocytes Percent Auto 4.2 % (3-14); Neutrophils Absolute Auto 14700 /uL (1500-7000); Neutrophils Percent Auto 83.1 % (50-75); Platelet Count 299 X10^3/uL (150-400); Red Blood Cell Count 5.95 X10^6/uL (4.0-5.2); Red Cell Distribution Width 13.4 % (11.6-14.8); White Blood Cell Count 17.7 X10^3/uL (4.5-11.0)
[2024-11-15 09:43] LABS: Creatine Kinase 61 U/L (30-135)
[2024-11-15 09:45] LABS: Alanine Aminotransferase 71 IU/L (<35); Albumin 4.4 g/dL (3.5-5.0); Albumin Globulin Ratio 1.8 (1.0-2.8); Alkaline Phosphatase 342 U/L (38-126); Aspartate Aminotransferase 65 IU/L (14-36); BUN Creatinine Ratio 32.1 (6-22); Bilirubin Total 1.7 mg/dL (0.2-1.3); Blood Urea Nitrogen 17 mg/dL (7-17); Calcium 10.2 mg/dL (8.4-10.2); Carbon Dioxide 21 mmol/L (22-32); Chloride 108 mmol/L (98-107); Estimated Glomerular Filt Rate > 60 mL/min (>60); Globulin 2.4 g/dL (1.7-4.1); Glucose 292 mg/dL (80-110); HEMOLYSIS 22 (0-50); Lactate (Lactic Acid) 3.4 mmol/L (0.7-2.1); Lipase 135 U/L (23-300); Potassium 3.8 mmol/L (3.4-5.1); Sodium 142 mmol/L (137-145); Total Protein 6.8 g/dL (6.3-8.2)
[2024-11-15] MEDS: HYDROMORPHONE 0.5 MG INJ IV ×2 (09:46→14:39)
[2024-11-15 09:51] LABS: Ketones (Beta-Hydroxybutyrate) 0.73 mmol/L (<0.27)
[2024-11-15 09:56] LABS: Troponin I < 0.012 ng/mL (0.01-0.034)
--- NOTE | 2024-11-15 10:15 | PC.NURSE ---
Pt resting on stretcher. appears more calm. arouses to light touch and when she wakes she starts pulling at lines and cords. acting slightly delirious when roused. at bedside. IVF and ABX infusing/ 600ml output dark clear. repeat EKG being done. pain appears controlled.
--- NOTE | 2024-11-15 10:19 | EKG_ITS ---
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
[2024-11-15 10:34] LABS: Appearance Urine UA CLEAR; Bilirubin Urine UA NEGATIVE (NEGATIVE); Color Urine UA YELLOW; Glucose Urine UA 3+ g/dL (Negative); Ketones Urine UA 1+ (NEGATIVE); Leukocyte Esterase Urine UA NEGATIVE (NEGATIVE); Nitrite Urine UA NEGATIVE (Negative); Occult Blood Urine UA NEGATIVE (Negative); Protein Urine UA NEGATIVE (Negative)
[2024-11-15 10:44] LABS: Bacteria Urine Occasional (0-1); Culture Indicated Urine Cult Not Indicated; Hyaline Casts Urine 0-1/LPF; RBC Urine 0-1/HPF (0-5/HPF); Squamous Epithelial Cell Urine 1-5 /HPF (0-5/HPF); Urine Volume 10mL (spun); WBC Urine 0-1/HPF (0-5/HPF)
[2024-11-15] MEDS: SODIUM CHLORIDE 0.9% 2,041.17 ML 680.39 ML IV (10:55)
[2024-11-15 11:03] LABS: Reflexed Lactate in 2 Hours Y
[2024-11-15 11:25] LABS: Ammonia (NH3) < 9 umol/L (9-30)
[2024-11-15 11:26] LABS: Lactate 2HR (Lactic Acid Rflx) 2.3 mmol/L (0.7-2.1)
--- NOTE | 2024-11-15 11:44 | P.CONS_ITS ---
History of Present Illness Consult details Date Patient Seen: 11/15/24 Time Patient Seen: 11:45 Chief complaint: Abd pain Reason for consult: abdominal pain Requesting provider: Alla Gresham Narrative: 59 yr old WF, presents with left sided abdominal pain. She has new onset a fib, and a new LBBB. She has long-standing colon thickening, for which she had an attempted colonoscopy in June, but was aborted for a poor prep. Per nursing, she was previously alert and oriented, but now she requires deep stimulation to open her eyes and responds in only moans. Meds Home Medications and Allergies Home Medications Medication Instructions Recorded Confirmed Type lancets 33 gauge (BD Ultra Fine #100 ea 08/02/20 11/04/24 Rx Lancets) blood sugar diagnostic (Blood #100 ea 01/31/21 11/04/24 Rx Glucose Test strips) BD Ultra Fine Pen Tips 28G x 1/2 03/28/21 11/04/24 History Parking Permit... #1 ea 07/13/22 11/04/24 Rx atorvastatin 20 mg tablet 20 mg PO DAILY #90 tabs 10/07/24 11/04/24 Rx venlafaxine 37.5 mg See Rx Instructions .Route 10/07/24 11/04/24 Rx capsule,extended release 24 hr .COMPLEX #90 caps ondansetron 4 mg disintegrating 4 mg PO Q8H PRN nausea and 10/24/24 11/04/24 Rx tablet vomiting #14 tabs tirzepatide 7.5 mg/0.5 mL 7.5 mg (0.5 mL) SUBCUT QWEEK #2 mL 11/04/24 11/04/24 Rx subcutaneous pen injector (Mounandrésro) Allergies Allergy/AdvReac Type Severity Reaction Status Date / Time latex [LATEX] Allergy Severe hives Verified 11/04/24 14:53 adhesive [ADHESIVE] AdvReac Mild rash from Verified 11/04/24 14:53 tape morphine [MORPHINE] AdvReac Mild gi upset Verified 11/04/24 14:53 Sulfa (Sulfonamide AdvReac Mild gi upset Verified 11/04/24 14:53 Antibiotics) [SULFA (SULFONAMIDE ANTIBIOTICS)] Review of Systems Review of Systems ROS: Yes unobtainable due to mental status Exam Vital Signs (past 8 hours): - 11/15/24 08:57 11/15/24 08:57 11/15/24 09:00 Temperature Pulse Rate 105 H 131 H Respiratory Rate 28 H Blood Pressure 163/113 H Pulse Oximetry 90 L 91 Oxygen Delivery Method Oxygen Flow Rate 11/15/24 09:00 11/15/24 09:05 11/15/24 09:15 Temperature 97 F L 97.0 F L Pulse Rate 122 H 114 H Respiratory Rate 16 27 H Blood Pressure 156/92 H 156/92 H Pulse Oximetry 94 87 L Oxygen Delivery Method Room Air Oxygen Flow Rate 11/15/24 09:19 11/15/24 09:19 11/15/24 09:30 Temperature 97.2 F L Pulse Rate 102 H Respiratory Rate 23 Blood Pressure 151/87 H 145/79 H Pulse Oximetry 92 Oxygen Delivery Method Oxygen Flow Rate 11/15/24 09:30 11/15/24 09:40 11/15/24 09:40 Temperature 97.5 F L 97.9 F Pulse Rate 129 H 116 H Respiratory Rate 25 H 22 Blood Pressure 123/85 Pulse Oximetry 97 98 Oxygen Delivery Method Oxygen Flow Rate 11/15/24 09:41 11/15/24 09:41 11/15/24 09:45 Temperature 97.9 F Pulse Rate 116 H Respiratory Rate 22 Blood Pressure 137/80 136/88 Pulse Oximetry 98 Oxygen Delivery Method Oxygen Flow Rate 11/15/24 09:45 11/15/24 09:50 11/15/24 09:50 Temperature 97.7 F 97.9 F Pulse Rate 112 H 114 H Respiratory Rate 18 15 Blood Pressure 130/66 Pulse Oximetry 98 95 Oxygen Delivery Method Oxygen Flow Rate 11/15/24 09:54 11/15/24 09:54 11/15/24 09:55 Temperature 98.1 F 98.1 F Pulse Rate 100 H 98 H Respiratory Rate 14 13 Blood Pressure 128/66 Pulse Oximetry 96 96 Oxygen Delivery Method Oxygen Flow Rate 11/15/24 09:55 11/15/24 10:00 11/15/24 10:00 Temperature 98.1 F Pulse Rate 103 H Respiratory Rate 12 Blood Pressure 109/65 125/70 Pulse Oximetry 93 Oxygen Delivery Method Oxygen Flow Rate 11/15/24 10:10 11/15/24 10:10 11/15/24 10:15 Temperature 98.1 F 98.1 F Pulse Rate 101 H 101 H Respiratory Rate 19 12 Blood Pressure 116/63 Pulse Oximetry 97 98 Oxygen Delivery Method Oxygen Flow Rate 11/15/24 10:20 11/15/24 10:20 11/15/24 10:30 Temperature 97.9 F 97.9 F Pulse Rate 100 H 92 H Respiratory Rate 20 23 Blood Pressure 116/64 Pulse Oximetry 99 97 Oxygen Delivery Method Oxygen Flow Rate 11/15/24 10:30 11/15/24 10:40 11/15/24 10:40 Temperature 98.1 F Pulse Rate 93 H Respiratory Rate 17 Blood Pressure 124/70 132/70 Pulse Oximetry 96 Oxygen Delivery Method Oxygen Flow Rate 11/15/24 10:45 11/15/24 10:50 11/15/24 10:50 Temperature 98.2 F 98.2 F Pulse Rate 94 H 96 H Respiratory Rate 13 17 Blood Pressure 130/73 Pulse Oximetry 97 96 Oxygen Delivery Method Oxygen Flow Rate 11/15/24 10:58 11/15/24 10:58 11/15/24 11:00 Temperature 98.4 F Pulse Rate 96 H Respiratory Rate 19 Blood Pressure 122/77 129/82 Pulse Oximetry 96 Oxygen Delivery Method Oxygen Flow Rate 11/15/24 11:00 11/15/24 11:10 11/15/24 11:10 Temperature 98.4 F 98.6 F Pulse Rate 96 H 96 H Respiratory Rate 18 15 Blood Pressure 118/74 Pulse Oximetry 98 97 Oxygen Delivery Method Oxygen Flow Rate 11/15/24 11:15 11/15/24 11:20 11/15/24 11:20 Temperature 98.8 F 98.8 F Pulse Rate 96 H 96 H Respiratory Rate 15 16 Blood Pressure 116/70 Pulse Oximetry 97 97 Oxygen Delivery Method Oxygen Flow Rate 11/15/24 11:30 11/15/24 11:30 Temperature 99.0 F Pulse Rate 97 H Respiratory Rate 17 Blood Pressure 119/70 Pulse Oximetry 97 Oxygen Delivery Method Nasal Cannula Oxygen Flow Rate 2 Oxygen Delivery Method Nasal Cannula Oxygen Flow Rate 2 Narrative Exam Narrative: abdomen is soft, non-distended, and she does not wince on deep palpation of her abdomen Const General: ill appearing and lethargic Orientation: obtunded Objective Imaging CT scan - abdomen: My impression: no oral contrast was administered. IV CTA contrast does not show an embolus to the SMA or celiac on my review. She does have diffuse colonic thickening and, distinct from this, some dilated small bowel. no significant free fluid, no diverticulitis, no free air Labs 11/15/24 09:12 11/15/24 09:12 Labs: Laboratory Results - last 24 hr 11/15/24 11/15/24 11/15/24 09:12 09:16 11:06 WBC 17.7 H RBC 5.95 H Hgb 17.4 H Hct 52.8 H MCV 88.8 MCH 29.2 MCHC 32.9 RDW 13.4 Plt Count 299 Neut % (Auto) 83.1 H Lymph % (Auto) 11.8 L [place] % (Auto) 4.2 Eos % (Auto) 0.6 L Baso % (Auto) 0.3 Neut # (Auto) 09612 H Lymph # (Auto) 2100 [place] # (Auto) 700 Eos # (Auto) 100 Baso # (Auto) 100 VBG pH 7.32 L VBG pCO2 50.1 H VBG pO2 23 L VBG HCO3 26 VBG Total CO2 25 VBG O2 Saturation 34 L VBG Base Excess -1.5 L FiO2 % 21.0 % Sodium 142 Potassium 3.8 Chloride 108 H Carbon Dioxide 21 L BUN 17 Creatinine 0.53 Estimated GFR > 60 BUN/Creatinine Ratio 32.1 H Glucose 292 H Lactate 3.4 H 2.3 H Calcium 10.2 Total Bilirubin 1.7 H AST 65 H ALT 71 H Alkaline Phosphatase 342 H Ammonia < 9 L Total Creatine Kinase 61 Troponin I < 0.012 Total Protein 6.8 Albumin 4.4 Globulin 2.4 Albumin/Globulin Ratio 1.8 Lipase 135 Urine Color Yellow Urine Appearance Clear Urine pH 7.0 Ur Specific [place] 1.010 Urine Protein Negative Urine Glucose (UA) 3+ H Urine Ketones 1+ H Urine Occult Blood Negative Urine Nitrate Negative Urine Bilirubin Negative Urine Urobilinogen 4.0 H Ur Leukocyte Esterase Negative Urine RBC 0-1/hpf Urine WBC 0-1/hpf Ur Squamous Epith Cells 1-5 /hpf Urine Bacteria Occasional (0-1) Hyaline Casts 0-1/lpf Ur Culture Indicated? Cult not indicated Vol Urine Centrifuged 10ml (spun) Ketones 0.73 H PFSH Medical History Colon wall thickening Elevated liver enzymes Major depressive disorder, single episode, mild Myotonic muscular dystrophy Other hemoglobinopathies Hyperparathyroidism Type 2 diabetes mellitus with other specified complication Type 2 diabetes mellitus without complication (09/05/16) Degenerative joint disease (DJD) of hip Hypokalemia Elevated blood pressure reading in office without diagnosis of hypertension Head contusion Impacted cerumen of left ear Right otitis externa Nga syndrome Ptosis Gait instability Herniated nucleus pulposus, L4-5 Chronic low back pain Herpes (2002) Diabetes Hyperlipidemia Surgical History History of colonoscopy with polypectomy (11/05/13) Status post hysteroscopic myomectomy (07/19/12) History of right cataract surgery (08/03/09) History of left cataract surgery (07/20/09) Status post laparoscopic supracervical hysterectomy Family History Father Diabetes mellitus Coronary arteriosclerosis Hyperlipidemia [place] (myocardial infarction) Mother Colon cancer Social History marital status: details: Pt. self-employeed. household members: spouse lives independently: Yes occupational status: employed Tobacco & Substance Use alcohol intake: never substance use type: does not use Diet and Exercise eating out: rarely or never Type(s) of exercise: walking Assessment & Plan Assessment and plan (1) Septic shock: Status: Acute Plan This patient is obtunded, with elevated lactate and bilirubin, consistent with septic shock. Her colon thickening has been present for months, in varying degrees, but may be the cause of, or the result of the septic shock. With her new LBBB and new A fib, she should be at a facility with cardiologists, and I recommended urgent transfer in discussion with Dr. Gresham. Time-Based Coding :: [TOTAL MINUTES] spent with patient and on the chart (including review of chart, obtaining history, exam, reviewing outside data, placing orders, documenting exam and treatment plan, and counseling patient) on [DATE]. PROFEE Charge Codes Inpatient or Observation consultation: [id number]
[2024-11-15 12:07] LABS: NT-proBNP (BNP-Adult 18+) 648 pg/mL (<125)
[2024-11-15 12:10] LABS: Troponin I < 0.012 ng/mL (0.01-0.034)
[2024-11-15 13:35] LABS: Lactate (Lactic Acid) 1.6 mmol/L (0.7-2.1)
--- NOTE | 2024-11-15 13:45 | PC.NURSE ---
1300 Patient very restless in bed and states I need to go to the bathroom this RN and LEILA Fong changed patient brief, copious amounts of loose stool, obtained sample, provider Marga is aware. At 1330 patient again becomes very restless and needs to use the bathroom, this RN and LEILA Posadas changed brief again, moderate amount of loose stool some dm blood noted. Patient is alert and oriented to self only and situation, mostly sleeping arousable to touch.
[2024-11-15 14:37] LABS: Adenovirus F 40/41 Not Detected (Not Detect); Astrovirus Not Detected (Not Detect); Campylobacter Not Detected (Not Detect); Clostridium difficile toxin AB Not Detected (Not Detect); Cryptosporidium Not Detected (Not Detect); Cyclospora cayetanensis Not Detected (Not Detect); Entamoeba histolytica Not Detected (Not Detect); Enteroaggregative E.coli Not Detected (Not Detect); Enteropathogenic E.coli Not Detected (Not Detect); Enterotoxigenic E.coli It/st Not Detected (Not Detect); Giardia lamblia Not Detected (Not Detect); Norovirus GI/GII Not Detected (Not Detect); Plesiomonsa shigelloides Not Detected (Not Detect); Rotavirus A Not Detected (Not Detect); Salmonella Not Detected (Not Detect); Sapovirus Not Detected (Not Detect); Shiga-like toxin-prod E.coli Not Detected (Not Detect); Shigella/Enteroinvasive E.coli Not Detected (Not Detect); Vibrio Not Detected (Not Detect); Vibrio cholerae Not Detected (Not Detect); Yersinia enterocolitica Not Detected (Not Detect)
[2024-11-15] MEDS: ACETAMINOPHEN IV 1,000 MG/100 ML VIAL 400 MG IV (14:39)
[2024-11-15] MEDS: SODIUM CHLORIDE 0.9% 1,000 ML 125 ML IV (14:40)
[2024-11-15] MEDS: NALOXONE 1 MG/ML SYRINGE 0.4 MG IV (15:00)
[2024-11-15] MEDS: AMIODARONE 150 MG/100 ML PIGGYBACK 600 MG IV (15:11)
--- NOTE | 2024-11-15 15:12 | PC.NURSE ---
Entered room to help primary RN assess patient. Pt appears diaphoretic. unable to rouse with noxious stim. temp noted to be 100.0. and noted to have runs of VTACH. Dr Gresham made aware. at bedside. verbal order for 0.4mg IV narcan. given. mild improvement. pt opened eyes to noxious stim. placed on capnography. Verbal order for 150mg amiodarone over 10 min. being given. Moving pt to trauma 1 for potential intubation.
[2024-11-15] MEDS: AMIODARONE 360 MG/200 ML PIGGYBACK 33.33 MG IV (15:34)
[2024-11-15] MEDS: PIPERACILLIN/TAZO 3.375 GM in SODIUM CHLORIDE 0.9% 100 ML IV (17:10)
--- NOTE | 2024-11-15 20:11 | DI.CT.S_ITS ---
PROCEDURE: CT HEAD/BRAIN WO CON INDICATIONS: altered mental status TECHNIQUE: Noncontrast 4.5 mm thick angled axial sections acquired from the foramen magnum to the vertex, with coronal and sagittal reformats. For radiation dose reduction, the following was used: automated exposure control, adjustment of mA and/or kV according to patient size. COMPARISON: [facility], CT, CT HEAD/BRAIN WO CON, 03/08/2019, 13:45. [facility], CT, CT ANGIO CHEST ABDOMEN PELVIS, 11/15/2024, 9:35. [facility], CT, CT HEAD/BRAIN WO CON, 08/29/2023, 14:07. FINDINGS: Image quality: Diagnostic. CSF spaces: Basal cisterns are patent. No extra-axial fluid collections. The ventricles are symmetric in size and shape. Brain: No intracranial bleeds or masses. There is cerebral volume loss for age, with resultant ventricular and sulcal prominence. There are periventricular and deep white matter chronic small vessel ischemic changes. There is intracranial internal carotid artery atherosclerosis. Skull and face: Calvarium and visualized facial bones appear intact, without suspicious lesions. Incidental note is made of hyperostosis frontalis. This is not considered to be pathologic in a woman of this age. Sinuses: Visualized sinuses and mastoids are clear. IMPRESSION: Unremarkable noncontrast head CT, similar to prior. Dictated by: Maximino Griffin M.D. on 11/15/2024 at 19:49 Approved by: Maximino Griffin M.D. on 11/15/2024 at 19:50
--- NOTE | 2024-11-15 21:33 | PC.NURSE ---
Patient is more alert and speaking in full sentences, able to make her needs known. Dr Whitney ok'd ice chips. Patient was able to talk with her sister Lavinia and this RN gave her an update.
== END 2024-11-15 23:40 | disposition short-term general hospital (02) ==
PROVIDERS: Emergency Medicine; Emergency Provider Emergency Medicine; PCP Family Medicine
DX: I48.20 Chronic atrial fibrillation, unspecified (principal); K52.9 Noninfective gastroenteritis and colitis, unspecified; A41.9 Sepsis, unspecified organism; I44.7 Left bundle-branch block, unspecified; R09.02 Hypoxemia; I47.29 Other ventricular tachycardia
CPT/HCPCS: 36415; 70450; 71275; 74174; 80053; 81001; 82009; 82140; 82550; 82805; 82962; 83605; 83690; 83880; 84484; 85025; 87040; 87507; 93005; 96361; 96365; 96366; 96367; 96368; 96375; 96376; 99285; 99291; J0131; J0282; J1171; J2310; J2543; Q9967

== ENCOUNTER → 2024-12-15 15:52 | Outpatient (CLI) | payer MEDICARE, MEDICAID, SELFPAY ==
[2022-12-04 13:26] VITALS: BMI 25.6
[2024-12-15 17:01] LABS: Add Manual Diff / Slide Review NO; Basophils Absolute Auto 100 /uL (0-100); Basophils Percent Auto 0.9 % (0-2); Eosinophils Absolute Auto 200 /uL (0-450); Eosinophils Percent Auto 2.1 % (2-4); Hematocrit 47.2 % (36-46); Hemoglobin 15.6 g/dL (12.0-16.0); Lymphocytes Absolute Auto 3200 /uL (1100-4500); Lymphocytes Percent Auto 38.4 % (25-40); Mean Corpuscular Hemoglobin 29.8 PG (26-34); Mean Corpuscular Volume 90.2 fL (80-100); Monocytes Absolute Auto 600 /uL (0-900); Monocytes Percent Auto 7.2 % (3-14); Neutrophils Absolute Auto 4200 /uL (1500-7000); Neutrophils Percent Auto 51.4 % (50-75); Platelet Count 328 X10^3/uL (150-400); Red Blood Cell Count 5.23 X10^6/uL (4.0-5.2); Red Cell Distribution Width 14.7 % (11.6-14.8); White Blood Cell Count 8.2 X10^3/uL (4.5-11.0)
[2024-12-15 17:10] LABS: Hemoglobin A1C% w Est Avg Glu 5.6 % (4.0-6.0)
[2024-12-15 17:25] LABS: Alanine Aminotransferase 63 IU/L (<35); Albumin 4.3 g/dL (3.5-5.0); Albumin Globulin Ratio 1.9 (1.0-2.8); Alkaline Phosphatase 138 U/L (38-126); Aspartate Aminotransferase 42 IU/L (14-36); BUN Creatinine Ratio 31.9 (6-22); Bilirubin Total 0.8 mg/dL (0.2-1.3); Blood Urea Nitrogen 15 mg/dL (7-17); Calcium 10.7 mg/dL (8.4-10.2); Carbon Dioxide 28 mmol/L (22-32); Chloride 107 mmol/L (98-107); Estimated Glomerular Filt Rate > 60 mL/min (>60); Globulin 2.3 g/dL (1.7-4.1); Glucose 137 mg/dL (70-99); HEMOLYSIS 21 (0-50); Sodium 141 mmol/L (137-145); Total Protein 6.6 g/dL (6.3-8.2)
== END ==
PROVIDERS: PCP Family Medicine; Referring Provider Family Medicine; Visit Provider Internal Medicine Cardiovascular Disease
DX: E11.69 Type 2 diabetes mellitus with other specified complication (principal); I50.20 Unspecified systolic (congestive) heart failure; I42.9 Cardiomyopathy, unspecified; E21.3 Hyperparathyroidism, unspecified
CPT/HCPCS: 36415; 80053; 83036; 85025

== ENCOUNTER → 2024-12-18 11:32 | Outpatient (CLI) | payer MEDICARE, MEDICAID, SELFPAY ==
[2022-12-04 13:26] VITALS: BMI 25.6
[2024-12-18 12:40] LABS: HEMOLYSIS < 15 (0-50); Potassium 4.7 mmol/L (3.4-5.1)
== END ==
PROVIDERS: PCP Family Medicine; Referring Provider Family Medicine; Visit Provider Internal Medicine Cardiovascular Disease
DX: E87.5 Hyperkalemia (principal)
CPT/HCPCS: 36415; 84132

== ENCOUNTER → 2025-02-05 15:44 | Outpatient (CLI) | payer MEDICARE, MEDICAID, SELFPAY ==
[2022-12-04 13:26] VITALS: BMI 25.6
[2025-02-08 07:07] LABS: Calcium 11.0 mg/dL (8.7-10.3); Parathyroid Hormone, Intact 88 pg/mL (15-65)
== END ==
LOC: LAB 15:47
PROVIDERS: PCP Family Medicine; Referring Provider Family Medicine; Visit Provider Family Medicine
DX: E21.3 Hyperparathyroidism, unspecified (principal)
CPT/HCPCS: 36415; 82310; 83970

== ENCOUNTER → 2025-02-24 11:29 | Outpatient (CLI) | payer MEDICARE, MEDICAID, SELFPAY ==
[2022-12-04 13:26] VITALS: BMI 25.6
--- NOTE | 2025-02-24 11:30 | DI.MG.S_ITS ---
MM screening mammo BI: 02/24/2025. BI-RADS: 1 CLINICAL: 59-year old female for bilateral screening mammogram. Tyrer-Cuzick lifetime risk of 5.1%. No personal or first-degree family history of breast cancer. PRIOR EXAMS 04/26/2023, 06/08/2021, 08/13/2019, 04/16/2018. MAMMOGRAPHY TECHNIQUE: 2D and 3D (tomosynthesis) digital mammographic views obtained, with additional images as needed for full coverage. Current study was also evaluated with a Computer Aided Detection (CAD) system. DENSITY C. The breasts are heterogeneously dense, which may obscure small masses. MAMMOGRAPHY FINDINGS Bilateral: No suspicious mass, asymmetry, microcalcification, or other abnormality seen. No significant change from comparison. IMPRESSION: * No evidence of malignancy. RECOMMENDATIONS Bilateral * Annual screening mammography. OVERALL ASSESSMENT CATEGORY BI-RADS-1: Negative. [employer] recommends annual screening mammography beginning at age 40 for women with average risk of breast cancer. ELECTRONICALLY SIGNED: Xochilt Kenney M.D. on 02/24/2025 at 05:04:04 PM PT Interpreting Station ID: [id number]
--- NOTE | 2025-02-24 11:30 | DI.US.S_ITS ---
PROCEDURE: US THYROID INDICATIONS: Thyroid nodule TECHNIQUE: Real-time scanning was performed of the thyroid gland, with image documentation. COMPARISON: [facility], US, THYROID, 09/07/2016, 11:41. [facility], CT, CT CHEST ABDOMEN PELVIS WITH CONTRAST, 11/18/2024, 17:08. [facility], US, US THYROID, 04/26/2023, 13:54. FINDINGS: Thyroid: Right lobe measures 5.4 x 1.4 x 1.3 cm. Left lobe measures 6.2 x 2 x 1.9 cm. Isthmus is 0.2 cm thick. Echotexture is heterogeneous. Nodule number: 1 Location: Left inferior Size: 3.1 x 2 x 1.8 cm. (Previously 2.8 x 2.1 x 1.7 cm, and more remotely 3.1 x 2.3 x 2.2 cm in 2016). Composition: solid Echogenicity: Isoechoic Shape: wider than tall. Margins: Ill-defined Echogenic foci: None Total points: 3 ACR TI-RADS category: TR 3. Prior FNA in 2020. Finding number: 2 Location: Left superior and likely lateral to the thyroid gland Size: 2.5 x 1.3 x 0.7 cm. Echogenicity: Hypoechoic Margins: Smooth Echogenic foci: None IMPRESSION: Left inferior thyroid nodule measuring 3.1 cm. TR 3. Not significantly changed compared to 2016. Prior FNA in 2020. Small nodule posterior lateral to the left thyroid gland measuring 0.7 cm short axis diameter. This could represent a small lymph node. Other diagnostic considerations include a parathyroid gland or adenoma. ACR TI-RADS definitions and recommendations: TI-RADS 1 (benign): 0 points. FNA not needed. TI-RADS 2 (not suspicious): 2 points. FNA not needed. TI-RADS 3: 3 points. * FNA if 2.5 cm or larger, follow up if 1.5 cm or larger (at 1, 3, and 5 years). TI-RADS 4: 4-6 points. * FNA if 1.5 cm or larger, follow up if 1 cm or larger (at 1, 2, 3, and 5 years). TI-RADS 5: 7 points or more. * FNA if 1 cm or larger, follow up if 0.5 cm or larger (every year for 5 years). Dictated by: Akhil Lopez M.D. on 02/26/2025 at 11:47 Approved by: Akhil Lopez M.D. on 02/26/2025 at 12:00
--- NOTE | 2025-02-24 11:30 | DI.US.S_ITS ---
PROCEDURE: US ABDOMEN LIMITED INDICATIONS: RIGHT GLUTEAL MUSCLE MASS ON CT TECHNIQUE: Real-time focused scanning was performed of the inguinal region, with image documentation. COMPARISON: None. FINDINGS: Targeted sonographic imaging over the right gluteal region was performed. No discrete mass or fluid collection is seen. IMPRESSION: Unremarkable exam. Dictated by: Cara Medel M.D. on 02/24/2025 at 15:32 Approved by: Cara Medel M.D. on 02/24/2025 at 15:33
== END ==
LOC: MAMMO 11:29
PROVIDERS: PCP Family Medicine; Referring Provider Family Medicine; Visit Provider Family Medicine
DX: Z12.31 Encounter for screening mammogram for malignant neoplasm of breast (principal); R92.333 Mammographic heterogeneous density, bilateral breasts; R19.00 Intra-abdominal and pelvic swelling, mass and lump, unspecified site; E04.2 Nontoxic multinodular goiter
CPT/HCPCS: 76536; 76705; 77063; 77067

== ENCOUNTER → 2025-03-02 15:56 | Outpatient (CLI) | payer MEDICARE, MEDICAID, SELFPAY ==
[2022-12-04 13:26] VITALS: BMI 25.6
[2025-03-02 18:36] LABS: Add Manual Diff / Slide Review NO; Blood Urea Nitrogen 17 mg/dL (7-17); Calcium 11.0 mg/dL (8.4-10.2); Carbon Dioxide 30 mmol/L (22-32); Chloride 105 mmol/L (98-107); Estimated Glomerular Filt Rate > 60 mL/min (>60); Glucose 137 mg/dL (70-99); HEMOLYSIS < 15 (0-50); Hematocrit 45.5 % (36-46); Hemoglobin 15.7 g/dL (12.0-16.0); Lymphocytes Absolute Auto 2700 /uL (1100-4500); Mean Corpuscular HGB Conc 34.6 % (30-36); Mean Corpuscular Hemoglobin 30.6 PG (26-34); Mean Corpuscular Volume 88.6 fL (80-100); Platelet Count 306 X10^3/uL (150-400); Potassium 5.2 mmol/L (3.4-5.1); Sodium 141 mmol/L (137-145)
== END ==
PROVIDERS: PCP Family Medicine; Referring Provider Internal Medicine; Visit Provider Internal Medicine
DX: I44.7 Left bundle-branch block, unspecified (principal); I50.22 Chronic systolic (congestive) heart failure
CPT/HCPCS: 36415; 80048; 85025

== ENCOUNTER → 2025-03-03 07:52 | Outpatient (CLI) | payer MEDICARE, MEDICAID, SELFPAY ==
[2022-12-04 13:26] VITALS: BMI 25.6
--- NOTE | 2025-03-03 07:53 | DI.US.S_ITS ---
PROCEDURE: US PELVIC COMPLETE INDICATIONS: PELVIC MASS TECHNIQUE: Real-time scanning was performed of the pelvic organs, with image documentation. Additional endovaginal scanning was necessary due to incomplete visualization of the adnexal and endometrial structures by transabdominal scanning. COMPARISON: None. FINDINGS: Uterus: Hysterectomy Ovaries: Oophorectomy Other: No pathologic free abdominal or pelvic fluid. Normal peristalsing bowel noted. IMPRESSION: Unremarkable ultrasound pelvis status post hysterectomy and bilateral oophorectomy Approved by: Ron Lamb M.D. on 03/03/2025 at 14:07
== END ==
LOC: US 07:52
PROVIDERS: PCP Family Medicine; Referring Provider Family Medicine; Visit Provider Family Medicine
DX: R19.00 Intra-abdominal and pelvic swelling, mass and lump, unspecified site (principal); Z90.710 Acquired absence of both cervix and uterus; Z90.722 Acquired absence of ovaries, bilateral
CPT/HCPCS: 76830; 76856

== ENCOUNTER 2025-05-20 12:57 | Emergency (ER) | payer MEDICARE, MEDICAID, SELFPAY ==
[2022-12-04 13:26] VITALS: BMI 25.6
[2025-05-20] VITALS (11 sets, daily range): BP systolic 117–140; BP diastolic 65–70; PULSE 60–77; RESP 16–28; TEMP 36.4; O2SAT 95–99; BMI 21.9
--- NOTE | 2025-05-20 13:47 | DI.RAD.S_ITS ---
PROCEDURE: XR CHEST 1V INDICATIONS: chest pain TECHNIQUE: One view of the chest was acquired. COMPARISON: [facility], CR, XR CHEST 1V, 12/25/2022, 1:26. FINDINGS: Surgical changes and devices: Interval AICD placement Lungs and pleura: Lungs are clear. No pleural effusions or pneumothorax. Mediastinum: Mediastinal contours appear normal. Heart size is normal. Bones and chest wall: No suspicious bony lesions. Overlying soft tissues appear unremarkable. IMPRESSION: No acute cardiopulmonary abnormality is seen. Dictated by: Dhiraj Fleming M.D. on 05/20/2025 at 14:18 Approved by: Dhiraj Fleming M.D. on 05/20/2025 at 14:19
--- NOTE | 2025-05-20 13:47 | EKG_ITS ---
[address] [address] Test Date: 2025-05-20 Pat Name: Ange Armenta Department: Room: Gender: Female Care Professional: ZEN : 1965 Requested By: Order Number: [id number] Reading MD: Adryan Dominguez MD Measurements Intervals Wirtz Rate: 60 P: W[place]: 276 QRS: -44 QRSD: 156 T: 117 QT: 486 QTc: 486 Interpretive Statements AV dual-paced rhythm with prolonged AV conduction Biventricular pacemaker detected Electronically Signed On 05-21-2025 7:20:41 PDT by Adryan Dominguez MD
--- NOTE | 2025-05-20 13:53 | PC.NURSE ---
Assumed care at 1350. Pt resting in bed. awake, alert, NAD. pacemaker failed to read, called [employer]. awaiting rep call back.
[2025-05-20 13:55] LABS: Add Manual Diff / Slide Review NO; Hematocrit 46.9 % (36-46); Hemoglobin 15.9 g/dL (12.0-16.0); Lymphocytes Absolute Auto 2700 /uL (1100-4500); Mean Corpuscular HGB Conc 33.9 % (30-36); Mean Corpuscular Hemoglobin 29.2 PG (26-34); Mean Corpuscular Volume 86.2 fL (80-100); Platelet Count 287 X10^3/uL (150-400)
[2025-05-20 13:56] LABS: INR 1.1 (0.9-1.3); Prothrombin Time 12.5 SECONDS (9.4-12.5)
[2025-05-20 13:59] LABS: PTT Partial Thromboplastin Tim 37 SECONDS (25.1-36.5)
--- NOTE | 2025-05-20 13:59 | ED.WEAKNESS ---
HPI - Weakness General Chief complaint: Weakness Stated complaint: pacemaker, hard to breathe, told to come in by PCP Time Seen by Provider: 05/20/25 12:58 Source: patient Mode of arrival: Ambulatory History of Present Illness HPI Narrative: Patient is a 60-year-old female with pacemaker for V-tach presenting today with weakness. She reports that yesterday she had an episode where her legs kind of collapsed and gave out from under her. She did not hit her head she denied any chest pain or palpitations. She denies any shortness of breath. No nausea or vomiting no fevers. Her pacemaker device showed a red light today it did transmit from home. She was instructed to come to the ED by PCP nurse. At this time she has no complaints. Related Data Home Medications ?Medication ?Instructions ?Recorded ?Confirmed BD Ultra Fine Pen Tips 28G x 1/2 03/28/21 02/10/25 apixaban 5 mg tablet (Eliquis) 5 mg PO BID 12/08/24 02/10/25 metoprolol succinate 25 mg 12.5 mg PO DAILY 12/08/24 02/10/25 tablet,extended release 24 hr polyethylene glycol 3350 17 17 g PO DAILY 12/08/24 02/10/25 gram/dose oral powder (Miralax) prednisolone acetate 1 % eye 1 drp EYE-BOTH QID macular edema 12/08/24 02/10/25 drops,suspension sacubitril 24 mg-valsartan 26 mg 0.5 tab PO BID 12/08/24 02/10/25 tablet spironolactone 25 mg tablet 12.5 mg PO DAILY 12/08/24 02/10/25 Previous Rx's ?Medication ?Instructions ?Recorded lancets 33 gauge (BD Ultra Fine #100 ea 08/02/20 Lancets) blood sugar diagnostic (Blood #100 ea 01/31/21 Glucose Test strips) Parking Permit... #1 ea 07/13/22 venlafaxine 37.5 mg See Rx Instructions .Route 10/07/24 capsule,extended release 24 hr .COMPLEX #90 caps empagliflozin 25 mg tablet 25 mg PO DAILY #90 tabs 12/16/24 (Jardiance) Lantus Solostar U-100 Insulin 100 40 unit (0.4 mL) SUBCUT DAILY #120 01/09/25 unit/mL (3 mL) subcutaneous pen mL (insulin glargine) methocarbamol 500 mg tablet 500 mg PO BID PRN muscle spasm #20 02/10/25 tabs tramadol 50 mg tablet 50 mg PO BID PRN pain #10 tabs 02/10/25 atorvastatin 20 mg tablet 20 mg PO QPM #90 tabs 04/16/25 Allergies Allergy/AdvReac Type Severity Reaction Status Date / Time latex (LATEX) Allergy Severe hives Verified 02/10/25 14:46 adhesive (ADHESIVE) AdvReac Mild rash from Verified 02/10/25 14:46 tape morphine (MORPHINE) AdvReac Mild gi upset Verified 02/10/25 14:46 Sulfa (Sulfonamide AdvReac Mild gi upset Verified 02/10/25 14:46 Antibiotics) (SULFA (SULFONAMIDE ANTIBIOTICS)) Patient History Medical History Colon wall thickening Elevated liver enzymes Major depressive disorder, single episode, mild Myotonic muscular dystrophy Other hemoglobinopathies Hyperparathyroidism Type 2 diabetes mellitus with other specified complication Type 2 diabetes mellitus without complication (09/05/16) Degenerative joint disease (DJD) of hip Hypokalemia Elevated blood pressure reading in office without diagnosis of hypertension Head contusion Impacted cerumen of left ear Right otitis externa Nga syndrome Ptosis Gait instability Herniated nucleus pulposus, L4-5 Chronic low back pain Herpes (2002) Diabetes Hyperlipidemia Surgical History History of colonoscopy with polypectomy (11/05/13) Status post hysteroscopic myomectomy (07/19/12) History of right cataract surgery (08/03/09) History of left cataract surgery (07/20/09) Status post laparoscopic supracervical hysterectomy Family History Father Diabetes mellitus Coronary arteriosclerosis Hyperlipidemia PR (myocardial infarction) Mother Colon cancer Social History marital status: details: Pt. self-employeed. household members: spouse lives independently: Yes occupational status: employed Smoking Status: Never smoker alcohol intake: never substance use type: does not use eating out: rarely or never Type(s) of exercise: walking Smoking Status: Never smoker alcohol intake frequency: other Exam Initial Vital Signs Initial Vital Signs: Vital Signs Temperature 97.6 F 05/20/25 13:01 Pulse Rate 60 05/20/25 13:01 Respiratory Rate 16 05/20/25 13:01 Blood Pressure 140/65 05/20/25 13:01 Pulse Oximetry 98 05/20/25 13:01 Oxygen Delivery Method Room Air 05/20/25 13:01 GENERAL: Alert well-appearing 60-year-old female and in no acute distress. HEENT: Head atraumatic,EOMI, pupils reactive, face symmetric, moist mucous membranes CARDIOVASCULAR: Regular rate and rhythm without murmurs, rubs or gallops. RESPIRATORY: Breath sounds equal bilaterally, no wheezes rales or rhonchi. ABDOMEN: Soft, nontender. Normoactive bowel sounds all 4 quadrants. No guarding or rebound. EXTREMITIES: Normal range of motion, no clubbing or edema. Neurovascularly intact NEUROLOGICAL: Alert and oriented x4.Normal gait and speech. Cranial nerves II through XII grossly intact. SKIN: Warm, dry, no laceration, no petechiae, no rashes or lesions. Course Orders Ordered: ED Orders 05/20/25 13:33 Complete Blood Count AUTO DIFF Stat Comprehensive Metabolic Panel Stat Lipase Stat Magnesium Stat NT-proBNP (BNP-Adult 18+) Stat PTT Partial Thromboplastin Gamal Stat Prothrombin Time INR Stat Troponin I Stat 05/20/25 13:47 XR chest 1V Stat EKG-12 Lead Stat 05/20/25 14:56 US abdomen limited Stat Vital Signs Vital signs: Vital Signs - 8 hr 05/20/25 13:01 05/20/25 13:20 05/20/25 13:30 Temperature 97.6 F Pulse Rate 60 77 60 Respiratory Rate 16 20 23 Blood Pressure 140/65 Pulse Oximetry 98 Oxygen Delivery Method Room Air 05/20/25 14:00 05/20/25 14:14 05/20/25 14:14 Temperature Pulse Rate 62 61 Respiratory Rate Blood Pressure 128/70 Pulse Oximetry 98 Oxygen Delivery Method 05/20/25 14:30 05/20/25 14:33 05/20/25 14:33 Temperature Pulse Rate 60 60 Respiratory Rate 19 28 H Blood Pressure 121/65 Pulse Oximetry 95 96 Oxygen Delivery Method 05/20/25 15:00 05/20/25 15:30 05/20/25 15:58 Temperature Pulse Rate 60 62 62 Respiratory Rate 27 H Blood Pressure Pulse Oximetry 96 99 97 Oxygen Delivery Method 05/20/25 15:58 05/20/25 16:00 Temperature Pulse Rate 61 Respiratory Rate Blood Pressure 117/68 Pulse Oximetry 98 Oxygen Delivery Method MDM - Weakness Lab Data 05/20/25 13:33 05/20/25 13:33 Labs: Lab Results 05/20/25 Range/Units 13:33 WBC 8.3 (4.5-11.0) X10^3/uL RBC 5.44 H (4.0-5.2) X10^6/uL Hgb 15.9 (12.0-16.0) g/dL Hct 46.9 H (36-46) % MCV 86.2 (80-100) fL MCH 29.2 (26-34) PG MCHC 33.9 (30-36) % RDW 13.4 (11.6-14.8) % Plt Count 287 (150-400) X10^3/uL Neut % (Auto) 57.9 (50-75) % Lymph % (Auto) 33.0 (25-40) % Dodge % (Auto) 6.1 (3-14) % Eos % (Auto) 1.6 L (2-4) % Baso % (Auto) 1.4 (0-2) % Neut # (Auto) 4800 (2080-1547) /uL Lymph # (Auto) 2700 (6289-0114) /uL Dodge # (Auto) 500 (0-900) /uL Eos # (Auto) 100 (0-450) /uL Baso # (Auto) 100 (0-100) /uL PT 12.5 (9.4-12.5) SECONDS INR 1.1 (0.9-1.3) APTT 37 H (25.1-36.5) SECONDS Sodium 139 (137-145) mmol/L Potassium 4.3 (3.4-5.1) mmol/L Chloride 109 H (98-107) mmol/L Carbon Dioxide 20 L (22-32) mmol/L BUN 14 (7-17) mg/dL Creatinine 0.48 L (0.52-1.04) mg/dL Estimated GFR > 60 (>60) mL/min BUN/Creatinine Ratio 29.2 H (6-22) Glucose 178 H (70-99) mg/dL Calcium 10.5 H (8.4-10.2) mg/dL Magnesium 2.3 (1.6-2.3) mg/dL Total Bilirubin 1.5 H (0.2-1.3) mg/dL AST 51 H (14-36) IU/L ALT 88 H (<35) IU/L Alkaline Phosphatase 104 (38-126) U/L Troponin I < 0.012 (0.01-0.034) ng/mL NT-Pro-B Natriuret Pep 417 H (<125) pg/mL Total Protein 7.4 (6.3-8.2) g/dL Albumin 4.5 (3.5-5.0) g/dL Globulin 2.9 (1.7-4.1) g/dL Albumin/Globulin Ratio 1.6 (1.0-2.8) Lipase 113 (23-300) U/L Imaging Data Chest x-ray: Radiologist Impression: PROCEDURE: XR CHEST 1V INDICATIONS: chest pain TECHNIQUE: One view of the chest was acquired. COMPARISON: [facility], , XR CHEST 1V, 12/25/2022, 1:26. FINDINGS: Surgical changes and devices: Interval AICD placement Lungs and pleura: Lungs are clear. No pleural effusions or pneumothorax. Mediastinum: Mediastinal contours appear normal. Heart size is normal. Bones and chest wall: No suspicious bony lesions. Overlying soft tissues appear unremarkable. IMPRESSION: No acute cardiopulmonary abnormality is seen. Dictated by: Dhiraj Fleming M.D. on 05/20/2025 at 14:18 US - abdomen: Radiologist Impression: PROCEDURE: US ABDOMEN LIMITED INDICATIONS: ruq elevated bili TECHNIQUE: Real-time focused scanning was performed of the abdomen, with image documentation. COMPARISON: [facility], , XR CHEST 1V, 05/20/2025, 13:47. [facility], , US ABDOMEN LIMITED, 02/24/2025, 12:23. FINDINGS: The liver is normal in size and demonstrates no suspicious lesions. No findings of gallstones or sludge are seen. The gallbladder wall is not thickened, measuring 3 mm or less. No specific pericholecystic fluid is seen. The sonographic Bernal sign is negative. There is no biliary dilatation, the common bile duct measures 1 mm. No significant pancreatic abnormality is seen on these images. IMPRESSION: The gallbladder demonstrates a normal sonographic appearance. No biliary dilatation is seen. Dictated by: Maximino Griffin M.D. on 05/20/2025 at 14:32 ECG Data Attestation: I personally reviewed and interpreted this ECG as follows: Prior ECG tracings: available for review Interpretation: Paced rhythm rate 60 no ischemia no Sgarbossa criteria MDM Narrative Medical decision making narrative: MDM CC: Weakness Complicating co-morbidities: Pacemaker, muscular dystrophy Data collected from: Patient Medical records reviewed: [facility] admission records reviewed Differential considered: Pacemaker abnormality electrolyte abnormality cardiac arrhythmia Exam documented above, pertinent findings include: Alert well-appearing abdomen soft nontender breath sounds equal Lab Test results independently reviewed as above. Pertinent findings: CBC no leukocytosis no anemia CMP no electrolyte abnormality no ZAID I glucose 178 Calcium is 10.7 previously 11 Bilirubin 1.5 AST 51 ALT 88 alk-phos 104 previously bilirubin 0.8 AST 44 an ALT 63 Bilirubin is negative Troponin negative BNP 417 Independently reviewed EKG as above Paced rhythm no arrhythmia or ischemia Imaging studies independently reviewed: No acute cardiopulmonary abnormalities Ultrasound right upper quadrant no abnormalities Consultations: [ ] Treatments: None Re-evaluations: Patient has no right upper quadrant pain. Discussion: Patient is 60-year-old female history of pacemaker on Eliquis presenting today with weakness. Sounds like her legs gave out from under her. She did not hit her head there was no traumatic injury. She is feeling fine today. Pacemaker machine linked a red light. We were unable to connect our pacemaker interrogator here however it was remotely sent. Nursing called pacemaker company no events were found yesterday or today. Blood work is overall reassuring. She has mild elevation of her bilirubin and liver enzymes but somewhat similar to previous. She has no upper abdominal pain nausea or vomiting. Ultrasound is negative. At this time outpatient follow-up Discharge Plan Departure Patient Disposition: Home Clinical Impression: Weakness Instructions: DI for Muscle Weakness Activity Restrictions/Additional Instructions: *You have been diagnosed with weakness *What to do: At this time you do have elevated liver enzymes, may need further evaluation Pacemaker and heart blood work are overall reassuring *Continue to take medications as directed *Follow up with your primary care provider in 2-3 days or call [phone] *Return to ER if you should have increasing chest pain weakness or passing out [or] any new, worsening or concerning symptoms Prescriptions: No Action venlafaxine 37.5 mg capsule,extended release 24hr See Rx Instructions .ROUTE .COMPLEX Qty: 90 3RF Dose Instruction: TAKE 1 CAPSULE BY MOUTH DAILY Rx Instructions: TAKE 1 CAPSULE BY MOUTH DAILY prednisolone acetate 1 % drops,suspension 1 drp EYE-BOTH QID spironolactone 25 mg tablet 12.5 mg PO DAILY sacubitril-valsartan 24-26 mg tablet 0.5 tab PO BID metoprolol succinate 25 mg tablet extended release 24 hr 12.5 mg PO DAILY Rx Instructions: Hold if Systolic Blood Pressure less than 100 or if Heart Rate is less than 60 Eliquis 5 mg tablet 5 mg PO BID polyethylene glycol 3350 [Miralax] 17 gram/dose powder 17 g PO DAILY Rx Instructions: ONLY uses when taking Mounjaro insulin glargine [Lantus Solostar U-100 Insulin] 100 unit/mL (3 mL) insulin pen 40 unit SUBCUT DAILY Qty: 120 2RF atorvastatin 20 mg tablet 20 mg PO QPM Qty: 90 3RF (DME) lancets [BD Ultra Fine Lancets] 33 gauge misc See Rx Instructions .ROUTE .MEDSUPPLY Qty: 100 2RF Rx Instructions: Use to test blood glucose twice daily Jardiance 25 mg tablet 25 mg PO DAILY Qty: 90 3RF (DME) Blood Glucose Test Strip See Rx Instructions .ROUTE .MEDSUPPLY Qty: 100 2RF Rx Instructions: Use to test blood glucose twice daily. (DME) BD Ultra Fine Pen Tips 28G x 1/2 100 package See Rx Instructions .ROUTE .MEDSUPPLY Rx Instructions: Use 1 needle daily with victoza rx (DME) Parking Permit... See Rx Instructions .Route .MEDSUPPLY Qty: 1 0RF Rx Instructions: I find this patient to be medically disabled and qualified for Disabled Parking as indicated, and signed, on the Accompanying Disabled Parking Application for Individuals. tramadol 50 mg tablet 50 mg PO BID PRN (Reason: pain) Qty: 10 0RF methocarbamol 500 mg tablet 500 mg PO BID PRN (Reason: muscle spasm) Qty: 20 0RF Referrals: Rolly Merida MD [Primary Care Provider, Family Practice] Stand Alone Forms: Patient Portal/API
[2025-05-20 14:00] LABS: Alanine Aminotransferase 88 IU/L (<35); Albumin 4.5 g/dL (3.5-5.0); Albumin Globulin Ratio 1.6 (1.0-2.8); Alkaline Phosphatase 104 U/L (38-126); Blood Urea Nitrogen 14 mg/dL (7-17); Calcium 10.5 mg/dL (8.4-10.2); Carbon Dioxide 20 mmol/L (22-32); Chloride 109 mmol/L (98-107); Estimated Glomerular Filt Rate > 60 mL/min (>60); Globulin 2.9 g/dL (1.7-4.1); Glucose 178 mg/dL (70-99); HEMOLYSIS 49 (0-50); Lipase 113 U/L (23-300); Magnesium 2.3 mg/dL (1.6-2.3); Potassium 4.3 mmol/L (3.4-5.1); Sodium 139 mmol/L (137-145); Total Protein 7.4 g/dL (6.3-8.2)
[2025-05-20 14:12] LABS: NT-proBNP (BNP-Adult 18+) 417 pg/mL (<125); Troponin I < 0.012 ng/mL (0.01-0.034)
--- NOTE | 2025-05-20 14:56 | DI.US.S_ITS ---
PROCEDURE: US ABDOMEN LIMITED INDICATIONS: ruq elevated bili TECHNIQUE: Real-time focused scanning was performed of the abdomen, with image documentation. COMPARISON: , CR, XR CHEST 1V, 05/20/2025, 13:47. , US, US ABDOMEN LIMITED, 02/24/2025, 12:23. FINDINGS: The liver is normal in size and demonstrates no suspicious lesions. No findings of gallstones or sludge are seen. The gallbladder wall is not thickened, measuring 3 mm or less. No specific pericholecystic fluid is seen. The sonographic Bernal sign is negative. There is no biliary dilatation, the common bile duct measures 1 mm. No significant pancreatic abnormality is seen on these images. IMPRESSION: The gallbladder demonstrates a normal sonographic appearance. No biliary dilatation is seen. Dictated by: Maximino Grififn M.D. on 05/20/2025 at 14:32 Approved by: Maximino Griffin M.D. on 05/20/2025 at 14:33
--- NOTE | 2025-05-20 14:56 | PC.NURSE ---
Pt presents to ED with c/o pre-syncopal episode yesterday
--- NOTE | 2025-05-20 15:19 | PC.NURSE ---
Pt removed monitoring leads and was requesting to leave. This RN explained that we are waiting for ABD US. Pt agreeable to stay. Agreed to minimal monitoring via spo2 probe on finger.
== END 2025-05-20 16:04 | disposition home or self-care (01) ==
PROVIDERS: Emergency Provider Emergency Medicine; PCP Family Medicine
DX: R53.1 Weakness (principal); R79.89 Other specified abnormal findings of blood chemistry; R07.9 Chest pain, unspecified
CPT/HCPCS: 36415; 71045; 76705; 80053; 83690; 83735; 83880; 84484; 85025; 85610; 85730; 93005; 99283; 99284

== ENCOUNTER → 2025-06-11 14:37 | Outpatient (CLI) | payer MEDICARE, MEDICAID, SELFPAY ==
[2022-12-04 13:26] VITALS: BMI 25.6
[2025-06-11 17:45] LABS: Hemoglobin A1C% w Est Avg Glu 7.9 % (4.0-6.0)
[2025-06-11 18:23] LABS: Alanine Aminotransferase 63 IU/L (<35); Albumin 4.4 g/dL (3.5-5.0); Albumin Globulin Ratio 1.8 (1.0-2.8); Alkaline Phosphatase 105 U/L (38-126); Blood Urea Nitrogen 19 mg/dL (7-17); Calcium 11.2 mg/dL (8.4-10.2); Carbon Dioxide 22 mmol/L (22-32); Chloride 104 mmol/L (98-107); Estimated Glomerular Filt Rate > 60 mL/min (>60); Globulin 2.5 g/dL (1.7-4.1); Glucose 179 mg/dL (70-99); HEMOLYSIS < 15 (0-50); Potassium 4.9 mmol/L (3.4-5.1); Sodium 137 mmol/L (137-145); Total Protein 6.9 g/dL (6.3-8.2)
[2025-06-14 07:36] LABS: Calcium 11.5 mg/dL (8.7-10.3); Parathyroid Hormone, Intact 66 pg/mL (15-65)
== END ==
PROVIDERS: PCP Family Medicine; Referring Provider Family Medicine; Visit Provider Family Medicine
DX: E11.69 Type 2 diabetes mellitus with other specified complication (principal); E04.1 Nontoxic single thyroid nodule; E21.3 Hyperparathyroidism, unspecified
CPT/HCPCS: 80053; 82310; 83036; 83970

== ENCOUNTER → 2025-06-24 15:19 | Outpatient (CLI) | payer MEDICARE, MEDICAID, SELFPAY ==
[2022-12-04 13:26] VITALS: BMI 25.6
== END ==
PROVIDERS: PCP Family Medicine; Referring Provider Family Medicine; Visit Provider Family Medicine
DX: E11.69 Type 2 diabetes mellitus with other specified complication (principal)
CPT/HCPCS: 82043; 82570